=== PATIENT | female | born 1940 | race Caucasian/White ===

== ENCOUNTER 2023-03-10 07:48 | Outpatient (CLI) | payer MEDICARE, BC, SELFPAY | END 2023-03-10 07:49 | disposition home or self-care (01) | LOC: WOUND 07:52 | PROVIDERS: PCP Family Medicine; Visit Provider Nurse Practitioner Family | DX: I87.313 Chronic venous hypertension (idiopathic) with ulcer of bilateral lower extremity (principal); L97.212 Non-pressure chronic ulcer of right calf with fat layer exposed; L97.222 Non-pressure chronic ulcer of left calf with fat layer exposed; L97.828 Non-pressure chronic ulcer of other part of left lower leg with other specified severity; E11.628 Type 2 diabetes mellitus with other skin complications; I89.0 Lymphedema, not elsewhere classified | CPT/HCPCS: 97602; 99203 ==

== ENCOUNTER 2023-03-17 07:54 | Outpatient (CLI) | payer MEDICARE, BC, SELFPAY | END 2023-03-17 07:55 | disposition home or self-care (01) | LOC: WOUND 07:54 | PROVIDERS: PCP Family Medicine; Visit Provider Nurse Practitioner Family | DX: I87.313 Chronic venous hypertension (idiopathic) with ulcer of bilateral lower extremity (principal); L97.222 Non-pressure chronic ulcer of left calf with fat layer exposed; L97.212 Non-pressure chronic ulcer of right calf with fat layer exposed; E11.628 Type 2 diabetes mellitus with other skin complications; I89.0 Lymphedema, not elsewhere classified | CPT/HCPCS: 99213 ==

== ENCOUNTER 2023-03-19 13:36 | Outpatient (CLI) | payer MEDICARE, BC, SELFPAY ==
--- NOTE | 2023-03-19 14:00 | CRLHL7_ITS ---
For Patients: As a result of the Century Cures Act, medical imaging exams and procedure reports are released immediately into your electronic medical record. You may view this report before your referring provider. If you have questions, please contact your health care provider. INDICATION: NON COMPRESSIBLE ABIS TECHNIQUE: Bilateral lower extremity arterial duplex ultrasound with color Doppler and spectral waveform analysis. COMPARISON: None. FINDINGS: Multiple sonographic cuevas-scale images demonstrate atherosclerotic plaque in both lower extremities. Right leg: Systolic velocities are within normal limits. Color Doppler and spectral waveform analysis demonstrates biphasic waveforms are demonstrated throughout with the exception of monophasic flow in the peroneal and anterior tibial arteries. Left leg: Systolic velocities are within normal limits. Color Doppler and spectral waveform analysis demonstrates biphasic waveforms are demonstrated throughout. IMPRESSION: Bilateral atherosclerosis in the lower extremity arteries. No major occlusions or significant stenoses. Dictated by Manan Meza MD @ 03/20/2023 11:05:51 AM (Electronically Signed)
== END 2023-03-19 13:37 | disposition home or self-care (01) ==
LOC: US 13:38
PROVIDERS: PCP Family Medicine; Visit Provider Nurse Practitioner Family
DX: L97.212 Non-pressure chronic ulcer of right calf with fat layer exposed (principal); I70.209 Unspecified atherosclerosis of native arteries of extremities, unspecified extremity; I89.0 Lymphedema, not elsewhere classified; L97.221 Non-pressure chronic ulcer of left calf limited to breakdown of skin
CPT/HCPCS: 93926

== ENCOUNTER 2023-05-05 12:21 | Inpatient (IN) | payer MEDICARE, BC, SELFPAY ==
[2023-05-05] VITALS (15 sets, daily range): BP systolic 119–177; BP diastolic 59–97; PULSE 82–99; RESP 16–18; TEMP 36.6–37.2; O2SAT 91–99; BMI 27.3; BMI 27.8
[2023-05-05 12:58] LABS: Lactate* 1.7 mmol/L (0.5-1.9)
--- NOTE | 2023-05-05 12:58 | CRLHL7_ITS ---
For Patients: As a result of the Century Cures Act, medical imaging exams and procedure reports are released immediately into your electronic medical record. You may view this report before your referring provider. If you have questions, please contact your health care provider. INDICATION: Diffuse abdominal pain. COMPARISON: April 15, 2024 TECHNIQUE: CT examination of the abdomen and pelvis was performed without intravenous contrast. Thin section axial images were obtained from the lung bases through the pubic symphysis. Oral contrast was not administered. Please note that all CT scans at this facility use dose modulation, iterative reconstruction, and/or weight-based dosing when appropriate to reduce radiation dose to as low as reasonably achievable. FINDINGS: LUNG BASES: The lung bases as visualized appear normal.Enlarged heart. Small hiatal hernia. Atherosclerotic vascular calcifications. LIVER/BILIARY SYSTEM:The liver is normal in size and configuration given the lack of intravenous contrast. There is no visible focal mass and there is no intra- or extra hepatic biliary ductal dilatation.Absent gallbladder ADRENALS: Normal non-contrast appearance KIDNEYS, URETERS and BLADDER:The kidneys appear normal given lack of intravenous contrast. No visible mass, calculus or hydronephrosis. The ureters and bladder as visualized appear normal. SPLEEN:Normal non-contrast appearance. PANCREAS: Normal non-contrast appearance. RETROPERITONEUM and MESENTERY: There is no mass, adenopathy or aortic aneurysm. Atherosclerotic vascular calcification GASTROINTESTINAL SYSTEM: Diffusely fluid distended small bowel with air-fluid levels. The distal most small bowel is decompressed. Findings are consistent with a small-bowel obstruction. The point of transition appears to be in the right lower quadrant. Regarding the colon, scattered diverticulosis. PELVIS: Mild free fluid. No free air.. OSSEOUS STRUCTURES and ABDOMINAL WALL: There is an age-appropriate appearance of the osseous structures.No significant abdominal wall defect. OTHER: No free fluid or free air. IMPRESSION: 1. Abnormally dilated small bowel consistent with a distal small-bowel obstruction. The distal most small bowel is decompressed. The point of transition appears to be in the right lower quadrant. No directly visible mass or hernia in this area. 2. Other incidental nonacute appearing findings as above Please note that all CT scans at this facility use dose modulation, iterative reconstruction, and/or weight-based dosing when appropriate to reduce radiation dose to as low as reasonably achievable. Dictated by Ladarius Chan MD @ 05/05/2023 1:31:38 PM (Electronically Signed)
--- OUTSIDE RECORDS SUMMARY | 2023-05-05 12:58 | XMS_ITS | Clinical Summary ---
Author Name Unknown Organization [facility] Address [address] [place] [address] Phone Care Team Providers Care Rn Case Manager Name Role Phone Tim Chanel MD Primary Care Provider [phone] Allergies Active Allergy Reactions Criticality Noted Date Comments Amlodipine Swelling 09/26/2016 Conjugated Estrogens 09/01/2006 intolerance: sore breasts Gabapentin Other (see comments) 08/31/2021 Pt stopped because she did not like the way it made her feal. Medications Medication Sig Dispensed Refills Start Date End Date Status Cyanocobalamin 1000 MCG/ML kit Inject 1,000 mcg into the shoulder, thigh, or buttocks 0 08/07/2022 07/09/2023 Active ofloxacin (OCUFLOX) 0.3 % ophthalmic solution 4 (four) times a day 0 Active levothyroxine (SYNTHROID, LEVOTHROID) 75 MCG tablet Take 75 mcg by mouth 1 (one) time each day 0 08/06/2022 Active metoprolol succinate XL (TOPROL XL) 50 MG 24 hr tablet Take 50 mg by mouth in the morning and 50 mg in the evening. 0 08/06/2022 Active Vyzulta 0.024 % solution Administer 1 drop into affected eye(s) in the morning. 0 04/10/2021 Active warfarin (COUMADIN) 2.5 MG tablet Take 2.5 mg by mouth 0 04/28/2023 Active potassium chloride (K-TAB) 20 MEQ CR tablet Take 20 mEq by mouth 0 08/06/2022 Active prednisoLONE acetate (PRED FORTE) 1 % ophthalmic suspension Administer 1 drop into both eyes in the morning and 1 drop at noon and 1 drop in the evening and 1 drop before bedtime. 0 Active atorvastatin (LIPITOR) 10 MG tablet Take 10 mg by mouth in the morning. 0 08/06/2022 Active allopurinol (ZYLOPRIM) 100 MG tablet Take 100 mg by mouth in the morning. 0 08/06/2022 Active brimonidine (ALPHAGAN) 0.2 % ophthalmic solution Administer 1 drop into affected eye(s) in the morning and 1 drop in the evening. 0 07/20/2019 Active furosemide (LASIX) 20 MG tablet Take 20 mg by mouth 0 08/06/2022 Act georges dorzolamide-timolol (COSOPT) 2-0.5 % ophthalmic solution Administer 1 drop into affected eye(s) in the morning and 1 drop in the evening. 0 04/27/2017 Active VITAMIN D, CHOLECALCIFEROL, PO Take 2,000 Units by mouth 0 Active Active Problems Problem Noted Date Diagnosed Date Essential hypertension 06/11/2018 Stage 3b chronic kidney disease 03/01/2016 Overview: Baseline creatinine as of 12/[address] Rain Vitamin D deficiency 09/11/2010 Overview: She was on Vitamin D3 2000 International Units twice daily when her level came back high. She has been off Vitamin D since 04/2022. Her most recent Vitamin D was 78.4 on 06/2022. Will recheck a level next blood draw. Encounters Date Type Department Care Team Description 05/05/2023 Telephone [facility] [address] [phone] Candice Thompson RN 05/01/2023 Documentation Only [facility] [address] [place] [phone] Max Roach 04/20/2023 Telephone [facility] [address] [phone] Candice Thompson RN 04/20/2023 Office Communication [facility] [address] [place] [phone] Dm Rain MD Acute injury of kidney (HCC) (Primary Dx) from Last 3 Months Family History Medical History Relation Comments Cancer Brother 1 skin Cancer Father prostate at 80 Heart disease Mother of heart di sease at 88 Cancer Mother's Brother some kind of b lood cancer Diabetes Mother's Sister Stroke Sister 2x; of comp lications from stroke at 81 Relation Status Comments Brother 1 Alive Brother 2 Alive Father Mother Mother's Brother Mother's Sister Sister Social History Tobacco Use Types Packs/Day Years Used Date Smoking Tobacco: Never Smokeless Tobacco: Never Tobacco Cessation:Counseling Given: Not Answered Alcohol Use Standard Drinks/Week Comments Not Currently 0 (1 standard drink = 0.6 oz pur e alcohol) none for over 5 months Sex and Gender Information Value Date Recorded Sex Assigned at Not on file Gender Identity Not on file Sexual Orientation Not on file Plan of Treatment Upcoming Encounters Date Type Department Care Team Description 05/14/2023 1:30 PM EST Office Visit [facility] [address] [place] [phone] Dm Rain MD [address] [place] [phone] 05/27/2023 Orders Only [facility] [address] [place] [phone] Dm Rain MD [address] [place] [phone] Acute injury of kidney (HCC) Health Maintenance Due Date Last Done Comments Diabetes: Hemoglobin A1C 04/29/2023 Diabetes: Ophthalmology Exam 04/29/2023 Diabetes: Pedal Pulse Checked 04/29/2023 Diabetes: Sensory Foot Exam 04/29/2023 Diabetes: Visual Foot Exam 04/29/2023 Hepatitis B Vaccine Aged Out 01/30/1993, 08/29/1992, 07/30/1992 No longer eligible based on patient's age to complete this topic Pneumococcal Vaccine: 65+ Years Completed 10/09/2014, 09/11/2010, 01/11/1997 Influenza Vaccine Completed 01/05/2023, , 01/21/2021, Additional history exists Procedures Procedure Name Priority Date/Time Associated Diagnosis Comments BASIC METABOLIC PANEL (BMP) (EXTERNAL LAB ENTRY) Routine 04/27/2023 CBC Routine 04/27/2023 from Last 3 Months Results * (ABNORMAL) Basic Metabolic Panel (BMP) (04/27/2023) Sodium 143 mEq/L [facility] Potassium 3.7 mEq/L [facility] Chloride 105 [facility] Carbon Dioxide 22 mmol/L [facility] Calcium 10.1 mg/dL [facility] BUN 51(H) mg/dL [facility] Creatinine 4.53(H) mg/dL [facility] Glucose 120(H) mg/dL [facility] eGFR 9(L) [facility] Anion Gap 16 [facility] 04/27/2023 Historical Provider MD LAB BLOOD ORDERAB LES [facility] * (ABNORMAL) CBC (04/27/2023) WBC 7.4 K/uL [facility] Red Blood Cell Count 4.79 [facility] Hemoglobin 14.5 g/dL [facility] Hematocrit 42.7 % [facility] MCV 89 [facility] MCH 30.3 [facility] MCHC 34.0 [facility] RDW 15.7(H) [facility] Platelet Count 206 [facility] MPV 11.4(H) [facility] Blood (Blood, Venous) 04/27/2023 Historical Provider MD LAB BLOOD ORDERAB LES [facility] from Last 3 Months Care Teams Rn Case Manager Relationship Specialty Start Date End Date Tim Chanel MD [facility] [place] [address] PCP - General Family Medicine 04/20/23
--- OUTSIDE RECORDS SUMMARY | 2023-05-05 12:58 | XMS_ITS | Clinical Summary ---
Author Name Unknown Organization [email or web address] Address [place], [place] [address] Care Team Providers Care Liquid Floor And Wall Applier Name Role Phone Tay Pearson Heather Unavailable [phone] Tim Chanel MD Primary Care Provider [phone] Veena Mitchell MD Unavailable Allergies Active Allergy Reactions Criticality Noted Date Comments Amlodipine Edema 09/26/2016 Gabapentin Other - Describe In Comment Field 08/31/2021 Pt stopped because she did not like the way it made her feal. Conjugated Estrogens 09/01/2006 intolerance: sore breasts Medications Medication Sig Dispensed Refills Start Date End Date Status dorzolamide-timolol (COSOPT) 2-0.5 % ophthalmic solution Place 1 Drop into right eye 2 times daily. 0 04/27/2017 Active brimonidine (ALPHAGAN) 0.2 % ophthalmic solutionIndications: Eye problem Place 1 Drop into right eye 2 times daily. 5 mL 2 07/20/2019 Active Vyzulta 0.024 % drop Place 1 Drop into right eye at bedtime. 0 04/10/2021 Active allopurinoL (ZYLOPRIM) 100 mg tabletIndications:Id iopathic gout, unspecified chronicity, unspecified site Take 1 Tablet (100 mg) by mouth once daily. 90 Tablet 3 08/06/2022 Active atorvastatin (LIPITOR) 10 mg tabletIndications:Ot her hyperlipidemia Take 1 Tablet (10 mg) by mouth at bedtime. 90 Tablet 3 08/06/2022 Active furosemide (LASIX) 20 mg tabletIndications:Ch ronic heart failure with preserved ejection fraction (HC) Take two tablets per day until wt <175 lbs, then take 1 tablet daily; when you take 2 lasix, take 1 potassium pill 90 Tablet 3 08/06/2022 Active levothyroxine (SYNTHROID) 75 mcg tabletIndications:Ot her specified hypothyroidism Take 1 Tablet (75 mcg) by mouth before breakfast. 90 Tablet 3 08/06/2022 Active metoprolol succinate (TOPROL XL) 50 mg sustained-release tabletIndications:At rial fibrillation with RVR (HC),HTN (hypertension) Take 1 Tablet (50 mg) by mouth two times daily. Wait until they call for this. 180 Tablet 3 08/06/2022 Active potassium chloride (K-TAB) 20 mEq extended-release tabletIndications:Hy pokalemia Take 1 tablet each day that you take two 20mg tablets of lasix 90 Tablet 3 08/06/2022 Active blood sugar diagnostic (Ascensia CONTOUR) stripIndications:Sadia echevarriacolton mellitus with peripheral vascular disease (HC) Dispense test strips covered by the patient insurance. Test 1 times per day. 100 Each 4 08/06/2022 Active cholecalciferol, vitamin D3, (VITAMIN D3 ORAL) Take 2,000 units by mouth. 0 Active ofloxacin 0.3 % ophthalmic (OCUFLOX) 0.3 % ophthalmic solution four times daily. 0 Active prednisoLONE acetate 1% ophthalmic (ECONOPRED PLUS, PRED FORTE, OMNIPRED) suspension Place 1 Drop into both eyes four times daily. 0 Active warfarin (COUMADIN) 2.5 mg tabletIndications:Ne w onset atrial fibrillation (HC),Anticoagulation monitoring, INR range 2-3 Take by mouth 04/28: Hold; 04/29: Hold; 05/06: Hold; 05/07: Hold; 05/08: Hold; 05/09: Hold; 05/10: Hold; Otherwise 7.5 mg every Mon, Wed, Fri; 5 mg all other days in the evening OR as directed 0 04/28/2023 Active triamcinolone (ARISTOCORT; KENALOG) 0.1 % creamIndications:Art h Apply topically to affected area(s) two times daily. Apply topically to affected area twice daily 45 g 2 10/07/2022 4 Discontinue d(*Patient states no longer taking) warfarin (COUMADIN) 2.5 mg tabletIndications:Ne w onset atrial fibrillation (HC),Anticoagulation monitoring, INR range 2-3 Take by mouth 02/17: 7.5 mg; Otherwise 7.5 mg every Mon, Wed, Fri; 5 mg all other days in the evening OR as directed 0 02/17/2023 4 Discontinue d(Reorder (E-cancel not sent)) warfarin (COUMADIN) 2.5 mg tabletIndications:Ne w onset atrial fibrillation (HC),Anticoagulation monitoring, INR range 2-3 Take by mouth 7.5 mg (2.5 mg x 3) every Mon, Wed, Fri; 5 mg (2.5 mg x 2) all other days in the evening OR as directed 0 04/14/2023 4 Discontinue d(Reorder (E-cancel not sent)) Hospital, Clinic, or Other Facility Administered Medication Ordered Dose Route Frequency Start Date End Date Status cyanocobalamin (VITAMIN B12) 1,000 mcg/mL injection 1,000 mcgIndications:Vitam in B12 deficiency 1000 mcg IM Q 4 WEEKS (28 DAYS) 08/07/2022 07/09/2023 Active Active Problems Problem Noted Date Diagnosed Date End stage renal disease 02/06/2023 Recurrent gross hematuria 01/20/2023 Overview: She saw Dr. Richardson of Urology for this in 06/2021 and the work up was negative. He recommended the work up be repeated in 5 years if she is having ongoing gross hematuria. Tim Chanel MD signed electronically .................... 01/20/2023 Diabetes mellitus with peripheral vascular disea se 08/06/2022 Vitamin D deficiency 08/06/2022 Overview: She was on Vitamin D3 2000 International Units twice daily when her level came back high. She has been off Vitamin D since 04/2022. Her most recent Vitamin D was 78.4 on 06/2022. Will recheck a level next blood draw. Secondary renal hyperparathyroidism 04/17/2022 Malignant melanoma of lower extremity, including hip 10/08/2021 Overview: 10/08/21: Left lower leg; Malignant melanoma - needs excision ( scheduled 10/31/21) Vitamin B12 deficiency 09/19/2021 Overview: She was started on B12 shots for this in 09/2021. 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 Adenomatous polyp of colon 09/16/2021 Overview: Last colonoscopy was 09/17/2020 and 3 polyps were removed. She is due for her next Colonoscopy on or after 09/18/2025. Encounter for palliative care 09/02/2021 Acute renal failure superimp osed on stage 4 chronic kidney disease 08/31/2021 Hyperkalemia 08/31/2021 Acute on chronic systolic heart failure 07/31/19 (HFpEF) heart failure with preserved ejection fr action 07/26/2021 Overview: She has combined systolic and diastolic CHF. She was discharged on goal directed therapy for HF on 08/01/21 as follows: lasix 20 mg daily, spironolactone 50 mg daily, lisinopril 10 mg daily, Toprol XL 50 mg BID. 07/28/21 echocardiogram shows ejection fraction 40-45% with concentric left ventricular hypertrophy Prediabetes 04/30/2021 Anticoagulation monitoring, INR range 2-3 2020 New onset atrial fibrillation 08/01/2020 Essential hypertension 06/11/2018 Other specified hypothyroidism 05/28/2018 Other hyperlipidemia 05/28/2018 Bilateral lower extremity edema 12/29/2016 Overview: Baseline weight as of 12/2022 is 173 pounds. Stage 3b chronic kidney disease 03/01/2016 Overview: Baseline creatinine as of 12/[address] Rain Adenomatous colon polyp 09/12/2015 Overview: Colonoscopy 09/2015 polyp repeat in 5 years Colonoscopy 09/2020 three polyps, repeat in 5 years Idiopathic gout 08/15/2015 Hypothyroidism 05/16/2015 Morbid obesity due to excess calories 05/16/2015 Atrial fibrillation with RVR 03/02/2015 Demand ischemia 03/02/2015 Carpal tunnel syndrome of right wrist 10/09/2014 Osteopenia 10/09/2012 Overview: Noted on recent bone mineral density; suggest Calcium+ 2000 mg/day and vitamin D 2000 units/day and regular exercise at least 3 times per week. Needs follow up bone mineral density in 2 years. Ace Tran MD 10/09/2012 2:05 PM Dupuytren's contracture of both hands 10/04/2012 Varicose vein of leg 09/29/2011 CTS (carpal tunnel syndrome) 01/13/2011 Overview: See notes 01/13/2011 Per patient: seen on EMG at [facility] (no records here); improved per patient 05/19/2011 ACP (advance care planning) 11/18/2010 Overview: Discussed 11/18/2010 Again 01/05/2012 Vitamin D deficiency 09/11/2010 Mixed hyperlipidemia 07/23/2010 Numbness of finger 11/27/2008 Overview: left #5 Rosacea 01/05/2007 Restless legs syndrome (RLS) 01/05/2007 Resolved Problems Problem Noted Date Diagnosed Date Resolved Date Anasarca 07/26/2021 11/20/2021 HTN (hypertension) 05/16/2015 9 Encounters Date Type Department Care Team Description 05/04/2023 Telephone [facility] [address] [place] [address] Dm Rain MD 04/30/2023 8:53 AM DIGITAL MEDIA BUYER - 04/30/2023 11:59 PM DIGITAL MEDIA BUYER Hospital Encounter [facility] [address] [place] [address] Dm Rain MD JEFFY (acute kidney injury) (HC); Gross hematuria 04/30/2023 Anticoagulation (warfarin) [facility] [address] [place] [address] 1, [facility] Anticoagulation (Chart update) 04/30/2023 Telephone [facility] [address] [place] [address] Tim Chanel MD Anticoagulation (Questions) 04/30/2023 Travel 04/28/2023 Anticoagulation (warfarin) [facility] [address] [place] [address] 1, [facility] Anticoagulation 04/27/2023 3:30 PM DIGITAL MEDIA BUYER Orders Only [facility] [address] [place] [address] Lab, [facility] 04/27/2023 Travel 04/23/2023 Travel 04/22/2023 2:25 PM DIGITAL MEDIA BUYER Preop Visit [facility] [place] [address] [address] Tim Chanel MD Preoperative Exam (Right eye 05/11/23//Kidney biopsy 04/30/23) 04/22/2023 Travel 04/20/2023 Telephone [facility] [address] [place] [address] Dm Rain MD Abnormal Lab Results 04/19/2023 Travel 04/15/2023 10:30 AM DIGITAL MEDIA BUYER Ancillary Procedure [facility] [place] [address] [address] 04/14/2023 11:50 AM DIGITAL MEDIA BUYER Orders Only [facility] [address] [facility] [place] [address] Lab, [facility] 04/14/2023 Anticoagulation (warfarin) [facility] [address] [place] [address] [address] 1, [facility] Anticoagulation 04/14/2023 Travel 04/12/2023 Travel 04/09/2023 Telephone [facility] [address] [place] [address] Dm Rain MD 03/26/2023 10:00 AM DIGITAL MEDIA BUYER Orders Only [facility] [place] [address] [address] Lab, [facility] 03/26/2023 Telephone [facility] [address] [place] [address] Tim Chanel MD Lab 03/26/2023 Travel 03/24/2023 Nurse Triage [facility] [address] [facility] [address] Tim Chanel MD Blood In Urine 03/22/2023 Travel 03/19/2023 Orders Only [facility] Scanner 1 scan: (1-Ord) [facility], ARTERIAL DUPLEX LE BI, 03/19/2023 03/10/2023 10:30 AM DIGITAL MEDIA BUYER Orders Only [facility] [address] [place] [address] Lab, [place] 03/10/2023 Anticoagulation (warfarin) [facility] [address] [facility] [place] [address] 1, [facility] Anticoagulation 03/10/2023 Travel 03/09/2023 Nurse Triage [facility] [address] [place] [address] Tim Chanel MD Urinary Problem (/) 03/08/2023 Travel 02/17/2023 11:00 AM DIGITAL MEDIA BUYER Orders Only [facility] [address] [place] [address] Lab, [facility] 02/17/2023 10:30 AM DIGITAL MEDIA BUYER Office Visit [facility] [address] [facility] [place] [address] Manan Agarwal MD Follow Up (ECHO done 02/11) 02/17/2023 Anticoagulation (warfarin) [facility] [address] [facility] [place] [address] 1, [facility] Anticoagulation 02/16/2023 Travel 02/11/2023 11:20 AM CDT Orders Only [facility] [address] [facility] [address] Lab, [place] 02/11/2023 10:00 AM CDT Ancillary Procedure [facility] [address] [place] [address] 02/11/2023 Anticoagulation (warfarin) [facility] [address] [place] [address] [address] 1, [facility] Anticoagulation 02/11/2023 Travel 02/09/2023 Travel 02/06/2023 1:00 PM CDT Ancillary Procedure [facility] [address] [place] [address] 02/06/2023 10:25 AM CDT Office Visit [facility] [address] [place] [address] [address] Tim Chanel MD Follow Up (6 month follow up - go over lab results); Immunization/Injectio n; Derm Problem (Check left lower leg for possible infection) 02/06/2023 Telephone [facility] [place] [address] [address] Tim Chanel MD Anticoagulation (BPA Cephalexin and Warfarin) 02/06/2023 Travel 02/04/2023 Travel from Last 3 Months Immunizations Name Administration Dates Next Due AMB INFLUENZA IIV3 (AGE 65+ YRS) PF (Flu Clinic Only) 01/14/2019,01/14/2018,01/14/2017 AMB Influenza, IIV3 (Age >=3 years)(Flu Clinic Only) 02/06/2010,01/17/2009,02/24/2008 Amb Influenza, Inact (High-d ose) (Flu Clinic Only) 01/28/2016 Amb Influenza, Inactivated A IIV4 (Age 65+ Years) Preserv Free 12/29/2019 COVID-19 Vaccine Spikevax (M oderna 50mcg/0.5mL) 12YO+ [id number] Formula PF 02/06/2023 COVID-19 vaccine (Pfizer-Bio NTech 30mcg/0.3mL) 12YO+ BIVALENT PF, MDV 01/15/2022 COVID-19 vaccine (Pfizer-Bio NTech 30mcg/0.3mL) 12YO+ SHANNON-SUCROSE PF, MDV 09/16/2021 COVID-19 vaccine (Pfizer-Bio NTech 30mcg/0.3mL) PF, MDV 02/06/2021,06/16/2020,05/26/2020 Hepatitis A (Adult) 08/05/2006,08/06/2005,2004 Hepatitis B (Adult) 01/30/1993,08/29/1992,1992 Influenza A (H1N1), Inactivated 04/25/2009 Influenza A (H1N1), Inactiva brianna (Age >=3 Years) 04/25/2009 Influenza, High-dose Inactivated 01/28/2016,01/11,01/23/2014 Influenza, IIV3 (Age 6-35 mos) 01/14/2011 Influenza, IIV3 (Age >=3 years) 01/26/20 13,01/05/2012,01/14/2011,2009,01/17/2009,02/24/2008,02/11/2007,04/13/2005,01/30/2005,01/30/2004, 002 Influenza, Inactivated AIIV4 (Age 65+ Years) Preserv Free 01/05/2023,01/15/2022,01/21/2021 Pneumococcal Poly,23-Valent (Pneumovax) 09/11/2010,01/11/1997 Pneumococcal conj 13-Valent (Prevnar 13) 10/09/2014 Td (Age >=7 Years) 09/21/2003 Tdap 12/09/2022,05/19/2011 Typhoid (injectable) 09/25/2005 Yellow Fever 02/25/2008 Zoster (Shingrix-RZV, recombinant) 08/31/2018, Zoster (Zostavax-ZVL, live) 08/05/2006 Family History Medical History Relation Name Comments Cancer Brother 2 Og Skin Ca: Nose not serious Cancer-prostate Father Og of pros waterman cancer at 80 Diabetes Maternal Aunt Heavy Drinker Blood Disease Maternal Uncle Flynn some kind o f Cancer of the blood Heart Disease Mother Rivka of heart disease at 88 Other Other 2 No FHx heart di sease Stroke Sister Estefanía stroke times 2; at complications of stroke at 81. Anesthesia Problem No Family History Cancer-breast No Family History Cancer-ovarian No Family History Relation Name Status Comments Brother 1 Manan Alive Brother 2 Og Alive Father Og (Age 80) Prostate C a Maternal Aunt Maternal Uncle Flynn Mother Rivka (Age 88) Other 1 Parminder (Age 16) Cousin: [place] calderón: of Aplastic Anemia Other 2 Sister Estefanía (Age 81) L[place] Social History Tobacco Use Types Packs/Day Years Used Date Smoking Tobacco: Never Passive Smoke Exposure: Never Smokeless Tobacco: Never Tobacco Cessation:Counseling Given: Yes Alcohol Use Standard Drinks/Week Comments Not Currently 0 (1 standard drink = 0.6 oz pur e alcohol) none for over 5 months PHQ-2 Answer Date Recorded PHQ-2 TOTAL SCORE 0 08/06/2022 Social Connections Answer Date Recorded Frequency of Communication with Friends and Fami ly 0 01/22/2023 Alcohol Use Answer Date Recorded How often do you have a drink containing alcohol ? 4 06/12/2021 How many drinks containing a lcohol do you have on a typical day when you are drinking? 0 06/12/2021 How often do you have five or more drinks on one occasion? 0 06/12/2021 Financial Resource Strain Answer Date R ecorded Difficulty of Paying Living Expenses 3 01/22/2023 Difficulty of Paying Living Expenses Not on file 01/22/2023 Food Insecurity Answer Date Recorded Worried About Running Out of Food in the Last Ye ar 1 01/22/2023 Transportation Needs Answer Date Record ed Lack of Transportation (Medical) 1 01/22/2023 Housing Stability Answer Date Recorded Unable to Pay for Housing in the Last Year 1 01/22/2023 Sex and Gender Information Value Date Recorded Sex Assigned at Not on file Gender Identity Not on file Sexual Orientation Not on file Obstetrics History Para Term AB IAB SAB Ectopic Multiple Livin g Live Births 6 5 5 Date Outcome GA Total Labor Labor/2nd/3rd Weight Sex Delivery Anes PTL Margarita A1 A5 Name Cl in Para Para Para Para Comments:HMD w/i 7 hrs Para Last Filed Vital Signs Vital Sign Reading Time Taken Comments Blood Pressure 135/77 04/30/2023 2:00 PM DIGITAL MEDIA BUYER Pulse 69 04/30/2023 2:00 PM DIGITAL MEDIA BUYER Temperature 36.3 ??C (97.4 ??F) 04/30/2023 9:20 AM CS T Respiratory Rate 14 04/30/2023 2:00 PM DIGITAL MEDIA BUYER Oxygen Saturation 95% 04/30/2023 2:00 PM DIGITAL MEDIA BUYER Inhaled Oxygen Concentration - - Weight 76.7 kg (169 lb) 04/30/2023 9:20 AM DIGITAL MEDIA BUYER Height 165.1 cm (5' 5) 04/30/2023 9:20 AM DIGITAL MEDIA BUYER Body Mass Index 28.12 04/30/2023 9:20 AM DIGITAL MEDIA BUYER Plan of Treatment Upcoming Encounters Date Type Department Care Team (Late st Contact Info) Description 05/12/2023 10:00 AM DIGITAL MEDIA BUYER Office Visit [facility] [address] [place] [address] Veena Mitchell MD [address] [facility] [address] [place] [address] 05/13/2023 10:15 AM DIGITAL MEDIA BUYER Orders Only [facility] [address] [place] [address] [place] 05/18/2023 11:30 AM DIGITAL MEDIA BUYER Orders Only [facility] [address] [place] [address] Lab, [place] 06/26/2023 2:20 PM CDT Office Visit [facility] [address] [place] [address] Tim Chanel MD [address] [place] [address] Health Maintenance Due Date Last Done Comments Medicare Wellness for age 65+ 08/06/2023, 08/07/2021, 08/06/2020, Additional history exists Depression screening for age 12+ 08/07/2023 08/06/2022, 08/06/2022, 08/06/2022, Additional history exists BMI (ht and wt on same day) for age 18+ 01/24/2024 01/23/2023, 12/25/2022, 08/06/2022, Additional history exists Tetanus booster 12/09/2032 12/09/2022, 02/0 09/2011, 09/21/2003 DEXA/DXA scan for age 65+ Completed 2012, 08/31/2007, 08/31/2007 (Completed [facility]) Pneumococcal series for age 65+ Completed 10/09/2014, 09/11/2010, 01/11/1997 Zoster (shingles) series for age 50+ Completed 08/31/2018, 05/29/2018, 08/05/2006 Tdap Completed 12/09/2022, 05/19/2011 Influenza for age 65+ Completed 01/05/2023 , 01/15/2022, 01/21/2021, Additional history exists COVID-19 vaccine series Completed 02/07/20 23, 01/15/2022, 09/16/2021, Additional history exists Procedures Procedure Name Priority Date/Time Associated Diagnosis Comments US BIOPSY RENAL LEFT Routine 04/30/2023 11:15 AM DIGITAL MEDIA BUYER JEFFY (acute kidney injury) (HC) Gross hematuria PATH TISSUE EXAM Today 04/30/2023 11:0 0 AM DIGITAL MEDIA BUYER PROTIME-INR STAT 04/30/2023 9:02 AM DIGITAL MEDIA BUYER CBC W PLT NO DIFF Routine 04/27/2023 3:3 3 PM DIGITAL MEDIA BUYER Stage 3b chronic kidney disease (HC) JEFFY (acute kidney injury) (HC) BASIC METABOLIC PANEL Routine 04/27/2023 3:33 PM DIGITAL MEDIA BUYER Stage 3b chronic kidney disease (HC) JEFFY (acute kidney injury) (HC) PROTIME-INR STAT 04/27/2023 3:33 PM DIGITAL MEDIA BUYER New onset atrial fibrillation (HC) Anticoagulation monitoring, INR range 2-3 CT ABDOMEN PELVIS STONE PROTOCOL WO Routine 04/15/2023 10:45 AM DIGITAL MEDIA BUYER CKD (chronic kidney disease) stage 4, GFR 15-29 ml/min (HC) Gross hematuria CBC WITH AUTO DIFFERENTIAL Routine 04/14/2023 11:51 AM DIGITAL MEDIA BUYER CKD (chronic kidney disease) stage 4, GFR 15-29 ml/min (HC) Gross hematuria [facility] HOLD 64 Routine 04/14/2023 11:51 AM DIGITAL MEDIA BUYER CKD (chronic kidney disease) stage 4, GFR 15-29 ml/min (HC) Gross hematuria ANCA PANEL FOR VASCULITIS Routine 04/14/2023 11:51 AM DIGITAL MEDIA BUYER CKD (chronic kidney disease) stage 4, GFR 15-29 ml/min (HC) Gross hematuria ANTINUCLEAR ANTIBODY BY IFA Routine 04/14/2023 11:51 AM DIGITAL MEDIA BUYER CKD (chronic kidney disease) stage 4, GFR 15-29 ml/min (HC) Gross hematuria C4 COMPLEMENT Routine 04/14/2023 11:51 AM DIGITAL MEDIA BUYER CKD (chronic kidney disease) stage 4, GFR 15-29 ml/min (HC) Gross hematuria C3 COMPLEMENT Routine 04/14/2023 11:51 AM DIGITAL MEDIA BUYER CKD (chronic kidney disease) stage 4, GFR 15-29 ml/min (HC) Gross hematuria HEPATIC FUNCTION PANEL Routine 04/14/2023 11:51 AM DIGITAL MEDIA BUYER CKD (chronic kidney disease) stage 4, GFR 15-29 ml/min (HC) Gross hematuria CBC WITH AUTO DIFFERENTIAL Routine 04/14/2023 11:51 AM DIGITAL MEDIA BUYER CKD (chronic kidney disease) stage 4, GFR 15-29 ml/min (HC) Gross hematuria RENAL FUNCTION PANEL Routine 04/14/2023 11:51 AM DIGITAL MEDIA BUYER CKD (chronic kidney disease) stage 4, GFR 15-29 ml/min (HC) Gross hematuria PROTIME-INR STAT 04/14/2023 11:51 AM DIGITAL MEDIA BUYER New onset atrial fibrillation (HC) Anticoagulation monitoring, INR range 2-3 URINALYSIS MICROSCOPIC Routine 03/26/2023 10:15 AM DIGITAL MEDIA BUYER Recurrent gross hematuria URINE CULTURE Routine 03/26/2023 10:15 AM DIGITAL MEDIA BUYER Recurrent gross hematuria UA W/ SEDIMENT EXAM REFLEXED PER CRITERIA Routine 03/26/2023 10:15 AM DIGITAL MEDIA BUYER Recurrent gross hematuria VITAMIN B12 Add On 03/26/2023 10:12 AM DIGITAL MEDIA BUYER Vitamin B12 deficiency BASIC METABOLIC PANEL Routine 03/26/2023 10:12 AM DIGITAL MEDIA BUYER Stage 3b chronic kidney disease (HC) SCAN-ULTRASOUND REPORT 03/19/2023 12:00 AM DIGITAL MEDIA BUYER URINALYSIS MICROSCOPIC Routine 03/10/2023 11:02 AM DIGITAL MEDIA BUYER Gross hematuria URINE CULTURE Routine 03/10/2023 11:02 AM DIGITAL MEDIA BUYER Gross hematuria UA W/ SEDIMENT EXAM REFLEXED PER CRITERIA Routine 03/10/2023 11:02 AM DIGITAL MEDIA BUYER Gross hematuria INR,POCT Routine 03/10/2023 11:00 AM DIGITAL MEDIA BUYER New onset atrial fibrillation (HC) Anticoagulation monitoring, INR range 2-3 VITAMIN B12 Routine 02/17/2023 11:07 AM DIGITAL MEDIA BUYER Vitamin B12 deficiency BASIC METABOLIC PANEL Routine 02/17/2023 11:07 AM DIGITAL MEDIA BUYER Peripheral edema PROTIME-INR STAT 02/17/2023 11:07 AM DIGITAL MEDIA BUYER New onset atrial fibrillation (HC) Anticoagulation monitoring, INR range 2-3 INR,POCT Routine 02/11/2023 10:39 AM CDT New onset atrial fibrillation (HC) Anticoagulation monitoring, INR range 2-3 ECHO TTE COMPLETE WO CONTRAST Routine 02/11/2023 10:32 AM CDT Persistent atrial fibrillation (HC) US VENOUS LOWER EXTREMITY LEFT Routine 02/06/2023 12:22 PM CDT Tenderness of left calf from Last 3 Months Results * US BIOPSY RENAL LEFT (04/30/2023 11:15 AM DIGITAL MEDIA BUYER) Anatomical Region Laterality Modality KIDNEY L Ultrasound, Othe r, Other, Other 04/30/2023 11:3 1 AM DIGITAL MEDIA BUYER Narrative 04/30/2023 11:31 AM DIGITAL MEDIA BUYER For Patients: ??As a result of the Century Cures Act, medical imaging exams and procedure reports are released immediately into your electronic medical record. ??You may view this report before your referring provider. ??If you have questions, please contact your health care provider. INDICATION: Acute kidney injury. Gross hematuria. Random core biopsy of the left kidney requested. TECHNIQUE : Ultrasound biopsy renal left. COMPARISON: CT of the abdomen and pelvis 04/15/2023. FINDINGS/DESCRIPTION OF PROCEDURE : In my discussion, prior to the signing of the consent, I reviewed the procedure, benefits, risks, long-term effects, treatment options, possible use of pain or sedation medications, and how the procedure will meet the treatment goal with the patient. The patient was given ample time to ask questions. All questions were answered. ??MEDICATION GIVEN: VERSED 0.5 mg IV and FENTANYL 50 mcg IV. Lidocaine for local anesthesia. ?? MODERATE SEDATION: ??Under physician supervision, midazolam and fentanyl were administered intravenously for moderate sedation. Pulse oximetry, heart rate, and blood pressure were continuously monitored by a trained, dedicated nurse. The physician who performed the procedure provided 25 minutes of intra-service time with the patient. With the patient in prone position, ultrasound evaluation was performed. Posterior approach to the left kidney was chosen. The site was marked, and then prepped and draped in sterile fashion. [place] protocol was followed. TIME-OUT conducted just prior to starting procedure confirmed patient identity, site/side, procedure, patient position, and availability of correct equipment. ??Pause for cause was performed. 10 cc 1 percent lidocaine was used for superficial and deeper anesthesia. Under ultrasound guidance, a 17-gauge guide needle was advanced to the kidney. Through this, an 18-gauge core biopsy was advanced and 3 core samples were obtained. Manual compression was maintained on the site for 5 minutes postprocedure. No immediate complications. The patient will recover in the supine position and will be observed for at least 4 hours postprocedure prior to potential discharge. EBL less than 10 cc. IMPRESSION/POSTPROCEDURE DIAGNOSIS : 1. Status post random core biopsy of the left kidney x3 with 17/18 gauge coaxial core biopsy system. 2. No immediate complications. 3. Moderate sedation planned and used. Dictated by Dada Dietrich MD @ 04/30/2023 11:31:08 AM (Electronically Signed) Procedure Note Dada Dietrich MD - 04/30/2023 For Patients: As a result of the 21st Century Cures Act, medical imagingexams and procedure reports are released immediately into your electronicmedical record. You may view this report before your referring provider.If you have questions, please contact your health care provider. INDICATION: Acute kidney injury. Gross hematuria. Random core biopsy of the leftkidney requested. TECHNIQUE : Ultrasound biopsy renal left. COMPARISON: CT of the abdomen and pelvis 04/15/2023. FINDINGS/DESCRIPTION OF PROCEDURE : In my discussion, prior to the signing of the consent, I reviewed theprocedure, benefits, risks, long-term effects, treatment options, possibleuse of pain or sedation medications, and how the procedure will meet thetreatment goal with the patient. The patient was given ample time to askquestions. All questions were answered. MEDICATION GIVEN: VERSED 0.5 mgIV and FENTANYL 50 mcg IV. Lidocaine for local anesthesia. MODERATE SEDATION: Under physician supervision, midazolam and fentanylwere administered intravenously for moderate sedation. Pulse oximetry,heart rate, and blood pressure were continuously monitored by a trained,dedicated nurse. The physician who performed the procedure provided 25minutes of intra-service time with the patient. With the patient in prone position, ultrasound evaluation was performed.Posterior approach to the left kidney was chosen. The site was marked, andthen prepped and draped in sterile fashion. [place] protocol was followed. TIME-OUT conducted just prior to startingprocedure confirmed patient identity, site/side, procedure, patientposition, and availability of correct equipment. Pause for cause wasperformed. 10 cc 1 percent lidocaine was used for superficial and deeper anesthesia.Under ultrasound guidance, a 17-gauge guide needle was advanced to thekidney. Through this, an 18-gauge core biopsy was advanced and 3 coresamples were obtained. Manual compression was maintained on the site for 5minutes postprocedure. No immediate complications. The patient willrecover in the supine position and will be observed for at least 4 hourspostprocedure prior to potential discharge. EBL less than 10 cc. IMPRESSION/POSTPROCEDURE DIAGNOSIS : 1. Status post random core biopsy of the left kidney x3 with 17/18 gaugecoaxial core biopsy system. 2. No immediate complications. 3. Moderate sedation planned and used. Dictated by Dada Dietrich MD @ 04/30/2023 11:31:08 AM (Electronically Signed) Dm Rain MD [place] * Protime-INR (04/30/2023 9:02 AM DIGITAL MEDIA BUYER) Only the most recent of4 resultswithin the time period is included. INR 1.0 <1.3 04/30/2023 9:39 AM [facility] PROTIME 11.7 10.3 - 12.3 sec 04/30/2023 9:39 AM DIGITAL MEDIA BUYER [facility] Blood BLOOD SPECIMEN / Unknown Venipuncture / Unknown 04/30/2023 9:02 AM DIGITAL MEDIA BUYER 04/30/2023 9:27 AM DIGITAL MEDIA BUYER Narrative [facility] - 04/30/2023 9:39 AM DIGITAL MEDIA BUYER ?Therapeutic Range 2.0-3.0 for most anticoagulated patients 2.5-3.5 or 4.0 for high risk patients The INR is only used for patients on stable oral anticoagulant therapy. It makes no significant contribution to the diagnosis or treatment of patients whose Protime is prolonged for other reasons. INR results are increased when heparin levels exceed 1.0 U/mL, which corresponds to an aPTT >125 seconds if the patient is on UFH. Dada Dietrich MD HEMATOLOGY [facility] [address] [address], * (ABNORMAL) CBC (04/27/2023 3:33 PM DIGITAL MEDIA BUYER) WHITE BLOOD COUNT 7.4 4.5 - 11.0 thou/cu mm 04/27/2023 3:42 PM DIGITAL MEDIA BUYER [facility] RED BLOOD COUNT 4.79 4.00 - 5.20 mil/cu mm 04/27/2023 3:42 PM DIGITAL MEDIA BUYER [facility] HEMOGLOBIN 14.5 12.0 - 16.0 g/dL 04/27/2023 3:42 PM DIGITAL MEDIA BUYER [facility] HEMATOCRIT 42.7 33.0 - 51.0 % 04/27/2023 3:42 PM DIGITAL MEDIA BUYER [facility] MCV 89 80 - 100 fL 04/27/2023 3:42 PM DIGITAL MEDIA BUYER [facility] MCH 30.3 26.0 - 34.0 pg 04/27/2023 3:42 PM DIGITAL MEDIA BUYER [facility] MCHC 34.0 32.0 - 36.0 g/dL 04/27/2023 3:42 PM [facility] RDW 15.7(H) 11.5 - 15.5 % 04/27/2023 3:42 PM DIGITAL MEDIA BUYER [facility] PLATELET COUNT 209 140 - 440 thou/cu mm 04/27/2023 3:42 PM [facility] MPV 11.4(H) 6.5 - 11.0 fL 04/27/2023 3:42 PM [facility] Blood BLOOD SPECIMEN / Unknown Venipuncture / Unknown 04/27/2023 3:33 PM DIGITAL MEDIA BUYER 04/27/2023 3:38 PM DIGITAL MEDIA BUYER Narrative [facility] - 04/27/2023 3:42 PM DIGITAL MEDIA BUYER This procedure was originally ordered at [facility]. Dm Rain MD HEMATOLOGY [facility] [address] [place] [address], * (ABNORMAL) BASIC METABOLIC PANEL (04/27/2023 3:33 PM DIGITAL MEDIA BUYER) Only the most recent of3 resultswithin the time period is included. SODIUM 143 136 - 145 mmol/L 04/28/2023 2:17 PM [facility] POTASSIUM 3.7 3.5 - 5.1 mmol/L 04/28/2023 2:17 PM [facility] CHLORIDE 105 98 - 107 mmol/L 04/28/2023 2:17 PM [facility] CO2,TOTAL 22 22 - 29 mmol/L 04/28/2023 2:17 PM [facility] ANION GAP 16 5 - 18 04/28/2023 2:17 PM DIGITAL MEDIA BUYER [facility] GLUCOSE 120(H) 70 - 99 mg/dL 04/28/2023 2:17 PM [facility] CALCIUM 10.1 8.8 - 10.2 mg/dL 04/28/2023 2:17 PM [facility] BUN 51(H) 8 - 23 mg/dL 04/28/2023 2:17 PM [facility] CREATININE 4.53(H) 0.50 - 0.90 mg/dL 04/28/2023 2:17 PM [facility] BUN/CREAT RATIO 11 10 - 20 2:17 PM [facility] eGFR 9(L) >90 mL/min/1.7 3m2 04/28/2023 2:17 PM [facility] Comment:As of 2021, eG FR is calculated by the CKD-EPI creatinine equation without race adjustment. ??eGFR can be influenced by muscle mass, exercise, and diet. ??The reported eGFR is an estimation only and is only applicable if the renal function is stable. Blood BLOOD SPECIMEN / Unknown Venipuncture / Unknown 04/27/2023 3:33 PM DIGITAL MEDIA BUYER 04/27/2023 3:38 PM DIGITAL MEDIA BUYER Dm Rain MD CHEMISTRY [facility] [address] [place] [address], * CT ABDOMEN PELVIS STONE PROTOCOL WO (04/15/2023 10:45 AM DIGITAL MEDIA BUYER) Anatomical Region Laterality Modality Abdomen, Pelvis, AORTA, LIVER, SPLEEN Computed Tomography 04/16/2023 10:2 9 AM DIGITAL MEDIA BUYER Narrative 04/16/2023 10:29 AM DIGITAL MEDIA BUYER For Patients: ??As a result of the Century Cures Act, medical imaging exams and procedure reports are released immediately into your electronic medical record. ??You may view this report before your referring provider. ??If you have questions, please contact your health care provider. Indication: Hematuria Technique: Noncontrast CT abdomen and pelvis Please note that all CT scans at this facility use dose modulation, iterative reconstruction, and/or weight-based dosing when appropriate to reduce radiation dose to as low as reasonably achievable. Comparison: 02/19/2021 Findings: Lung bases are clear. Incidental Bochdalek`s hernia on the left. No free intraperitoneal air. Cardiomegaly. Mild fatty liver. Gallbladder absent. Spleen is normal. Unremarkable pancreas. No adrenal nodule. Punctate calcifications lower pole right kidney. No hydronephrosis. Atherosclerotic changes. No pelvic mass. Diverticulosis. No diverticulitis. No bowel obstruction. No adenopathy. Chronic osteitis pubis. No fracture. Degenerative changes lumbar spine. Diastasis recti measuring 3 cm. Impression: Punctate nonobstructing calculi lower pole right kidney. No ureteral or bladder stone. Bladder incompletely distended with mild prominence of the bladder wall, possibly secondary to the low bladder volume. Please note that all CT scans at this facility use dose modulation, iterative reconstruction, and/or weight-based dosing when appropriate to reduce radiation dose to as low as reasonably achievable. Dictated by Manan Meza MD @ Jose ??4 2023 10:29AM (Electronically Signed) ?? Procedure Note Manan Meza MD - 04/16/2023 For Patients: As a result of the Century Cures Act, medical imagingexams and procedure reports are released immediately into your electronicmedical record. You may view this report before your referring provider.If you have questions, please contact your health care provider. Indication: Hematuria Technique: Noncontrast CT abdomen and pelvis Please note that all CT scans at this facility use dose modulation,iterative reconstruction, and/or weight-based dosing when appropriate toreduce radiation dose to as low as reasonably achievable. Comparison: 02/19/2021 Findings: Lung bases are clear. Incidental Bochdalek`s hernia on the left. No freeintraperitoneal air. Cardiomegaly. Mild fatty liver. Gallbladder absent.Spleen is normal. Unremarkable pancreas. No adrenal nodule. Punctatecalcifications lower pole right kidney. No hydronephrosis. Atheroscleroticchanges. No pelvic mass. Diverticulosis. No diverticulitis. No bowelobstruction. No adenopathy. Chronic osteitis pubis. No fracture.Degenerative changes lumbar spine. Diastasis recti measuring 3 cm. Impression: Punctate nonobstructing calculi lower pole right kidney. No ureteral orbladder stone. Bladder incompletely distended with mild prominence of thebladder wall, possibly secondary to the low bladder volume. Please note that all CT scans at this facility use dose modulation,iterative reconstruction, and/or weight-based dosing when appropriate toreduce radiation dose to as low as reasonably achievable. Dictated by Manan Meza MD @ Apr 16 2023 10:29AM (Electronically Signed) Dm Rain MD CT * (ABNORMAL) ANTINUCLEAR ANTIBODY BY IFA (04/14/2023 11:51 AM DIGITAL MEDIA BUYER) Pathologist [facility] ANTINUCLEAR ANTIBODY (MAYUR) Positive( A) Negative 04/15/2023 1:12 PM DIGITAL MEDIA BUYER [facility] MAYUR PATTERN 1 Homogenou s(A) (none) 04/15/2023 1:12 PM DIGITAL MEDIA BUYER [facility] MAYUR TITER 1 1:320(A) (none) 04/15/2023 1:12 PM DIGITAL MEDIA BUYER [facility] Blood BLOOD SPECIMEN / Unknown Venipuncture / Unknown 04/14/2023 11:51 AM DIGITAL MEDIA BUYER 04/14/2023 11:51 AM DIGITAL MEDIA BUYER Narrative [facility] - 04/15/2023 1:12 PM DIGITAL MEDIA BUYER Method: MAYUR screen performed by (IFA) on HEP-2 substrate, IgG Dm Rain MD [facility] [address] [place] [address], * ANTIGLOMERULAR BASEMENT MEMBRANE ANTIBODIES (04/14/2023 11:51 AM DIGITAL MEDIA BUYER) Pathologist [facility] Glomerular BM Ab <0.2 0.0 - 0.9 units 04/16/2023 7:07 PM DIGITAL MEDIA BUYER [facility]) Blood BLOOD SPECIMEN / Unknown Venipuncture / Unknown 04/14/2023 11:51 AM DIGITAL MEDIA BUYER 04/14/2023 11:51 AM DIGITAL MEDIA BUYER Narrative [facility] ([facility]) - 04/16/2023 7:07 PM DIGITAL MEDIA BUYER Performed at: ??01 - [facility] [address] [place] [address] ??[phone] Bookkeeping Assistant: Nazanin Tucker MD, Phone: ??[phone] Dm Rain MD SEND OUTS [facility] ([facility]) [address] [place] [id number], * (ABNORMAL) CBC WITH AUTO DIFFERENTIAL (04/14/2023 11:51 AM DIGITAL MEDIA BUYER) WHITE BLOOD COUNT 6.0 4.5 - 11.0 thou/cu mm 04/14/2023 12:01 PM [facility] RED BLOOD COUNT 5.36(H) 4.00 - 5.20 mil/cu mm 04/14/2023 12:01 PM [facility] HEMOGLOBIN 15.6 12.0 - 16.0 g/dL 04/14/2023 12:01 PM [facility] HEMATOCRIT 48.0 33.0 - 51.0 % 04/14/2023 12:01 PM [facility] MCV 90 80 - 100 fL 04/14/2023 12:01 PM [facility] MCH 29.1 26.0 - 34.0 pg 04/14/2023 12:01 PM [facility] MCHC 32.5 32.0 - 36.0 g/dL 04/14/2023 12:01 PM [facility] RDW 15.1 11.5 - 15.5 % 04/14/2023 12:01 PM [facility] PLATELET COUNT 200 140 - 440 thou/cu mm 04/14/2023 12:01 PM [facility] MPV 11.0 6.5 - 11.0 fL 04/14/2023 12:01 PM [facility] % NEUT 67.4 % 04/14/2023 12:01 PM [facility] % LYMPH 19.9 % 04/14/2023 12:01 PM [facility] % MONO 7.7 % 04/14/2023 12:01 PM [facility] % EOS 4.2 % 04/14/2023 12:01 PM [facility] % BASO 0.8 % 04/14/2023 12:01 PM [facility] ABSOLUTE NEUTROPHILS 4.0 1.7 - 7.0 thou/cu mm 04/14/2023 12:01 PM [facility] ABSOLUTE LYMPHOCYTES 1.2 0.9 - 2.9 thou/cu mm 04/14/2023 12:01 PM [facility] ABSOLUTE MONOCYTES 0.5 <0.9 thou/cu mm 04/14/2023 12:01 PM [facility] ABSOLUTE EOSINOPHILS 0.3 <0.5 thou/cu mm 04/14/2023 12:01 PM [facility] ABSOLUTE BASOPHILS 0.1 <0.3 thou/cu mm 04/14/2023 12:01 PM [facility] Blood BLOOD SPECIMEN / Unknown Venipuncture / Unknown 04/14/2023 11:51 AM DIGITAL MEDIA BUYER 04/14/2023 11:51 AM [facility] - 04/14/2023 12:01 PM [facility] This procedure was originally ordered at [facility]. Dm Rain MD HEMATOLOGY [facility] [address] [place] [address] * ANCA PANEL FOR VASCULITIS (04/14/2023 11:51 AM [facility]) [facility] ANCA Negative Negative 04/15/2023 1:24 PM [facility] Comment: Atypical ANCA cannot be ruled out due to presence of MAYUR on screening.?? MAYUR screen results are not valid for diagnosis of Autoimmune Disease.?? Order MAYUR testing for further evaluation as clinically indicated. Blood BLOOD SPECIMEN / Unknown Venipuncture / Unknown 04/14/2023 11:51 AM DIGITAL MEDIA BUYER 04/14/2023 11:51 AM DIGITAL MEDIA BUYER Dm Rain MD SEND OUTS Performing Organization Address [facility] Co de Phone Number [facility] [address] [place] [address], [place] * C3 COMPLEMENT (04/14/2023 11:51 AM DIGITAL MEDIA BUYER) C3 COMPLEMENT 121.91 81.10 - 157.00 mg/dL 04/15/2023 12:59 PM DIGITAL MEDIA BUYER [facility] Blood BLOOD SPECIMEN / Unknown Venipuncture / Unknown 04/14/2023 11:51 AM DIGITAL MEDIA BUYER 04/14/2023 11:51 AM DIGITAL MEDIA BUYER Dm Rain MD CHEMISTRY Performing Organization Address [facility] de Phone Number [facility] [address] [place] [address], [place] * C4 COMPLEMENT (04/14/2023 11:51 AM DIGITAL MEDIA BUYER) C4 Complement 31.92 12.90 - 39.20 mg/dL 04/15/2023 1:00 PM DIGITAL MEDIA BUYER [facility] Blood BLOOD SPECIMEN / Unknown Venipuncture / Unknown 04/14/2023 11:51 AM DIGITAL MEDIA BUYER 04/14/2023 11:51 AM DIGITAL MEDIA BUYER Dm Rain MD CHEMISTRY Performing Organization Address [facility] Co de Phone Number [facility] [address] [place] [address], [place] * (ABNORMAL) HEPATIC FUNCTION PANEL (04/14/2023 11:51 AM DIGITAL MEDIA BUYER) ALBUMIN 4.3 4.0 - 4.9 g/dL 04/14/2023 12:19 PM DIGITAL MEDIA BUYER [facility] PROTEIN,TOTAL 7.7 6.0 - 8.0 g/dL 04/14/2023 12:19 PM DIGITAL MEDIA BUYER [facility] BILIRUBIN,TOTAL 0.9 0.0 - 1.2 mg/dL 04/14/2023 12:19 PM [facility] BILIRUBIN,DIRECT 0.3 0.0 - 0.3 mg/dL 04/14/2023 12:19 PM [facility] BILIRUBIN,INDIRE CT 0.6 0.2 - 0.8 mg/dL 04/14/2023 12:19 PM [facility] ALK PHOSPHATASE 154(H) 35 - 104 IU/L 04/14/2023 12:19 PM [facility] ALT (SGPT) 13 10 - 35 IU/L 04/14/2023 12:19 PM [facility] AST (SGOT) 29 10 - 35 IU/L 04/14/2023 12:19 PM [facility] Blood BLOOD SPECIMEN / Unknown Venipuncture / Unknown 04/14/2023 11:51 AM DIGITAL MEDIA BUYER 04/14/2023 11:51 AM [facility] Dm Rain MD CHEMISTRY [facility] [address] [place] [id number] * (ABNORMAL) RENAL FUNCTION PANEL (04/14/2023 11:51 AM [facility]) SODIUM 143 136 - 145 mmol/L 04/14/2023 12:19 PM [facility] POTASSIUM 3.5 3.5 - 5.1 mmol/L 04/14/2023 12:19 PM [facility] CHLORIDE 105 98 - 107 mmol/L 04/14/2023 12:19 PM [facility] CO2,TOTAL 23 22 - 29 mmol/L 04/14/2023 12:19 PM [facility] ANION GAP 15 5 - 18 04/14/2023 12:19 PM [facility] GLUCOSE 116(H) 70 - 99 mg/dL 04/14/2023 12:19 PM [facility] CALCIUM 10.1 8.8 - 10.2 mg/dL 04/14/2023 12:19 PM [facility] BUN 56(H) 8 - 23 mg/dL 04/14/2023 12:19 PM [facility] CREATININE 4.25(H) 0.50 - 0.90 mg/dL 04/14/2023 12:19 PM [facility] BUN/CREAT RATIO 13 10 - 20 4 12:19 PM [facility] eGFR 10(L) >90 mL/min/1.7 3m2 04/14/2023 12:19 PM [facility] Comment:As of 2021, eG FR is calculated by the CKD-EPI creatinine equation without race adjustment. ??eGFR can be influenced by muscle mass, exercise, and diet. ??The reported eGFR is an estimation only and is only applicable if the renal function is stable. PHOSPHORUS 5.0(H) 2.5 - 4.5 mg/dL 04/14/2023 12:19 PM [facility] ALBUMIN 4.3 4.0 - 4.9 g/dL 04/14/2023 12:19 PM [facility] Blood BLOOD SPECIMEN / Unknown Venipuncture / Unknown 04/14/2023 11:51 AM DIGITAL MEDIA BUYER 04/14/2023 11:51 AM [facility] Dm Rain MD CHEMISTRY [facility] [address] [place] [address] * (ABNORMAL) URINALYSIS MICROSCOPIC (03/26/2023 10:15 AM [facility]) Only the most recent of2 resultswithin the time period is included. RBC >100(A) 0-2, None Seen /HPF 03/26/2023 10:25 AM [facility] WBC 0-2 0-2, 3-5, None Seen /HPF 03/26/2023 10:25 AM [facility] BACTERIA Many(A) None Seen, Rare, Few Bacteria/H PF 03/26/2023 10:25 AM [facility] EPITHELIAL CELLS Few None Seen, Few Epi/HPF 03/26/2023 10:25 AM DIGITAL MEDIA BUYER [facility] Urine URINE SPECIMEN / Unknown Non-Blood / Unknown 03/26/2023 10:15 AM DIGITAL MEDIA BUYER 03/26/2023 10:15 AM DIGITAL MEDIA BUYER Tim Chanel MD URINE Performing Organization Address City/[facility]/ZIP Co de Phone Number [facility] [address] [place] [address], * URINE CULTURE (03/26/2023 10:15 AM DIGITAL MEDIA BUYER) Only the most recent of2 resultswithin the time period is included. CULTURE No growth (<1,000 CFU/mL) 03/27/2023 3:10 PM DIGITAL MEDIA BUYER [facility] Urine URINE SPECIMEN / Unknown Non-Blood / Unknown 03/26/2023 10:15 AM DIGITAL MEDIA BUYER 03/26/2023 10:15 AM DIGITAL MEDIA BUYER Tim Chanel MD MICROBIOLOGY Performing Organization Address City/[facility]/ZIP Co de Phone Number [facility] [address] [place] [address], [place] * (ABNORMAL) UA W/ SEDIMENT EXAM REFLEXED PER CRITERIA (03/26/2023 10:15 AM DIGITAL MEDIA BUYER) Only the most recent of2 resultswithin the time period is included. COLOR Mary(A) Yellow Color 03/26/2023 10:24 AM DIGITAL MEDIA BUYER [facility] CLARITY Cloudy(A) Clear Clarity 03/26/2023 10:24 AM DIGITAL MEDIA BUYER [facility] SPECIFIC GRAVITY,URINE 1.025 1.010, 1.015, 1.020, 1.025 03/26/2023 10:24 AM DIGITAL MEDIA BUYER [facility] PH,URINE 5.0(A) 6.0, 7.0, 8.0, 5.5, 6.5, 7.5, 8.5 03/26/2023 10:24 AM DIGITAL MEDIA BUYER [facility] UROBILINOGEN,QU ALITATIVE Normal Normal EU/dl 03/26/2023 10:24 AM DIGITAL MEDIA BUYER [facility] PROTEIN, URINE >=300(A) Negative mg/dL 03/26/2023 10:24 AM DIGITAL MEDIA BUYER [facility] GLUCOSE, URINE Negative Negative mg/dL 03/26/2023 10:24 AM DIGITAL MEDIA BUYER [facility] KETONES,URINE 15(A) Negative mg/dL 03/26/2023 10:24 AM DIGITAL MEDIA BUYER [facility] BILIRUBIN,URINE Abnormal(A) Negative 03/26/20 10:24 AM DIGITAL MEDIA BUYER [facility] Comment:A variety of metabol ites and/or medications may result in a positive bilirubin result. Clinical correlation is recommended. OCCULT BLOOD,URINE Large(A) Negative 03/26/2023 10:24 AM [facility] NITRITE Positive(A) Negative 03/26/2023 10:24 AM DIGITAL MEDIA BUYER [facility] LEUKOCYTE ESTERASE Negative Negative 03/26/2023 10:24 AM [facility] Urine URINE SPECIMEN / Unknown Non-Blood / Unknown 03/26/2023 10:15 AM DIGITAL MEDIA BUYER 03/26/2023 10:15 AM DIGITAL MEDIA BUYER Tim Chanel MD URINE [facility] [address] [place] [address], * VITAMIN B12 (03/26/2023 10:12 AM DIGITAL MEDIA BUYER) Only the most recent of2 resultswithin the time period is included. VITAMIN B12 858 232 - 1,245 pg/mL 03/26/2023 7:15 PM DIGITAL MEDIA BUYER [facility] Blood BLOOD SPECIMEN / Unknown Venipuncture / Unknown 03/26/2023 10:12 AM DIGITAL MEDIA BUYER 03/26/2023 10:12 AM DIGITAL MEDIA BUYER Narrative [facility] - 03/26/2023 7:15 PM DIGITAL MEDIA BUYER Biotin supplements may cause clinically significant interference for this test assay. ??If interference is suspected, it is strongly recommended that biotin is discontinued for at least one week prior to retesting. Tim Chanel MD CHEMISTRY Performing Organization Address City/[facility]/ZIP Co de Phone Number [facility] [address] [place] [address], [place] * SCAN-ULTRASOUND REPORT (03/19/2023 12:00 AM DIGITAL MEDIA BUYER) Anatomical Region Laterality Modality Other Scanner OTHER * (ABNORMAL) INR,POCT (03/10/2023 11:00 AM DIGITAL MEDIA BUYER) Only the most recent of2 resultswithin the time period is included. INR 2.6(H) <1.3 03/10/2023 11:05 AM DIGITAL MEDIA BUYER [facility] Blood BLOOD SPECIMEN / Unknown 03/10/2023 11:00 AM DIGITAL MEDIA BUYER 03/10/2023 11:05 AM DIGITAL MEDIA BUYER Narrative [facility] - 03/10/2023 11:05 AM DIGITAL MEDIA BUYER ?Therapeutic Range 2.0-3.0 for most anticoagulated patients 2.5-3.5 or 4.0 for high risk patients Tim Chanel MD LABORATORY Performing Organization Address [facility] Co de Phone Number [facility] [address] [place] [address], [place] [phone] * ECHO TTE COMPLETE WO CONTRAST (02/11/2023 10:32 AM CDT) AORTIC VALVE MEAN PG 2 mmHg EJECTION FRACTION 49 % PEAK TR VELOCITY 3.4 m/s LVEDD 4.1 cm EJECTION FRACTION 40 - 45% Anatomical Region Laterality Modality Ultrasound 02/11/2023 9:57 AM CDT Narrative 02/11/2023 10:56 AM CDT ECHOCARDIOGRAM TRI VELASQUEZ ? Accession#: ?? [id number] : ?1940 82 years Study Date: ?? 02/11/2023 9:57:04 AM Gender: F ?BP: ? 162/100 mmHg Height: 170.00 cm ?BSA: ?1.96 m? ? ? Weight: 84.00 kg ? Tech: ? MJW ? Referring MD: MICHELLE GARIBAY Site: ? [facility] Reading Location: Mobile-OP Patient Location: Outpatient. Procedure: 2D, Color Doppler and Spectral Doppler. Indication for study: Atrial Fib Cardiac Rhythm: Irregular.Study quality: Excellent. Final Impressions: 1. Normal LV size, moderately increased wall thickness with sparkled myocardial echotexture, mildly reduced global systolic function with an estimated EF of ~45%. 2. Right ventricular cavity size is mildly enlarged with increased wall thickness, global systolic RV function is moderately reduced. 3. Severe biatrial enlargement. 4. The aortic valve is calcified and trileaflet, no stenosis and mild regurgitation. 5. Moderate tricuspid regurgitation. 6. Moderately increased estimated pulmonary pressures by tricuspid regurgitation velocity and right atrial pressure (45 mmHg plus RAP). 7. The inferior vena cava is dilated, respiratory size variation less than 50%. 8. Overall findings suggestive of cardiac amyloid, recommend cardiology consultation to facilitate further workup as clinically indicated. Chamber Sizes and Function Normal left ventricular size, moderately increased wall thickness, mildly reduced global systolic function with an estimated EF of 40 - 45%. Left atrial size is severely enlarged. Right ventricular cavity size is mildly enlarged, global systolic RV function is moderately reduced. RV wall thickness is mildly increased. The right atrium is severely enlarged. Right atrial volume index is 56 ml/m? ? ?. Right atrial area is 31 cm? ? ?. The pulmonary artery is of normal size and origin. The sinus of Valsalva is normal sized. The ascending aorta is normal sized. Valves, RV Pressures and Diastolic Function The aortic valve is calcified and trileaflet, no stenosis and mild regurgitation. The mitral valve is sclerotic, trace mitral regurgitation. Mitral annular calcification is present. Indeterminate pattern of LV diastolic filling. The tricuspid valve is normal in structure. Tricuspid regurgitation is moderate. The tricuspid regurgitant velocity is 3.4 m/s, the estimated right ventricular systolic pressure is 45 mmHg plus right atrial pressure. There is moderately increased estimated pulmonary pressure by tricuspid regurgitation velocity and right atrial pressure. The pulmonic valve is normal. Mild pulmonary regurgitation. Masses, Effusion, Shunts There is no pericardial effusion. The inferior vena cava is dilated, respiratory size variation less than 50%. No left to right shunting was detected by limited color flow Doppler interrogation of the interatrial septum. MEASUREMENTS AND CALCULATIONS 2-D Measurements and LV Function: LVID (d) 4.0 cm LV FS% (2D) ?? 19 % LVID (s) 3.3 cm LVOT diameter 2.1 cm IVS (d) ??1.4 cm HR ?98 bpm LVPW (d) 1.3 cm LA Vol index ??63 ml/m2 Ao Sinus 3.6 cm RA Vol index ??56 ml/m2 Asc Ao ?? 3.3 cm RA area ? 31 cm? ? ? LA ? 4.2 cm RV Max 4C (d) 4.1 cm Diastology: Mitral ?Tissue Doppler E Peak 0.9 m/s ??e', Septum ? 0.05 m/s DT ? 156 msec e', Lateral ?0.06 m/s ?E/e' Average ?? 17.08 Aortic Valve: Vmax ? 0.9 m/s ??SENIA (V) ?? 2.97 cm? AI P 1/2 693 msec VTI ?0.15 m ?? SENIA (I) ?? 2.96 cm? ? ? LVOT V max ? 0.7 m/s ??Max PG ?3 mmHg LVOT VTI ? 0.13 m ?? Mean PG ?? 2 mmHg SV ? 45 ml ?Dim Index 0.84 SV index ? 23 ml/m? ? ? CO ?4.4 l/min AV Ejection Time 0.24 sec CI ?2.2 l/min/m? ? ? AV Flow Rate ? 190 ml/s Mitral Valve: MVA ?4.9 cm? ? ? MV P 1/2 45 msec Tricuspid Valve and estimated PA pressures: TR Vmax 3.4 m/s TAPSE 1.1 cm TR maxG 45 mmHg . This study was interpreted by an [facility] accredited facility. ??Final ?? Procedure Note Taqueria Reilly MD - 02/11/2023 ECHOCARDIOGRAM TRI VELASQUEZ : 1940 82 years Study Date: 02/11/2023 9:57:04 AM Gender: F BP: 162/100 mmHg Height: 170.00 cm BSA: 1.96 m? ? ? Weight: 84.00 kg Tech: AMAURI Referring MD: MICHELLE GARIBAY Site: [facility] Reading Location: Mobile-OP Patient Location: Outpatient. Procedure: 2D, Color Doppler and Spectral Doppler. Indication for study: Atrial Fib Cardiac Rhythm: Irregular.Study quality: Excellent. Final Impressions: 1. Normal LV size, moderately increased wall thickness with sparkledmyocardial echotexture, mildly reduced global systolic function with anestimated EF of ~45%. 2. Right ventricular cavity size is mildly enlarged with increased wallthickness, global systolic RV function is moderately reduced. 3. Severe biatrial enlargement. 4. The aortic valve is calcified and trileaflet, no stenosis and mildregurgitation. 5. Moderate tricuspid regurgitation. 6. Moderately increased estimated pulmonary pressures by tricuspidregurgitation velocity and right atrial pressure (45 mmHg plus RAP). 7. The inferior vena cava is dilated, respiratory size variation lessthan 50%. 8. Overall findings suggestive of cardiac amyloid, recommend cardiologyconsultation to facilitate further workup as clinically indicated. Chamber Sizes and Function Normal left ventricular size, moderately increased wall thickness, mildlyreduced global systolic function with an estimated EF of 40 - 45%. Leftatrial size is severely enlarged. Right ventricular cavity size is mildlyenlarged, global systolic RV function is moderately reduced. RV wallthickness is mildly increased. The right atrium is severely enlarged.Right atrial volume index is 56 ml/m? ? ?. Right atrial area is 31 cm? ? ?. Thepulmonary artery is of normal size and origin. The sinus of Valsalva isnormal sized. The ascending aorta is normal sized. Valves, RV Pressures and Diastolic Function The aortic valve is calcified and trileaflet, no stenosis and mildregurgitation. The mitral valve is sclerotic, trace mitral regurgitation.Mitral annular calcification is present. Indeterminate pattern of LVdiastolic filling. The tricuspid valve is normal in structure. Tricuspidregurgitation is moderate. The tricuspid regurgitant velocity is 3.4 m/s,the estimated right ventricular systolic pressure is 45 mmHg plus rightatrial pressure. There is moderately increased estimated pulmonarypressure by tricuspid regurgitation velocity and right atrial pressure.The pulmonic valve is normal. Mild pulmonary regurgitation. Masses, Effusion, Shunts There is no pericardial effusion. The inferior vena cava is dilated,respiratory size variation less than 50%. No left to right shunting wasdetected by limited color flow Doppler interrogation of the interatrialseptum. MEASUREMENTS AND CALCULATIONS 2-D Measurements and LV Function: LVID (d) 4.0 cm LV FS% (2D) 19 % LVID (s) 3.3 cm LVOT diameter 2.1 cm IVS (d) 1.4 cm HR 98 bpm LVPW (d) 1.3 cm LA Vol index 63 ml/m2 Ao Sinus 3.6 cm RA Vol index 56 ml/m2 Asc Ao 3.3 cm RA area 31 cm? ? ? LA 4.2 cm RV Max 4C (d) 4.1 cm Diastology: Mitral Tissue Doppler E Peak 0.9 m/s e', Septum 0.05 m/s DT 156 msec e', Lateral 0.06 m/s E/e' Average 17.08 Aortic Valve: Vmax 0.9 m/s SENIA (V) 2.97 cm? ? ? AI P 1/2 693 msec VTI 0.15 m SENIA (I) 2.96 cm? ? ? LVOT V max 0.7 m/s Max PG 3 mmHg LVOT VTI 0.13 m Mean PG 2 mmHg SV 45 ml Dim Index 0.84 SV index 23 ml/m? ? ? CO 4.4 l/min AV Ejection Time 0.24 sec CI 2.2 l/min/m? ? ? AV Flow Rate 190 ml/s Mitral Valve: MVA 4.9 cm? ? ? MV P 1/2 45 msec Tricuspid Valve and estimated PA pressures: TR Vmax 3.4 m/s TAPSE 1.1 cm TR maxG 45 mmHg . This study was interpreted by an [facility] accredited facility. Final Michelle Garibay PA ECHO ORD * US VENOUS LOWER EXTREMITY LEFT (02/06/2023 12:22 PM CDT) Anatomical Region Laterality Modality LEGS, LEG L, Abdomen Ultrasound 02/06/2023 1:40 PM CDT Impressions 02/06/2023 1:40 PM CDT Normal venous ultrasound exam. No evidence of deep vein thrombosis within the left lower extremity. Dictated by Manan Meza MD @ Feb 06 2023 ??1:40PM (Electronically Signed) ?? Narrative 02/06/2023 1:40 PM CDT For Patients: ??As a result of the Century Cures Act, medical imaging exams and procedure reports are released immediately into your electronic medical record. ??You may view this report before your referring provider. ??If you have questions, please contact your health care provider. INDICATION: Redness, swelling COMPARISON: None. TECHNIQUE: A compression venous ultrasound exam was performed of the left lower extremity using cuevas-scale imaging, color Doppler and spectral Doppler analysis. FINDINGS: Sonographic imaging of the left lower extremity demonstrates normal compressibility and color Doppler venous blood flow within the common femoral vein, deep femoral vein, and the proximal greater saphenous vein. Within the thigh, the femoral vein is patent and compressible. At a lower level, the popliteal and posterior tibial veins also show normal compressibility and color Doppler venous blood flow. Limited imaging of the contralateral groin demonstrates a normal spectral waveform and color Doppler venous blood flow within the right common femoral vein. ?? Procedure Note Manan Meza MD - 02/06/2023 For Patients: As a result of the Cures Act, medical imagingexams and procedure reports are released immediately into your electronicmedical record. You may view this report before your referring provider.If you have questions, please contact your health care provider. INDICATION: Redness, swelling COMPARISON: None. TECHNIQUE: A compression venous ultrasound exam was performed of the left lowerextremity using cuevas-scale imaging, color Doppler and spectral Doppleranalysis. FINDINGS: Sonographic imaging of the left lower extremity demonstrates normalcompressibility and color Doppler venous blood flow within the commonfemoral vein, deep femoral vein, and the proximal greater saphenous vein.Within the thigh, the femoral vein is patent and compressible. At a lowerlevel, the popliteal and posterior tibial veins also show normalcompressibility and color Doppler venous blood flow. Limited imaging of the contralateral groin demonstrates a normal spectralwaveform and color Doppler venous blood flow within the right commonfemoral vein. IMPRESSION: Normal venous ultrasound exam. No evidence of deep vein thrombosis withinthe left lower extremity. Dictated by Manan Meza MD @ Feb 06 2023 1:40PM (Electronically Signed) Tim Chanel MD US from Last 3 Months Advance Directives Documents on File Type Date Recorded Patient Faith Doctor Expl anation Treatment Guidelines 08/02/2021 Healthcare Directive 04/01/2012 2:32 PM H EALT CARE DIRECTIVE, [facility], 01/08/2000 Latest Code Status on File Code Status Date Activated Date Inactivated Comments DNR 08/31/2021 5:19 PM 09/04/2021 3:21 PM Question Answer Comments Code Status Discussion: Reviewed Preferences Code Status History Code Status Date Activated Date Inactivated Comments DNR 08/30/2021 7:36 PM 08/31/2021 4:39 PM Question Answer Comments Code Status Discussion: Reviewed Preferences DNR 08/08/2021 4:10 PM 08/30/2021 11:09 AM BRIGETTE Scott completed: Yes, Date: 08/02/21 DNR 07/26/2021 2:09 PM 08/01/2021 5:36 PM Question Answer Comments Code Status Discussion: Reviewed Preferences Full Code 07/26/2021 1:11 PM 07/26/2021 2:09 PM Question Answer Comments Code Status Discussion: Unable to Assess Preferences, Provider to review later Care Teams Liquid Floor And Wall Applier Relationship Specialty Start Date End Date Tim Chanel MD [address] [place] [address] PCP - General Family Practice 03/30/13 Tay Pearson [address] [place] [id number] Roving Carrier 09/29/11 Veena Mitchell MD [address] [address] Dermatology Dermatology 07/04/22
--- OUTSIDE RECORDS SUMMARY | 2023-05-05 12:59 | XMS_ITS | Encounter Summary ---
Author Name Unknown Organization [facility] Address [address] [place] [address] Care Team Providers Care Land Acquisition Manager Name Role Phone Tim Chanel MD Primary Care Provider [phone] Encounter Details Date Type Department Care Team Description 05/05/2023 Telephone [facility] [address] [place] [address] Candice Thompson, RN [address] [place] [address] Social History Tobacco Use Types Packs/Day Years Used Date Smoking Tobacco: Never Smokeless Tobacco: Never Alcohol Use Standard Drinks/Week Comments Not Currently 0 (1 standard drink = 0.6 oz pur e alcohol) none for over 5 months Sex and Gender Information Value Date Recorded Sex Assigned at Not on file Gender Identity Not on file Sexual Orientation Not on file documented as of this encounter Miscellaneous Notes * Telephone Encounter - Candice Thompson RN - 05/05/2023 10:39 AM CST Pt states she woke up at 5 AM d/t pain under her rib cage. States she finally vomited and feels that it relieved some of the pressure. States her vomit was a bright yellow. Hasn't eat today and had fruit/pancakes yesterday. Pt states she felt fine yesterday and symptoms didn't start until 5AM today. Pt states she had no issues after the biopsy. She questions if this could be a complication from the biopsy? Advised pt to go to the ER if symptoms worsen. documented in this encounter Plan of Treatment Upcoming Encounters Date Type Department Care Team Description 05/14/2023 1:30 PM EST Office Visit [facility] [address] [place] [address] Dm Rain MD [address] [place] [phone] 05/27/2023 Orders Only [facility] [address] [address] Dm Rain MD [address] [place] [phone] Acute injury of kidney (HCC) documented as of this encounter Visit Diagnoses Not on filedocumented in this encounter Care Teams Land Acquisition Manager Relationship Specialty Start Date End Date Tim Chanel MD [facility] [place] [address] PCP - General Family Medicine 04/20/23 documented as of this encounter
--- OUTSIDE RECORDS SUMMARY | 2023-05-05 12:59 | XMS_ITS | Encounter Summary ---
Author Name Unknown Organization [facility] Address [address] [place] [address] Care Team Providers Care Rivet Hole Machine Operator Name Role Phone Tim Chanel MD Primary Care Provider [phone] Encounter Details Date Type Department Care Team Description 04/20/2023 Office Communication [facility] [address] [place] [address] Dm Rain MD [address] [address] Acute injury of kidney (HCC) (Primary Dx) Social History Tobacco Use Types Packs/Day Years Used Date Smoking Tobacco: Never Assessed Sex and Gender Information Value Date Recorded Sex Assigned at Not on file Gender Identity Not on file Sexual Orientation Not on file documented as of this encounter Miscellaneous Notes * Telephone Encounter - Marilee Lucero - 04/29/2023 1:37 PM CST Patient is being sent a new patient packet. Patient completed pre-visit labs 04/27 at [facility]. Patient will complete their biopsy tomorrow. When calling for co-pays, please talk to PHI approved daughter, Veena. * Telephone Encounter - Marilee Lucero - 04/22/2023 3:19 PM CST Staff to schedule follow up with patient with Dr. Rain with pre-visit labs once [facility] scheduling becomes available. * Addendum Note - Candice Thompson RN - 04/22/2023 1:46 PM CSTAddended by: CANDICE THOMPSON on: 04/22/2023 01:46 PM Modules accepted: Orders * Telephone Encounter - Candice Thompson RN - 04/22/2023 1:46 PM CST Lab ordered. * Telephone Encounter - Dm Rain MD - 04/22/2023 1:35 PM CST Yes, she will need labs. Once she is scheduled, please order renal panel, hgb, urine Pr:Cr for her to do a week or so before follow-up with me. Thanks. -Max * Telephone Encounter - Marilee Lucero - 04/20/2023 4:17 PM CST Staff to schedule follow up with patient with Dr. Rain once [facility] scheduling becomes available. Will the patient need pre-visit labs in addition to Thursday's labs? * Telephone Encounter - Arlyn Quan - 04/20/2023 9:14 AM CST Hi, I need a chart made for this patient who sees me in [place]. Then I need a biopsy early nextweek, preferably [facility] but could do [facility] if needed as well. I was hoping Thursday and she could do labs on Thursday in [place] (I ordered) because she is stopping warfarin today and need to make sure INR ok. She also needs follow up scheduled with me in clinic in May at the [facility]. See picture for her details. documented in this encounter Plan of Treatment Upcoming Encounters Date Type Department Care Team Description 05/14/2023 1:30 PM EST Office Visit [facility] [address] [place] [address] Dm Rain MD [address] [place] [phone] 05/27/2023 Orders Only [facility] [address] [place] [address] Dm Rain MD [address] [place] [phone] Acute injury of kidney (HCC) Scheduled Orders Name Type Priority Associated Diagnoses Orde r Schedule Renal Function Panel Lab Routine Acute injury of kidney (HCC) Expected: 05/27/2023, Expires: 05/23/2024 Hemoglobin Lab Routine Acute injury of kidney (HCC) Expected: 05/27/2023, Expires: 05/23/2024 Protein, Total, Random Urine w/Creatinine (Protein/Creat Ratio) Lab Routine Acute injury of kidney (HCC) Expected: 05/27/2023, Expires: 05/23/2024 documented as of this encounter Visit Diagnoses Diagnosis Acute injury of kidney (HCC)- Primary Acute injury of kidney (HCC) documented in this encounter Care Teams Rivet Hole Machine Operator Relationship Specialty Start Date End Date Tim Chanel [place] [address] PCP - General Family Medicine 04/20/23 documented as of this encounter
--- OUTSIDE RECORDS SUMMARY | 2023-05-05 12:59 | XMS_ITS | Encounter Summary ---
Author Name Unknown Organization [facility] Address [address] [place] [address] Care Team Providers Care Gasket Inspector Name Role Phone Tim Chanel MD Primary Care Provider [phone] Encounter Details Date Type Department Care Team Description 05/01/2023 Documentation Only [facility] [address] [facility] [[email or web address] [address] [place] [address] Max Roach [address] [facility] [[email or web address]] [address] [place] [address] Social History Tobacco Use Types Packs/Day Years [...] on file documented as of this encounter Plan of Treatment Upcoming Encounters Date Type Department Care Team Description 05/14/2023 1:30 PM EST Office Visit [facility] [address] [place] [address] Dm Rain MD [address] [place] [address] 05/27/2023 Orders Only [facility] [address] [place] [phone] Dm Rain MD [address] [place] [address] Acute injury of kidney (HCC) documented as of this encounter Procedures Procedure Name Priority Date/Time Associated Diagnosis Comments BASIC METABOLIC PANEL (BMP) (EXTERNAL LAB ENTRY) Routine 04/27/2023 CBC Routine 04/27/2023 documented in this encounter Results * (ABNORMAL) Basic Metabolic Panel (BMP) (04/27/2023) Sodium 143 mEq/L [facility] Potassium 3.7 mEq/L [facility] Chloride 105 [facility] Carbon Dioxide 22 mmol/L [facility] Calcium 10.1 mg/dL [facility] BUN 51(H) mg/dL [facility] Creatinine 4.53(H) mg/dL [facility] Glucose 120(H) mg/dL [facility] eGFR 9(L) [facility] Anion Gap 16 [facility] 04/27/2023 Historical Provider LAB BLOOD ORDERAB LES [facility] * (ABNORMAL) CBC (04/27/2023) WBC 7.4 K/uL [facility] Red Blood Cell Count 4.79 [facility] Hemoglobin 14.5 g/dL [facility] Hematocrit 42.7 % [facility] MCV 89 [facility] MCH 30.3 [facility] MCHC 34.0 [facility] RDW 15.7(H) [facility] Platelet Count 206 [facility] MPV 11.4(H) [facility] Blood (Blood, Venous) 04/27/2023 Historical Provider LAB BLOOD ORDERAB LES [facility] documented in this encounter Visit Diagnoses Not on filedocumented in this encounter Care Teams Gasket Inspector Relationship Specialty Start Date End Date Tim Chanel MD [address] [place] [address] PCP - General Family Medicine 04/20/23 documented as of this encounter
--- OUTSIDE RECORDS SUMMARY | 2023-05-05 12:59 | XMS_ITS | Encounter Summary ---
Author Name Unknown Organization [facility] Address [address] [place] [address] Care Team Providers Care Brass Burnisher Name Role Phone Tim Chanel MD Primary Care Provider [phone] Reason for Referral * Imaging (Routine) - Closed Specialty Diagnoses / Procedures Referred By Saritha scott Referred To Contact Diagnoses Acute injury of kidney (HCC) Gross hematuria Procedures US Guided Renal Biopsy Dm Rain MD [address] [place] [address] [facility] [address] [place] [address] Referral ID Status Reason Start Date Expiration Date Visits Re quested Visits Authorized [id number] Closed 04/20/2023 04/19/2024 1 1 [employer] Encounter Details Date Type Department Care Team Description 04/20/2023 Telephone [facility] [address] [place] [address] Candice Thompson RN [address] [place] [address] Social History Tobacco Use Types Packs/Day Years Used Date Smoking Tobacco: Never Assessed Sex and Gender Information Value Date Recorded Sex Assigned at Not on file Gender Identity Not on file Sexual Orientation Not on file documented as of this encounter Miscellaneous Notes * Telephone Encounter - Candice Thompson RN - 04/20/2023 10:06 AM CST Images from the original note were not included. Dm Rain I need a biopsy early next week, preferably at [facility] but could do [facility] if needed as well Yes, radiology. Diagnosis acute renal failure and gross hematuria I told her to expect call from you and she is going to schedule labs for Thursday at [facility] and I ordered those in the [facility] system already (BMP, INR, CBC) Son Bertin will take her for biopsy Faxed order to [facility]. [facility] can do the biopsy on 04/30 at 10AM. Check in at 9AM. Needs to see PCP for H&P. NPO 8 hours prior but OK to take AM meds with a sip of water. Pt notified and voiced understanding. She is holding coumadin per Dr. Rain. Pt states she is scheduled to see her PCP on 04/22 for H&P. documented in this encounter Plan of Treatment Upcoming Encounters Date Type Department Care Team Description 05/14/2023 1:30 PM EST Office Visit [facility] [place] [address] Dm Rain MD [address] [place] [phone] 05/27/2023 Orders Only [facility] [address] [address] Dm Rain MD [address] [place] [phone] Acute injury of kidney (HCC) Scheduled Orders Name Type Priority Associated Diagnoses Orde r Schedule US Guided Renal Biopsy Imaging Routine Acute injury of kidney (HCC) Gross hematuria Expected: 04/20/2023, Expires: 04/20/2024 documented as of this encounter Visit Diagnoses Diagnosis Acute injury of kidney (HCC)- Primary Gross hematuria Acute injury of kidney (HCC) documented in this encounter Care Teams Brass Burnisher Relationship Specialty Start Date End Date Tim Chanel MD [address] [place] [address] PCP - General Family Medicine 04/20/23 documented as of this encounter
[2023-05-05 13:00] LABS: Basophils Absolute Auto 0.02 K/uL (0.00-0.30); Basophils Percent Auto 0.3 % (0.0-3.0); Eosinophils Absolute Auto 0.05 K/uL (0.00-0.50); Eosinophils Percent Auto 0.6 % (0.0-7.0); Hematocrit 43.1 % (33.0-51.0); Hemoglobin* 14.1 gm/dL (12.0-16.0); Immature Granulocytes Abs Auto 0.01 K/uL (0.00-0.30); Immature Granulocytes Pct Auto 0.1 %; Lymphocytes Percent Auto 10.6 % (20-44); Mean Corpuscular HGB Conc 33 gm/dL (32-36); Mean Corpuscular Hemoglobin 29 pg (26-34); Mean Corpuscular Volume 90 fL (80-100); Monocytes Percent Auto 3.3 % (0.0-11.0); Neutrophils Percent Auto 85.1 % (42.0-72.0); Platelet Count* 194 K/uL (140-440); RDW Coefficient of Variation % 15.1 % (11.5-15.5); White Blood Count* 7.92 K/uL (4.50-11.00)
[2023-05-05] MEDS: ONDANSETRON 2 MG/ML inj 4 MG IVP ×2 (13:04→16:34)
[2023-05-05 13:05] LABS: Slide Review Reflex No
[2023-05-05] MEDS: MORPHINE 2 MG/ML inj IVP ×2 (13:05→14:05)
--- NOTE | 2023-05-05 13:07 | ED_ITS ---
HPI - General Adult General Chief complaint: Nausea/Vomiting Stated complaint: Vomiting, pain under ribcage Time Seen by Provider: 05/05/23 12:24 Source: patient Limitations: no limitations History of Present Illness HPI narrative: 82-year-old female presenting today with abdominal pain that started approximately 6 hours ago. Pain is diffuse, however the worst pain is underneath her ribcage on the right. She states that she has been vomiting all morning. She tried eat a cracker and had some tea but she vomited that up shortly afterwards. She denies fevers, chills or shivering. She had a kidney biopsy approximately 1 week ago at [facility]. According to the patient, it was uncomplicated. Past surgical history is significant for cholecystectomy, appendectomy and hysterectomy. She denies any history of small bowel obstruction. States that she had a small bowel movement today that she describes as a palpable. Feels like she has been passing less gas than usual since yesterday. Past medical history significant for end-stage renal disease, diabetes, vitamin- D deficiency, of the secondary renal hyperparathyroidism, malignant melanoma of the lower extremity, vitamin B12 deficiency, hyperkalemia, congestive heart failure, osteopenia, hyperlipidemia, restless leg syndrome, hypertension, atrial fibrillation on anticoagulation therapy, hypothyroidism. 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 Last creatinine was on 04/27/2023, it was 4.53. Normal sodium and potassium at 1:43 a.m., 3.7 respectively. Related Data Home Medications Medication Instructions Recorded Confirmed allopurinol 300 mg tablet 150 mg PO DAILY 01/10/22 05/05/23 atorvastatin 20 mg tablet 20 mg PO ONCE 01/10/22 05/05/23 brimonidine 0.15 % eye drops 1 drp ophthalmic (eye) Q8H 01/10/22 05/05/23 cholecalciferol (vitamin D3) 50 100 mcg PO ONCE 01/10/22 05/05/23 mcg (2,000 unit) tablet dorzolamide 22.3 mg-timolol 6.8 ophthalmic (eye) 01/10/22 01/10/22 mg/mL eye drops doxycycline hyclate 50 mg tablet 50 mg PO QDAY 01/10/22 01/10/22 furosemide 20 mg tablet 20 mg PO BID 01/10/22 05/05/23 levothyroxine 75 mcg tablet 75 mcg PO QDAY 01/10/22 05/05/23 metoprolol tartrate 25 mg tablet 25 mg PO BID 01/10/22 05/05/23 warfarin 3 mg tablet 3 mg PO DIRECTED 01/10/22 05/05/23 Allergies Allergy/AdvReac Type Severity Reaction Status Date / Time No Known Drug Allergies Allergy Verified 05/05/23 12:33 Review of Systems Status of ROS: Reports: 10 or more systems reviewed and unremarkable except as noted in History and below PFSH [facility] Social History Smoking Status: Never smoker Do you use any of these nicotine containing products: None Second hand tobacco smoke exposure: No How often do you have a drink containing alcohol: never How often do you have six or more drinks on one occasion: Never AUDIT-C Alcohol total score: 0 Non-prescribed substance use: denies use Exam Narrative: Exam Narrative: Well-nourished well-developed patient, appears very uncomfortable. Alert and oriented x3. Answers questions appropriately. Mood and affect are appropriate. Thoughts are goal oriented and rational. No tangential or magical thinking noted. Patient speaks in full sentences without needing to catch her breath. HEENT: Normocephalic atraumatic. Pupils are equally round reactive to light. Extraocular muscles are intact. Conjunctivae are moist without any icterus noted. Moist mucous membranes. Posterior pharynx is normal. Neck is soft without any lymphadenopathy or thyromegaly. No masses are appreciated. Cardiovascular: Irregularly irregular. Lungs: Clear to auscultation bilaterally no wheezes rhonchi or rales are appreciated. Abdomen: Soft and nondistended. She is acutely tender diffusely. Barely any bowel sounds. Extremities: Bilateral [place] induration and chronic violaceous skin changes secondary to chronic edema. Skin: Well perfused. Const: Vital Signs, click to edit/add: Vital Signs - 24 hr 05/05/23 12:33 05/05/23 12:40 Temperature 98.9 F Pulse Rate [Pulse Oximeter] 95 Respiratory Rate 18 Blood Pressure [Ri ght Upper Arm] 177/78 H Pulse Oximetry 99 97 Oxygen Delivery Me thod Room Air Course Course ED Course: EKG, read by me, shows atrial fibrillation with a pulse of 89. CBCs unremarkable. Carbon dioxide slightly low at 18. BUN and creatinine both elevated at 48 and 4.6 respectively. Glucose 185. Normal lactate. Alk-phos slightly elevated at 185. Normal lipase. Abdominal CT scan consistent with small-bowel obstruction. Patient received 2 doses of IV morphine while she is here which has been controlling her pain. Vital Signs Vital signs: Initial Vital Signs Temperature 98.9 F 05/05/23 12:33 Temperature Source Temporal Artery Scan 05/05/23 12:33 Pulse Rate 95 05/05/23 12:33 Respiratory Rate 18 05/05/23 12:33 Blood Pressure 177/78 H 05/05/23 12:33 Blood Pressure Mean 111 H 05/05/23 12:33 Blood Pressure Position Semi-Fowlers 05/05/23 12:33 Pulse Oximetry 99 05/05/23 12:33 Oxygen Delivery Method Room Air 05/05/23 12:33 Vital Signs Temperature 98.9 F 05/05/23 12:33 Pulse Rate 95 05/05/23 12:33 Respiratory Rate 18 05/05/23 12:33 Blood Pressure 177/78 H 05/05/23 12:33 Pulse Oximetry 99 05/05/23 12:33 Oxygen Delivery Method Room Air 05/05/23 12:33 Temperature 98.9 F 05/05/23 12:33 Pulse Rate 95 05/05/23 12:33 Respiratory Rate 18 05/05/23 12:33 Blood Pressure 177/78 H 05/05/23 12:33 Pulse Oximetry 97 05/05/23 12:40 Oxygen Delivery Method Room Air 05/05/23 12:33 Medications Administered Medications: Discontinued Medications Generic Name Dose Route Start Last Admin Trade Name Freq PRN Reason Stop Dose Admin Sodium Chloride 500 mls @ 500 mls/hr 05/05/23 12:43 05/05/23 13:20 0.9 % Sodium Chloride 500 Ml IV 05/05/23 13:42 500 mls/hr .Q1H ONE Administration Morphine Sulfate 2 mg 05/05/23 12:59 05/05/23 13:05 Morphine 2 Mg/Ml Inj IVP 05/05/23 13:00 2 mg ONCE ONE Administration Ondansetron HCl 4 mg 05/05/23 12:43 05/05/23 13:04 Ondansetron 2 Mg/Ml Inj IVP 05/05/23 12:44 4 mg ONCE ONE Administration Medical Decision Making MDM Narrative Medical decision making narrative: 82-year-old female with a complex medical history presenting with small-bowel obstruction. Patient will be admitted for further management. Medical Records Medical records reviewed: Yes I reviewed the patient's medical records Lab Data Lab results reviewed: Yes I reviewed the patient's lab results Labs: Lab Results 05/05/23 Range/Units 12:50 WBC 7.92 (4.50-11.00) K/uL RBC 4.80 (4.00-5.20) m/uL Hgb 14.1 (12.0-16.0) gm/dL Hct 43.1 (33.0-51.0) % MCV 90 (80-100) fL MCH 29 (26-34) pg MCHC 33 (32-36) gm/dL RDW Coeff of Percy 15.1 (11.5-15.5) % Plt Count 194 (140-440) K/uL Neut % (Auto) 85.1 H (42.0-72.0) % Lymph % (Auto) 10.6 L (20-44) % [place] % (Auto) 3.3 (0.0-11.0) % Eos % (Auto) 0.6 (0.0-7.0) % Baso % (Auto) 0.3 (0.0-3.0) % Neut # (Auto) 6.70 (1.7-7.0) K/uL Lymph # (Auto) 0.80 L (0.90-2.90) K/uL [place] # (Auto) 0.30 (0.00-0.90) K/UL Eos # (Auto) 0.05 (0.00-0.50) K/uL Baso # (Auto) 0.02 (0.00-0.30) K/uL Abs Immat Gran (auto) 0.01 (0.00-0.30) K/uL Imm/Tot Granulo (auto) 0.1 % Sodium 142 (135-149) mmol/L Potassium 3.8 (3.6-5.1) mmol/L Chloride 109 (96-114) mmol/L Carbon Dioxide 18 L (20-32) mmol/L Anion Gap 15 (7-15) mEq/L BUN 48 H (7-30) mg/dL Creatinine 4.6 H (0.5-1.5) mg/dL Estimated Creat Clear 8.52 Estimated GFR 9 ml/min Glucose 185 H (60-115) mg/dL Lactate 1.7 (0.5-1.9) mmol/L Calcium 9.8 (8.4-10.6) mg/dL Total Bilirubin 1.2 (0.1-1.5) mg/dL Direct Bilirubin 0.4 (0.0-0.5) mg/dL AST 27 (12-35) U/L ALT 29 (4-35) U/L Alkaline Phosphatase 185 H (40-150) U/L Total Protein 7.8 (6.0-8.3) g/dL Albumin 4.5 (3.3-5.0) g/dL Lipase 91 (23-300) U/L Imaging Data CT scan - abdomen: Attestation: I have reviewed the pertinent imaging results. Radiologist's impression: CT examination of the abdomen and pelvis was performed without intravenous contrast. Thin section axial images were obtained from the lung bases through the pubic symphysis. Oral contrast was not administered. Please note that all CT scans at this facility use dose modulation, iterative reconstruction, and/or weight-based dosing when appropriate to reduce radiation dose to as low as reasonably achievable. FINDINGS: LUNG BASES: The lung bases as visualized appear normal.Enlarged heart. Small hiatal hernia. Atherosclerotic vascular calcifications. LIVER/BILIARY SYSTEM:The liver is normal in size and configuration given the lack of intravenous contrast. There is no visible focal mass and there is no intra- or extra hepatic biliary ductal dilatation.Absent gallbladder ADRENALS: Normal non-contrast appearance KIDNEYS, URETERS and BLADDER:The kidneys appear normal given lack of intravenous contrast. No visible mass, calculus or hydronephrosis. The ureters and bladder as visualized appear normal. SPLEEN:Normal non-contrast appearance. PANCREAS: Normal non-contrast appearance. RETROPERITONEUM and MESENTERY: There is no mass, adenopathy or aortic aneurysm. Atherosclerotic vascular calcification GASTROINTESTINAL SYSTEM: Diffusely fluid distended small bowel with air-fluid levels. The distal most small bowel is decompressed. Findings are consistent with a small-bowel obstruction. The point of transition appears to be in the right lower quadrant. Regarding the colon, scattered diverticulosis. PELVIS: Mild free fluid. No free air.. OSSEOUS STRUCTURES and ABDOMINAL WALL: There is an age-appropriate appearance of the osseous structures.No significant abdominal wall defect. OTHER: No free fluid or free air. IMPRESSION: 1. Abnormally dilated small bowel consistent with a distal small-bowel obstruction. The distal most small bowel is decompressed. The point of transition appears to be in the right lower quadrant. No directly visible mass or hernia in this area. 2. Other incidental nonacute appearing findings as above ECG Data Attestation: I personally reviewed and interpreted this ECG as follows: Discharge Plan Discharge Clinical Impression: Atrial fibrillation, SBO (small bowel obstruction), End stage kidney disease Patient Disposition: Admitted As Observation Condition: Stable Prescriptions: No Action levothyroxine 75 mcg tablet 75 mcg PO QDAY furosemide 20 mg tablet 20 mg PO BID Hold Instructions: Stopped by PCP cholecalciferol (vitamin D3) 50 mcg (2,000 unit) tablet 100 mcg PO ONCE allopurinol 300 mg tablet 150 mg PO DAILY dorzolamide-timolol 22.3-6.8 mg/mL drops ophthalmic (eye) brimonidine 0.15 % drops 1 drp ophthalmic (eye) Q8H atorvastatin 20 mg tablet 20 mg PO ONCE doxycycline hyclate 50 mg tablet 50 mg PO QDAY warfarin 3 mg tablet 3 mg PO DIRECTED Hold Instructions: On hold r/t recent procedure metoprolol tartrate 25 mg tablet 25 mg PO BID Follow Up/Referrals: Tim Chanel MD [Primary Care Provider] -
[2023-05-05 13:17] LABS: Albumin* 4.5 g/dL (3.3-5.0); Chloride* 109 mmol/L (96-114); Potassium* 3.8 mmol/L (3.6-5.1); Sodium* 142 mmol/L (135-149)
[2023-05-05 13:19] LABS: Anion Gap 15 mEq/L (7-15); Carbon Dioxide* 18 mmol/L (20-32); Creatinine* 4.6 mg/dL (0.5-1.5); Est. Creatinine Clearance* 8.52; Estimated Glomerular Filt Rate 9 ml/min
[2023-05-05 13:20] LABS: Alanine Aminotransferase* 29 U/L (4-35); Alkaline Phosphatase* 185 U/L (40-150); Aspartate Amino Transferase* 27 U/L (12-35); Bilirubin Direct* 0.4 mg/dL (0.0-0.5); Bilirubin Total* 1.2 mg/dL (0.1-1.5); Blood Urea Nitrogen* 48 mg/dL (7-30); Calcium* 9.8 mg/dL (8.4-10.6); Glucose* 185 mg/dL (60-115); Lipase* 91 U/L (23-300); Total Protein* 7.8 g/dL (6.0-8.3)
[2023-05-05] MEDS: 0.9 % SODIUM CHLORIDE 500 ML 500 ML IV (13:20)
--- NOTE | 2023-05-05 14:38 | ED.NURSE ---
Report to ERENDIRA Shah MS. Patient accepted to 276.
--- NOTE | 2023-05-05 14:42 | PM.IMHP1 ---
Hospitalist- H&P: HPI History of Present Illness Date Seen: 05/05/23 Chief complaint: Vomiting, pain under ribcage Narrative: 82-year-old female presenting today with abdominal pain that started approximately 4:00 a.m. on the day of admission. Pain is diffuse, however the worst pain is underneath her ribcage on the right. She states that she has been vomiting all morning. Nonbloody emesis. She tried eat a cracker and had some tea but she vomited that up shortly afterwards. She denies fevers, chills or shivering. She had a left kidney biopsy approximately 1 week ago at [facility]. According to the patient, it was uncomplicated. Past surgical history is significant for cholecystectomy, appendectomy and hysterectomy. She denies any history of small bowel obstruction. States that she had a small bowel movement today that she describes as a palpable. Feels like she has been passing less gas than usual since yesterday. She had colonoscopy about 2.5 years ago which was notable for 3 small polyps with a recommended follow-up in 5 years. She reports her stools have been formed and small recently and because of this she started taking Metamucil. Past medical history significant for end-stage renal disease, diabetes, vitamin-D deficiency, of the secondary renal hyperparathyroidism, malignant melanoma of the lower extremity, vitamin B12 deficiency, hyperkalemia, congestive heart failure, osteopenia, hyperlipidemia, restless leg syndrome, hypertension, atrial fibrillation on anticoagulation therapy, hypothyroidism. She has atrial fibrillation and is on warfarin for this. The warfarin was held for kidney biopsy. She took it for 3 days after the kidney biopsy and stopped it 2 days ago again pending glaucoma surgery in her right eye in 6 days. Review of Systems Narrative: Review of systems unremarkable except as noted above. Specifically denies cold cough dyspnea chest pain. [facility] Medical History (Updated 05/05/23 @ 15:29 by Rolly Valentine MD) Glaucoma ?H40.9 - Unspecified glaucoma (ICD-10) Hyperlipidemia ?E78.5 - Hyperlipidemia, unspecified (ICD-10) Secondary renal hyperparathyroidism ?N25.81 - Secondary hyperparathyroidism of renal origin (ICD-10) Hypertension ?I10 - Essential (primary) hypertension (ICD-10) Osteopenia ?M85.80 - Other specified disorders of bone density and structure, unspecified site (ICD-10) Lower extremity edema ?R60.0 - Localized edema (ICD-10) Heart failure with preserved ejection fraction ?I50.30 - Unspecified diastolic (congestive) heart failure (ICD-10) End stage kidney disease ?N18.6 - End stage renal disease (ICD-10) Atrial fibrillation ?I48.91 - Unspecified atrial fibrillation (ICD-10) Surgical History (Updated 05/05/23 @ 15:22 by Rolly Valentine MD) History of hysterectomy ?Z90.710 - Acquired absence of both cervix and uterus (ICD-10) History of colonoscopy with polypectomy ?Z98.890 - Other specified postprocedural states (ICD-10) ?Z86.010 - Personal history of colonic polyps (ICD-10) History of cholecystectomy ?Z90.49 - Acquired absence of other specified parts of digestive tract (ICD-10) History of appendectomy ?Z90.49 - Acquired absence of other specified parts of digestive tract (ICD-10) Family History (Updated 05/05/23 @ 15:23 by Rolly Valentine MD) Sister Stroke Father Prostate cancer Other Heart disease Social History (Updated 05/05/23 @ 15:24 by Rolly Valentine MD) Narrative: She lives in her own home near [facility]. She has 4 steps to get in the house but otherwise can live on 1 level. She walks with a walker. She reports this is going well for her but her children are encouraging her to move to a more handicapped assessable facility. She occasionally drinks alcohol. She does not smoke. Code status is DNR. Her daughter Veena is healthcare power of deputy attorney general Smoking Status: Never smoker Do you use any of these nicotine containing products: None Second hand tobacco smoke exposure: No How often do you have a drink containing alcohol: never How often do you have six or more drinks on one occasion: Never AUDIT-C Alcohol total score: 0 Non-prescribed substance use: denies use Meds Home Medications and Allergies Home Medications Medication Instructions Recorded Confirmed Type cholecalciferol (vitamin D3) 50 50 mcg PO DAILY 01/10/22 05/05/23 History mcg (2,000 unit) tablet dorzolamide 22.3 mg-timolol 6.8 1 drp ophthalmic (eye) BID 01/10/22 05/05/23 History mg/mL eye drops furosemide 20 mg tablet 20 - 40 mg PO DAILY PRN 01/10/22 05/05/23 History levothyroxine 75 mcg tablet 75 mcg PO DAILY 01/10/22 05/05/23 History allopurinol 100 mg tablet 100 mg PO DAILY 05/05/23 05/05/23 History atorvastatin 10 mg tablet 10 mg PO HS 05/05/23 05/05/23 History brimonidine 0.2 % eye drops 1 drp ophthalmic (eye) BID 05/05/23 05/05/23 History latanoprostene bunod 0.024 % eye 1 drp ophthalmic (eye) HS 05/05/23 05/05/23 History drops (Vyzulta) metoprolol succinate 50 mg 50 mg PO BID 05/05/23 05/05/23 History tablet,extended release 24 hr potassium chloride 20 mEq 20 meq PO DAILY PRN 05/05/23 05/05/23 History tablet,extended release (K-Tab) warfarin 2.5 mg tablet 5 - 7.5 mg PO DAILY 05/05/23 05/05/23 History Home Medication Comments: Normally she takes furosemide 20 mg every day. When she gets increased weight or increased edema in her legs she increases to 40 mg. When she takes 40 mg she also takes 20 mEq of potassium on that day. Allergies Allergy/AdvReac Type Severity Reaction Status Date / Time No Known Drug Allergies Allergy Verified 05/05/23 12:33 Exam Narrative: Exam Narrative: She is alert appears in no distress. She gives her own history with good detail. She has moderate erythema of the right eye/conjunctiva. Left eye is normal. Pupils are equal round reactive to light. Extraocular movements are full. Oropharynx is normal. No facial asymmetry. Neck is supple without mass or adenopathy. No jugular venous distension. Respirations are clear to auscultation. Cardiovascular: S1, S2, regular rate and rhythm. No murmur gallop or rub. Abdomen: Bowel sounds active. Abdomen is soft. She has mild right lower quadrant tenderness otherwise no tenderness. Diminished bowel sounds. External genitalia normal. Extremities with 2+ edema bilaterally. Chronic venous stasis skin changes and brawny induration. Couple small blisters noted on each leg. Const: Vital Signs, click to edit/add: Vital Signs - 24 hr 05/05/23 12:33 05/05/23 12:40 Temperature 98.9 F Pulse Rate [Pulse Oximeter] 95 Respiratory Rate 18 Blood Pressure [Ri t Upper Arm] 177/78 H Pulse Oximetry 99 97 Oxygen Delivery Me thod Room Air Documenting provider has reviewed patient's vital signs: yes Hospitalist - H&P: Result Labs Labs: Short CBC 05/05/23 Range/Units 12:50 WBC 7.92 (4.50-11.00) K/uL Hgb 14.1 (12.0-16.0) gm/dL Hct 43.1 (33.0-51.0) % Plt Count 194 (140-440) K/uL BMP 05/05/23 12:50 Sodium 142 Potassium 3.8 Chloride 109 Carbon Dioxide 18 L BUN 48 H Creatinine 4.6 H Glucose 185 H Calcium 9.8 Liver Function 05/05/23 Range/Units 12:50 Total Bilirubin 1.2 (0.1-1.5) mg/dL Direct Bilirubin 0.4 (0.0-0.5) mg/dL AST 27 (12-35) U/L ALT 29 (4-35) U/L Alkaline Phosphatase 185 H (40-150) U/L Albumin 4.5 (3.3-5.0) g/dL Imaging CT scan - abdomen: Radiologist's impression: NDICATION: Diffuse abdominal pain. COMPARISON: April 15, 2024 TECHNIQUE: CT examination of the abdomen and pelvis was performed without intravenous contrast. Thin section axial images were obtained from the lung bases through the pubic symphysis. Oral contrast was not administered. Please note that all CT scans at this facility use dose modulation, iterative reconstruction, and/or weight-based dosing when appropriate to reduce radiation dose to as low as reasonably achievable. FINDINGS: LUNG BASES: The lung bases as visualized appear normal.Enlarged heart. Small hiatal hernia. Atherosclerotic vascular calcifications. LIVER/BILIARY SYSTEM:The liver is normal in size and configuration given the lack of intravenous contrast. There is no visible focal mass and there is no intra- or extra hepatic biliary ductal dilatation.Absent gallbladder ADRENALS: Normal non-contrast appearance KIDNEYS, URETERS and BLADDER:The kidneys appear normal given lack of intravenous contrast. No visible mass, calculus or hydronephrosis. The ureters and bladder as visualized appear normal. SPLEEN:Normal non-contrast appearance. PANCREAS: Normal non-contrast appearance. RETROPERITONEUM and MESENTERY: There is no mass, adenopathy or aortic aneurysm. Atherosclerotic vascular calcification GASTROINTESTINAL SYSTEM: Diffusely fluid distended small bowel with air-fluid levels. The distal most small bowel is decompressed. Findings are consistent with a small-bowel obstruction. The point of transition appears to be in the right lower quadrant. Regarding the colon, scattered diverticulosis. PELVIS: Mild free fluid. No free air.. OSSEOUS STRUCTURES and ABDOMINAL WALL: There is an age-appropriate appearance of the osseous structures.No significant abdominal wall defect. OTHER: No free fluid or free air. IMPRESSION: 1. Abnormally dilated small bowel consistent with a distal small-bowel obstruction. The distal most small bowel is decompressed. The point of transition appears to be in the right lower quadrant. No directly visible mass or hernia in this area. 2. Other incidental nonacute appearing findings as above Assessment and Plan Assessment and plan (1) SBO (small bowel obstruction): Problem comment: Small-bowel obstruction likely due to adhesions from prior surgeries. Conservative management. Consult surgery. NG tube if recurrent vomiting Status: Acute (2) End stage kidney disease: Problem comment: Baseline creatinine on April 27 4.53 giving an EGFR of 9. Continue to monitor. Renal dosing of medications Status: Acute (3) Glaucoma: Problem comment: Glaucoma in the right eye requiring surgery scheduled for 05/11/2023. Hold warfarin preop. If small-bowel obstruction does not resolve relatively quickly may need to postpone surgery Status: Acute (4) Atrial fibrillation: Problem comment: Continue to monitor, rate control, hold warfarin. Will use Lovenox, low dose, for VTE prophylaxis and stroke prophylaxis. Status: Acute (5) Lower extremity edema: Problem comment: Compression stockings Status: Acute Plan Patient admitted to the hospital for management of small bowel obstruction and chronic medical problems. Plan outlined above. Total time spent is 85 minutes, 60 minutes in coordination of care discussing with patient other providers management of small bowel obstruction and chronic renal disease and planned surgery and anticoagulation
--- OUTSIDE RECORDS SUMMARY | 2023-05-05 14:43 | XMS_ITS | Encounter Summary ---
Author Name Unknown Organization [facility] Address [address] [place] [address] Care Team Providers Care Non Profit Director Name Role Phone Tim Chanel MD Primary Care Provider [phone] Encounter Details Date Type Department Care Team Description 05/01/2023 Documentation Only [facility] [address] [facility] [address] [place] [address] Max Roach [address] [facility] [address] [place] [address] Social History Tobacco Use Types [...] [facility] [address] [place] [address] Dm Rain MD [address] [place] [address] 05/27/2023 Orders Only [facility] [address] [place] [phone] Dm Rain MD [address] [place] [address] Acute injury of kidney (HCC) [...] on filedocumented in this encounter Care Teams Non Profit Director Relationship Specialty Start Date End Date Tim Chanel MD [address] [place] [address] PCP - General Family Medicine 04/20/23 documented as of this encounter
--- OUTSIDE RECORDS SUMMARY | 2023-05-05 14:43 | XMS_ITS | Encounter Summary ---
Author Name Unknown Organization [facility] Address [address] [place] [address] Care Team Providers Care Disease Case Manager Name Role Phone Tim Chanel MD Primary Care Provider [phone] Encounter Details Date Type Department Care Team Description 05/05/2023 Telephone [facility] [place] [address] [place] [address] Candice Thompson, RN [address] [place] [address] Social History Tobacco Use Types [...] [facility] [address] [place] [address] Dm Rain MD [address] [place] [phone] 05/27/2023 Orders Only [facility] [place] [address] [address] Dm Rain MD [address] [place] [phone] Acute injury of kidney (HCC) documented as of this encounter Visit Diagnoses Not on filedocumented in this encounter Care Teams Disease Case Manager Relationship Specialty Start Date End Date Tim Chanel MD [facility] [place] [address] PCP - General Family Medicine 04/20/23 documented as of this encounter
--- OUTSIDE RECORDS SUMMARY | 2023-05-05 14:43 | XMS_ITS | Encounter Summary ---
Author Name Unknown Organization [facility] Address [address] [place] [address] Care Team Providers Care Laborer Vegetable Farm Name Role Phone Tim Chanel MD Primary Care Provider [phone] Encounter Details Date Type Department Care Team Description 04/20/2023 Office Communication [facility] [place] [address] [place] [address] Dm Rain MD [address] [place] [address] Acute injury of kidney (HCC) [...] packet. Patient completed pre-visit labs 04/27 at [facility]. Patient will complete their biopsy tomorrow. When calling for co-pays, please talk to PHI approved daughter, Veena. * Telephone Encounter - Marilee Lucero - 04/22/2023 3:19 PM CST Staff to schedule follow up with patient with Dr. Rain with pre-visit labs once [facility] scheduling becomes available. * Addendum Note - [...] up with patient with Dr. Rain once [facility] scheduling becomes available. Will the patient need pre-visit labs in addition to Thursday's labs? * Telephone Encounter - Arlyn Quan - 04/20/2023 9:14 AM CST Hi, I need a chart made for this patient who sees me in [place]. Then I need a biopsy early nextweek, preferably at [place] but could do [facility] if needed as well. I was hoping Thursday and she could do labs on Thursday in [place] (I ordered) because she is stopping warfarin [...] [facility] [address] [place] [address] Dm Rain MD [address] [place] [phone] 05/27/2023 Orders Only [facility] [place] [address] [place] [address] Dm Rain MD [address] [place] [phone] Acute injury of kidney (HCC) Scheduled Orders [...] (HCC) documented in this encounter Care Teams Laborer Vegetable Farm Relationship Specialty Start Date End Date Tim Chanel MD [place] [address] PCP - General Family Medicine 04/20/23 documented as of this encounter
--- OUTSIDE RECORDS SUMMARY | 2023-05-05 14:43 | XMS_ITS | Clinical Summary ---
Author Name Unknown Organization [facility] Address [address] [facility] [place] [address] Phone Care Team Providers Care Equal Opportunity Officer Name Role Phone Tim Chanel MD Primary Care Provider [phone] Allergies Active Allergy Reactions Criticality Noted Date [...] 05/05/2023 Telephone [facility] [place] [facility] [address] [place] [phone] Candice Thompson RN 05/01/2023 Documentation Only [facility] [address] [facility] [address] [place] [phone] Max Roach 04/20/2023 Telephone [facility] [address] [facility] [address] [place] [phone] Candice Thompson RN 04/20/2023 Office Communication [facility] [place] [address] [place] [address] Dm Rain MD Acute injury of kidney [...] [facility] [address] [place] [phone] Dm Rain MD [address] [place] [phone] 05/27/2023 Orders Only [facility] [place] [address] [place] [address] Dm Rain MD [address] [place] [phone] Acute injury of kidney (HCC) Health Maintenance [...] [facility] from Last 3 Months Care Teams Equal Opportunity Officer Relationship Specialty Start Date End Date Tim Chanel MD [facility] [place] [address] PCP - General Family Medicine 04/20/23
--- OUTSIDE RECORDS SUMMARY | 2023-05-05 14:43 | XMS_ITS | Encounter Summary ---
Author Name Unknown Organization [facility] Address [address] [place] [address] Care Team Providers Care Pediatric Audiologist Name Role Phone Tim Chanel MD Primary Care Provider [phone] Reason for Referral * Imaging (Routine) - Closed Specialty Diagnoses / Procedures Referred By Saritha scott Referred To Contact Diagnoses Acute injury of kidney (HCC) Gross hematuria Procedures US Guided Renal Biopsy Dm Rain MD [address] [place] [address] [facility] [address] [place] [address] Referral ID Status Reason Start Date Expiration Date Visits Re quested Visits Authorized [id number] Closed 04/20/2023 04/19/2024 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 Diagnosis acute renal failure and gross hematuria I told her to expect call from you and she is going to schedule labs for Thursday at [facility] and I ordered those in the [facility] system already (BMP, INR, CBC) Son Bertin [...] EST Office Visit [facility] [place] [place] [address] Dm Rain MD [address] [place] [phone] 05/27/2023 Orders Only [facility] [address] [address] Dm Rain MD [address] [place] [phone] Acute injury of kidney (HCC) Scheduled Orders Name Type Priority Associated Diagnoses Orde r Schedule US Guided Renal Biopsy Imaging Routine Acute injury of kidney (HCC) Gross hematuria Expected: 04/20/2023, Expires: 04/20/2024 documented as of this encounter Visit Diagnoses Diagnosis Acute injury of kidney (HCC)- Primary Gross hematuria Acute injury of kidney (HCC) documented in this encounter Care Teams Pediatric Audiologist Relationship Specialty Start Date End Date Tim Chanel MD [address] [place] [address] PCP - General Family Medicine 04/20/23 documented as of this encounter
--- OUTSIDE RECORDS SUMMARY | 2023-05-05 14:44 | XMS_ITS | Clinical Summary ---
Author Name Unknown Organization [employer] [facility] Address [place], [place] [address] Care Team Providers Care Horticulture Supervisor Name Role Phone Tay Pearson Heather Unavailable [phone] Tim Chanel MD Primary Care Provider [phone] Veena Mitchell MD Unavailable Allergies Active Allergy [...] Type Department Care Team Description 05/04/2023 Telephone [facility] [address] [place] [address] Dm Rain MD 04/30/2023 8:53 AM WINDSHIELD WIPER REPAIRER - 04/30/2023 11:59 PM WINDSHIELD WIPER REPAIRER Hospital Encounter [facility] [address] [place] [address] Dm Rain MD JEFFY (acute kidney injury) (HC); Gross hematuria 04/30/2023 Anticoagulation (warfarin) [facility] [address] [place] [address] 1, [facility] Anticoagulation (Chart update) 04/30/2023 Telephone [facility] [address] [place] [address] Tim Chanel MD Anticoagulation (Questions) 04/30/2023 Travel 04/28/2023 Anticoagulation (warfarin) [facility] [address] [place] [address] 1, [facility] Anticoagulation 04/27/2023 3:30 PM WINDSHIELD WIPER REPAIRER Orders Only [facility] [address] [place] [address] Lab, [place] 04/27/2023 Travel 04/23/2023 Travel 04/22/2023 2:25 PM WINDSHIELD WIPER REPAIRER Preop Visit [facility] [place] [address] [address] Tim Chanel MD Preoperative Exam (Right eye 05/11/23//Kidney biopsy 04/30/23) 04/22/2023 Travel 04/20/2023 Telephone [facility] [address] [place] [address] Dm Rain MD Abnormal Lab Results 04/19/2023 Travel 04/15/2023 10:30 AM WINDSHIELD WIPER REPAIRER Ancillary Procedure [facility] [place] [address] [address] 04/14/2023 11:50 AM WINDSHIELD WIPER REPAIRER Orders Only [facility] [address] [place] [address] Lab, [facility] 04/14/2023 Anticoagulation (warfarin) [facility] [address] [place] [address] 1, [facility] Anticoagulation 04/14/2023 Travel 04/12/2023 Travel 04/09/2023 Telephone [facility] [address] [place] [address] Dm Rain MD 03/26/2023 10:00 AM WINDSHIELD WIPER REPAIRER Orders Only [facility] [place] [address] [address] Lab, [place] [facility] 03/26/2023 Telephone [facility] [address] [place] [address] Tim Chanel MD Lab 03/26/2023 Travel 03/24/2023 Nurse Triage [facility] [address] [facility] [address] Tim Chanel MD Blood In Urine 03/22/2023 Travel 03/19/2023 Orders Only [facility] Scanner 1 scan: (1-Ord) [facility], ARTERIAL DUPLEX LE BI, 03/19/2023 03/10/2023 10:30 AM WINDSHIELD WIPER REPAIRER Orders Only [facility] [address] [place] [address] Lab, [place] [facility] 03/10/2023 Anticoagulation (warfarin) [facility] [address] [place] [address] 1, [facility] Anticoagulation 03/10/2023 Travel 03/09/2023 Nurse Triage [facility] [address] [place] [address] Tim Chanel MD Urinary Problem (/) 03/08/2023 Travel 02/17/2023 11:00 AM WINDSHIELD WIPER REPAIRER Orders Only [facility] [address] [place] [address] Lab, [place] 02/17/2023 10:30 AM WINDSHIELD WIPER REPAIRER Office Visit [facility] [address] [place] [address] Manan Agarwal MD Follow Up (ECHO done 02/11) 02/17/2023 Anticoagulation (warfarin) [facility] [address] [place] [address] 1, [facility] Anticoagulation 02/16/2023 Travel 02/11/2023 11:20 AM CDT Orders Only [facility] [address] [facility] [address] Lab, [place] [facility] 02/11/2023 10:00 AM CDT Ancillary Procedure [facility] [address] [place] [address] 02/11/2023 Anticoagulation (warfarin) [facility] [address] [place] [address] 1, [facility] Anticoagulation 02/11/2023 Travel 02/09/2023 Travel 02/06/2023 1:00 PM CDT Ancillary Procedure [facility] [address] [place] [address] [address] 02/06/2023 10:25 AM CDT Office Visit [facility] [address] [place] [address] Tim Chanel MD Follow Up (6 month follow up - go over lab results); Immunization/Injectio n; Derm Problem (Check left lower leg for possible infection) 02/06/2023 Telephone [facility] [place] [address] [address] Tim Chanel MD Anticoagulation (BPA Cephalexin and [...] COVID-19 Vaccine Spikevax (M oderna 50mcg/0.5mL) 12YO+ 5071-2013 Formula PF 02/06/2023 COVID-19 vaccine (Pfizer-Bio NTech [...] Comments Blood Pressure 135/77 04/30/2023 2:00 PM WINDSHIELD WIPER REPAIRER Pulse 69 04/30/2023 2:00 PM WINDSHIELD WIPER REPAIRER Temperature 36.3 ??C (97.4 ??F) 04/30/2023 9:20 AM CS T Respiratory Rate 14 04/30/2023 2:00 PM WINDSHIELD WIPER REPAIRER Oxygen Saturation 95% 04/30/2023 2:00 PM WINDSHIELD WIPER REPAIRER Inhaled Oxygen Concentration - - Weight 76.7 kg (169 lb) 04/30/2023 9:20 AM WINDSHIELD WIPER REPAIRER Height 165.1 cm (5' 5) 04/30/2023 9:20 AM WINDSHIELD WIPER REPAIRER Body Mass Index 28.12 04/30/2023 9:20 AM WINDSHIELD WIPER REPAIRER Plan of Treatment Upcoming Encounters Date Type Department Care Team (Late st Contact Info) Description 05/12/2023 10:00 AM WINDSHIELD WIPER REPAIRER Office Visit [facility] [place] [address] [place] [address] Veena Mitchell MD [address] [facility] [address] [place] [address] 05/13/2023 10:15 AM WINDSHIELD WIPER REPAIRER Orders Only [facility] [address] [place] [address] Lab, [place] 05/18/2023 11:30 AM WINDSHIELD WIPER REPAIRER Orders Only [facility] [address] [place] [address] Lab, [place] 06/26/2023 2:20 PM CDT Office Visit [facility] [address] [place] [address] Tim Chanel MD [address] [place] [address] Health Maintenance Due Date Last Done Comments [...] Completed 2012, 08/31/2007, 08/31/2007 [facility] Pneumococcal series for age 65+ Completed 10/09/2014, 09/11/2010, 01/11/1997 Zoster (shingles) series for age 50+ Completed 08/31/2018, 05/29/2018, 08/05/2006 Tdap Completed 12/09/2022, 05/19/2011 Influenza for age 65+ Completed 01/05/2023 , 01/15/2022, 01/21/2021, Additional history exists COVID-19 vaccine series Completed 02/07/20 23, 01/15/2022, 09/16/2021, Additional history exists Procedures Procedure Name Priority Date/Time Associated Diagnosis Comments US BIOPSY RENAL LEFT Routine 04/30/2023 11:15 AM WINDSHIELD WIPER REPAIRER JEFFY (acute kidney injury) (HC) Gross hematuria PATH TISSUE EXAM Today 04/30/2023 11:0 0 AM WINDSHIELD WIPER REPAIRER PROTIME-INR STAT 04/30/2023 9:02 AM WINDSHIELD WIPER REPAIRER CBC W PLT NO DIFF Routine 04/27/2023 3:3 3 PM WINDSHIELD WIPER REPAIRER Stage 3b chronic kidney disease (HC) JEFFY (acute kidney injury) (HC) BASIC METABOLIC PANEL Routine 04/27/2023 3:33 PM WINDSHIELD WIPER REPAIRER Stage 3b chronic kidney disease (HC) JEFFY (acute kidney injury) (HC) PROTIME-INR STAT 04/27/2023 3:33 PM WINDSHIELD WIPER REPAIRER New onset atrial fibrillation (HC) Anticoagulation monitoring, INR range 2-3 CT ABDOMEN PELVIS STONE PROTOCOL WO Routine 04/15/2023 10:45 AM WINDSHIELD WIPER REPAIRER CKD (chronic kidney disease) stage 4, GFR 15-29 ml/min (HC) Gross hematuria CBC WITH AUTO DIFFERENTIAL Routine 04/14/2023 11:51 AM WINDSHIELD WIPER REPAIRER CKD (chronic kidney disease) stage 4, GFR 15-29 ml/min (HC) Gross hematuria [facility] Routine 04/14/2023 11:51 AM WINDSHIELD WIPER REPAIRER CKD (chronic kidney disease) stage 4, GFR 15-29 ml/min (HC) Gross hematuria ANCA PANEL FOR VASCULITIS Routine 04/14/2023 11:51 AM WINDSHIELD WIPER REPAIRER CKD (chronic kidney disease) stage 4, GFR 15-29 ml/min (HC) Gross hematuria ANTINUCLEAR ANTIBODY BY IFA Routine 04/14/2023 11:51 AM WINDSHIELD WIPER REPAIRER CKD (chronic kidney disease) stage 4, GFR 15-29 ml/min (HC) Gross hematuria C4 COMPLEMENT Routine 04/14/2023 11:51 AM WINDSHIELD WIPER REPAIRER CKD (chronic kidney disease) stage 4, GFR 15-29 ml/min (HC) Gross hematuria C3 COMPLEMENT Routine 04/14/2023 11:51 AM WINDSHIELD WIPER REPAIRER CKD (chronic kidney disease) stage 4, GFR 15-29 ml/min (HC) Gross hematuria HEPATIC FUNCTION PANEL Routine 04/14/2023 11:51 AM WINDSHIELD WIPER REPAIRER CKD (chronic kidney disease) stage 4, GFR 15-29 ml/min (HC) Gross hematuria CBC WITH AUTO DIFFERENTIAL Routine 04/14/2023 11:51 AM WINDSHIELD WIPER REPAIRER CKD (chronic kidney disease) stage 4, GFR 15-29 ml/min (HC) Gross hematuria RENAL FUNCTION PANEL Routine 04/14/2023 11:51 AM WINDSHIELD WIPER REPAIRER CKD (chronic kidney disease) stage 4, GFR 15-29 ml/min (HC) Gross hematuria PROTIME-INR STAT 04/14/2023 11:51 AM WINDSHIELD WIPER REPAIRER New onset atrial fibrillation (HC) Anticoagulation monitoring, INR range 2-3 URINALYSIS MICROSCOPIC Routine 03/26/2023 10:15 AM WINDSHIELD WIPER REPAIRER Recurrent gross hematuria URINE CULTURE Routine 03/26/2023 10:15 AM WINDSHIELD WIPER REPAIRER Recurrent gross hematuria UA W/ SEDIMENT EXAM REFLEXED PER CRITERIA Routine 03/26/2023 10:15 AM WINDSHIELD WIPER REPAIRER Recurrent gross hematuria VITAMIN B12 Add On 03/26/2023 10:12 AM WINDSHIELD WIPER REPAIRER Vitamin B12 deficiency BASIC METABOLIC PANEL Routine 03/26/2023 10:12 AM WINDSHIELD WIPER REPAIRER Stage 3b chronic kidney disease (HC) SCAN-ULTRASOUND REPORT 03/19/2023 12:00 AM WINDSHIELD WIPER REPAIRER URINALYSIS MICROSCOPIC Routine 03/10/2023 11:02 AM WINDSHIELD WIPER REPAIRER Gross hematuria URINE CULTURE Routine 03/10/2023 11:02 AM WINDSHIELD WIPER REPAIRER Gross hematuria UA W/ SEDIMENT EXAM REFLEXED PER CRITERIA Routine 03/10/2023 11:02 AM WINDSHIELD WIPER REPAIRER Gross hematuria INR,POCT Routine 03/10/2023 11:00 AM WINDSHIELD WIPER REPAIRER New onset atrial fibrillation (HC) Anticoagulation monitoring, INR range 2-3 VITAMIN B12 Routine 02/17/2023 11:07 AM WINDSHIELD WIPER REPAIRER Vitamin B12 deficiency BASIC METABOLIC PANEL Routine 02/17/2023 11:07 AM WINDSHIELD WIPER REPAIRER Peripheral edema PROTIME-INR STAT 02/17/2023 11:07 AM WINDSHIELD WIPER REPAIRER New onset atrial fibrillation (HC) Anticoagulation monitoring, [...] US BIOPSY RENAL LEFT (04/30/2023 11:15 AM WINDSHIELD WIPER REPAIRER) Anatomical Region Laterality Modality KIDNEY L Ultrasound, Othe r, Other, Other 04/30/2023 11:3 1 AM WINDSHIELD WIPER REPAIRER Narrative 04/30/2023 11:31 AM WINDSHIELD WIPER REPAIRER For Patients: ??As a result of the [...] then prepped and draped in sterile fashion. [place] protocol was followed. TIME-OUT conducted just prior [...] andthen prepped and draped in sterile fashion. [place] protocol was followed. TIME-OUT conducted just prior [...] MD US * Protime-INR (04/30/2023 9:02 AM WINDSHIELD WIPER REPAIRER) Only the most recent of4 resultswithin the time period is included. INR 1.0 <1.3 04/30/2023 9:39 AM [facility] PROTIME 11.7 10.3 - 12.3 sec 04/30/2023 9:39 AM WINDSHIELD WIPER REPAIRER [facility] Blood BLOOD SPECIMEN / Unknown Venipuncture / Unknown 04/30/2023 9:02 AM WINDSHIELD WIPER REPAIRER 04/30/2023 9:27 AM WINDSHIELD WIPER REPAIRER Narrative [facility] - 04/30/2023 9:39 AM WINDSHIELD WIPER REPAIRER ?Therapeutic Range 2.0-3.0 for most anticoagulated patients [...] is on UFH. Dada Dietrich MD HEMATOLOGY [facility] [address] [place] [address], * (ABNORMAL) CBC (04/27/2023 3:33 PM WINDSHIELD WIPER REPAIRER) WHITE BLOOD COUNT 7.4 4.5 - 11.0 thou/cu mm 04/27/2023 3:42 PM WINDSHIELD WIPER REPAIRER [facility] RED BLOOD COUNT 4.79 4.00 - 5.20 mil/cu mm 04/27/2023 3:42 PM WINDSHIELD WIPER REPAIRER [facility] HEMOGLOBIN 14.5 12.0 - 16.0 g/dL 04/27/2023 3:42 PM WINDSHIELD WIPER REPAIRER [facility] HEMATOCRIT 42.7 33.0 - 51.0 % 04/27/2023 3:42 PM WINDSHIELD WIPER REPAIRER [facility] MCV 89 80 - 100 fL 04/27/2023 3:42 PM WINDSHIELD WIPER REPAIRER [facility] MCH 30.3 26.0 - 34.0 pg 04/27/2023 3:42 PM WINDSHIELD WIPER REPAIRER [facility] MCHC 34.0 32.0 - 36.0 g/dL 04/27/2023 3:[address] [facility] RDW 15.7(H) 11.5 - 15.5 % 04/27/2023 3:42 PM WINDSHIELD WIPER REPAIRER [facility] PLATELET COUNT 209 140 - 440 thou/cu mm 04/27/2023 3:[address] [facility] MPV 11.4(H) 6.5 - 11.0 fL 04/27/2023 3:[address] [facility] Blood BLOOD SPECIMEN / Unknown Venipuncture / Unknown 04/27/2023 3:33 PM WINDSHIELD WIPER REPAIRER 04/27/2023 3:38 PM WINDSHIELD WIPER REPAIRER Narrative [facility] - 04/27/2023 3:42 PM WINDSHIELD WIPER REPAIRER This procedure was originally ordered at [facility]. Dm Rain MD HEMATOLOGY [facility] [address] [place] [address], * (ABNORMAL) BASIC METABOLIC PANEL (04/27/2023 3:33 PM WINDSHIELD WIPER REPAIRER) Only the most recent of3 resultswithin the time period is included. SODIUM 143 136 - 145 mmol/L 04/28/2023 2:17 PM [facility] LABORATORY POTASSIUM 3.7 3.5 - 5.1 mmol/L 04/28/2023 2:17 PM [facility] CHLORIDE 105 98 - 107 mmol/L 04/28/2023 2:17 PM [facility] CO2,TOTAL 22 22 - 29 mmol/L 04/28/2023 2:17 PM [facility] LAB[facility] ANION GAP 16 5 - 18 04/28/2023 2:17 PM WINDSHIELD WIPER REPAIRER [facility] TR[facility] LAB[facility]ORY GLUCOSE 120(H) 70 - 99 mg/dL 04/28/2023 2:17 PM [facility] CALCIUM 10.1 8.8 - 10.2 mg/dL 04/28/2023 2:17 PM [facility] BUN 51(H) 8 - 23 mg/dL 04/28/2023 2:17 PM [facility] CREATININE 4.53(H) 0.50 - 0.90 mg/dL 04/28/2023 2:17 PM [facility] BUN/CREAT RATIO 11 10 - 20 2:17 PM [facility] eGFR 9(L) >90 mL/min/1.7 3m2 04/28/2023 2:17 PM [facility] Comment:As of 2021, eG FR is calculated by the CKD-EPI creatinine equation without race adjustment. ??eGFR can be influenced by muscle mass, exercise, and diet. ??The reported eGFR is an estimation only and is only applicable if the renal function is stable. Blood BLOOD SPECIMEN / Unknown Venipuncture / Unknown 04/27/2023 3:33 PM WINDSHIELD WIPER REPAIRER 04/27/2023 3:38 PM WINDSHIELD WIPER REPAIRER Dm Rain MD CHEMISTRY [facility] [address] [place] [address], * CT ABDOMEN PELVIS STONE PROTOCOL WO (04/15/2023 10:45 AM WINDSHIELD WIPER REPAIRER) Anatomical Region Laterality Modality Abdomen, Pelvis, AORTA, LIVER, SPLEEN Computed Tomography 04/16/2023 10:2 9 AM WINDSHIELD WIPER REPAIRER Narrative 04/16/2023 10:29 AM WINDSHIELD WIPER REPAIRER For Patients: ??As a result of the [...] ANTINUCLEAR ANTIBODY BY IFA (04/14/2023 11:51 AM WINDSHIELD WIPER REPAIRER) Pathologist [facility] ANTINUCLEAR ANTIBODY (MAYUR) Positive( A) Negative 04/15/2023 1:12 PM WINDSHIELD WIPER REPAIRER [facility] TR[facility] MAYUR PATTERN 1 Homogenou s(A) (none) 04/15/2023 1:12 PM WINDSHIELD WIPER REPAIRER [facility] MAYUR TITER 1 1:320(A) (none) 04/15/2023 1:12 PM WINDSHIELD WIPER REPAIRER [facility] Blood BLOOD SPECIMEN / Unknown Venipuncture / Unknown 04/14/2023 11:51 AM WINDSHIELD WIPER REPAIRER 04/14/2023 11:51 AM WINDSHIELD WIPER REPAIRER Narrative [facility] - 04/15/2023 1:12 PM WINDSHIELD WIPER REPAIRER Method: MAYUR screen performed by (IFA) on HEP-2 substrate, IgG Dm Rain MD CHEMISTRY [facility] [address] [place] [address], * ANTIGLOMERULAR BASEMENT MEMBRANE ANTIBODIES (04/14/2023 11:51 AM WINDSHIELD WIPER REPAIRER) Pathologist [facility] Glomerular BM Ab <0.2 0.0 - 0.9 units 04/16/2023 7:07 PM WINDSHIELD WIPER REPAIRER [facility] Blood BLOOD SPECIMEN / Unknown Venipuncture / Unknown 04/14/2023 11:51 AM WINDSHIELD WIPER REPAIRER 04/14/2023 11:51 AM WINDSHIELD WIPER REPAIRER Narrative [facility] ([facility] - 04/16/2023 7:07 PM WINDSHIELD WIPER REPAIRER Performed at: ??01 - [facility] [address] [place] [address] ??[phone] Pot Tender: Nazanin Tucker MD, Phone: ??[phone] Dm Rain MD SEND OUTS [facility] ([facility]) [address] [place] [address], * (ABNORMAL) CBC WITH AUTO DIFFERENTIAL (04/14/2023 11:51 AM WINDSHIELD WIPER REPAIRER) WHITE BLOOD COUNT 6.0 4.5 - 11.0 thou/cu mm 04/14/2023 12:01 PM [facility] RED BLOOD COUNT 5.36(H) 4.00 - 5.20 mil/cu mm 04/14/2023 12:01 PM [facility] HEMOGLOBIN 15.6 12.0 - 16.0 g/dL 04/14/2023 12:01 PM [facility] HEMATOCRIT 48.0 33.0 - 51.0 % 04/14/2023 12:01 PM [facility] MCV 90 80 - 100 fL 04/14/2023 12:01 PM [facility] MCH 29.1 26.0 - 34.0 pg 04/14/2023 12:01 PM [facility] MCHC 32.5 32.0 - 36.0 g/dL 04/14/2023 12:01 PM [facility] RDW 15.1 11.5 - 15.5 % 04/14/2023 12:01 PM [facility] PLATELET COUNT 200 140 - 440 thou/cu mm 04/14/2023 12:01 PM [facility] MPV 11.0 6.5 - 11.0 fL 04/14/2023 12:01 PM [facility] % NEUT 67.4 % 04/14/2023 12:01 PM [facility] % LYMPH 19.9 % 04/14/2023 12:01 PM [facility] % MONO 7.7 % 04/14/2023 12:01 PM [facility] % EOS 4.2 % 04/14/2023 12:01 PM [facility] % BASO 0.8 % 04/14/2023 12:01 PM [facility] ABSOLUTE NEUTROPHILS 4.0 1.7 - 7.0 thou/cu mm 04/14/2023 12:01 PM [facility] ABSOLUTE LYMPHOCYTES 1.2 0.9 - 2.9 thou/cu mm 04/14/2023 12:01 PM [facility] ABSOLUTE MONOCYTES 0.5 <0.9 thou/cu mm 04/14/2023 12:01 PM [facility] ABSOLUTE EOSINOPHILS 0.3 <0.5 thou/cu mm 04/14/2023 12:01 PM [facility] ABSOLUTE BASOPHILS 0.1 <0.3 thou/cu mm 04/14/2023 12:01 PM [facility] Blood BLOOD SPECIMEN / Unknown Venipuncture / Unknown 04/14/2023 11:51 AM WINDSHIELD WIPER REPAIRER 04/14/2023 11:51 AM [facility] - 04/14/2023 12:01 PM [facility] This procedure was originally ordered at [facility]. Dm Rain MD HEMATOLOGY [facility] [address] [place] [address] * ANCA PANEL FOR VASCULITIS (04/14/2023 11:51 AM [facility]) [facility] ANCA Negative Negative 04/15/2023 1:24 PM [facility] Comment: Atypical ANCA cannot be ruled out due to presence of MAYUR on screening.?? MAYUR screen results are not valid for diagnosis of Autoimmune Disease.?? Order MAYUR testing for further evaluation as clinically indicated. Blood BLOOD SPECIMEN / Unknown Venipuncture / Unknown 04/14/2023 11:51 AM WINDSHIELD WIPER REPAIRER 04/14/2023 11:51 AM WINDSHIELD WIPER REPAIRER Dm Rain MD SEND OUTS Performing Organization Address [facility] Co de Phone Number [facility] [address] [place] [address], [place] * C3 COMPLEMENT (04/14/2023 11:51 AM WINDSHIELD WIPER REPAIRER) C3 COMPLEMENT 121.91 81.10 - 157.00 mg/dL 04/15/2023 12:59 PM WINDSHIELD WIPER REPAIRER [facility] Blood BLOOD SPECIMEN / Unknown Venipuncture / Unknown 04/14/2023 11:51 AM WINDSHIELD WIPER REPAIRER 04/14/2023 11:51 AM WINDSHIELD WIPER REPAIRER Dm Rain MD CHEMISTRY Performing Organization Address [facility] de Phone Number [facility] [address] [place] [address], [place] * C4 COMPLEMENT (04/14/2023 11:51 AM WINDSHIELD WIPER REPAIRER) C4 Complement 31.92 12.90 - 39.20 mg/dL 04/15/2023 1:00 PM WINDSHIELD WIPER REPAIRER [facility] Blood BLOOD SPECIMEN / Unknown Venipuncture / Unknown 04/14/2023 11:51 AM WINDSHIELD WIPER REPAIRER 04/14/2023 11:51 AM WINDSHIELD WIPER REPAIRER Dm Rain MD CHEMISTRY Performing Organization Address [facility] Co de Phone Number [facility] [address] [place] [address], [place] * (ABNORMAL) HEPATIC FUNCTION PANEL (04/14/2023 11:51 AM WINDSHIELD WIPER REPAIRER) ALBUMIN 4.3 4.0 - 4.9 g/dL 04/14/2023 12:19 PM WINDSHIELD WIPER REPAIRER [facility] PROTEIN,TOTAL 7.7 6.0 - 8.0 g/dL 04/14/2023 12:19 PM WINDSHIELD WIPER REPAIRER [facility] BILIRUBIN,TOTAL 0.9 0.0 - 1.2 mg/dL 04/14/2023 12:19 PM [facility] BILIRUBIN,DIRECT 0.3 0.0 - 0.3 mg/dL 04/14/2023 12:19 PM [facility] BILIRUBIN,INDIRE CT 0.6 0.2 - 0.8 mg/dL 04/14/2023 12:19 PM [facility] ALK PHOSPHATASE 154(H) 35 - 104 IU/L 04/14/2023 12:19 PM [facility] ALT (SGPT) 13 10 - 35 IU/L 04/14/2023 12:19 PM [facility] AST (SGOT) 29 10 - 35 IU/L 04/14/2023 12:19 PM [facility] Blood BLOOD SPECIMEN / Unknown Venipuncture / Unknown 04/14/2023 11:51 AM WINDSHIELD WIPER REPAIRER 04/14/2023 11:51 AM [facility] Dm Rain MD CHEMISTRY [facility] [address] [place] [id number] * (ABNORMAL) RENAL FUNCTION PANEL (04/14/2023 11:51 AM [facility]) SODIUM 143 136 - 145 mmol/L 04/14/2023 12:19 PM [facility] POTASSIUM 3.5 3.5 - 5.1 mmol/L 04/14/2023 12:19 PM [facility] CHLORIDE 105 98 - 107 mmol/L 04/14/2023 12:19 PM [facility] CO2,TOTAL 23 22 - 29 mmol/L 04/14/2023 12:19 PM [facility] ANION GAP 15 5 - 18 04/14/2023 12:19 PM [facility] GLUCOSE 116(H) 70 - 99 mg/dL 04/14/2023 12:19 PM [facility] CALCIUM 10.1 8.8 - 10.2 mg/dL 04/14/2023 12:19 PM [facility] BUN 56(H) 8 - 23 mg/dL 04/14/2023 12:19 PM [facility] CREATININE 4.25(H) 0.50 - 0.90 mg/dL 04/14/2023 12:19 PM [facility] BUN/CREAT RATIO 13 10 - 20 4 12:19 PM [facility] eGFR 10(L) >90 mL/min/1.7 3m2 04/14/2023 12:19 PM [facility] Comment:As of 2021, eG FR is calculated by the CKD-EPI creatinine equation without race adjustment. ??eGFR can be influenced by muscle mass, exercise, and diet. ??The reported eGFR is an estimation only and is only applicable if the renal function is stable. PHOSPHORUS 5.0(H) 2.5 - 4.5 mg/dL 04/14/2023 12:19 PM [facility] ALBUMIN 4.3 4.0 - 4.9 g/dL 04/14/2023 12:19 PM [facility] Blood BLOOD SPECIMEN / Unknown Venipuncture / Unknown 04/14/2023 11:51 AM [employer] 04/14/2023 11:51 AM [facility] Dm Rain MD CHEMISTRY [facility] [address] [place] [address] * (ABNORMAL) URINALYSIS MICROSCOPIC (03/26/2023 10:15 AM [facility]) Only the most recent of2 resultswithin the time period is included. RBC >100(A) 0-2, None Seen /HPF 03/26/2023 10:[address] [facility] WBC 0-2 0-2, 3-5, None Seen /HPF 03/26/2023 10:[address] [facility] BACTERIA Many(A) None Seen, Rare, Few Bacteria/H PF 03/26/2023 10:[address] [facility] [facility] EPITHELIAL CELLS Few None Seen, Few Epi/HPF 03/26/2023 10:25 AM WINDSHIELD WIPER REPAIRER [facility] Urine URINE SPECIMEN / Unknown Non-Blood / Unknown 03/26/2023 10:15 AM WINDSHIELD WIPER REPAIRER 03/26/2023 10:15 AM WINDSHIELD WIPER REPAIRER Tim Chanel MD URINE Performing Organization Address City/[facility]/ZIP Co de Phone Number [facility] [address] [place] [address], * URINE CULTURE (03/26/2023 10:15 AM WINDSHIELD WIPER REPAIRER) Only the most recent of2 resultswithin the time period is included. CULTURE No growth (<1,000 CFU/mL) 03/27/2023 3:10 PM WINDSHIELD WIPER REPAIRER [facility] Urine URINE SPECIMEN / Unknown Non-Blood / Unknown 03/26/2023 10:15 AM WINDSHIELD WIPER REPAIRER 03/26/2023 10:15 AM WINDSHIELD WIPER REPAIRER Tim Chanel MD MICROBIOLOGY Performing Organization Address City/[facility]/ZIP Co de Phone Number [facility] [address] [place] [address], [place] * (ABNORMAL) UA W/ SEDIMENT EXAM REFLEXED PER CRITERIA (03/26/2023 10:15 AM WINDSHIELD WIPER REPAIRER) Only the most recent of2 resultswithin the time period is included. COLOR Mary(A) Yellow Color 03/26/2023 10:24 AM WINDSHIELD WIPER REPAIRER [facility] CLARITY Cloudy(A) Clear Clarity 03/26/2023 10:24 AM WINDSHIELD WIPER REPAIRER [facility] SPECIFIC GRAVITY,URINE 1.025 1.010, 1.015, 1.020, 1.025 03/26/2023 10:24 AM WINDSHIELD WIPER REPAIRER [facility] PH,URINE 5.0(A) 6.0, 7.0, 8.0, 5.5, 6.5, 7.5, 8.5 03/26/2023 10:24 AM WINDSHIELD WIPER REPAIRER [facility] UROBILINOGEN,QU ALITATIVE Normal Normal EU/dl 03/26/2023 10:24 AM WINDSHIELD WIPER REPAIRER [facility] PROTEIN, URINE >=300(A) Negative mg/dL 03/26/2023 10:24 AM WINDSHIELD WIPER REPAIRER [facility] GLUCOSE, URINE Negative Negative mg/dL 03/26/2023 10:24 AM WINDSHIELD WIPER REPAIRER [facility] KETONES,URINE 15(A) Negative mg/dL 03/26/2023 10:24 AM WINDSHIELD WIPER REPAIRER [facility] BILIRUBIN,URINE Abnormal(A) Negative 03/26/20 10:24 AM WINDSHIELD WIPER REPAIRER [facility] Comment:A variety of metabol ites and/or medications may result in a positive bilirubin result. Clinical correlation is recommended. OCCULT BLOOD,URINE Large(A) Negative 03/26/2023 10:[address] [facility] NITRITE Positive(A) Negative 03/26/2023 10:24 AM WINDSHIELD WIPER REPAIRER [facility] LEUKOCYTE ESTERASE Negative Negative 03/26/2023 10:[address] [facility] Urine URINE SPECIMEN / Unknown Non-Blood / Unknown 03/26/2023 10:15 AM WINDSHIELD WIPER REPAIRER 03/26/2023 10:15 AM WINDSHIELD WIPER REPAIRER Tim Chanel MD URINE [facility] [address] [place] [address], * VITAMIN B12 (03/26/2023 10:12 AM WINDSHIELD WIPER REPAIRER) Only the most recent of2 resultswithin the time period is included. VITAMIN B12 858 232 - 1,245 pg/mL 03/26/2023 7:15 PM WINDSHIELD WIPER REPAIRER [facility] Blood BLOOD SPECIMEN / Unknown Venipuncture / Unknown 03/26/2023 10:12 AM WINDSHIELD WIPER REPAIRER 03/26/2023 10:12 AM WINDSHIELD WIPER REPAIRER Narrative [facility] - 03/26/2023 7:15 PM WINDSHIELD WIPER REPAIRER Biotin supplements may cause clinically significant interference for this test assay. ??If interference is suspected, it is strongly recommended that biotin is discontinued for at least one week prior to retesting. Tim Chanel MD CHEMISTRY Performing Organization Address City/[facility]/ZIP Co de Phone Number [facility] [address] [place] [address], [place] * SCAN-ULTRASOUND REPORT (03/19/2023 12:00 AM WINDSHIELD WIPER REPAIRER) Anatomical Region Laterality Modality Other Scanner OTHER * (ABNORMAL) INR,POCT (03/10/2023 11:00 AM WINDSHIELD WIPER REPAIRER) Only the most recent of2 resultswithin the time period is included. INR 2.6(H) <1.3 03/10/2023 11:05 AM WINDSHIELD WIPER REPAIRER [facility] Blood BLOOD SPECIMEN / Unknown 03/10/2023 11:00 AM WINDSHIELD WIPER REPAIRER 03/10/2023 11:05 AM WINDSHIELD WIPER REPAIRER Narrative [facility] - 03/10/2023 11:05 AM WINDSHIELD WIPER REPAIRER ?Therapeutic Range 2.0-3.0 for most anticoagulated patients 2.5-3.5 or 4.0 for high risk patients Tim Chanel MD LABORATORY Performing Organization Address [facility] Co de Phone Number [facility] [address] [place] [address], [place] [phone] * ECHO TTE COMPLETE WO CONTRAST (02/11/2023 10:32 AM CDT) AORTIC VALVE MEAN PG 2 mmHg EJECTION FRACTION 49 % PEAK TR VELOCITY 3.4 m/s LVEDD 4.1 cm EJECTION FRACTION 40 - 45% Anatomical Region Laterality Modality Ultrasound 02/11/2023 9:57 AM CDT Narrative 02/11/2023 10:56 AM CDT ECHOCARDIOGRAM TRI VELASQUEZ ? Accession#: ?? [id number] : ?1940 82 years Study Date: ?? 02/11/2023 9:57:04 AM Gender: F ?BP: ? 162/100 mmHg Height: 170.00 cm ?BSA: ?1.96 m? ? ? Weight: 84.00 kg ? Tech: ? MJW ? Referring MD: MICHELLE GARIBAY Site: ? [facility] Reading Location: Mobile-OP Patient Location: Outpatient. [...] . This study was interpreted by an [facility] accredited facility. ??Final ?? Procedure Note Taqueria Reilly MD - 02/11/2023 ECHOCARDIOGRAM TRI VELASQUEZ : 1940 82 years Study Date: 02/11/2023 9:57:04 AM Gender: F BP: 162/100 mmHg Height: 170.00 cm BSA: 1.96 m? ? ? Weight: 84.00 kg Tech: AMAURI Referring MD: MICHELLE GARIBAY Site: [facility] Reading Location: Mobile-OP Patient Location: Outpatient. [...] . This study was interpreted by an [facility] accredited facility. 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
[2023-05-05] MEDS: MORPHINE 4 MG/ML INJ IVP (16:35)
[2023-05-05 16:57] LABS: Appearance Urine Clear (Clear); Bilirubin Urine Negative (Negative); Blood Urine 3+ (Negative); Color Urine Yellow (Yellow); Glucose Urine Negative (Negative); Ketones Urine Negative (Negative); Leukocyte Esterase Urine Negative (Negative); Nitrite Urine Negative (Negative); Protein Urine 2+ (Negative); Specific Gravity Urine 1.025 (1.000-1.030); Urobilinogen Urine 0.2 (0.2-1.0)
[2023-05-05 17:14] LABS: Bacteria Urine Many; Squamous Epithelial Cell Urine Few (None-Few)
[2023-05-05 17:15] LABS: Amorphous Sediment Urine Few
--- NOTE | 2023-05-05 18:17 | PC.NURSE ---
End of shift [id number]: Pt admitted to the med/surg floor at 1500. VSS and afebrile. Ax1 with 2ww ambulating to the BR. No BM since arrival to unit. Pt is NPO d/t N/V and abdominal pain. Rates pain at 8/10 in the mid epigastric to RLQ area. Bowel sounds are active. PRN zofran given x1 dose @1635 for mild nausea. PRN IV morphine given x1 dose @1635 for abd pain. PIV in left AC S/L and C/D/I. Pt is A&O and able to make her needs known. Venous stasis & 2+ edema in BLE, some scattered blisters noted. Pt is continent of B&B but does have some stress incontinence so she wears a feminine pad. Uses a walker at home baseline and a cane when out in the community. Pt has her home supplied eye drops in her med bin prescribed for glaucoma. Right eye is erythematous with clear drainage- pt is scheduled to have an ocular stent placed on Thursday 05/11. Daughter, Veena, has been at bedside and attentive to patient's needs.
[2023-05-05] MEDS: METOPROLOL SUCCINATE (XL) 50 MG TAB PO (20:18)
[2023-05-05] MEDS: SODIUM CHLORIDE 0.9 % (FLUSH) 10 ML SYRINGE 5 ML IVF (20:19)
[2023-05-05] MEDS: LATANOPROSTENE BUNOD 0.024% EYE-BOTH (20:20)
[2023-05-05] MEDS: BRIMONIDINE TARTRATE 0.2% OPHTH 1 DROP EYE-BOTH (20:20)
[2023-05-05] MEDS: DORZOLAMIDE/TIMOLOL 2-0.5% OPHTH 1 DROP EYE-BOTH (20:22)
[2023-05-06] VITALS (7 sets, daily range): BP systolic 109–143; BP diastolic 59–79; PULSE 75–89; RESP 14–20; TEMP 36.5–37; O2SAT 95–97
--- NOTE | 2023-05-06 04:16 | PC.NURSE ---
Pt rested well this night. States that she has not had pain or nausea for the last 12 hours. Pleasant and cooperative.
[2023-05-06 06:50] LABS: Basophils Absolute Auto 0.02 K/uL (0.00-0.30); Basophils Percent Auto 0.3 % (0.0-3.0); Eosinophils Absolute Auto 0.06 K/uL (0.00-0.50); Eosinophils Percent Auto 0.8 % (0.0-7.0); Hematocrit 36.8 % (33.0-51.0); Immature Granulocytes Abs Auto 0.02 K/uL (0.00-0.30); Immature Granulocytes Pct Auto 0.3 %; Lymphocytes Percent Auto 16.2 % (20-44); Mean Corpuscular HGB Conc 33 gm/dL (32-36); Mean Corpuscular Hemoglobin 30 pg (26-34); Mean Corpuscular Volume 91 fL (80-100); Monocytes Percent Auto 8.4 % (0.0-11.0); Platelet Count* 170 K/uL (140-440); RDW Coefficient of Variation % 15.2 % (11.5-15.5); Red Blood Count 4.03 m/uL (4.00-5.20); White Blood Count* 7.58 K/uL (4.50-11.00)
[2023-05-06 06:57] LABS: Slide Review Reflex No
[2023-05-06 07:01] LABS: Chloride* 112 mmol/L (96-114); Potassium* 3.8 mmol/L (3.6-5.1); Sodium* 143 mmol/L (135-149)
[2023-05-06 07:02] LABS: INR 1.08 (0.91-1.10); Prothrombin Time 14.6 Seconds
[2023-05-06 07:04] LABS: Creatinine* 4.5 mg/dL (0.5-1.5); Est. Creatinine Clearance* 8.71; Estimated Glomerular Filt Rate 9 ml/min
[2023-05-06 07:05] LABS: Anion Gap 13 mEq/L (7-15); Blood Urea Nitrogen* 53 mg/dL (7-30); Calcium* 9.2 mg/dL (8.4-10.6); Carbon Dioxide* 18 mmol/L (20-32); Glucose* 104 mg/dL (60-115)
[2023-05-06 07:07] LABS: C Reactive Protein* 0.9 mg/dL (0.5-1.0)
[2023-05-06 07:10] LABS: Phosphorus* 6.5 mg/dL (2.5-4.5)
[2023-05-06] MEDS: LACTATED RINGERS 500 ML 500 ML IV ×2 (07:53→12:48)
[2023-05-06] MEDS: LACTATED RINGERS 1000 ML 1,000 ML 75 ML IV ×2 (08:52→14:34)
[2023-05-06] MEDS: METOPROLOL SUCCINATE (XL) 50 MG TAB PO ×2 (08:59→20:09)
[2023-05-06] MEDS: LEVOTHYROXINE 75 MCG TABLET PO (08:59)
[2023-05-06] MEDS: allopurinoL 100 MG TABLET PO (09:00)
[2023-05-06] MEDS: BRIMONIDINE TARTRATE 0.2% OPHTH 1 DROP EYE-BOTH ×2 (09:00→20:09)
[2023-05-06] MEDS: DORZOLAMIDE/TIMOLOL 2-0.5% OPHTH 1 DROP EYE-BOTH ×2 (09:00→20:08)
[2023-05-06] MEDS: CALCIUM ACETATE 667 MG CAPSULE PO ×3 (09:00→17:54)
[2023-05-06] MEDS: SODIUM CHLORIDE 0.9 % (FLUSH) 10 ML SYRINGE 5 ML IVF ×2 (09:03→19:33)
[2023-05-06] MEDS: MORPHINE 4 MG/ML INJ IVP (10:20)
--- NOTE | 2023-05-06 13:10 | PM.GSCN ---
History of Present Illness Consult details Date Seen: 05/06/23 Consult date: 05/06/23 Narrative: 82-year-old female was admitted to the hospital with small-bowel obstruction and I was asked by Dr. Valentine to see her in consultation. Patient states that yesterday she all of sudden woke up with pain in the right upper quadrant/epigastrium. The pain was sharp and severe. She told her daughter about the pain and her daughter brought her to the emergency room. Patient had multiple episodes of vomiting. She was not passing gas. She did not have anything similar to this in the past. Patient's workup in the emergency room was personally reviewed by me. She was found to have a normal WBC. Her creatinine was elevated at 4.5 and patient does have a known history of chronic kidney disease. An abdominal CT was obtained that showed dilated loops of small intestine proximally with decompressed loops distally with possible transition point in the right lower quadrant. Today patient states that her pain is improved significantly. She is not passing gas. She has not vomited but sometimes feels episodes of nausea. Review of Systems Narrative: General: no fevers HENT: no problems swallowing CV: no shortness of breath Resp: no cough GI: No nausea, vomiting, abdominal pain : no dysuria, no increased urinary frequency, no hematuria Skin: no new rashes Musculoskeletal: no back pain Neuro: no muscle weakness Psyche: no depression, no anxiety PFSH PFSH Medical History Glaucoma ?H40.9 - Unspecified glaucoma (ICD-10) Hyperlipidemia ?E78.5 - Hyperlipidemia, unspecified (ICD-10) Secondary renal hyperparathyroidism ?N25.81 - Secondary hyperparathyroidism of renal origin (ICD-10) Hypertension ?I10 - Essential (primary) hypertension (ICD-10) Osteopenia ?M85.80 - Other specified disorders of bone density and structure, unspecified site (ICD-10) Lower extremity edema ?R60.0 - Localized edema (ICD-10) Heart failure with preserved ejection fraction ?I50.30 - Unspecified diastolic (congestive) heart failure (ICD-10) End stage kidney disease ?N18.6 - End stage renal disease (ICD-10) Atrial fibrillation ?I48.91 - Unspecified atrial fibrillation (ICD-10) Surgical History History of hysterectomy ?Z90.710 - Acquired absence of both cervix and uterus (ICD-10) History of colonoscopy with polypectomy ?Z98.890 - Other specified postprocedural states (ICD-10) ?Z86.010 - Personal history of colonic polyps (ICD-10) History of cholecystectomy ?Z90.49 - Acquired absence of other specified parts of digestive tract (ICD-10) History of appendectomy ?Z90.49 - Acquired absence of other specified parts of digestive tract (ICD-10) Family History Sister Stroke Father Prostate cancer Other Heart disease Social History (Updated 05/05/23 @ 15:24 by Rolly Valentine MD) Narrative: She lives in her own home near [facility]. She has 4 steps to get in the house but otherwise can live on 1 level. She walks with a walker. She reports this is going well for her but her children are encouraging her to move to a more handicapped assessable facility. She occasionally drinks alcohol. She does not smoke. Code status is DNR. Her daughter Veena is healthcare power of mergers and acquisitions attorney What is your current living situation?: I presently have a place to live Problems where you live: no known problems Problems where you live details: [facility] In the past 12 months, utilities in danger of being shut off: no In past 12 months, lack of transportation kept you from medical appts, meetings, work, or getting things needed for daily living: no In the past 12 mos, have been you worried that your food would run out before you had money to buy more?: never true In the past 12 mos, the food you bought just didn't last and you didn't have money to buy more?: never true Highest level of school completed/degree received: high school graduate Smoking Status: Never smoker Do you use any of these nicotine containing products: None Second hand tobacco smoke exposure: No How often do you have a drink containing alcohol: monthly or less Alcohol type: hard liquor Alcohol type details: special occasions How many standard drinks containing alcohol do you have on a typical day: 1 or 2 How often do you have six or more drinks on one occasion: Never AUDIT-C Alcohol total score: 1 Non-prescribed substance use: denies use Caffeine: Yes How often does anyone, including family, friends and others, physically hurt you: never How often does anyone, including family, friends and others, insult or talk down to you: never How often does anyone, including family, friends and others, threaten you with harm: never How often does anyone, including family, friends and others, scream or curse at you: never service: No Meds Home Medications and Allergies Home Medications Medication Instructions Recorded Confirmed Type cholecalciferol (vitamin D3) 50 50 mcg PO DAILY 01/10/22 05/05/23 History mcg (2,000 unit) tablet dorzolamide 22.3 mg-timolol 6.8 1 drp ophthalmic (eye) BID 01/10/22 05/05/23 History mg/mL eye drops furosemide 20 mg tablet 20 - 40 mg PO DAILY PRN 01/10/22 05/05/23 History levothyroxine 75 mcg tablet 75 mcg PO DAILY 01/10/22 05/05/23 History allopurinol 100 mg tablet 100 mg PO DAILY 05/05/23 05/05/23 History atorvastatin 10 mg tablet 10 mg PO HS 05/05/23 05/05/23 History brimonidine 0.2 % eye drops 1 drp ophthalmic (eye) BID 05/05/23 05/05/23 History latanoprostene bunod 0.024 % eye 1 drp ophthalmic (eye) HS 05/05/23 05/05/23 History drops (Vyzulta) metoprolol succinate 50 mg 50 mg PO BID 05/05/23 05/05/23 History tablet,extended release 24 hr potassium chloride 20 mEq 20 meq PO DAILY PRN 05/05/23 05/05/23 History tablet,extended release (K-Tab) warfarin 2.5 mg tablet 5 - 7.5 mg PO DAILY 05/05/23 05/05/23 History Allergies Allergy/AdvReac Type Severity Reaction Status Date / Time No Known Drug Allergies Allergy Verified 05/05/23 12:33 Exam Narrative: Exam Narrative: General appearance: Alert, cooperative, and in no distress Pulmonary: Chest symmetric, lungs clear bilaterally Cardiovascular Heart: Regular rate and rhythm, S1, S2, no murmurs/rubs/gallops Gastrointestinal Abdominal: soft, mildly distended, not tender to percussion in the abdomen, tender to palpation in epigastrium and right upper quadrant. Skin: Normal skin color, texture, and turgor. No rashes or lesions. Psychiatric: Alert, cooperative, normal affect. Const: Vital Signs, click to edit/add: Vital Signs - 24 hr 05/05/23 13:25 05/05/23 13:30 05/05/23 13:32 Temperature Pulse Rate 84 86 91 Pulse Rate [Pulse Oximeter] Respiratory Rate Blood Pressure 150/90 H Blood Pressure [Le ft Arm] Blood Pressure [Ri ght Arm] Pulse Oximetry 91 93 96 Oxygen Delivery Me thod 05/05/23 13:45 05/05/23 14:00 05/05/23 14:01 Temperature Pulse Rate 82 88 82 Pulse Rate [Pulse Oximeter] Respiratory Rate Blood Pressure 152/97 H Blood Pressure [Le ft Arm] Blood Pressure [Ri ght Arm] Pulse Oximetry 98 98 98 Oxygen Delivery Me thod 05/05/23 14:15 05/05/23 14:30 05/05/23 14:32 Temperature Pulse Rate 89 83 99 Pulse Rate [Pulse Oximeter] Respiratory Rate Blood Pressure 132/89 Blood Pressure [Le ft Arm] Blood Pressure [Ri ght Arm] Pulse Oximetry 98 98 96 Oxygen Delivery Me thod 05/05/23 15:31 05/05/23 15:31 05/05/23 19:04 Temperature 98 F 97.8 F Pulse Rate Pulse Rate [Pulse Oximeter] 84 84 Respiratory Rate 18 18 16 Blood Pressure Blood Pressure [Le ft Arm] Blood Pressure [Ri ght Arm] 145/81 H 119/74 Pulse Oximetry 97 97 98 Oxygen Delivery Me thod Room Air Room Air Room Air 05/05/23 22:40 05/05/23 22:42 05/06/23 02:33 Temperature 98.4 F 97.8 F Pulse Rate Pulse Rate [Pulse Oximeter] 85 85 75 Respiratory Rate 16 16 16 Blood Pressure Blood Pressure [Le ft Arm] Blood Pressure [Ri ght Arm] 120/59 L 109/59 L Pulse Oximetry 97 97 Oxygen Delivery Me thod Room Air Room Air 05/06/23 07:29 05/06/23 10:52 Temperature 98.2 F 97.7 F Pulse Rate Pulse Rate [Pulse Oximeter] 80 88 Respiratory Rate 20 14 Blood Pressure Blood Pressure [Le ft Arm] 118/75 Blood Pressure [Ri ght Arm] 123/79 Pulse Oximetry 96 95 Oxygen Delivery Me thod Room Air Room Air Results Labs Labs: Abnormal lab results 05/05/23 05/05/23 05/06/23 Range/Units 12:50 16:45 05:42 Neut % (Auto) 74.0 H (42.0-72.0) % Lymph % (Auto) 16.2 L (20-44) % Carbon Dioxide 18 L 18 L (20-32) mmol/L BUN 48 H 53 H (7-30) mg/dL Creatinine 4.6 H 4.5 H (0.5-1.5) mg/dL Glucose 185 H (60-115) mg/dL Phosphorus 6.5 H* (2.5-4.5) mg/dL Alkaline Phosphatase 185 H (40-150) U/L Urine Protein 2+ A (Negative) Urine Blood 3+ A (Negative) Urine RBC 10-25 A (0-2) Urine WBC 10-25 A (0-5) Amorphous Sediment Few A (None) Urine Bacteria Many A (None) Diabetes panel 05/05/23 05/06/23 Range/Units 12:50 05:42 Sodium 142 143 (135-149) mmol/L Potassium 3.8 3.8 (3.6-5.1) mmol/L Chloride 109 112 (96-114) mmol/L Carbon Dioxide 18 L 18 L (20-32) mmol/L BUN 48 H 53 H (7-30) mg/dL Creatinine 4.6 H 4.5 H (0.5-1.5) mg/dL Glucose 185 H 104 (60-115) mg/dL Calcium 9.8 9.2 (8.4-10.6) mg/dL AST 27 (12-35) U/L ALT 29 (4-35) U/L Alkaline Phosphatase 185 H (40-150) U/L Total Protein 7.8 (6.0-8.3) g/dL Albumin 4.5 (3.3-5.0) g/dL Calcium panel 05/05/23 05/06/23 Range/Units 12:50 05:42 Calcium 9.8 9.2 (8.4-10.6) mg/dL Phosphorus 6.5 H* (2.5-4.5) mg/dL Albumin 4.5 (3.3-5.0) g/dL Pituitary panel 05/05/23 05/06/23 Range/Units 12:50 05:42 Sodium 142 143 (135-149) mmol/L Potassium 3.8 3.8 (3.6-5.1) mmol/L Chloride 109 112 (96-114) mmol/L Carbon Dioxide 18 L 18 L (20-32) mmol/L BUN 48 H 53 H (7-30) mg/dL Creatinine 4.6 H 4.5 H (0.5-1.5) mg/dL Glucose 185 H 104 (60-115) mg/dL Calcium 9.8 9.2 (8.4-10.6) mg/dL Adrenal panel 05/05/23 05/06/23 Range/Units 12:50 05:42 Sodium 142 143 (135-149) mmol/L Potassium 3.8 3.8 (3.6-5.1) mmol/L Chloride 109 112 (96-114) mmol/L Carbon Dioxide 18 L 18 L (20-32) mmol/L BUN 48 H 53 H (7-30) mg/dL Creatinine 4.6 H 4.5 H (0.5-1.5) mg/dL Glucose 185 H 104 (60-115) mg/dL Calcium 9.8 9.2 (8.4-10.6) mg/dL Total Bilirubin 1.2 (0.1-1.5) mg/dL AST 27 (12-35) U/L ALT 29 (4-35) U/L Alkaline Phosphatase 185 H (40-150) U/L Total Protein 7.8 (6.0-8.3) g/dL Albumin 4.5 (3.3-5.0) g/dL All other labs normal. Progress Note:A&P Assessment and plan (1) SBO (small bowel obstruction): Status: Acute Assessment and Plan: 82-year-old female admitted to the hospital with small-bowel obstruction. I discussed with the patient her laboratory and CT findings. Her WBC was normal on admission and normal today. Her CRP is normal today. Her CT findings showed small-bowel obstruction with possible transition point in the right lower quadrant. Patient is s/p appendectomy. I recommended to continue with NPO and IV fluids. If patient is not vomiting and her nausea episodes are rare, we can hold off on placing the NG tube in. Patient is usually on warfarin for atrial fibrillation that has been held for a kidney biopsy that was done a week ago.
--- NOTE | 2023-05-06 14:43 | P.IMPN_ITS ---
Progress Note: A&P Assessment and plan (1) SBO (small bowel obstruction): Problem details: Small-bowel obstruction likely due to adhesions from prior surgeries. Conservative management. Consult surgery. NG tube if recurrent vomiting Status: Acute (2) End stage kidney disease: Problem details: Baseline creatinine on April 27 4.53 giving an EGFR of 9. Continue to monitor. Renal dosing of medications Status: Acute (3) Hyperphosphatemia: Problem details: Due to chronic kidney disease Status: Acute (4) Metabolic acidosis: Problem details: Due to chronic kidney disease Status: Acute (5) Glaucoma: Problem details: Glaucoma in the right eye requiring surgery scheduled for 05/11/2023. Hold warfarin preop. If small-bowel obstruction does not resolve relatively quickly may need to postpone surgery Status: Acute (6) Lower extremity edema: Problem details: Compression stockings Status: Acute (7) Atrial fibrillation: Problem details: Continue to monitor, rate control, hold warfarin. Will use Lovenox, low dose, for VTE prophylaxis and stroke prophylaxis. Status: Acute Plan Continue in hospital for management of ongoing small-bowel obstruction. Conservative management for that as well as end-stage kidney disease. Time Spent With Patient Total time spent: Total time spent today is 50 minutes, 30 minutes in coordination of care discussing with patient other providers ongoing management of small bowel obstruction and chronic kidney disease Subjective Date Seen: 05/06/23 Interval history: 82-year-old female presenting today with abdominal pain that started approximately 4:00 a.m. on the day of admission. Pain is diffuse, however the worst pain is underneath her ribcage on the right. She states that she has been vomiting all morning. Nonbloody emesis. She tried eat a cracker and had some tea but she vomited that up shortly afterwards. She denies fevers, chills or shivering. She had a left kidney biopsy approximately 1 week ago at [place]. According to the patient, it was uncomplicated. Past surgical history is significant for cholecystectomy, appendectomy and hysterectomy. She denies any history of small bowel obstruction. States that she had a small bowel movement today that she describes as a palpable. Feels like she has been passing less gas than usual since yesterday. She had colonoscopy about 2.5 years ago which was notable for 3 small polyps with a recommended follow-up in 5 years. She reports her stools have been formed and small recently and because of this she started taking Metamucil. Past medical history significant for end-stage renal disease, diabetes, vitamin- D deficiency, of the secondary renal hyperparathyroidism, malignant melanoma of the lower extremity, vitamin B12 deficiency, hyperkalemia, congestive heart failure, osteopenia, hyperlipidemia, restless leg syndrome, hypertension, atrial fibrillation on anticoagulation therapy, hypothyroidism. She has atrial fibrillation and is on warfarin for this. The warfarin was held for kidney biopsy. She took it for 3 days after the kidney biopsy and stopped it 2 days ago again pending glaucoma surgery in her right eye in 6 days, Thursday. This morning she reported increasing abdominal pain. She had no nausea vomiting. She has been up ambulating. Exam Narrative: Exam Narrative: She is alert and appears in no distress. Breathing is unlabored. Respirations are clear to auscultation. Cardiovascular: S1, S2, regular rate and rhythm. Abdomen: Bowel sounds are active. Abdomen is soft. She has mild to moderate right lower quadrant and mid abdominal tenderness. It appears mildly distended. The distension and tenderness are a little worse than yesterday. Const: Vital Signs, click to edit/add: Vital Signs - 24 hr 05/05/23 15:31 05/05/23 15:31 05/05/23 19:04 Temperature 98 F 97.8 F Pulse Rate [Pulse Oximeter] 84 84 Respiratory Rate 18 18 16 Blood Pressure [Le ft Arm] Blood Pressure [Ri ght Arm] 145/81 H 119/74 Pulse Oximetry 97 97 98 Oxygen Delivery Me thod Room Air Room Air Room Air 05/05/23 22:40 05/05/23 22:42 05/06/23 02:33 Temperature 98.4 F 97.8 F Pulse Rate [Pulse Oximeter] 85 85 75 Respiratory Rate 16 16 16 Blood Pressure [Le ft Arm] Blood Pressure [Ri ght Arm] 120/59 L 109/59 L Pulse Oximetry 97 97 Oxygen Delivery Wy thod Room Air Room Air 05/06/23 07:29 05/06/23 10:52 Temperature 98.2 F 97.7 F Pulse Rate [Pulse Oximeter] 80 88 Respiratory Rate 20 14 Blood Pressure [Le ft Arm] 118/75 Blood Pressure [Ri ght Arm] 123/79 Pulse Oximetry 96 95 Oxygen Delivery Me thod Room Air Room Air Documenting provider has reviewed patient's vital signs: yes Labs Labs: Laboratory Results - last 24 hr 05/05/23 05/06/23 16:45 05:42 WBC 7.58 RBC 4.03 Hgb 12.0 Hct 36.8 MCV 91 MCH 30 MCHC 33 RDW Coeff of Percy 15.2 Plt Count 170 Neut % (Auto) 74.0 H Lymph % (Auto) 16.2 L [place] % (Auto) 8.4 Eos % (Auto) 0.8 Baso % (Auto) 0.3 Neut # (Auto) 5.60 Lymph # (Auto) 1.20 [place] # (Auto) 0.60 Eos # (Auto) 0.06 Baso # (Auto) 0.02 Abs Immat Gran (auto) 0.02 Imm/Tot Granulo (auto) 0.3 INR 1.08 Sodium 143 Potassium 3.8 Chloride 112 Carbon Dioxide 18 L Anion Gap 13 BUN 53 H Creatinine 4.5 H Estimated Creat Clear 8.71 Estimated GFR 9 Glucose 104 Calcium 9.2 Phosphorus 6.5 H* Magnesium 2.0 C-Reactive Protein 0.9 Urine Color Yellow Urine Appearance Clear Urine pH 5.0 Ur Specific [place] 1.025 Urine Protein 2+ A Urine Glucose (UA) Negative Urine Ketones Negative Urine Blood 3+ A Urine Nitrite Negative Urine Bilirubin Negative Urine Urobilinogen 0.2 Ur Leukocyte Esterase Negative Urine RBC 10-25 A Urine WBC 10-25 A Ur Squamous Epith Cells Few Amorphous Sediment Few A Urine Bacteria Many A
[2023-05-06] MEDS: SODIUM BICARBONATE 650 MG TABLET PO (17:54)
--- NOTE | 2023-05-06 18:26 | PC.NURSE ---
Pt alert and oriented. Pt had complaints of pain ranging from 0-7; see EMAR for intervention. Pt assist of one with walker and gait belt. Pt napped during midafternoon. Pt up to walk x 1 during shift. ?
[2023-05-06] MEDS: ONDANSETRON 2 MG/ML inj 4 MG IVP ×2 (19:33→23:51)
[2023-05-06] MEDS: LATANOPROSTENE BUNOD 0.024% EYE-BOTH (20:08)
[2023-05-06] MEDS: ATORVASTATIN 10 MG TABLET PO (20:09)
[2023-05-06] MEDS: ENOXAPARIN 30 MG/0.3ML INJ SUBCUT (20:09)
[2023-05-07] MEDS: LACTATED RINGERS 1000 ML 1,000 ML 75 ML IV (00:01)
[2023-05-07] MEDS: MORPHINE 4 MG/ML INJ IVP (00:05)
[2023-05-07 02:27] VITALS: BP 114/65; PULSE 87; RESP 16; TEMP 37; O2SAT 97
[2023-05-07] MEDS: LEVOTHYROXINE 75 MCG TABLET PO (06:08)
--- NOTE | 2023-05-07 06:14 | PC.NURSE ---
Pt rested well this night. Pain and nausea controlled with meds. Pt up A1 with walker to BR. Voiding 100-200ml. Pleasant and cooperative.
[2023-05-07 06:15] LABS: Lactate* 0.9 mmol/L (0.5-1.9)
[2023-05-07 06:23] LABS: Basophils Absolute Auto 0.03 K/uL (0.00-0.30); Basophils Percent Auto 0.4 % (0.0-3.0); Eosinophils Absolute Auto 0.15 K/uL (0.00-0.50); Hematocrit 39.1 % (33.0-51.0); Hemoglobin* 12.6 gm/dL (12.0-16.0); Immature Granulocytes Abs Auto 0.01 K/uL (0.00-0.30); Immature Granulocytes Pct Auto 0.1 %; Lymphocytes Percent Auto 17.3 % (20-44); Mean Corpuscular HGB Conc 32 gm/dL (32-36); Mean Corpuscular Hemoglobin 29 pg (26-34); Mean Corpuscular Volume 91 fL (80-100); Monocytes Percent Auto 8.9 % (0.0-11.0); Neutrophils Absolute Auto 5.47 K/uL (1.7-7.0); Neutrophils Percent Auto 71.3 % (42.0-72.0); Platelet Count* 182 K/uL (140-440); RDW Coefficient of Variation % 15.4 % (11.5-15.5); Red Blood Count 4.29 m/uL (4.00-5.20); White Blood Count* 7.67 K/uL (4.50-11.00)
[2023-05-07 06:49] LABS: Slide Review Reflex No
[2023-05-07 06:50] LABS: Chloride* 113 mmol/L (96-114); Sodium* 143 mmol/L (135-149)
[2023-05-07 06:53] LABS: Anion Gap 9 mEq/L (7-15); Carbon Dioxide* 21 mmol/L (20-32); Creatinine* 4.6 mg/dL (0.5-1.5); Est. Creatinine Clearance* 8.52; Estimated Glomerular Filt Rate 9 ml/min
[2023-05-07 06:54] LABS: Blood Urea Nitrogen* 54 mg/dL (7-30); Calcium* 9.2 mg/dL (8.4-10.6); Glucose* 99 mg/dL (60-115); Phosphorus* 5.6 mg/dL (2.5-4.5)
[2023-05-07 07:45] VITALS: BP 112/74; PULSE 101; RESP 18; TEMP 36.6; O2SAT 90
[2023-05-07] MEDS: CALCIUM ACETATE 667 MG CAPSULE PO ×2 (08:00→11:31)
[2023-05-07] MEDS: LACTATED RINGERS 500 ML 500 ML IV (08:00)
[2023-05-07] MEDS: METOPROLOL SUCCINATE (XL) 50 MG TAB PO ×2 (09:16→20:57)
[2023-05-07] MEDS: BRIMONIDINE TARTRATE 0.2% OPHTH 1 DROP EYE-BOTH ×2 (09:17→20:57)
[2023-05-07] MEDS: allopurinoL 100 MG TABLET PO (09:17)
[2023-05-07] MEDS: SODIUM BICARBONATE 650 MG TABLET PO (09:17)
[2023-05-07] MEDS: DORZOLAMIDE/TIMOLOL 2-0.5% OPHTH 1 DROP EYE-BOTH ×2 (09:17→20:57)
[2023-05-07] MEDS: SODIUM CHLORIDE 0.9 % (FLUSH) 10 ML SYRINGE 5 ML IVF ×2 (09:17→19:02)
[2023-05-07 11:05] VITALS: BP 119/59; PULSE 85; RESP 16; TEMP 36.5; O2SAT 94
--- NOTE | 2023-05-07 12:09 | P.IMPN_ITS ---
Progress Note: A&P Assessment and plan (1) SBO (small bowel obstruction): Problem details: Small-bowel obstruction likely due to adhesions from prior surgeries. Conservative management. Consult surgery. NG tube if recurrent vomiting. Exam today is reassuring. Status: Acute (2) End stage kidney disease: Problem details: Baseline creatinine on April 27 4.53 giving an EGFR of 9. Continue to monitor. Renal dosing of medications Status: Acute (3) Hyperphosphatemia: Problem details: Due to chronic kidney disease. Better Status: Acute (4) Metabolic acidosis: Problem details: Due to chronic kidney disease. Better Status: Acute (5) Glaucoma: Problem details: Glaucoma in the right eye requiring surgery scheduled for 05/11/2023. Hold warfarin preop. If small-bowel obstruction does not resolve relatively quickly may need to postpone surgery Status: Acute (6) Lower extremity edema: Problem details: Compression stockings Status: Acute (7) Atrial fibrillation: Problem details: Continue to monitor, rate control, hold warfarin. Will use Lovenox, low dose, for VTE prophylaxis and stroke prophylaxis. Status: Acute (8) Right knee pain: Problem details: Developed right knee pain overnight without trauma. Check for DVT. Question of [place] cyst. Status: Acute Plan Continue in hospital for management of small bowel obstruction with IV fluids, pain medications. Advance diet when antegrade bowel function is apparent. Time Spent With Patient Total time spent: Total time spent today is 45 minutes, 30 minutes in coordination of care discussing with patient other providers ongoing management of small bowel obstruction Subjective Date Seen: 05/07/23 Interval history: 82-year-old female presenting today with abdominal pain that started approximately 4:00 a.m. on the day of admission. Pain is diffuse, however the worst pain is underneath her ribcage on the right. She states that she has been vomiting all morning. Nonbloody emesis. She tried eat a cracker and had some tea but she vomited that up shortly afterwards. She denies fevers, chills or shivering. She had a left kidney biopsy approximately 1 week ago at [place]. According to the patient, it was uncomplicated. Past surgical history is significant for cholecystectomy, appendectomy and hysterectomy. She denies any history of small bowel obstruction. States that she had a small bowel movement today that she describes as a palpable. Feels like she has been passing less gas than usual since yesterday. She had colonoscopy about 2.5 years ago which was notable for 3 small polyps with a recommended follow-up in 5 years. She reports her stools have been formed and small recently and because of this she started taking Metamucil. Past medical history significant for end-stage renal disease, diabetes, vitamin- D deficiency, of the secondary renal hyperparathyroidism, malignant melanoma of the lower extremity, vitamin B12 deficiency, hyperkalemia, congestive heart failure, osteopenia, hyperlipidemia, restless leg syndrome, hypertension, atrial fibrillation on anticoagulation therapy, hypothyroidism. She has atrial fibrillation and is on warfarin for this. The warfarin was held for kidney biopsy. She took it for 3 days after the kidney biopsy and stopped it 2 days ago again pending glaucoma surgery in her right eye in 6 days, Thursday. Today she reports generally doing well. Not having significant pain. She has still not passed gas. No nausea or vomiting. She is having pain behind her right knee. Exam Narrative: Exam Narrative: She is alert no distress. Mood and affect are bright. She is oriented to her circumstances. Respirations are clear to auscultation. Cardiovascular: S1, S2, regular rhythm. Abdomen bowel sounds are quite active. Abdomen is soft with minimal tenderness. No mass no peritonitis. Right lower extremity has chronic venous skin changes. She has slight tenderness and fullness in the popliteal fossa on the right. No marked edema. Const: Vital Signs, click to edit/add: Vital Signs - 24 hr 05/06/23 14:30 05/06/23 19:29 05/06/23 22:13 Temperature 97.8 F 98.3 F 98.6 F Pulse Rate [Pulse Oximeter] 87 84 89 Respiratory Rate 14 16 16 Blood Pressure [Ri t Arm] 138/73 143/77 H 131/65 Pulse Oximetry 96 97 97 Oxygen Delivery Me thod Room Air Room Air 05/06/23 23:24 05/07/23 02:27 05/07/23 07:45 Temperature 98.6 F 97.8 F Pulse Rate [Pulse Oximeter] 89 87 101 H Respiratory Rate 16 16 18 Blood Pressure [Ri t Arm] 114/65 112/74 Pulse Oximetry 97 90 Oxygen Delivery Me thod Room Air Room Air 05/07/23 11:05 Temperature 97.7 F Pulse Rate [Pulse Oximeter] 85 Respiratory Rate 16 Blood Pressure [Ri ght Arm] 119/59 L Pulse Oximetry 94 Oxygen Delivery Me thod Room Air Documenting provider has reviewed patient's vital signs: yes Labs Labs: Laboratory Results - last 24 hr 05/07/23 06:01 WBC 7.67 RBC 4.29 Hgb 12.6 Hct 39.1 MCV 91 MCH 29 MCHC 32 RDW Coeff of Percy 15.4 Plt Count 182 Neut % (Auto) 71.3 Lymph % (Auto) 17.3 L [place] % (Auto) 8.9 Eos % (Auto) 2.0 Baso % (Auto) 0.4 Neut # (Auto) 5.47 Lymph # (Auto) 1.30 [place] # (Auto) 0.70 Eos # (Auto) 0.15 Baso # (Auto) 0.03 Abs Immat Gran (auto) 0.01 Imm/Tot Granulo (auto) 0.1 Sodium 143 Potassium 4.0 Chloride 113 Carbon Dioxide 21 Anion Gap 9 BUN 54 H Creatinine 4.6 H Estimated Creat Clear 8.52 Estimated GFR 9 Glucose 99 Lactate 0.9 Calcium 9.2 Phosphorus 5.6 H
[2023-05-07] MEDS: LACTATED RINGERS 1000 ML 1,000 ML 125 ML IV ×2 (12:54→23:32)
--- NOTE | 2023-05-07 14:00 | CRLHL7_ITS ---
For Patients: As a result of the Century Cures Act, medical imaging exams and procedure reports are released immediately into your electronic medical record. You may view this report before your referring provider. If you have questions, please contact your health care provider. INDICATION: Right lower extremity pain. TECHNIQUE: Ultrasound venous duplex lower right extremity. Compression venous exam was performed using cuevas-scale, color Doppler, and spectral Doppler analysis. COMPARISON: None available. FINDINGS: Please note the patient was unable to tolerate compression at the distal portion of the femoral vein. The remaining portions of the femoral vein were fully compressible. Deep veins: Sonographic imaging demonstrates the right common femoral, deep femoral, superficial femoral, popliteal, posterior tibial, peroneal and the contralateral left common femoral veins to be fully compressible with normal color Doppler blood flow. Superficial veins: Greater saphenous vein is fully compressible. No popliteal cyst. IMPRESSION: No sign of right lower extremity deep venous thrombosis. Dictated by Leighann Mark MD @ 05/07/2023 2:57:38 PM (Electronically Signed)
--- NOTE | 2023-05-07 14:13 | PM.GSPN ---
Subjective Subjective Date Seen: 05/07/23 Interval history: Patient states that her abdominal pain is not too bothersome. She has some nausea but no vomiting. She is not passing gas. She ambulated twice yesterday and 2 times today. Exam Narrative: Exam Narrative: Abdomen is slightly distended, more than yesterday, tender to palpation in the right lower quadrant but not tender anywhere else. No peritoneal signs. Const: Vital Signs, click to edit/add: Vital Signs - 24 hr 05/06/23 14:30 05/06/23 19:29 05/06/23 22:13 Temperature 97.8 F 98.3 F 98.6 F Pulse Rate [Pulse Oximeter] 87 84 89 Respiratory Rate 14 16 16 Blood Pressure [Ri ght Arm] 138/73 143/77 H 131/65 Pulse Oximetry 96 97 97 Oxygen Delivery Me thod Room Air Room Air 05/06/23 23:24 05/07/23 02:27 05/07/23 07:45 Temperature 98.6 F 97.8 F Pulse Rate [Pulse Oximeter] 89 87 101 H Respiratory Rate 16 16 18 Blood Pressure [Ri ght Arm] 114/65 112/74 Pulse Oximetry 97 90 Oxygen Delivery Me thod Room Air Room Air 05/07/23 11:05 Temperature 97.7 F Pulse Rate [Pulse Oximeter] 85 Respiratory Rate 16 Blood Pressure [Ri ght Arm] 119/59 L Pulse Oximetry 94 Oxygen Delivery Me thod Room Air Progress Note:A&P Assessment and plan (1) SBO (small bowel obstruction): Status: Acute Plan 82-year-old female admitted to the hospital with small-bowel obstruction. I discussed with the patient that I would recommend placing an NG tube today. Her abdomen is slightly more distended but her exam is not significantly changed. Her WBC remains normal. Will continue NPO and IV fluids.
[2023-05-07 15:00] VITALS: BP 131/88; PULSE 90; RESP 16; TEMP 36.8; O2SAT 94
--- NOTE | 2023-05-07 15:18 | CRLHL7_ITS ---
For Patients: As a result of the Cures Act, medical imaging exams and procedure reports are released immediately into your electronic medical record. You may view this report before your referring provider. If you have questions, please contact your health care provider. Indication: NG tube placement Technique: Chest one view IMPRESSION: NG tube is present with the tip located within the stomach just distal to the GE junction. Dictated by Manan Meza MD @ 05/07/2023 3:43:27 PM (Electronically Signed)
--- NOTE | 2023-05-07 18:58 | PC.NURSE ---
Pt alert and oriented. Pt pleasant and cooperative. VSS. Pt had no complaints of pain. Pt assist of one with walker and gait belt. Pt up to chair during shift. RN placed NG tube at [address] Garcia (surgeon). Pt tolerated well. Pt up walking in halls three times during shift. Pt NPO. Pt's daughter at bedside most of day.
[2023-05-07] MEDS: MAG HYDROX/ALUMINUM HYD/SIMETH 30 ML ORAL.SUSP 15 ML PO (19:01)
[2023-05-07] MEDS: PANTOPRAZOLE SODIUM 40 MG INJ IVP (19:01)
[2023-05-07 20:30] VITALS: BP 135/89; PULSE 78; RESP 18; TEMP 37.2; O2SAT 96
[2023-05-07] MEDS: ENOXAPARIN 30 MG/0.3ML INJ SUBCUT (20:57)
[2023-05-07] MEDS: LATANOPROSTENE BUNOD 0.024% EYE-BOTH (20:57)
[2023-05-07] MEDS: ONDANSETRON 2 MG/ML inj 4 MG IVP (22:43)
[2023-05-07 23:00] VITALS: BP 128/76; PULSE 85; RESP 18; TEMP 36.5; O2SAT 97
[2023-05-08] VITALS (7 sets, daily range): BP systolic 133–161; BP diastolic 79–97; PULSE 95–110; RESP 18–20; TEMP 36.4–37.2; O2SAT 93–96
[2023-05-08] MEDS: LEVOTHYROXINE 75 MCG TABLET PO (06:43)
[2023-05-08] MEDS: LACTATED RINGERS 1000 ML 1,000 ML 125 ML IV ×3 (06:46→22:36)
[2023-05-08 06:48] LABS: Basophils Absolute Auto 0.03 K/uL (0.00-0.30); Basophils Percent Auto 0.4 % (0.0-3.0); Eosinophils Absolute Auto 0.06 K/uL (0.00-0.50); Eosinophils Percent Auto 0.8 % (0.0-7.0); Hematocrit 39.1 % (33.0-51.0); Hemoglobin* 12.6 gm/dL (12.0-16.0); Immature Granulocytes Abs Auto 0.01 K/uL (0.00-0.30); Immature Granulocytes Pct Auto 0.1 %; Lymphocytes Percent Auto 11.3 % (20-44); Mean Corpuscular HGB Conc 32 gm/dL (32-36); Mean Corpuscular Hemoglobin 29 pg (26-34); Mean Corpuscular Volume 91 fL (80-100); Monocytes Percent Auto 9.4 % (0.0-11.0); Platelet Count* 167 K/uL (140-440); RDW Coefficient of Variation % 15.1 % (11.5-15.5); Red Blood Count 4.29 m/uL (4.00-5.20); White Blood Count* 7.53 K/uL (4.50-11.00)
[2023-05-08 06:52] LABS: Slide Review Reflex No
[2023-05-08 06:55] LABS: Chloride* 112 mmol/L (96-114); Sodium* 143 mmol/L (135-149)
[2023-05-08 06:56] LABS: Potassium* 3.8 mmol/L (3.6-5.1)
[2023-05-08 06:58] LABS: Anion Gap 12 mEq/L (7-15); Blood Urea Nitrogen* 54 mg/dL (7-30); Carbon Dioxide* 19 mmol/L (20-32); Creatinine* 4.7 mg/dL (0.5-1.5); Est. Creatinine Clearance* 8.34; Estimated Glomerular Filt Rate 9 ml/min
[2023-05-08 06:59] LABS: Calcium* 9.2 mg/dL (8.4-10.6); Glucose* 105 mg/dL (60-115)
--- NOTE | 2023-05-08 07:01 | PC.NURSE ---
23-07: pleasant and cooperative. Bowel tones active. Pt stated she hasn't passed flatus. No c/o of pain. Green NG output.
[2023-05-08] MEDS: METOPROLOL SUCCINATE (XL) 50 MG TAB PO (08:48)
[2023-05-08] MEDS: DORZOLAMIDE/TIMOLOL 2-0.5% OPHTH 1 DROP EYE-BOTH ×2 (08:48→21:55)
[2023-05-08] MEDS: SODIUM CHLORIDE 0.9 % (FLUSH) 10 ML SYRINGE 5 ML IVF ×2 (08:49→21:54)
[2023-05-08] MEDS: BRIMONIDINE TARTRATE 0.2% OPHTH 1 DROP EYE-BOTH ×2 (08:49→21:54)
--- NOTE | 2023-05-08 08:49 | PM.GSPN ---
Subjective Subjective Date Seen: 05/08/23 Interval history: Patient denies abdominal pain but also is not passing gas. She ambulated several times. NG tube is given her sore throat. Her NG put out 450 mL yesterday since placement and then >1100 since midnight. Patient occasionally complains of nausea but no vomiting. Exam Narrative: Exam Narrative: Abdomen is soft, not tender to palpation, there are no peritoneal signs. The exam is improved from yesterday. Const: Vital Signs, click to edit/add: Vital Signs - 24 hr 05/07/23 11:05 05/07/23 15:00 05/07/23 20:30 Temperature 97.7 F 98.2 F 98.9 F Pulse Rate [Pulse Oximeter] 85 90 78 Respiratory Rate 16 16 18 Blood Pressure [Le ft Arm] 135/89 Blood Pressure [Ri ght Arm] 119/59 L 131/88 Pulse Oximetry 94 94 96 Oxygen Delivery Me thod Room Air Room Air Room Air 05/07/23 23:00 05/07/23 23:00 05/08/23 03:00 Temperature 97.7 F 98.0 F Pulse Rate [Pulse Oximeter] 85 85 96 Respiratory Rate 18 18 18 Blood Pressure [Le ft Arm] 128/76 145/83 H Blood Pressure [Ri ght Arm] Pulse Oximetry 97 94 Oxygen Delivery Me thod Room Air Room Air Progress Note:A&P Assessment and plan (1) SBO (small bowel obstruction): Status: Acute Plan 82-year-old female admitted to the hospital with small-bowel obstruction currently managed with conservative treatment. Patient had NG tube placed yesterday. She continues not to pass gas although her abdominal exam is improved with no tenderness to palpation. I discussed with the patient that we will continue conservative management for 1-2 days and if she has no return of bowel function, will proceed with exploratory laparotomy.
--- NOTE | 2023-05-08 11:45 | PM.IMPN1 ---
Progress Note: A&P Assessment and plan (1) SBO (small bowel obstruction): Problem details: Small-bowel obstruction likely due to adhesions from prior surgeries. Conservative management. Consult surgery. NG tube if recurrent vomiting. Exam today is reassuring. Status: Acute (2) Right knee pain: Problem details: Developed right knee pain overnight without trauma. Ultrasound shows no DVT Status: Acute (3) Metabolic acidosis: Problem details: Due to chronic kidney disease. Better on sodium bicarb. Resume once a day sodium bicarb and clamp NG afterwards for 1 hour. Follow Status: Acute (4) Hyperphosphatemia: Problem details: Due to chronic kidney disease. Better on calcium acetate. Resume calcium acetate once a day and clamp NG afterwards for 1 hour. Follow Status: Acute (5) Glaucoma: Problem details: Glaucoma in the right eye requiring surgery scheduled for 05/11/2023. Hold warfarin preop. May need to postpone glaucoma surgery due to hospitalization for small-bowel obstruction. Patient will call her eye doctor Status: Acute (6) Lower extremity edema: Problem details: Compression stockings Status: Acute (7) Atrial fibrillation: Problem details: Continue to monitor, rate control, hold warfarin. Will use Lovenox, low dose, for VTE prophylaxis and stroke prophylaxis. Oral metoprolol 100 mg once a day for rate control. Clamp NG tube for 1 hour afterwards. IV metoprolol as needed for rate control Status: Acute (8) End stage kidney disease: Problem details: Baseline creatinine on April 27 4.53 giving an EGFR of 9. Continue to monitor. Renal dosing of medications Status: Acute (9) Hypothyroidism: Problem details: Continue levothyroxine orally with clamping of NG tube for 1 hour afterwards. May need IV levothyroxine if unable to take orally. Status: Acute (10) Disorder of fluid or electrolyte: Problem details: Close monitoring of fluid and electrolyte status due to stage 5 kidney disease. Status: Acute Plan Continue in hospital for management of small bowel obstruction, IV fluids, NG suctioning, medication management. Time Spent With Patient Total time spent: Total time spent today is 45 minutes, 25 minutes in coordination of care discussing with patient, daughter and other providers ongoing management of small bowel obstruction and fluid and electrolytes Subjective Date Seen: 05/08/23 Interval history: 82-year-old female presenting today with abdominal pain that started approximately 4:00 a.m. on the day of admission. Pain is diffuse, however the worst pain is underneath her ribcage on the right. She states that she has been vomiting all morning. Nonbloody emesis. She tried eat a cracker and had some tea but she vomited that up shortly afterwards. She denies fevers, chills or shivering. She had a left kidney biopsy approximately 1 week ago at [place]. According to the patient, it was uncomplicated. Past surgical history is significant for cholecystectomy, appendectomy and hysterectomy. She denies any history of small bowel obstruction. States that she had a small bowel movement today that she describes as a palpable. Feels like she has been passing less gas than usual since yesterday. She had colonoscopy about 2.5 years ago which was notable for 3 small polyps with a recommended follow-up in 5 years. She reports her stools have been formed and small recently and because of this she started taking Metamucil. Past medical history significant for end-stage renal disease, diabetes, vitamin-D deficiency, of the secondary renal hyperparathyroidism, malignant melanoma of the lower extremity, vitamin B12 deficiency, hyperkalemia, congestive heart failure, osteopenia, hyperlipidemia, restless leg syndrome, hypertension, atrial fibrillation on anticoagulation therapy, hypothyroidism. She has atrial fibrillation and is on warfarin for this. The warfarin was held for kidney biopsy. She took it for 3 days after the kidney biopsy and stopped it 2 days ago again pending glaucoma surgery in her right eye in 6 days, Thursday. Today she reports generally doing well. Not having significant pain. She has still not passed gas. No nausea or vomiting. She is having pain behind her right knee. NG tube was placed yesterday afternoon and she has had a moderate amount of NG output as a result. Concerns today primarily around discomfort from the NG tube. No abdominal pain. Exam Narrative: Exam Narrative: She is alert and appears in no distress. Redness around her right eye is improved. NG is suctioning dark greenish gastric fluid. Respirations are clear to auscultation. Cardiovascular: S1, S2, 2/6 systolic murmur. Irregularly irregular. Abdomen is soft without tenderness or mass. Bowel sounds are present but diminished. Extremities without significant edema. Const: Vital Signs, click to edit/add: Vital Signs - 24 hr 05/07/23 15:00 05/07/23 20:30 05/07/23 23:00 Temperature 98.2 F 98.9 F Pulse Rate [Pulse Oximeter] 90 78 85 Respiratory Rate 16 18 18 Blood Pressure [Le ft Arm] 135/89 Blood Pressure [Ri ght Arm] 131/88 Pulse Oximetry 94 96 Oxygen Delivery Me thod Room Air Room Air 05/07/23 23:00 05/08/23 03:00 05/08/23 07:00 Temperature 97.7 F 98.0 F Pulse Rate [Pulse Oximeter] 85 96 107 H Respiratory Rate 18 18 18 Blood Pressure [Le ft Arm] 128/76 145/83 H Blood Pressure [Ri ght Arm] Pulse Oximetry 97 94 Oxygen Delivery Me thod Room Air Room Air 05/08/23 07:00 Temperature 98.8 F Pulse Rate [Pulse Oximeter] 96 Respiratory Rate 18 Blood Pressure [Le ft Arm] Blood Pressure [Ri ght Arm] 135/79 Pulse Oximetry 96 Oxygen Delivery Me thod Room Air Documenting provider has reviewed patient's vital signs: yes Labs Labs: Laboratory Results - last 24 hr 05/08/23 06:31 WBC 7.53 RBC 4.29 Hgb 12.6 Hct 39.1 MCV 91 MCH 29 MCHC 32 RDW Coeff of Percy 15.1 Plt Count 167 Neut % (Auto) 78.0 H Lymph % (Auto) 11.3 L [place] % (Auto) 9.4 Eos % (Auto) 0.8 Baso % (Auto) 0.4 Neut # (Auto) 5.90 Lymph # (Auto) 0.90 [place] # (Auto) 0.70 Eos # (Auto) 0.06 Baso # (Auto) 0.03 Abs Immat Gran (auto) 0.01 Imm/Tot Granulo (auto) 0.1 Sodium 143 Potassium 3.8 Chloride 112 Carbon Dioxide 19 L Anion Gap 12 BUN 54 H Creatinine 4.7 H Estimated Creat Clear 8.34 Estimated GFR 9 Glucose 105 Calcium 9.2
[2023-05-08] MEDS: BENZOCAINE/MENTHOL 1 EACH LOZENGE MUCOUS MEM (12:41)
--- NOTE | 2023-05-08 16:47 | NUTR.NU ---
Pt currently NPO x 1 day. No hx of weight loss. Nutrition visit for education purposes. Brief education for CKD Stage 3-5 provided. Recently pt with Phos of 6.5. Discussed basics of sodium, potassium and phosphorous food sources. Handouts provided to support discussion. Chronic Kidney Disease Stage 3-5 Nutrition Therapy (2020) from the AND manual. Also provided online reference to NIDDK.nih.gov website. Encouraged pt to review with her kidney doctor what guidelines are most important for her to follow. RDN contact information provided and encouraged patient to call with questions. RDN to follow up as needed.
--- NOTE | 2023-05-08 20:09 | PC.NURSE ---
NG patent with small amount of output this shift. HR slightly tachycardic, VS otherwise WNL. Denies pain, moves well with SBA. Continues to be NPO with occasional sips/chips for oral cares. Using lozenges PRN.
[2023-05-08] MEDS: ENOXAPARIN 30 MG/0.3ML INJ SUBCUT (21:54)
[2023-05-08] MEDS: LATANOPROSTENE BUNOD 0.024% EYE-BOTH (21:55)
[2023-05-08] MEDS: MORPHINE 4 MG/ML INJ IVP (22:09)
[2023-05-09] VITALS (7 sets, daily range): BP systolic 120–147; BP diastolic 77–90; PULSE 93–105; RESP 18; TEMP 36.6–37; O2SAT 94–96
[2023-05-09] MEDS: LEVOTHYROXINE 75 MCG TABLET PO (06:34)
[2023-05-09 07:35] LABS: Basophils Absolute Auto 0.01 K/uL (0.00-0.30); Basophils Percent Auto 0.1 % (0.0-3.0); Eosinophils Absolute Auto 0.09 K/uL (0.00-0.50); Eosinophils Percent Auto 1.2 % (0.0-7.0); Hematocrit 38.4 % (33.0-51.0); Hemoglobin* 12.5 gm/dL (12.0-16.0); Lymphocytes Percent Auto 13.4 % (20-44); Mean Corpuscular HGB Conc 33 gm/dL (32-36); Mean Corpuscular Hemoglobin 30 pg (26-34); Mean Corpuscular Volume 91 fL (80-100); Monocytes Percent Auto 10.2 % (0.0-11.0); Neutrophils Percent Auto 75.1 % (42.0-72.0); Platelet Count* 157 K/uL (140-440); RDW Coefficient of Variation % 14.9 % (11.5-15.5); Red Blood Count 4.23 m/uL (4.00-5.20); White Blood Count* 7.26 K/uL (4.50-11.00)
--- NOTE | 2023-05-09 07:41 | PC.NURSE ---
Pt alert and oriented x3. Afebrile. Pt reports 8/10 pain in abdomen and throat, managed with PRN medications. Upon initial assessment pt?s NG tube was at 50 cm, per previous RN NG tube was at 60, MD Garcia updated, ordered to push NG tube back to 60 cm, pt tolerated well, replaced pt?s NG tube securement device. Pt?s NG tube is patent and draining, at 60 cm in left nare, drainage is orange. Pt slept throughout most of night. ?
[2023-05-09 07:45] LABS: Slide Review Reflex No
[2023-05-09 07:47] LABS: Chloride* 109 mmol/L (96-114); Potassium* 3.6 mmol/L (3.6-5.1); Sodium* 143 mmol/L (135-149)
[2023-05-09 07:50] LABS: Anion Gap 13 mEq/L (7-15); Blood Urea Nitrogen* 56 mg/dL (7-30); Carbon Dioxide* 21 mmol/L (20-32); Creatinine* 4.5 mg/dL (0.5-1.5); Est. Creatinine Clearance* 8.71; Estimated Glomerular Filt Rate 9 ml/min; Glucose* 104 mg/dL (60-115)
[2023-05-09] MEDS: LACTATED RINGERS 1000 ML 1,000 ML 125 ML IV (08:55)
[2023-05-09] MEDS: METOPROLOL SUCCINATE (XL) 50 MG TAB 100 MG PO (08:56)
[2023-05-09] MEDS: BENZOCAINE/MENTHOL 1 EACH LOZENGE MUCOUS MEM ×2 (08:56→17:06)
[2023-05-09] MEDS: SODIUM BICARBONATE 650 MG TABLET PO (08:56)
[2023-05-09] MEDS: BRIMONIDINE TARTRATE 0.2% OPHTH 1 DROP EYE-BOTH ×2 (09:02→20:50)
[2023-05-09] MEDS: SODIUM CHLORIDE 0.9 % (FLUSH) 10 ML SYRINGE 5 ML IVF ×2 (09:02→20:50)
[2023-05-09] MEDS: DORZOLAMIDE/TIMOLOL 2-0.5% OPHTH 1 DROP EYE-BOTH ×2 (09:02→20:50)
--- NOTE | 2023-05-09 09:28 | PM.GSPN ---
Subjective Subjective Date Seen: 05/09/23 Interval history: Patient denies abdominal pain. She denies nausea vomiting. She ambulated multiple times. However, she is not passing gas. Exam Narrative: Exam Narrative: Abdomen is soft, not distended, not tender to palpation. Const: Vital Signs, click to edit/add: Vital Signs - 24 hr 05/08/23 11:00 05/08/23 15:00 05/08/23 15:00 Temperature 98.9 F 98.8 F Pulse Rate Pulse Rate [Pulse Oximeter] 95 95 105 H Respiratory Rate 18 18 18 Blood Pressure [Le ft Arm] 148/79 H 148/79 H Pulse Oximetry 95 95 Oxygen Delivery Me thod Room Air Room Air 05/08/23 22:15 05/08/23 23:00 05/08/23 23:00 Temperature 97.6 F Pulse Rate 100 Pulse Rate [Pulse Oximeter] 110 H Respiratory Rate 20 18 Blood Pressure [Le ft Arm] 161/97 H Pulse Oximetry 95 Oxygen Delivery Me thod Room Air 05/08/23 23:38 05/09/23 02:50 Temperature 98.0 F 98.0 F Pulse Rate Pulse Rate [Pulse Oximeter] 101 H 98 Respiratory Rate 18 18 Blood Pressure [Le ft Arm] 133/83 124/85 Pulse Oximetry 93 95 Oxygen Delivery Me thod Room Air Room Air Progress Note:A&P Assessment and plan (1) SBO (small bowel obstruction): Status: Acute Plan 82-year-old female with chronic kidney disease admitted with small-bowel obstruction. I discussed with the patient my clinical findings. Patient's NG tube put out 1300 mL of clear yellow fluid since midnight. Patient's abdominal exam is benign and her WBC continues to be normal. However, she does not have return of bowel function. I discussed with the patient that I will give her 1 more day of conservative management. If today in the morning she is not passing gas, will take her to the operating room for exploratory laparotomy. The procedure was discussed in detail. The risks associated procedure including infection, bleeding, recurrent small-bowel obstructions, and hernia development were all discussed with the patient, and patient agreed to proceed with the plan.
--- NOTE | 2023-05-09 09:53 | PC.NURSE ---
Called PICC stat Veena @ [phone] to let her know the chest x-ray results of placement. Veena said its in the right place and is ok for us to use her PICC line.
--- NOTE | 2023-05-09 11:23 | P.IMPN_ITS ---
Progress Note: A&P Assessment and plan (1) SBO (small bowel obstruction): Problem details: Small-bowel obstruction likely due to adhesions from prior surgeries NGT in place. Had high output yesterday Okay for oral morning meds, followed by 1 hour clamping Continue IVF 75 mL/hr General surgery following. Discussed with Dr. Parham on 05/09, if still not passing gas will plan for OR tomorrow 05/10. Warfarin held on admission. Hold enoxaparin. Currently NPO Status: Acute (2) Metabolic acidosis: Problem details: Due to chronic kidney disease. Better on sodium bicarb. Resume once a day sodi um bicarb and clamp NG afterwards for 1 hour -CO2 trending up 21, BUN 56, creatinine 4.5, phosphorus trending down 5.0 -continue to follow Status: Acute (3) Hyperphosphatemia: Problem details: Due to chronic kidney disease. Better on calcium acetate. Resume calcium acetate once a day and clamp NG afterwards for 1 hour -trending down, 5.0 -continue to follow Status: Acute (4) End stage kidney disease: Problem details: Baseline creatinine on April 27 4.53 giving an EGFR of 9. Continue to monitor. Renal dosing of medications -creatinine 4.5 Status: Acute (5) Disorder of fluid or electrolyte: Problem details: Close monitoring of fluid and electrolyte status due to stage 5 kidney disease. Status: Acute (6) Atrial fibrillation: Problem details: Continue to monitor, rate control, hold warfarin Lovenox, low dose, for VTE prophylaxis and stroke prophylaxis Oral metoprolol 100 mg once a day for rate control. Clamp NG tube for 1 hour afterwards. IV metoprolol as needed for rate control 05/09 - hold Lovenox for possible procedure tomorrow Status: Acute (7) Right knee pain: Problem details: Developed right knee pain without trauma. Ultrasound shows no DVT. Symptomatic cares Status: Acute (8) Glaucoma: Problem details: Glaucoma in the right eye requiring surgery scheduled for 05/11/2023. Hold warfarin preop. May need to postpone glaucoma surgery due to hospitalization for small-bowel obstruction. Patient will call to reschedule Status: Acute (9) Lower extremity edema: Problem details: Compression stockings Status: Acute (10) Hypothyroidism: Problem details: Continue levothyroxine orally with clamping of NG tube for 1 hour afterwards. May need IV levothyroxine if unable to take orally. Status: Acute Plan Continue in hospital for management of small bowel obstruction, IV fluids, NG suctioning, medication management. Possible OR 05/10 if not passing gas Time Spent With Patient Total time spent: Total time spent caring for the patient today was 45 minutes. This includes time spent for the visit reviewing the chart, time spent during the visit, time spent after the visit and documentation and planning in coordination of care. Subjective Date Seen: 05/09/23 Interval history: Patient is feeling okay this morning. Uncomfortable with NGT in place. Abdominal pain improved. No nausea or vomiting. Few belches. Not passing gas. No bowel movements. Denies headache or dizziness. Denies chest pain or shortness of breath. Exam Narrative: Exam Narrative: PHYSICAL EXAM General: Pleasant, conversant, NAD HEENT: Normocephalic, atraumatic, sclera white, EOMI, oral mucosa moist Cardiovascular: IRRR Pulmonary: CTA bilaterally without rhonchi, rales, expiratory wheezes. No dyspnea Abdominal: Somewhat soft, mildly distended, denies tenderness, no guarding. NGT in place currently clamped, yellow orange drainage noted Neurological: Alert, answering questions appropriately, cranial nerves intact, no focal findings Extremities: No gross joint deformity or swelling. AROMI. Neurovascularly intact Skin: Warm, dry. Const: Vital Signs, click to edit/add: Vital Signs - 24 hr 05/07/23 15:00 05/07/23 20:30 05/07/23 23:00 Temperature 98.2 F 98.9 F Pulse Rate [Pulse Oximeter] 90 78 85 Respiratory Rate 16 18 18 Blood Pressure [Le ft Arm] 135/89 Blood Pressure [Ri ght Arm] 131/88 Pulse Oximetry 94 96 Oxygen Delivery Me thod Room Air Room Air 05/07/23 23:00 05/08/23 03:00 05/08/23 07:00 Temperature 97.7 F 98.0 F Pulse Rate [Pulse Oximeter] 85 96 107 H Respiratory Rate 18 18 18 Blood Pressure [Le ft Arm] 128/76 145/83 H Blood Pressure [Ri ght Arm] Pulse Oximetry 97 94 Oxygen Delivery Me thod Room Air Room Air 05/08/23 07:00 Temperature 98.8 F Pulse Rate [Pulse Oximeter] 96 Respiratory Rate 18 Blood Pressure [Le ft Arm] Blood Pressure [Ri ght Arm] 135/79 Pulse Oximetry 96 Oxygen Delivery Me thod Room Air Labs Labs: Laboratory Results - last 24 hr 05/08/23 06:31 WBC 7.53 RBC 4.29 Hgb 12.6 Hct 39.1 MCV 91 MCH 29 MCHC 32 RDW Coeff of Percy 15.1 Plt Count 167 Neut % (Auto) 78.0 H Lymph % (Auto) 11.3 L [place] % (Auto) 9.4 Eos % (Auto) 0.8 Baso % (Auto) 0.4 Neut # (Auto) 5.90 Lymph # (Auto) 0.90 [place] # (Auto) 0.70 Eos # (Auto) 0.06 Baso # (Auto) 0.03 Abs Immat Gran (auto) 0.01 Imm/Tot Granulo (auto) 0.1 Sodium 143 Potassium 3.8 Chloride 112 Carbon Dioxide 19 L Anion Gap 12 BUN 54 H Creatinine 4.7 H Estimated Creat Clear 8.34 Estimated GFR 9 Glucose 105 Calcium 9.2
[2023-05-09] MEDS: LACTATED RINGERS 1000 ML 1,000 ML 75 ML IV (16:41)
[2023-05-09] MEDS: METOPROLOL TARTRATE 1 MG/ML inj 5 MG IVP (17:06)
--- NOTE | 2023-05-09 17:15 | PC.NURSE ---
Tachycardia noted for approx 30 minutes increasing from 105BPM to 142 BPM. increased HR especially with activity. PRN Metoprolol given IVP.
[2023-05-09] MEDS: LATANOPROSTENE BUNOD 0.024% EYE-BOTH (20:50)
[2023-05-10] VITALS (25 sets, daily range): BP systolic 109–144; BP diastolic 78–103; PULSE 96–129; RESP 12–20; TEMP 36.1–37.3; O2SAT 92–99
[2023-05-10] MEDS: METOPROLOL TARTRATE 1 MG/ML inj 5 MG IVP ×2 (02:18→15:29)
[2023-05-10] MEDS: LACTATED RINGERS 1000 ML 1,000 ML 75 ML IV (06:22)
[2023-05-10] MEDS: LEVOTHYROXINE 75 MCG TABLET PO (06:22)
[2023-05-10 06:59] LABS: Basophils Absolute Auto 0.01 K/uL (0.00-0.30); Basophils Percent Auto 0.1 % (0.0-3.0); Eosinophils Absolute Auto 0.13 K/uL (0.00-0.50); Eosinophils Percent Auto 1.7 % (0.0-7.0); Hematocrit 39.2 % (33.0-51.0); Hemoglobin* 12.8 gm/dL (12.0-16.0); Immature Granulocytes Abs Auto 0.01 K/uL (0.00-0.30); Immature Granulocytes Pct Auto 0.1 %; Lymphocytes Percent Auto 9.9 % (20-44); Mean Corpuscular HGB Conc 33 gm/dL (32-36); Mean Corpuscular Hemoglobin 30 pg (26-34); Mean Corpuscular Volume 91 fL (80-100); Monocytes Percent Auto 9.2 % (0.0-11.0); Platelet Count* 167 K/uL (140-440); RDW Coefficient of Variation % 14.8 % (11.5-15.5); Red Blood Count 4.33 m/uL (4.00-5.20)
[2023-05-10 07:05] LABS: Slide Review Reflex No
[2023-05-10 07:20] LABS: Blood Urea Nitrogen* 57 mg/dL (7-30); Carbon Dioxide* 21 mmol/L (20-32); Creatinine* 4.5 mg/dL (0.5-1.5); Est. Creatinine Clearance* 8.71; Estimated Glomerular Filt Rate 9 ml/min
[2023-05-10 07:21] LABS: Calcium* 9.2 mg/dL (8.4-10.6); Glucose* 98 mg/dL (60-115); Phosphorus* 4.2 mg/dL (2.5-4.5)
[2023-05-10 07:32] LABS: Anion Gap 15 mEq/L (7-15); Chloride* 109 mmol/L (96-114); Potassium* 3.3 mmol/L (3.6-5.1); Sodium* 145 mmol/L (135-149)
--- NOTE | 2023-05-10 07:44 | P.IMPN_ITS ---
Progress Note: A&P Assessment and plan (1) SBO (small bowel obstruction): Problem details: Small-bowel obstruction likely due to adhesions from prior surgeries NGT in place. Had high output on admission Okay for oral morning meds, followed by 1 hour clamping Continue IVF 75 mL/hr 05/10: POD#0 s/p Exploratory laparotomy with lysis of adhesions Per General surgery, continue gentle IV hydration, NGT, NPO, pain and nausea management as needed Status: Acute (2) Metabolic acidosis: Problem details: Due to chronic kidney disease. Better on sodium bicarb. Resume once a day sodium bicarb and clamp NG afterwards for 1 hour -CO2 21, BUN 57, creatinine 4.5, phosphorus 4.2 -continue to follow Status: Acute (3) Hyperphosphatemia: Problem details: Resolved Due to chronic kidney disease. Better on calcium acetate. Resume calcium acetate once a day and clamp NG afterwards for 1 hour Status: Acute (4) End stage kidney disease: Problem details: Baseline creatinine on April 27 4.53 giving an EGFR of 9. Continue to monitor. Renal dosing of medications -creatinine 4.5, stable Status: Acute (5) Disorder of fluid or electrolyte: Problem details: Close monitoring of fluid and electrolyte status due to stage 5 kidney disease. 05/10: Mild hypokalemia, potassium 3.3, replace with oral supplement, monitor Status: Acute (6) Atrial fibrillation: Problem details: Continue to monitor, rate control, hold warfarin Lovenox, low dose, for VTE prophylaxis and stroke prophylaxis Oral metoprolol 100 mg once a day for rate control. Clamp NG tube for 1 hour afterwards. IV metoprolol as needed for rate control Status: Acute (7) Right knee pain: Problem details: Developed right knee pain without trauma. Ultrasound shows no DVT. Symptomatic cares Status: Acute (8) Glaucoma: Problem details: Glaucoma in the right eye requiring surgery scheduled for 05/11/2023. Hold warfarin preop. May need to postpone glaucoma surgery due to hospitalization for small-bowel obstruction. Patient will call to reschedule Status: Acute (9) Lower extremity edema: Problem details: Compression stockings Status: Acute (10) Hypothyroidism: Problem details: Continue levothyroxine orally with clamping of NG tube for 1 hour afterwards. May need IV levothyroxine if unable to take orally. Status: Acute Plan Postoperative management Time Spent With Patient Total time spent: Total time spent caring for the patient today was 45 minutes. This includes time spent for the visit reviewing the chart, time spent during the visit, time spent after the visit and documentation and planning in coordination of care. Subjective Date Seen: 05/10/23 Interval history: Patient was taken to or early this morning for ongoing SBO. Dr. Parham, General Surgery, reports a small adhesion was found and clipped, no surgical complications. Postoperatively, patient reports feeling so much better. Is sore postoperatively. Continues to have nasopharyngeal irritation from NGT. Otherwise denies headache or dizziness. Denies chest pain or shortness of breath. No nausea. Exam Narrative: Exam Narrative: PHYSICAL EXAM General: Pleasant, conversant, NAD HEENT: Normocephalic, atraumatic, sclera white, EOMI, oral mucosa moist Cardiovascular: IRRR Pulmonary: CTA bilaterally without rhonchi, rales, expiratory wheezes. No dyspnea Abdominal: Somewhat soft, appropriate postoperative incisional tenderness, no guarding. NGT in place currently clamped, minimal yellow orange drainage noted Neurological: Alert, answering questions appropriately, cranial nerves intact, no focal findings Extremities: No gross joint deformity or swelling. AROMI. Neurovascularly intact Skin: Warm, dry. Const: Vital Signs, click to edit/add: Vital Signs - 24 hr 05/08/23 22:15 05/08/23 23:00 05/08/23 23:00 Temperature 97.6 F Pulse Rate 100 Pulse Rate [Pulse Oximeter] 110 H Respiratory Rate 20 18 Blood Pressure [Le ft Arm] 161/97 H Pulse Oximetry 95 Oxygen Delivery Me thod Room Air 05/08/23 23:38 05/09/23 02:50 05/09/23 07:00 Temperature 98.0 F 98.0 F Pulse Rate Pulse Rate [Pulse Oximeter] 101 H 98 105 H Respiratory Rate 18 18 18 Blood Pressure [Le ft Arm] 133/83 124/85 Pulse Oximetry 93 95 Oxygen Delivery Me thod Room Air Room Air 05/09/23 07:00 05/09/23 07:00 05/09/23 11:00 Temperature 98.1 F 98.1 F Pulse Rate 96 Pulse Rate [Pulse Oximeter] 105 H 93 Respiratory Rate 18 18 Blood Pressure [Le ft Arm] 120/86 Pulse Oximetry 94 96 Oxygen Delivery Wy thod Room Air Room Air Labs Labs: Laboratory Results - last 24 hr 05/09/23 07:04 WBC 7.26 RBC 4.23 Hgb 12.5 Hct 38.4 MCV 91 MCH 30 MCHC 33 RDW Coeff of Percy 14.9 Plt Count 157 Neut % (Auto) 75.1 H Lymph % (Auto) 13.4 L [place] % (Auto) 10.2 Eos % (Auto) 1.2 Baso % (Auto) 0.1 Neut # (Auto) 5.50 Lymph # (Auto) 1.00 [place] # (Auto) 0.70 Eos # (Auto) 0.09 Baso # (Auto) 0.01 Abs Immat Gran (auto) 0.00 Imm/Tot Granulo (auto) 0.0 Sodium 143 Potassium 3.6 Chloride 109 Carbon Dioxide 21 Anion Gap 13 BUN 56 H Creatinine 4.5 H Estimated Creat Clear 8.71 Estimated GFR 9 Glucose 104 Calcium 9.0 Phosphorus 5.0 H
[2023-05-10] MEDS: DORZOLAMIDE/TIMOLOL 2-0.5% OPHTH 1 DROP EYE-BOTH ×2 (08:21→20:42)
[2023-05-10] MEDS: BRIMONIDINE TARTRATE 0.2% OPHTH 1 DROP EYE-BOTH ×2 (08:21→20:42)
--- NOTE | 2023-05-10 08:26 | PC.NURSE ---
Pt to OR at 0820. Family at bedside
[2023-05-10] MEDS: CEFAZOLIN 2 GM INJ IVP (08:30)
[2023-05-10] MEDS: BUPIVACAINE 0.25 %/EPI 1:200K 30 ml 20 ML INJECTION (08:50)
--- NOTE | 2023-05-10 08:59 | P.ANES_ITS ---
Anesthesia Charges Start Date/Time Anesthesia Start Date: 05/10/23 Anesthesia Start Time: 08:22 Stop Date/Time Anesthesia Stop Date: 05/10/23 Anesthesia Stop Time: 09:37 Summary Emergency: TECHNICAL AIDE Extremes of Age - Over 70 or under 1: TECHNICAL AIDE
--- NOTE | 2023-05-10 08:59 | W.ANESCHARGE ---
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
--- NOTE | 2023-05-10 09:16 | SUR.OPER ---
PATIENT QUESTIONS ANSWERED SATISFACTORILY PREOPERATIVELY. PATIENT BROUGHT TO OR #4 PER MED/SURG BED. Patient positioned supine on OR #4 bed. The perioperative team supported arms bilaterally on arm boards. Final approval of positioning by surgeon.
--- NOTE | 2023-05-10 09:22 | P.GSOP_ITS ---
Operative Note Date of procedure: 05/10/23 Pre-op diagnosis: 1. Small-bowel obstruction failed medical management. Post-op diagnosis: 1. Single short adhesion causing small-bowel obstruction. Type of Procedure: 1. Exploratory laparotomy with lysis of adhesions. Indications: 82-year-old female was admitted the hospital several days ago small-bowel obstruction. Patient was managed conservatively with NG tube and NPO. She did not pass gas for over 3 days although she had no nausea vomiting. Her vital signs were stable and her WBC was normal. Her clinical exam had benign abdomen. Given her clinical history and her failure of medical management, exploratory laparotomy with lysis of adhesions was recommended. The procedure was discussed in detail. The risks associated procedure including infection, bleeding, injury to intra-abdominal organs, and the need for small-bowel resection or other procedures were all discussed with the patient, and she agreed to proceed. Procedure Description: After discussing the risks and benefits of the procedure, the patient signed informed consent.? The operative site was marked and the patient was brought to the operating room and placed on the operating table in supine position.? Care was taken to pad the patient's pressure points.?? The patient was then intubated by anesthesia.?? The operative site was then prepped and draped in the usual sterile fashion.? A time-out was then performed. A candi umbilical surgical incision was made with a scalpel. Thin layer of subcutaneous fat was divided with cautery. Anterior fascia was grasped with Marianne clamps and incised with Metzenbaum scissors. Posterior fascia and peritoneum were also grasped and incised with Metzenbaum scissors. Abdomen was entered and the fascial incision was extended superiorly and inferiorly. Moderate amount of ascites was noted. Dilated loops of small bowel were seen but the bowel was viable. A medium-sized Jordan retractor was placed into the incision. The small bowel was then eviscerated and a single short adhesion was constricting a segment of small bowel creating the small bowel obstruction. This was lysed with Metzenbaum scissors. The small bowel that was constricted was examined and the serosal tear was noted where the adhesion was applying pressure. This was oversewn with interrupted 3-0 silk sutures. The small bowel in the segment was widely patent. I then ran the entire small bowel from the ligament of Treitz to the cecum. I found an additional second adhesion that was longer and was not obstructing. This was lysed with cautery. The entire small bowel was examined, and was viable. There were some areas of congestion adj acent to the obstructed area but no bowel compromise or necrosis was seen. At this time the small bowel was placed back into the abdomen. The abdomen was irrigated with normal saline. Local anesthetic was injected into the anterior fascia. The anterior fascia was then closed with 2 running 0-0 looped Maxon. The dermis was reapproximated with interrupted 3-0 Vicryl sutures. The skin was closed with a running 4-0 Monocryl stitch. Steri strips and sterile gauze was placed over the incision, and it was covered with tape. All counts were correct at the end of the case. ? The patient was then woken and transported to the recovery area in stable condition. ? The patient tolerated the procedure well. Findings: A single short adhesion was causing the small-bowel obstruction. This was lysed. Anesthesia: GETA Surgeon: Kelsy Parham MD Estimated blood loss (mL): 5 Condition: stable Disposition: PACU
--- NOTE | 2023-05-10 09:40 | W.PM.NB ---
Nerve Block Nerve Block Time Seen by Provider: 09:30 Date Seen: 05/10/23 Type of block requested by surgeon for post-operative analgesia: TAP Side: bilateral Time out performed: Yes Verification of patient name: Yes Verification of date of : Yes Name of person performing procedure: Luis Angeluc Continuous monitoring Was continuous monitoring of O2 sat, B/P, aircraft maintenance technician, recorded every 15 minutes?: Yes Procedure Checklist: sterile prep, needles and gloves Ultrasound guided. Images saved: Yes Medications given in 5ml increments after negative aspiration: Marcaine %: 0.25 mL: 30 Needle gauge: 21 and Exparel mL: 10 Needle gauge: 21 Patient tolerated procedure well: Yes Block Charges Block Charge (with Pro Fee): TAP Bilateral Use of Ultrasound Machine for Block: Yes- US Guidance/pain block
--- NOTE | 2023-05-10 09:42 | W.PM.NB ---
Nerve Block Nerve Block Time Seen by Provider: 09:30 Date Seen: 05/10/23 Type of block requested by surgeon for post-operative analgesia: TAP Side: bilateral Time out performed: Yes Verification of patient name: Yes Verification of date of : Yes Name of person performing procedure: Luis Angeluc Continuous monitoring Was continuous monitoring of O2 sat, B/P, cardiac cath lab radiology technologist, recorded every 15 minutes?: Yes Procedure Checklist: sterile prep, needles and gloves Ultrasound guided. Images saved: Yes Medications given in 5ml increments after negative aspiration: Marcaine %: 0.25 mL: 30 Needle gauge: 21 and Exparel mL: 10 Needle gauge: 21 Patient tolerated procedure well: Yes Block Charges Block Charge (with Pro Fee): TAP Bilateral Use of Ultrasound Machine for Block: Yes- US Guidance/pain block
[2023-05-10] MEDS: fentaNYL 100 MCG/2 ML inj 50 MCG IVP ×2 (09:50→09:59)
[2023-05-10] MEDS: METOPROLOL SUCCINATE (XL) 50 MG TAB 100 MG PO (11:08)
[2023-05-10] MEDS: MORPHINE 4 MG/ML INJ IVP ×3 (11:25→22:55)
[2023-05-10] MEDS: POTASSIUM CHLORIDE 10 MEQ CAPSULE ER 20 MEQ PO (17:24)
[2023-05-10] MEDS: LACTATED RINGERS 1000 ML 1,000 ML 50 ML IV (18:02)
--- NOTE | 2023-05-10 19:44 | PC.NURSE ---
Shift Note: Pt recovering well post-op, denies nausea and pain well controlled with PRN Morphine. NG to LIS patent with small amount brown discharge. Up to chair this afternoon with assist x1, tolerated well. Mittal patent and draining. Surgical dressing C,D,&I. Tele noted to be a-flutter this afternoon with rates reaching 120 BPM. PRN Metoprolol IVP given. Tachycardia persisted and Dr. Garcia updated. Order for Diltiazem pending.
[2023-05-10] MEDS: dilTIAZem 5 MG/ML inj 10 MG IVP (20:00)
[2023-05-10] MEDS: LATANOPROSTENE BUNOD 0.024% EYE-BOTH (20:41)
[2023-05-10] MEDS: ATORVASTATIN 10 MG TABLET PO (20:41)
[2023-05-10] MEDS: ENOXAPARIN 30 MG/0.3ML INJ SUBCUT (20:41)
[2023-05-11] VITALS (9 sets, daily range): BP systolic 120–130; BP diastolic 79–101; PULSE 104–120; RESP 16–18; TEMP 36.1–36.6; O2SAT 91–97
[2023-05-11] MEDS: METOPROLOL TARTRATE 1 MG/ML inj 5 MG IVP ×2 (03:08→23:48)
[2023-05-11] MEDS: LEVOTHYROXINE 75 MCG TABLET PO (06:07)
[2023-05-11 06:38] LABS: Hematocrit 39.3 % (33.0-51.0); Hemoglobin* 12.8 gm/dL (12.0-16.0); Mean Corpuscular HGB Conc 33 gm/dL (32-36); Mean Corpuscular Hemoglobin 30 pg (26-34); Mean Corpuscular Volume 91 fL (80-100); Platelet Count* 185 K/uL (140-440); Red Blood Count 4.33 m/uL (4.00-5.20); White Blood Count* 8.66 K/uL (4.50-11.00)
[2023-05-11 06:49] LABS: Chloride* 109 mmol/L (96-114); Potassium* 3.9 mmol/L (3.6-5.1); Slide Review Reflex No; Sodium* 146 mmol/L (135-149)
[2023-05-11 06:52] LABS: Anion Gap 14 mEq/L (7-15); Blood Urea Nitrogen* 63 mg/dL (7-30); Calcium* 8.8 mg/dL (8.4-10.6); Carbon Dioxide* 23 mmol/L (20-32); Creatinine* 4.5 mg/dL (0.5-1.5); Est. Creatinine Clearance* 8.71; Estimated Glomerular Filt Rate 9 ml/min; Glucose* 132 mg/dL (60-115); Phosphorus* 5.9 mg/dL (2.5-4.5)
[2023-05-11] MEDS: LACTATED RINGERS 1000 ML 1,000 ML 50 ML IV (06:55)
--- NOTE | 2023-05-11 07:49 | PM.IMPN1 ---
Progress Note: A&P Assessment and plan (1) SBO (small bowel obstruction): Problem details: Small-bowel obstruction likely due to adhesions from prior surgeries NGT in place. Had high output on admission Okay for oral morning meds, followed by 1 hour clamping Continue IVF 75 mL/hr 05/10: POD#0 s/p Exploratory laparotomy with lysis of adhesions Per General surgery, continue gentle IV hydration, NGT, NPO, pain and nausea management as needed 05/11: Still not passing gas. Seen by Dr. Parham, General surgery, this morning. Waiting for patient to pass gas, continue NGT, encourage ambulation. Patient has been NPO for 6 days. Nutrition services aware, will need to consider TPN if unable to advance diet in next coming days. Status: Acute (2) Metabolic acidosis: Problem details: Due to chronic kidney disease. Resume once a day sodium bicarb and clamp NG afterwards for 1 hour -no significant changes, continuing to monitor, has outpatient nephrology appointment this week if discharged from hospital -continue to follow Status: Acute (3) Hyperphosphatemia: Problem details: Due to chronic kidney disease. Better on calcium acetate. Resume calcium acetate once a day and clamp NG afterwards for 1 hour 05/11: Phosphorus 5.9, up again today. Continue to monitor daily Status: Acute (4) End stage kidney disease: Problem details: S/p renal biopsy on 04/30/23, [facility] [place]. Per Dr. Rain, Preliminary result show no evidence for GN, AIN, vasculitis, or other primary renal disease. 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 He also notes I plan to keep her off Warfarin (which she takes for A-fib) at least until after she sees me in clinic. She has had recurrent gross hematuria Baseline creatinine on April 27 4.53 giving an EGFR of 9. Renal dosing of medications. I have stopped allopurinol for now. 05/11: Creatinine essentially unchanged, 4.5, GFR 9, creatinine clearance 8.71, BUN 63 Patient was to have follow-up appointment with Nephrology on 05/14/2023 with repeat labs. She will reschedule if remains hospitalized Status: Acute (5) Disorder of fluid or electrolyte: Problem details: Close monitoring of fluid and electrolyte status due to stage 5 kidney disease. Status: Acute (6) Atrial fibrillation: Problem details: Continue to monitor, rate control, holding warfarin per Nephrology Lovenox, low dose, for VTE prophylaxis and stroke prophylaxis 05/11: Resume home dose metoprolol XL 50 bid for better rate control - Clamp NG tube for 1 hour afterwards. Additional IV metoprolol as needed Status: Acute (7) Right knee pain: Problem details: Developed right knee pain without trauma. Ultrasound shows no DVT. Symptomatic cares Status: Acute (8) Glaucoma: Problem details: Glaucoma in the right eye requiring surgery scheduled for 05/11/2023. Hold warfarin preop. May need to postpone glaucoma surgery due to hospitalization for small-bowel obstruction. Patient will call to reschedule Status: Acute (9) Lower extremity edema: Problem details: Compression stockings Status: Acute (10) Hypothyroidism: Problem details: Continue levothyroxine orally with clamping of NG tube for 1 hour afterwards. May need IV levothyroxine if unable to take orally. Status: Acute Plan Postoperative management. Appreciate guidance by General surgery 05/11: DISCHARGE PLANNING: INSOLE AND OUTSOLE SPLITTER ASSISTING IN DISCHARGE PLANNING/PLACEMENT NEEDS. MAY NEED TO CONSIDER SNF - PATIENT AND FAMILY AWARE AND ON BOARD. Time Spent With Patient Total time spent: Total time spent caring for the patient today was 45 minutes. This includes time spent for the visit reviewing the chart, time spent during the visit, time spent after the visit and documentation and planning in coordination of care. Subjective Date Seen: 05/11/23 Exam Const: Vital Signs, click to edit/add: Vital Signs - 24 hr 05/10/23 09:32 05/10/23 09:37 05/10/23 09:42 Temperature 99.0 F Pulse Rate 106 H 113 H 116 H Pulse Rate [Pulse Oximeter] Respiratory Rate 16 14 16 Blood Pressure 124/90 H 127/92 H 132/78 Blood Pressure [Le ft Arm] Pulse Oximetry 92 99 98 Oxygen Delivery Me thod Room Air Nasal Cannula Nasal Cannula Oxygen Flow Rate 3 3 05/10/23 09:47 05/10/23 09:52 05/10/23 09:57 Temperature 99.1 F Pulse Rate 103 H 105 H 101 H Pulse Rate [Pulse Oximeter] Respiratory Rate 16 14 12 Blood Pressure 130/88 127/82 129/88 Blood Pressure [Le ft Arm] Pulse Oximetry 98 97 97 Oxygen Delivery Me thod Nasal Cannula Nasal Cannula Nasal Cannula Oxygen Flow Rate 3 2 2 05/10/23 10:07 05/10/23 10:12 05/10/23 10:17 Temperature 98.9 F 98.9 F Pulse Rate 106 H 113 H 107 H Pulse Rate [Pulse Oximeter] Respiratory Rate 14 12 14 Blood Pressure 124/82 109/83 122/89 Blood Pressure [Le ft Arm] Pulse Oximetry 97 97 98 Oxygen Delivery Me thod Nasal Cannula Nasal Cannula Nasal Cannula Oxygen Flow Rate 2 2 2 05/10/23 10:26 05/10/23 10:30 05/10/23 10:45 Temperature 96.9 F L 97.8 F Pulse Rate 120 H Pulse Rate [Pulse Oximeter] 96 124 H Respiratory Rate 16 16 16 Blood Pressure Blood Pressure [Le ft Arm] 124/92 H 122/96 H 115/86 Pulse Oximetry 96 96 Oxygen Delivery Me thod Nasal Cannula Nasal Cannula Nasal Cannula Oxygen Flow Rate 2 2 2 05/10/23 11:00 05/10/23 11:15 05/10/23 11:45 Temperature 97.9 F Pulse Rate Pulse Rate [Pulse Oximeter] 108 H 105 H 110 H Respiratory Rate 16 16 16 Blood Pressure Blood Pressure [Le ft Arm] 122/103 H 122/94 H 123/87 Pulse Oximetry 99 98 96 Oxygen Delivery Me thod Nasal Cannula Nasal Cannula Nasal Cannula Oxygen Flow Rate 1 1 1 05/10/23 12:00 05/10/23 12:15 05/10/23 13:15 Temperature 98 F 98.3 F Pulse Rate 129 H Pulse Rate [Pulse Oximeter] 118 H 109 H Respiratory Rate 16 16 Blood Pressure Blood Pressure [Le ft Arm] 129/78 125/85 Pulse Oximetry 98 98 Oxygen Delivery Me thod Nasal Cannula Room Air Oxygen Flow Rate 1 05/10/23 14:15 05/10/23 15:00 05/10/23 15:00 Temperature Pulse Rate 109 H Pulse Rate [Pulse Oximeter] 117 H 109 H Respiratory Rate 16 16 Blood Pressure Blood Pressure [Le ft Arm] 126/83 Pulse Oximetry 94 Oxygen Delivery Me thod Room Air Oxygen Flow Rate 05/10/23 15:00 05/10/23 15:15 05/10/23 16:15 Temperature Pulse Rate Pulse Rate [Pulse Oximeter] 102 H 102 H 114 H Respiratory Rate 16 16 16 Blood Pressure Blood Pressure [Le ft Arm] 114/86 114/86 124/90 H Pulse Oximetry 96 96 94 Oxygen Delivery Me thod Room Air Room Air Room Air Oxygen Flow Rate 05/10/23 19:45 05/11/23 01:40 05/11/23 03:10 Temperature 97.7 F 97.7 F 97.8 F Pulse Rate Pulse Rate [Pulse Oximeter] 115 H 105 H 113 H Respiratory Rate 16 16 16 Blood Pressure Blood Pressure [Le ft Arm] 132/94 H 125/79 130/88 Pulse Oximetry 94 91 93 Oxygen Delivery Me thod Room Air Room Air Room Air Oxygen Flow Rate Labs Labs: Laboratory Results - last 24 hr 05/11/23 06:03 WBC 8.66 RBC 4.33 Hgb 12.8 Hct 39.3 MCV 91 MCH 30 MCHC 33 Plt Count 185 Sodium 146 Potassium 3.9 Chloride 109 Carbon Dioxide 23 Anion Gap 14 BUN 63 H Creatinine 4.5 H Estimated Creat Clear 8.71 Estimated GFR 9 Glucose 132 H Calcium 8.8 Phosphorus 5.9 H
--- NOTE | 2023-05-11 07:54 | PC.NURSE ---
Pt alert and oriented x3. Afebrile. Pt denies chest pain, pain, SOB, and N/V. Pt?s NG tube is patent and draining, at 70?cm in left nare, drainage is brown and thick. No gas passed overnight. Pt?s champagne is patent and draining. Pt's tele showed atrial flutter gave metoprolol PRN. Pt is up SBA with walker and gait belt to chair. Pt slept throughout most of night. ?
[2023-05-11] MEDS: POTASSIUM CHLORIDE 10 MEQ CAPSULE ER 20 MEQ PO ×2 (08:01→18:08)
--- NOTE | 2023-05-11 09:11 | P.GSPN_ITS ---
Subjective Subjective Date Seen: 05/11/23 Interval history: Patient is doing well. She has minimal abdominal pain. She has been using ice for pain control. Her NG is putting out green liquid. She is not passing gas. Exam Narrative: Exam Narrative: Abdomen is soft, not distended, midline laparotomy incision is covered with clean dressing. There is some tenderness to palpation on the right side of the abdomen. Const: Vital Signs, click to edit/add: Vital Signs - 24 hr 05/10/23 09:32 05/10/23 09:37 05/10/23 09:42 Temperature 99.0 F Pulse Rate 106 H 113 H 116 H Pulse Rate [Pulse Oximeter] Respiratory Rate 16 14 16 Blood Pressure 124/90 H 127/92 H 132/78 Blood Pressure [Le ft Arm] Pulse Oximetry 92 99 98 Oxygen Delivery Me thod Room Air Nasal Cannula Nasal Cannula Oxygen Flow Rate 3 3 05/10/23 09:47 05/10/23 09:52 05/10/23 09:57 Temperature 99.1 F Pulse Rate 103 H 105 H 101 H Pulse Rate [Pulse Oximeter] Respiratory Rate 16 14 12 Blood Pressure 130/88 127/82 129/88 Blood Pressure [Le ft Arm] Pulse Oximetry 98 97 97 Oxygen Delivery Me thod Nasal Cannula Nasal Cannula Nasal Cannula Oxygen Flow Rate 3 2 2 05/10/23 10:07 05/10/23 10:12 05/10/23 10:17 Temperature 98.9 F 98.9 F Pulse Rate 106 H 113 H 107 H Pulse Rate [Pulse Oximeter] Respiratory Rate 14 12 14 Blood Pressure 124/82 109/83 122/89 Blood Pressure [Le ft Arm] Pulse Oximetry 97 97 98 Oxygen Delivery Me thod Nasal Cannula Nasal Cannula Nasal Cannula Oxygen Flow Rate 2 2 2 05/10/23 10:26 05/10/23 10:30 05/10/23 10:45 Temperature 96.9 F L 97.8 F Pulse Rate 120 H Pulse Rate [Pulse Oximeter] 96 124 H Respiratory Rate 16 16 16 Blood Pressure Blood Pressure [Le ft Arm] 124/92 H 122/96 H 115/86 Pulse Oximetry 96 96 Oxygen Delivery Me thod Nasal Cannula Nasal Cannula Nasal Cannula Oxygen Flow Rate 2 2 2 05/10/23 11:00 05/10/23 11:15 05/10/23 11:45 Temperature 97.9 F Pulse Rate Pulse Rate [Pulse Oximeter] 108 H 105 H 110 H Respiratory Rate 16 16 16 Blood Pressure Blood Pressure [Le ft Arm] 122/103 H 122/94 H 123/87 Pulse Oximetry 99 98 96 Oxygen Delivery Me thod Nasal Cannula Nasal Cannula Nasal Cannula Oxygen Flow Rate 1 1 1 05/10/23 12:00 05/10/23 12:15 05/10/23 13:15 Temperature 98 F 98.3 F Pulse Rate 129 H Pulse Rate [Pulse Oximeter] 118 H 109 H Respiratory Rate 16 16 Blood Pressure Blood Pressure [Le ft Arm] 129/78 125/85 Pulse Oximetry 98 98 Oxygen Delivery Me thod Nasal Cannula Room Air Oxygen Flow Rate 1 05/10/23 14:15 05/10/23 15:00 05/10/23 15:00 Temperature Pulse Rate 109 H Pulse Rate [Pulse Oximeter] 117 H 109 H Respiratory Rate 16 16 Blood Pressure Blood Pressure [Le ft Arm] 126/83 Pulse Oximetry 94 Oxygen Delivery Me thod Room Air Oxygen Flow Rate 05/10/23 15:00 05/10/23 15:15 05/10/23 16:15 Temperature Pulse Rate Pulse Rate [Pulse Oximeter] 102 H 102 H 114 H Respiratory Rate 16 16 16 Blood Pressure Blood Pressure [Le ft Arm] 114/86 114/86 124/90 H Pulse Oximetry 96 96 94 Oxygen Delivery Me thod Room Air Room Air Room Air Oxygen Flow Rate 05/10/23 19:45 05/11/23 01:40 05/11/23 01:40 Temperature 97.7 F 97.7 F Pulse Rate 109 H Pulse Rate [Pulse Oximeter] 115 H 105 H Respiratory Rate 16 16 Blood Pressure Blood Pressure [Le ft Arm] 132/94 H 125/79 Pulse Oximetry 94 91 Oxygen Delivery Me thod Room Air Room Air Oxygen Flow Rate 05/11/23 03:10 05/11/23 07:00 05/11/23 07:00 Temperature 97.8 F 97.0 F L Pulse Rate Pulse Rate [Pulse Oximeter] 113 H 111 H 111 H Respiratory Rate 16 16 16 Blood Pressure Blood Pressure [Le ft Arm] 130/88 127/88 Pulse Oximetry 93 96 Oxygen Delivery Me thod Room Air Room Air Oxygen Flow Rate 05/11/23 07:00 Temperature Pulse Rate 111 H Pulse Rate [Pulse Oximeter] Respiratory Rate Blood Pressure Blood Pressure [Le ft Arm] Pulse Oximetry Oxygen Delivery Me thod Oxygen Flow Rate Progress Note:A&P Assessment and plan (1) S/P exploratory laparotomy: Status: Acute Plan 82-year-old female s/p exploratory laparotomy with lysis of adhesions for small- bowel obstruction POD 1. We can remove Mittal catheter. We will continue with NG tube and NPO. Waiting for return of bowel function. Patient is now hospital daily 6. I will discuss with the hospitalist to consider PPN.
[2023-05-11] MEDS: SODIUM BICARBONATE 650 MG TABLET PO (09:28)
[2023-05-11] MEDS: CALCIUM ACETATE 667 MG CAPSULE PO (09:28)
[2023-05-11] MEDS: METOPROLOL SUCCINATE (XL) 50 MG TAB PO ×2 (09:28→20:34)
[2023-05-11] MEDS: DORZOLAMIDE/TIMOLOL 2-0.5% OPHTH 1 DROP EYE-BOTH ×2 (09:34→20:35)
[2023-05-11] MEDS: BRIMONIDINE TARTRATE 0.2% OPHTH 1 DROP EYE-BOTH ×2 (09:34→20:39)
[2023-05-11] MEDS: allopurinoL 100 MG TABLET PO (09:36)
--- NOTE | 2023-05-11 12:22 | NUTR.NU ---
RDN with nutrition screen related to about day 6 of NPO/Clear liquid diet. Patient admitted for SBO, status post day 1 of exploratory lap with lysis of adhesions. RDN recommends considering initiating PPN within the next 2-3 days if bowel function does not return and diet advances to at least full liquids. RDN informed IDT of recommendations. RDN will continue to monitor.
--- NOTE | 2023-05-11 14:44 | PC.SOCIAL ---
Discharge planning- Per MD, pt is not medically cleared to discharge. Per therapy, pt is standby assist. Phone call to pt's daughter and Veena NAIR, to discuss discharge plans. Veena informs that pt's family is working on paperwork to move pt to [facility] in [place]. The timeline for moving is unknown at this time. Provided pt's daughter with social work contact information and informed daughter that social work can send any information that may be needed to [facility] if it is needed. This worker will continue to work on discharge plans with pt and pt's family when a disposition is known. Social work will follow up as needed.
[2023-05-11] MEDS: LACTATED RINGERS 1000 ML 1,000 ML 75 ML IV (18:09)
[2023-05-11] MEDS: ENOXAPARIN 30 MG/0.3ML INJ SUBCUT (20:34)
[2023-05-11] MEDS: ATORVASTATIN 10 MG TABLET PO (20:34)
[2023-05-11] MEDS: LATANOPROSTENE BUNOD 0.024% EYE-BOTH ×2 (20:35→20:43)
[2023-05-11] MEDS: MORPHINE 4 MG/ML INJ IVP (22:13)
--- NOTE | 2023-05-11 22:28 | PC.NURSE ---
Patient was A&O x 3 all day. Ambulating in halls and room well with Ax1, GB and walker. Patient still NPO and has NG tube in place on intermittent, low suction. Fluid from NG was green/brown earlier in the shift, and by end of shift was green. Patient finally passing gas by end of shift. Surgical dressing CDI. IV fluids continuing at 75mL/hr. Patient reported pain at end of shift- relieved with PRN pain medication. Nursing to continue to monitor and assess. ?
[2023-05-12 03:00] VITALS: BP 107/87; PULSE 119; RESP 18; TEMP 36.6; O2SAT 95
[2023-05-12 06:40] LABS: Hematocrit 44.3 % (33.0-51.0); Hemoglobin* 14.3 gm/dL (12.0-16.0); Mean Corpuscular HGB Conc 32 gm/dL (32-36); Mean Corpuscular Hemoglobin 30 pg (26-34); Mean Corpuscular Volume 91 fL (80-100); Platelet Count* 226 K/uL (140-440); Red Blood Count 4.85 m/uL (4.00-5.20); White Blood Count* 9.61 K/uL (4.50-11.00)
[2023-05-12 06:43] LABS: Slide Review Reflex No
[2023-05-12] MEDS: LEVOTHYROXINE 75 MCG TABLET PO (06:58)
[2023-05-12] MEDS: LACTATED RINGERS 1000 ML 1,000 ML 75 ML IV ×2 (06:58→19:28)
[2023-05-12 07:00] VITALS: BP 114/93; PULSE 122; PULSE 92; RESP 18; TEMP 36.4; O2SAT 98
[2023-05-12 07:23] LABS: Chloride* 111 mmol/L (96-114); Potassium* 4.2 mmol/L (3.6-5.1); Sodium* 147 mmol/L (135-149)
--- NOTE | 2023-05-12 07:24 | PC.NURSE ---
Shift note: NG intact, bowel sounds hypoactive, almost absent. No c/o pain, no nausea.
[2023-05-12 07:26] LABS: Anion Gap 14 mEq/L (7-15); Blood Urea Nitrogen* 69 mg/dL (7-30); Carbon Dioxide* 22 mmol/L (20-32); Creatinine* 4.6 mg/dL (0.5-1.5); Est. Creatinine Clearance* 8.52; Estimated Glomerular Filt Rate 9 ml/min; Phosphorus* 4.8 mg/dL (2.5-4.5)
[2023-05-12 07:27] LABS: Calcium* 9.2 mg/dL (8.4-10.6); Magnesium* 1.9 mg/dL (1.5-2.6)
[2023-05-12 07:44] LABS: Glucose* 138 mg/dL (60-115)
[2023-05-12] MEDS: POTASSIUM CHLORIDE 10 MEQ CAPSULE ER 20 MEQ PO ×2 (08:35→17:17)
[2023-05-12] MEDS: METOPROLOL SUCCINATE (XL) 50 MG TAB PO ×2 (08:35→20:31)
[2023-05-12] MEDS: SODIUM BICARBONATE 650 MG TABLET PO (08:35)
[2023-05-12] MEDS: BRIMONIDINE TARTRATE 0.2% OPHTH 1 DROP EYE-BOTH ×2 (08:36→20:31)
[2023-05-12] MEDS: DORZOLAMIDE/TIMOLOL 2-0.5% OPHTH 1 DROP EYE-BOTH ×2 (08:36→20:32)
[2023-05-12] MEDS: CALCIUM ACETATE 667 MG CAPSULE PO (08:36)
[2023-05-12 09:43] VITALS: BMI 28.1
[2023-05-12 11:00] VITALS: BP 101/44; PULSE 114; RESP 16; TEMP 35.9; O2SAT 95
--- NOTE | 2023-05-12 11:55 | P.IMPN_ITS ---
Progress Note: A&P Assessment and plan (1) SBO (small bowel obstruction): Problem details: Small-bowel obstruction likely due to adhesions from prior surgeries NGT in place. Had high output on admission Okay for oral morning meds, followed by 1 hour clamping Continue IVF 75 mL/hr 05/10: POD#0 s/p Exploratory laparotomy with lysis of adhesions Per General surgery, continue gentle IV hydration, NGT, NPO, pain and nausea management as needed 05/11: Still not passing gas. Seen by Dr. Parham, General surgery, this morning. Waiting for patient to pass gas, continue NGT, encourage ambulation. Patient has been NPO for 6 days. Nutrition services aware, will need to consider TPN if unable to advance diet in next coming days. 05/12: Initial plan to start PPN. Patient has since passed gas. Discussed with General surgery, Dr. Parham, recommending continue NG tube, start clears, small sips. Will encourage Ensure Clear or other clears with nutritional value Status: Acute (2) Metabolic acidosis: Problem details: Due to chronic kidney disease. Resume once a day sodium bicarb and clamp NG afterwards for 1 hour -no significant changes, continuing to monitor, has outpatient nephrology appo intment this week if discharged from hospital -continue to follow 05/12: No significant changes to chronic renal disease. NG tube will be removed today. Continue oral medications Status: Acute (3) Hyperphosphatemia: Problem details: Due to chronic kidney disease. Better on calcium acetate. Resume calcium acetate once a day and clamp NG afterwards for 1 hour 05/11: Phosphorus 5.9, up again today. Continue to monitor daily 05/12: Trending down, no significant changes in setting of chronic disease. NGT will be removed today. Continue oral medications Status: Acute (4) End stage kidney disease: Problem details: S/p renal biopsy on 04/30/23, [facility] [place]. Per Dr. Rain, Preliminary result show no evidence for GN, AIN, vasculitis, or other primary renal disease. 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 He also notes I plan to keep her off Warfarin (which she takes for A-fib) at least until after she sees me in clinic. She has had recurrent gross hematuria Baseline creatinine on April 27 4.53 giving an EGFR of 9. Renal dosing of medications. I have stopped allopurinol for now. 05/11: Creatinine essentially unchanged, 4.5, GFR 9, creatinine clearance 8.71, BUN 63 Patient was to have follow-up appointment with Nephrology on 05/14/2023 with repeat labs. This has been rescheduled. 05/12: Consideration for albumin and IVF to be given, however, in state of chronic, end stage renal disease, currently being followed by Nephrology, labs have remained stable without significant worsening - administering these meds/fluids would likely not make marked changes. Will continue to monitor. Status: Acute (5) Disorder of fluid or electrolyte: Problem details: Close monitoring of fluid and electrolyte status due to stage 5 kidney disease. Status: Acute (6) Atrial fibrillation: Problem details: Continue to monitor, rate control, holding warfarin per Nephrology - restart on 05/12 Lovenox, low dose, for VTE prophylaxis and stroke prophylaxis 05/11: Resume home dose metoprolol XL 50 bid for better rate control - Clamp NG tube for 1 hour afterwards. Additional IV metoprolol as needed 05/12: NGT will be removed today. Continue home dosing metoprolol. Will discontinue cafeteria monitor as rates stable without sustained RVR. Restart warfarin, bridging with lovenox. Will ask pharmacy to manage. Status: Acute (7) Right knee pain: Problem details: Developed right knee pain without trauma. Ultrasound shows no DVT. Symptomatic cares Status: Acute (8) Glaucoma: Problem details: Glaucoma in the right eye requiring surgery scheduled for 05/11/2023. Hold warfarin preop. May need to postpone glaucoma surgery due to hospitalization for small-bowel obstruction. Patient will call to reschedule Status: Acute (9) Lower extremity edema: Problem details: Compression stockings Status: Acute (10) Hypothyroidism: Problem details: Continue levothyroxine Status: Acute Plan Postoperative management. Appreciate guidance by General surgery 05/11: DISCHARGE PLANNING: ENVIRONMENTAL EDUCATION SPECIALIST ASSISTING IN DISCHARGE PLANNING/PLACEMENT NEEDS. MAY NEED TO CONSIDER SNF - PATIENT AND FAMILY AWARE AND ON BOARD. Time Spent With Patient Total time spent: Total time spent caring for the patient today was 45 minutes. This includes time spent for the visit reviewing the chart, time spent during the visit, time spent after the visit and documentation and planning in coordination of care. Subjective Date Seen: 05/12/23 Interval history: Patient is seen this morning with daughter at bedside and is without complaints or concerns. She has remained comfortable since surgery and has felt relief. Her energy continues to dwindle as she is now day 7 NPO. No nausea. Has not yet passed gas. Discussed with nutrition, recommending PPN. Later in the morning, patient's nurse reports she did pass gas while working with occupational therapy. This information was passed along to General surgery, Dr. Parham. Recommends removing NG tube and advancing diet to clears, small sips. Exam Narrative: Exam Narrative: PHYSICAL EXAM General: Pleasant, conversant, NAD Cardiovascular: IRRR Pulmonary: CTA bilaterally without rhonchi, rales, expiratory wheezes. No dyspnea Abdominal: Soft, nontender, no guarding. NGT in place, dark output Neurological: Alert, answering questions appropriately, cranial nerves intact, no focal findings Extremities: Neurovascularly intact Skin: Warm, dry. Const: Vital Signs, click to edit/add: Vital Signs - 24 hr 05/11/23 15:00 05/11/23 15:00 05/11/23 15:00 Temperature 96.9 F L Pulse Rate 120 H Pulse Rate [Pulse Oximeter] 109 H 109 H Respiratory Rate 16 16 Blood Pressure [Le ft Arm] 127/101 H Pulse Oximetry 95 Oxygen Delivery Me thod Room Air 05/11/23 19:00 05/11/23 22:17 05/11/23 22:47 Temperature 97.9 F Pulse Rate 111 H Pulse Rate [Pulse Oximeter] 104 H Respiratory Rate 18 18 Blood Pressure [Le ft Arm] 122/84 Pulse Oximetry 96 Oxygen Delivery Me thod Room Air 05/11/23 23:00 05/12/23 03:00 05/12/23 07:00 Temperature 97.4 F L 97.8 F Pulse Rate 122 H Pulse Rate [Pulse Oximeter] 111 H 119 H Respiratory Rate 18 18 Blood Pressure [Le ft Arm] 120/94 H 107/87 Pulse Oximetry 97 95 Oxygen Delivery Me thod Room Air Room Air 05/12/23 07:00 05/12/23 07:00 05/12/23 11:00 Temperature 97.6 F 96.6 F L Pulse Rate Pulse Rate [Pulse Oximeter] 92 92 114 H Respiratory Rate 18 18 16 Blood Pressure [Le ft Arm] 114/93 H 101/44 L Pulse Oximetry 98 95 Oxygen Delivery Me thod Room Air Room Air Labs Labs: Laboratory Results - last 24 hr 05/12/23 06:18 WBC 9.61 RBC 4.85 Hgb 14.3 Hct 44.3 MCV 91 MCH 30 MCHC 32 Plt Count 226 Sodium 147 Potassium 4.2 Chloride 111 Carbon Dioxide 22 Anion Gap 14 BUN 69 H Creatinine 4.6 H Estimated Creat Clear 8.52 Estimated GFR 9 Glucose 138 H Calcium 9.2 Phosphorus 4.8 H Magnesium 1.9
--- NOTE | 2023-05-12 12:24 | P.GSPN_ITS ---
Subjective Subjective Date Seen: 05/12/23 Interval history: Patient denies abdominal pain. She is passing gas. She has been ambulating. Denies nausea or vomiting. Exam Narrative: Exam Narrative: Abdomen is soft, not distended, not tender to palpation. Surgical dressing was removed and Steri-Strips are in place. There is some dried blood on periumbilical Steri-Strips. Const: Vital Signs, click to edit/add: Vital Signs - 24 hr 05/11/23 15:00 05/11/23 15:00 05/11/23 15:00 Temperature 96.9 F L Pulse Rate 120 H Pulse Rate [Pulse Oximeter] 109 H 109 H Respiratory Rate 16 16 Blood Pressure [Le ft Arm] 127/101 H Pulse Oximetry 95 Oxygen Delivery Me thod Room Air 05/11/23 19:00 05/11/23 22:17 05/11/23 22:47 Temperature 97.9 F Pulse Rate 111 H Pulse Rate [Pulse Oximeter] 104 H Respiratory Rate 18 18 Blood Pressure [Le ft Arm] 122/84 Pulse Oximetry 96 Oxygen Delivery Me thod Room Air 05/11/23 23:00 05/12/23 03:00 05/12/23 07:00 Temperature 97.4 F L 97.8 F Pulse Rate 122 H Pulse Rate [Pulse Oximeter] 111 H 119 H Respiratory Rate 18 18 Blood Pressure [Le ft Arm] 120/94 H 107/87 Pulse Oximetry 97 95 Oxygen Delivery Me thod Room Air Room Air 05/12/23 07:00 05/12/23 07:00 05/12/23 11:00 Temperature 97.6 F 96.6 F L Pulse Rate Pulse Rate [Pulse Oximeter] 92 92 114 H Respiratory Rate 18 18 16 Blood Pressure [Le ft Arm] 114/93 H 101/44 L Pulse Oximetry 98 95 Oxygen Delivery Me thod Room Air Room Air Progress Note:A&P Assessment and plan (1) S/P exploratory laparotomy: Status: Acute Plan 82-year-old female s/p exploratory laparotomy with lysis of adhesions for small- bowel obstruction POD 2. Her NG tube has been removed. We can slowly advance her clear liquid diet. If patient is doing well tomorrow, she can advance to full liquid in the morning. Okay to restart her Coumadin.
[2023-05-12 13:58] LABS: INR 1.21 (0.91-1.10); Prothrombin Time 16.1 Seconds
--- NOTE | 2023-05-12 14:36 | PC.NURSE ---
End of shift note [id number]: Pt A&O x3, VSS and afebrile. SBA with 4ww for transfers and ambulation. Midline abdominal dressing C/D/I. TELE reads A. Fib/A. Flutter rate low 100s-130s; order for TELE to be discontinued at 1100. NGT discontinued at 1200 and pt advanced to sips of clear liquid diet. Total output from NG today: 200 mL cloudy green gastric output. Pt denies any nausea after NGT removal. She is tolerating clear liquids (x2 ensure clear & jello) with no nausea or abd pain- hopeful to advance to full liquid for dinner. Denies having any pain at rest but admits to intermittent ?twinges? in her abdomen when sitting up or changing position. PIV in right FA infusing LR at 75 mL/hr and C/D/I. Family has been visiting at bedside throughout the day. Resuming warfarin this evening, INR drawn at 1300: 1.21. ?
[2023-05-12 15:00] VITALS: BP 106/59; PULSE 105; PULSE 114; RESP 16; TEMP 36.6; O2SAT 95
[2023-05-12] MEDS: WARFARIN 2.5 MG TABLET 7.5 MG PO (17:16)
[2023-05-12 19:35] VITALS: BP 115/86; PULSE 96; RESP 16; TEMP 36.4; O2SAT 94
[2023-05-12] MEDS: LATANOPROSTENE BUNOD 0.024% EYE-BOTH (20:31)
[2023-05-12] MEDS: ATORVASTATIN 10 MG TABLET PO (20:31)
[2023-05-12] MEDS: ENOXAPARIN 30 MG/0.3ML INJ SUBCUT (20:32)
[2023-05-13] VITALS (7 sets, daily range): BP systolic 95–141; BP diastolic 65–92; PULSE 82–124; RESP 16–20; TEMP 36.4–36.6; O2SAT 93–99
[2023-05-13] MEDS: LEVOTHYROXINE 75 MCG TABLET PO (06:03)
--- NOTE | 2023-05-13 06:43 | PC.NURSE ---
End of shift [id number]: A&O pleasant and cooperative. Pt quite sleepy upon assessment. VSS w/ sats >90% on RA. Pt denies pain. Midline incision dry and intact. BS hypoactive in right quadrants and active in left quadrants. Pt passing gas all throughout shift. Tolerating clear liquids. Ambulated in vides w/ SBA walker and gait belt.
[2023-05-13 07:15] LABS: Hematocrit 36.7 % (33.0-51.0); Hemoglobin* 11.7 gm/dL (12.0-16.0); Mean Corpuscular HGB Conc 32 gm/dL (32-36); Mean Corpuscular Hemoglobin 30 pg (26-34); Mean Corpuscular Volume 93 fL (80-100); Platelet Count* 176 K/uL (140-440); Red Blood Count 3.96 m/uL (4.00-5.20); White Blood Count* 7.19 K/uL (4.50-11.00)
[2023-05-13 07:18] LABS: Chloride* 107 mmol/L (96-114); Potassium* 3.7 mmol/L (3.6-5.1); Sodium* 139 mmol/L (135-149)
[2023-05-13 07:20] LABS: Creatinine* 3.8 mg/dL (0.5-1.5); Est. Creatinine Clearance* 10.32; Estimated Glomerular Filt Rate 11 ml/min
[2023-05-13 07:21] LABS: Anion Gap 14 mEq/L (7-15); Blood Urea Nitrogen* 66 mg/dL (7-30); Carbon Dioxide* 18 mmol/L (20-32); Glucose* 150 mg/dL (60-115); Phosphorus* 3.1 mg/dL (2.5-4.5)
[2023-05-13 07:22] LABS: Slide Review Reflex No
[2023-05-13] MEDS: DORZOLAMIDE/TIMOLOL 2-0.5% OPHTH 1 DROP EYE-BOTH ×2 (08:17→20:43)
[2023-05-13] MEDS: CALCIUM ACETATE 667 MG CAPSULE PO (08:17)
[2023-05-13] MEDS: POTASSIUM CHLORIDE 10 MEQ CAPSULE ER 20 MEQ PO ×2 (08:17→17:14)
[2023-05-13] MEDS: SODIUM BICARBONATE 650 MG TABLET PO (08:17)
[2023-05-13] MEDS: LACTATED RINGERS 1000 ML 1,000 ML 75 ML IV (08:24)
[2023-05-13] MEDS: BRIMONIDINE TARTRATE 0.2% OPHTH 1 DROP EYE-BOTH ×2 (08:25→20:43)
--- NOTE | 2023-05-13 09:24 | P.IMPN_ITS ---
Progress Note: A&P Assessment and plan (1) SBO (small bowel obstruction): Problem details: Small-bowel obstruction likely due to adhesions from prior surgeries NGT in place. Had high output on admission Okay for oral morning meds, followed by 1 hour clamping Continue IVF 75 mL/hr 05/10: POD#0 s/p Exploratory laparotomy with lysis of adhesions Per General surgery, continue gentle IV hydration, NGT, NPO, pain and nausea management as needed 05/11: Still not passing gas. Seen by Dr. Parham, General surgery, this morning. Waiting for patient to pass gas, continue NGT, encourage ambulation. Patient has been NPO for 6 days. Nutrition services aware, will need to consider TPN if unable to advance diet in next coming days. 05/12: Initial plan to start PPN. Patient has since passed gas. Discussed with General surgery, Dr. Parham, recommending continue NG tube, start clears, small sips. Will encourage Ensure Clear or other clears with nutritional value 05/13: Resolved. NG tube was removed yesterday after passing gas. Tolerating clears without nausea, vomiting, abdominal pain. Per General surgery, will advance to full liquid diet today. Status: Acute (2) Metabolic acidosis: Problem details: Due to chronic kidney disease. Resume once a day sodium bicarb and clamp NG afterwards for 1 hour -no significant changes, continuing to monitor, has outpatient nephrology appointment this week if discharged from hospital -continue to follow 05/12: No significant changes to chronic renal disease. NG tube will be removed today. Continue oral medications Status: Acute (3) Hyperphosphatemia: Problem details: Due to chronic kidney disease. Better on calcium acetate. Resume calcium yoni waterman once a day and clamp NG afterwards for 1 hour 05/11: Phosphorus 5.9, up again today. Continue to monitor daily 05/12: Trending down, no significant changes in setting of chronic disease. NGT will be removed today. Continue oral medications 05/13: Resolved, 3.1 Status: Acute (4) End stage kidney disease: Problem details: S/p renal biopsy on 04/30/23, [facility] [place]. Per Dr. Rain, Preliminary result show no evidence for GN, AIN, vasculitis, or other primary renal disease. 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 He also notes I plan to keep her off Warfarin (which she takes for A-fib) at least until after she sees me in clinic. She has had recurrent gross hematuria Baseline creatinine on April 27 4.53 giving an EGFR of 9. Renal dosing of medications. I have stopped allopurinol for now. 05/11: Creatinine essentially unchanged, 4.5, GFR 9, creatinine clearance 8.71, BUN 63 Patient was to have follow-up appointment with Nephrology on 05/14/2023 with repeat labs. This has been rescheduled. 05/12: Consideration for albumin and IVF to be given, however, in state of chronic, end stage renal disease, currently being followed by Nephrology, labs have remained stable without significant worsening - administering these meds/fluids would likely not make marked changes. Will continue to monitor. 05/13: Creatinine improved to 3.8 today, phosphorus 3.1, GFR 11, CO2 18 Status: Acute (5) Disorder of fluid or electrolyte: Problem details: Close monitoring of fluid and electrolyte status due to stage 5 kidney disease. Status: Acute (6) Atrial fibrillation: Problem details: Continue to monitor, rate control, holding warfarin per Nephrology - restart on 05/12 Lovenox, low dose, for VTE prophylaxis and stroke prophylaxis 05/11: Resume home dose metoprolol XL 50 bid for better rate control - Clamp NG tube for 1 hour afterwards. Additional IV metoprolol as needed 05/12: NGT will be removed today. Continue home dosing metoprolol. Will discontinue panel monitor as rates stable without sustained RVR. Restart warfarin, bridging with lovenox. Will ask pharmacy to manage. Status: Acute (7) Right knee pain: Problem details: Developed right knee pain without trauma. Ultrasound shows no DVT. Symptomatic cares Status: Acute (8) Glaucoma: Problem details: Glaucoma in the right eye requiring surgery scheduled for 05/11/2023. Hold warfarin preop. May need to postpone glaucoma surgery due to hospitalization for small-bowel obstruction. Patient will call to reschedule Status: Acute (9) Lower extremity edema: Problem details: Compression stockings Status: Acute (10) Hypothyroidism: Problem details: Continue levothyroxine Status: Acute Plan Postoperative management. Appreciate guidance by General surgery 05/13: Family working on paperwork for [facility]. Possible discharge 1-2 days, may need to return home with family if space at [facility] not yet available. Bridging Coumadin with Lovenox Time Spent With Patient Total time spent: Total time spent caring for the patient today was 45 minutes. This includes time spent for the visit reviewing the chart, time spent during the visit, time spent after the visit and documentation and planning in coordination of care. Subjective Date Seen: 05/13/23 Interval history: Patient is seen with daughter at bedside and is up out of bed this morning and reports feeling so much better. NGT was removed yesterday. She has tolerated clears well without nausea, vomiting, pain. She continues to pass quite a bit of gas. Urinating without difficulty. Family is working on paperwork for [facility]. Exam Narrative: Exam Narrative: PHYSICAL EXAM General: Pleasant, conversant, NAD Cardiovascular: IRRR Pulmonary: CTA bilaterally without rhonchi, rales, expiratory wheezes. No dyspnea Abdominal: Soft, nontender, no guarding. Neurological: Alert, answering questions appropriately, cranial nerves intact, no focal findings Extremities: Neurovascularly intact Skin: Warm, dry. Const: Vital Signs, click to edit/add: Vital Signs - 24 hr 05/12/23 11:00 05/12/23 15:00 05/12/23 15:00 Temperature 96.6 F L 97.8 F Pulse Rate [Pulse Oximeter] 114 H 114 H 105 H Pulse Rate [Right Radial] Respiratory Rate 16 16 16 Blood Pressure [Le ft Arm] 101/44 L 106/59 L Blood Pressure [Ri ght Arm] Pulse Oximetry 95 95 Oxygen Delivery Me thod Room Air Room Air 05/12/23 19:35 05/13/23 00:07 05/13/23 02:54 Temperature 97.5 F L 97.9 F 97.7 F Pulse Rate [Pulse Oximeter] 94 98 Pulse Rate [Right Radial] 96 Respiratory Rate 16 16 20 Blood Pressure [Le ft Arm] 115/86 104/77 101/85 Blood Pressure [Ri ght Arm] Pulse Oximetry 94 93 99 Oxygen Delivery Me thod Room Air Room Air Room Air 05/13/23 07:00 05/13/23 07:00 Temperature 97.5 F L Pulse Rate [Pulse Oximeter] 124 H 124 H Pulse Rate [Right Radial] 119 H 119 H Respiratory Rate 18 18 Blood Pressure [Le ft Arm] 95/67 Blood Pressure [Ri ght Arm] 109/78 Pulse Oximetry 96 Oxygen Delivery Me thod Room Air Labs Labs: Laboratory Results - last 24 hr 05/12/23 05/13/23 13:14 06:33 WBC 7.19 RBC 3.96 L Hgb 11.7 L Hct 36.7 MCV 93 MCH 30 MCHC 32 Plt Count 176 INR 1.21 H Sodium 139 Potassium 3.7 Chloride 107 Carbon Dioxide 18 L Anion Gap 14 BUN 66 H Creatinine 3.8 H Estimated Creat Clear 10.32 Estimated GFR 11 Glucose 150 H Calcium 8.0 L Phosphorus 3.1
--- NOTE | 2023-05-13 09:34 | PM.GSPN ---
Subjective Subjective Date Seen: 05/13/23 Interval history: Patient is doing well. She denies abdominal pain. She is passing gas. She is ambulating. She tolerated clears yesterday. Exam Narrative: Exam Narrative: Abdomen is soft, slightly more distended today, not tender to palpation, midline laparotomy incision is healing well with no surrounding erythema. Const: Vital Signs, click to edit/add: Vital Signs - 24 hr 05/12/23 11:00 05/12/23 15:00 05/12/23 15:00 Temperature 96.6 F L 97.8 F Pulse Rate [Pulse Oximeter] 114 H 114 H 105 H Pulse Rate [Right Radial] Respiratory Rate 16 16 16 Blood Pressure [Le ft Arm] 101/44 L 106/59 L Blood Pressure [Ri ght Arm] Pulse Oximetry 95 95 Oxygen Delivery Me thod Room Air Room Air 05/12/23 19:35 05/13/23 00:07 05/13/23 02:54 Temperature 97.5 F L 97.9 F 97.7 F Pulse Rate [Pulse Oximeter] 94 98 Pulse Rate [Right Radial] 96 Respiratory Rate 16 16 20 Blood Pressure [Le ft Arm] 115/86 104/77 101/85 Blood Pressure [Ri ght Arm] Pulse Oximetry 94 93 99 Oxygen Delivery Me thod Room Air Room Air Room Air 05/13/23 07:00 05/13/23 07:00 Temperature 97.5 F L Pulse Rate [Pulse Oximeter] 124 H 124 H Pulse Rate [Right Radial] 119 H 119 H Respiratory Rate 18 18 Blood Pressure [Le ft Arm] 95/67 Blood Pressure [Ri ght Arm] 109/78 Pulse Oximetry 96 Oxygen Delivery Me thod Room Air Progress Note:A&P Assessment and plan (1) S/P exploratory laparotomy: Status: Acute Plan 82-year-old female s/p exploratory laparotomy with lysis of adhesions POD 3. Patient is doing well. We will advance her to full liquid diet slowly. Patient will continue to ambulate. If she is tolerating regular diet tomorrow, most likely discharge home tomorrow.
[2023-05-13] MEDS: METOPROLOL SUCCINATE (XL) 50 MG TAB PO ×2 (10:19→20:44)
[2023-05-13 13:12] LABS: INR 1.38 (0.91-1.10); Prothrombin Time 17.9 Seconds
--- NOTE | 2023-05-13 14:59 | PC.NURSE ---
End of shift [id number]: Pt A&O and afebrile this shift. VSS with exception to low BP this morning 95/67. AM metoprolol admin delayed until BP came up, still maintained in low 100s/80s. Pt tolerating clear and full liquids with no nausea or abd pain; advanced diet this morning. Midline incision line approximated with steri strips intact, minimal bruising around incision site. Pt is SBA with gait belt & 4ww. She ambulated the halls with PT with minimal lightheadedness. Bowel sounds active x4 quads, pt passing lots of gas. Pt had her first BM today. Denies having any pain or nausea. PIV in right FA infusing LR at 75 mL/hr. Family is in the process of filling out paperwork for transitioning pt to [facility]. Potential D/C tomorrow, 05/14, if she tolerates advancing to a regular diet. ?
--- NOTE | 2023-05-13 15:17 | PC.SOCIAL ---
Addendum entered by GUDELIA Parham 05/13/23 15:29: Phone call to pt's daughter, Veena, to provide update on conversations with [facility]. Veena informs that they continue to work with [facility] and are waiting to hear if pt can move in this week. This worker will follow up with Veena tomorrow morning to get updated information. Veena informs that Maurice from [facility] mentioned if they don't have nursing services available right away, pt's family can stay with pt to assist pt with needs. Pt's family is able to accommodate and assist pt until services can be put into place. Original Note: Met with pt's daughter to discuss discharge plans. Pt's daughter is unsure of when pt will move to [facility]. Pt's daughter is taking paperwork to Maurice at [facility] today and will discuss with him. Pt's daughter gives this worker permission to reach out to Maurice and provide information as needed. Phone call to Maurice at [facility]. Maurice informs that he is working with Stephanie to determine what level of care pt will require. Maurice requests that this worker send referral packet to Stephanie to review. Maurice is working actively with family to move pt into [facility]. Informed Maurice that pt may be medically cleared for discharge as early as tomorrow or Thursday. Secure e-mailed referral packet to Stephanie at [facility], Stephanie responded and informed that she will review information and discuss with Maurice. Social work will follow up as needed.
[2023-05-13] MEDS: WARFARIN 5 MG TABLET PO (17:14)
--- NOTE | 2023-05-13 17:56 | PC.NURSE ---
End of Shift Note: Took over care of patient at 1500. She has been saline locked. Is tolerating her diet. Did remove her TEDS as she was complaining they were too tight. Explained to her we can try a different size but at this time she is wanting to wait. I did place her SCD's on her and will attempt again in a little while. Will continue to monitor.
[2023-05-13] MEDS: LATANOPROSTENE BUNOD 0.024% EYE-BOTH (20:43)
[2023-05-13] MEDS: ATORVASTATIN 10 MG TABLET PO (20:44)
[2023-05-13] MEDS: ENOXAPARIN 30 MG/0.3ML INJ SUBCUT (20:44)
[2023-05-13] MEDS: SODIUM CHLORIDE 0.9 % (FLUSH) 10 ML SYRINGE 5 ML IVF (20:44)
[2023-05-14 03:00] VITALS: RESP 16
[2023-05-14] MEDS: LEVOTHYROXINE 75 MCG TABLET PO (06:04)
[2023-05-14 06:13] LABS: Hematocrit 37.8 % (33.0-51.0); Hemoglobin* 12.4 gm/dL (12.0-16.0); Mean Corpuscular HGB Conc 33 gm/dL (32-36); Mean Corpuscular Hemoglobin 30 pg (26-34); Mean Corpuscular Volume 91 fL (80-100); Platelet Count* 180 K/uL (140-440); Red Blood Count 4.17 m/uL (4.00-5.20)
[2023-05-14 06:19] LABS: Slide Review Reflex No
[2023-05-14 06:26] LABS: Chloride* 109 mmol/L (96-114); Potassium* 3.7 mmol/L (3.6-5.1); Sodium* 138 mmol/L (135-149)
[2023-05-14 06:29] LABS: Anion Gap 9 mEq/L (7-15); Blood Urea Nitrogen* 71 mg/dL (7-30); Carbon Dioxide* 20 mmol/L (20-32); Creatinine* 4.2 mg/dL (0.5-1.5); Est. Creatinine Clearance* 9.33; Estimated Glomerular Filt Rate 10 ml/min; Glucose* 132 mg/dL (60-115); Phosphorus* 3.5 mg/dL (2.5-4.5)
[2023-05-14 07:00] VITALS: BP 107/84; PULSE 103; RESP 16; TEMP 36.5; O2SAT 97
--- NOTE | 2023-05-14 07:01 | PC.NURSE ---
End of shift [id number]: A&O pleasant and cooperative. VSS w/ sats >90% on RA. Pt denies pain. Midline incision dry and intact. BS active and pt is passing flatus. Tolerating full liquids. Denies n/v. Ambulating with SBA walker and gait belt. ?
[2023-05-14] MEDS: POTASSIUM CHLORIDE 10 MEQ CAPSULE ER 20 MEQ PO (08:11)
[2023-05-14] MEDS: SODIUM BICARBONATE 650 MG TABLET PO (09:03)
[2023-05-14] MEDS: BRIMONIDINE TARTRATE 0.2% OPHTH 1 DROP EYE-BOTH (09:04)
[2023-05-14] MEDS: METOPROLOL SUCCINATE (XL) 50 MG TAB PO (09:04)
[2023-05-14] MEDS: DORZOLAMIDE/TIMOLOL 2-0.5% OPHTH 1 DROP EYE-BOTH (09:04)
[2023-05-14] MEDS: CALCIUM ACETATE 667 MG CAPSULE PO (09:04)
[2023-05-14] MEDS: SODIUM CHLORIDE 0.9 % (FLUSH) 10 ML SYRINGE 5 ML IVF (09:07)
[2023-05-14 10:15] LABS: INR 1.43 (0.91-1.10); Prothrombin Time 18.4 Seconds
--- NOTE | 2023-05-14 10:31 | P.DS_ITS ---
DS: Providers Provider Date Seen: 05/14/23 Date of admission: 05/05/23 16:47 Primary care physician: Tim Chanel MD Admitting Clinician: Rolly Valentine MD Consults: 05/05/23 15:32 Consult to Physician [CONS] Routine Comment: Consulting Provider: Kelsy Parham Has provider been notified: Yes 05/05/23 15:33 Consult to Occupational Therapy [CONS] Routine Comment: Reason(s) for OT Consult:: Evaluate and Treat Any Restrictions?:: No Restrictions Consult to Physical Therapy [CONS] Routine Comment: Reason(s) for PT Consult:: Evaluate and Treat Any Restrictions?:: No Restrictions Attending Physician on discharge: TRISTEN Jimenes, JARED-C [facility] Date of Discharge: 05/14/23 DS: Diagnosis Discharge Diagnosis (1) SBO (small bowel obstruction): Status: Acute Problem details: Small-bowel obstruction likely due to adhesions from prior surgeries 05/10: POD#0 s/p Exploratory laparotomy with lysis of adhesions 05/11: POD#1. Seen by Dr. Parham, General surgery, this morning. Waiting for patient to pass gas, continue NGT, encourage ambulation. Patient has been NPO for 6 days. Nutrition services aware, will need to consider PPN if unable to advance diet in next coming days. By POD#2, patient passing gas, NGT removed. Slowly advanced diet. Tolerated without increasing abdominal pain, nausea, vomiting. Documented bowel movement. Patient will follow-up with General surgery, outpatient clinic, postoperatively. (2) Metabolic acidosis: Status: Acute Problem details: Due to chronic kidney disease. Monitored and managed. Followed by Nephrology, Dr. Rain. (3) Hyperphosphatemia: Status: Acute Problem details: Due to chronic kidney disease. Resolved on calcium acetate. Followed by Nephrology, Dr. Rain (4) End stage kidney disease: Status: Acute Problem details: S/p renal biopsy on 04/30/23, [facility] [place]. Per Dr. Rain, Preliminary result show no evidence for GN, AIN, vasculitis, or other primary renal disease. 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 He also notes I plan to keep her off Warfarin (which she takes for A-fib) at least until after she sees me in clinic. She has had recurrent gross hematuria Baseline creatinine on April 27 4.53 giving an EGFR of 9. Furosemide held. Allopurinol stopped. Will need to reschedule follow-up with Dr. Rain following discharge. (5) Atrial fibrillation: Status: Acute Problem details: Patient's home dose of metoprolol 50 mg b.i.d. was changed to 100 mg daily. Due to breakthrough tachycardia, home dosing was resumed twice daily with improvement in prolonged rate management. On admission, patient had been off of warfarin (no anticoagulation) following renal biopsy and anticipating glaucoma surgery. Received lovenox during hospital stay. Post operatively, ex lap, warfarin restarted. INR 1.43 on d/c. Recheck 1-3 days. Given she had not been on any anticoagulation prior to admission will not continue with bridging. (6) Right knee pain: Status: Acute Problem details: Developed right knee pain without trauma. Ultrasound shows no DVT. Symptomatic cares. Improved, no interference with PT/OT. (7) Glaucoma: Status: Acute Problem details: Glaucoma in the right eye requiring surgery scheduled for 05/11/2023.. Patient will need to reschedule (8) Lower extremity edema: Status: Acute Problem details: Compression stockings. P.r.n. furosemide discontinued in setting of ESRD. (9) Hypothyroidism: Status: Acute Problem details: Continue levothyroxine DS: Summary Hospital Course Hospital Course: 82 year old female past medical history significant for end-stage renal disease, atrial fibrillation on chronic anticoagulation, lower extremity edema, hypothyroidism was admitted to the medical floor for further management small bowel obstruction. Course of care and details as noted above. Obstruction did not resolve with conservative management. Patient was taken to the OR for exploratory laparotomy. Postop day 2, patient was passing gas an NG tube was removed. Following slow deliberate advancement of diet, patient was able to be discharged to assisted living. She will need outpatient follow-up for chronic existing comorbidities as above. Remainder of chronic medical comorbidities were monitored and managed with home medications. Status at Discharge Functional status at discharge: uses cane/walker Overall status at discharge: patient is not back to baseline Time Spent with Patient Time attestation: Total time spent providing and/or coordinating discharge services: Time spent: Greater than 30 minutes Exam Narrative: Exam Narrative: PHYSICAL EXAM General: Pleasant, conversant, NAD Cardiovascular: RRR Pulmonary: No dyspnea Neurological: Alert, answering questions appropriately Skin: Warm, dry. Const: Vital Signs, click to edit/add: Vital Signs - 24 hr 05/13/23 11:00 05/13/23 15:00 05/13/23 15:00 Temperature 97.9 F 97.7 F Pulse Rate [Pulse Oximeter] 96 Pulse Rate [Right Radial] 82 82 Respiratory Rate 18 20 20 Blood Pressure [Le ft Arm] 106/87 141/92 H Pulse Oximetry 93 96 Oxygen Delivery Me thod Room Air Room Air 05/13/23 19:18 05/13/23 23:14 05/14/23 03:00 Temperature 97.6 F 97.7 F Pulse Rate [Pulse Oximeter] 97 94 Pulse Rate [Right Radial] Respiratory Rate 16 18 16 Blood Pressure [Le ft Arm] 133/73 107/65 Pulse Oximetry 95 95 Oxygen Delivery Me thod Room Air Room Air 05/14/23 07:00 05/14/23 07:00 Temperature 97.7 F Pulse Rate [Pulse Oximeter] 103 H 103 H Pulse Rate [Right Radial] Respiratory Rate 16 16 Blood Pressure [Le ft Arm] 107/84 Pulse Oximetry 97 Oxygen Delivery Me thod Room Air DS: Data Data Completed and Pending Labs on day of discharge: Labs from last 24 hours 05/14/23 05/13/23 05:52 06:33 WBC 7.60 RBC 4.17 Hgb 12.4 Hct 37.8 MCV 91 MCH 30 MCHC 33 Plt Count 180 INR 1.43 H 1.38 H Sodium 138 Potassium 3.7 Chloride 109 Carbon Dioxide 20 Anion Gap 9 BUN 71 H Creatinine 4.2 H Estimated Creat Clear 9.33 Estimated GFR 10 Glucose 132 H Calcium 8.0 L Phosphorus 3.5 Discharge Plan Discharge Disposition: er [facility] Discharge Location: [facility] Date of Admission: 05/05/23 16:47 Attending Provider on Discharge: Deja Nascimento Consulting Providers: Kelsy Parham Primary Care Provider: Tim Chanel Condition: Improved Anticipated Discharge Date/Time: 05/14/23 15:00 Discharge Medications: Continued levothyroxine 75 mcg tablet 75 mcg PO DAILY cholecalciferol (vitamin D3) 50 mcg (2,000 unit) tablet 50 mcg PO DAILY dorzolamide-timolol 22.3-6.8 mg/mL drops 1 drp ophthalmic (eye) BID Rx Instructions: right eye metoprolol succinate 50 mg tablet extended release 24 hr 50 mg PO BID Vyzulta 0.024 % drops 1 drp ophthalmic (eye) HS Rx Instructions: right eye brimonidine 0.2 % drops 1 drp ophthalmic (eye) BID Rx Instructions: right eye atorvastatin 10 mg tablet 10 mg PO HS warfarin 2.5 mg tablet 5 - 7.5 mg PO DAILY Qty: 30 0RF Rx Instructions: resume 7.5mg M, W, F. 5mg all other days Changed potassium chloride [K-Tab] 20 mEq tablet extended release 20 meq PO BID Qty: 60 0RF Held furosemide 20 mg tablet 20 - 40 mg PO DAILY PRN Hold Instructions: Resume on 06/11/23. HOLD until reevaluated by Nephrology, PCP Rx Instructions: PRN WT GAIN allopurinol 100 mg tablet 100 mg PO DAILY Hold Instructions: Resume on 06/11/23. HOLD until reevaluated by Nephrology, PCP. Renal dosing would be 50mg twice weekly given eGFR 10 Discharge Orders: Discharge Order (Routine); Ordered 05/14/23 Ordered By: Deja Nascimento Additional Instructions: Continue home medications. Patient has been restarted on warfarin. Will need outpatient follow-up - Nephrology, Dr. Rain, for ongoing workup and management of end-stage renal disease, to be rescheduled by patient/family. - General surgery, Dr. Parham, post op exploratory laparotomy Will also need to reschedule glaucoma surgery, previously scheduled for 05/11/2023. Activity Level: No strenuous activity Discharge Diet: Regular Follow Up Appointments: Kelsy Parham MD [Staff Physician] - (2 weeks Brian) Tim Chanel MD [Primary Care Provider] - 05/22/23 (Post hospital follow-up, SBO s/p surgery, hypokalemia, end-stage renal disease) Forms: [facility] Info Instructions Admit to: Assisted Living Discharge Potential: Fair Length of Stay: <30 days Can use facility standing orders?: Yes Code Status: DNR/DNI TEDs: Bilateral Knee Rehab Potential: Fair Therapy: Physical Therapy and Occupational Therapy Therapy Orders: Evaluate and Treat Oxygen: No Urinary Catheter: No Next INR: 2/3/24 INR Goal: 2-3 Orders are good >30 days: No Signature: TRISTEN Jimenes, PASanamC [facility]
--- NOTE | 2023-05-14 11:32 | PM.GSPN ---
Subjective Subjective Date Seen: 05/14/23 Interval history: Patient is doing well. She tolerated regular diet. She denies abdominal pain. She took a shower in the morning. Exam Narrative: Exam Narrative: Abdomen is soft, not distended, not tender to palpation. Midline laparotomy incision with Steri is that are trying to peel off. Const: Vital Signs, click to edit/add: Vital Signs - 24 hr 05/13/23 15:00 05/13/23 15:00 05/13/23 19:18 Temperature 97.7 F 97.6 F Pulse Rate [Pulse Oximeter] 97 Pulse Rate [Right Radial] 82 82 Respiratory Rate 20 20 16 Blood Pressure [Le ft Arm] 141/92 H 133/73 Pulse Oximetry 96 95 Oxygen Delivery Me thod Room Air Room Air 05/13/23 23:14 05/14/23 03:00 05/14/23 07:00 Temperature 97.7 F Pulse Rate [Pulse Oximeter] 94 103 H Pulse Rate [Right Radial] Respiratory Rate 18 16 16 Blood Pressure [Le ft Arm] 107/65 Pulse Oximetry 95 Oxygen Delivery Me thod Room Air 05/14/23 07:00 Temperature 97.7 F Pulse Rate [Pulse Oximeter] 103 H Pulse Rate [Right Radial] Respiratory Rate 16 Blood Pressure [Le ft Arm] 107/84 Pulse Oximetry 97 Oxygen Delivery Me thod Room Air Progress Note:A&P Assessment and plan (1) S/P exploratory laparotomy: Status: Acute Assessment and Plan: 82-year-old female s/p exploratory laparotomy lysis of adhesions POD 4. Patient is doing well. She is able to discharge today.
--- NOTE | 2023-05-14 11:40 | PC.SOCIAL ---
Addendum entered by GUDELIA Parham 05/14/23 13:22: Provided update on pt's needs to Stephanie Landis at [facility] as she requested. Per therapy, pt needs assistance with bathing and compression socks. Therapy recommendation to continue PT/OT in facility to increase endurance. Original Note: Discharge planning- Per MD, pt may discharge this afternoon. Met with pt and pt's two daughters to discuss discharge plans. Pt's daughters informed that pt will move into [facility] today with family assistance until services are put into place. Family is moving furniture this morning. Family is aware pt may discharge later today. Informed daughters if they have any further questions for social work they can reach out to social work department. Will follow up as needed.
--- NOTE | 2023-05-14 14:03 | PC.NURSE ---
Discharge: Patient discharged today to home accompanied by daughter at 1355. Patient's IV removed intact. VSS. Patient tolerating a reg. diet. Denies Pain, N/V/SOB. Patient is alert and oriented x4. Belongings sheet and discharge sheet signed by patient. Discharge instructions given to patient and daughter, patient verbalized understanding of instructions.
== END 2023-05-14 13:55 | DRG 335 ==
LOC: ED 14:18 → MEDSURG 14:41
PROVIDERS: Physician Assistant; Surgery; Admitting Provider Family Medicine; Emergency Provider Family Medicine; PCP Family Medicine; Visit Provider Family Medicine
PROC: 0DN80ZZ Release Small Intestine, Open Approach (ICD-10-PCS; CPT 49000; 2023-05-10 08:45)
DX: K56.50 Intestinal adhesions [bands], unspecified as to partial versus complete obstruction (principal); N18.6 End stage renal disease; E87.20 Acidosis, unspecified; I13.2 Hypertensive heart and chronic kidney disease with heart failure and with stage 5 chronic kidney disease, or end stage renal disease; I50.814 Right heart failure due to left heart failure; G89.18 Other acute postprocedural pain; I48.91 Unspecified atrial fibrillation; Z79.01 Long term (current) use of anticoagulants; R60.0 Localized edema; E83.39 Other disorders of phosphorus metabolism; E11.22 Type 2 diabetes mellitus with diabetic chronic kidney disease; M25.561 Pain in right knee; H40.9 Unspecified glaucoma; E03.9 Hypothyroidism, unspecified
CPT/HCPCS: 00840; 36415; 64488; 71045; 74176; 76942; 80048; 80076; 81001; 83605; 83690; 83735; 84100; 85025; 85027; 85610; 86140; 87086; 87493; 93005; 93971; 94761; 97110; 97116; 97162; 97165; 97168; 97530; 97535; 99100; 99140; 99284; 99285; A9270; C9113; J0330; J0690; J1100; J1650; J2270; J2405; J2704; J3010; J7030; J7120

== ENCOUNTER 2023-12-17 08:00 | Outpatient (CLI) | payer MEDICARE, BC, SELFPAY ==
--- OUTSIDE RECORDS SUMMARY | 2023-12-17 08:02 | XMS_ITS | Encounter Summary ---
Author Organization [facility] Address [address] [facility] [address] [place] [address] Care Team Providers Care Staff Attorney Name Role Phone Tim Chanel MD Primary Care Provider [phone] Encounter Details Date Type Department Care Team (Late st Contact Info) Description 11/03/2023 Orders Only [facility] [address] [place], [place] [address] [address] Dm Rain MD [address] [place] [address] Stage 5 chronic kidney disease (HCC) Social History Tobacco Use Types Packs/Day Years [...] on file documented as of this encounter Progress Notes * Dm Rain MD - 11/03/2023 11:59 PM CDT Please notify patient that her kidney labs are stable to slightly improved. Please check in and seeif edema is stable, if any new symptoms or concerns, and if not then f/u in December as scheduled with labs again prior to that appointment. Thank you. -Dez Rain MD documented in this encounter Plan of Treatment Upcoming Encounters Date Type Department Care Team (Late st Contact Info) Description 12/28/2023 Orders Only [facility] [address] [place] [address] Dm Rain MD [address] [place] [address] Stage 5 chronic kidney disease (HCC) 01/01/2024 3:00 PM EDT Office Visit [facility] [address] [place] [address] [address] Dm Rain MD [address] [place] [address] documented as of this encounter Procedures Procedure Name Priority Date/Time Associated Diagnosis Comments BASIC METABOLIC PANEL Routine 10/27/2023 11:06 AM CDT Stage 5 chronic kidney disease (HCC) documented in this encounter Results * (ABNORMAL) Basic metabolic panel (10/27/2023 11:06 AM CDT) Sodium 142 mEq/L [facility] Potassium 4.6 mEq/L [facility] Chloride 109(H) [facility] Carbon Dioxide 20(L) mmol/L [facility] Calcium 9.2 mg/dL [facility] BUN 57(H) mg/dL [facility] Creatinine 3.46(H) mg/dL [facility] Glucose 77 mg/dL [facility] eGFR 12(L) [facility] Anion Gap 13 [facility] Blood (Blood, Venous) 10/27/2023 11:06 AM CDT Dm Rain MD LAB BLOOD ORDERABLES [facility] documented in this encounter Visit Diagnoses Diagnosis Stage 5 chronic kidney disease (HCC) Stage 5 chronic kidney disease (HCC) documented in this encounter Care Teams Staff Attorney Relationship Specialty Start Date End Date Tim Chanel MD [address] [place] [address] [place] [place] [address] PCP - General Family Medicine 04/20/23 documented as of this encounter
--- OUTSIDE RECORDS SUMMARY | 2023-12-17 08:02 | XMS_ITS | Encounter Summary ---
Author Organization [facility] Address [address] [place] [address] Care Team Providers Care Pipeline Systems Operator Name Role Phone Tim Chanel MD Primary Care Provider [phone] Encounter Details Date Type Department Care Team (Late st Contact Info) Description 09/16/2023 Office Communication [facility] [address] [place] [address] Birdie Kimbrough [address] [place] [address] Social History Tobacco Use Types Packs/Day Years [...] encounter Miscellaneous Notes * Telephone Encounter - Birdie Kimbrough - 09/16/2023 11:54 AM CDT LVM for patient to reschedule 12/27 appt due to a change in provider schedule. Also sent a reschedule letter. documented in this encounter Plan of Treatment Upcoming Encounters Date Type Department Care Team (Late st Contact Info) Description 12/28/2023 Orders Only [facility] [address] [place] [address] Dm Rain MD [address] [address] Stage 5 chronic kidney disease (HCC) 01/01/2024 3:00 PM EDT [facility] [address] [place] [address] Dm Rain MD [address] [place] [address] documented as of this encounter Visit Diagnoses Not on filedocumented in this encounter Care Teams Pipeline Systems Operator Relationship Specialty Start Date End Date Tim Chanel MD [place] [address] PCP - General Family Medicine 04/20/23 documented as of this encounter
--- OUTSIDE RECORDS SUMMARY | 2023-12-17 08:02 | XMS_ITS | Clinical Summary ---
Author Organization [facility] Address [address] [facility] [address] [address] Phone Care Team Providers Care Air Conditioning Unit Assembler Name Role Phone Tim Chanel MD Primary Care Provider [phone] Allergies Active Allergy Reactions Criticality Noted Date Comments Amlodipine Swelling 09/26/2016 Conjugated Estrogens 09/01/2006 intolerance: sore breasts Gabapentin Other (see comments) 08/31/2021 Pt stopped because she did not like the way it made her feal. Medications Medication Sig Dispensed Refills Start Date End Date Status levothyroxine (SYNTHROID, LEVOTHROID) 75 MCG tablet Take 75 mcg by mouth 1 (one) time each day 08/06/2022 Active metoprolol succinate XL (TOPROL XL) 50 MG 24 hr tablet Take 50 mg by mouth in the morning and 50 mg in the evening. 08/06/2022 Active warfarin (COUMADIN) 2.5 MG tablet Take 7.5 mg by mouth 2 tab on Thursday, 7.5 all other days 04/28/2023 Active atorvastatin (LIPITOR) 10 MG tablet Take 10 mg by mouth in the morning. 08/06/2022 Active brimonidine (ALPHAGAN) 0.2 % ophthalmic solution Administer 1 drop into affected eye(s) in the morning and 1 drop in the evening. 07/20/2019 Active allopurinol (ZYLOPRIM) 100 MG tablet Take 100 mg by mouth if needed (gout) Active Active Problems Problem Noted Date Diagnosed Date Stage 5 chronic kidney disease 09/03/2023 Hypertensive chronic kidney disease with stage 1 through stage 4 chronic kidney disease, or unspecified chronic kidney disease 09/03/2023 Secondary hyperparathyroidism of renal origin Hypercoagulable state due to atrial fibrillation 09/03/2023 Chronic systolic heart failure 09/03/2023 Resolved Problems Problem Noted Date Diagnosed Date Resolved Date Essential hypertension 06/11/201809/02 Stage 3b chronic kidney disease 03/01/2016 09/03/2023 Overview: Baseline creatinine as of 12/[address] Rain Vitamin D deficiency 09/11/2010 024 Overview: She was on Vitamin D3 2000 International Units twice daily when her level came back high. She has been off Vitamin D since 04/2022. Her most recent Vitamin D was 78.4 on 06/2022. Will recheck a level next blood draw. Encounters Date Type Department Care Team Description 11/03/2023 Orders Only [facility] [address] [place] [address] Dm Rain MD Stage 5 chronic kidney disease (HCC) 10/29/2023 Telephone [facility] [address] [place] [address] Candice Thompson RN 10/27/2023 Telephone [facility] [address] [place] [phone] Leonila Minor CUTTING MACHINE FIXER 09/16/2023 Office Communication [facility] [address] [place] [phone] Birdie Kimbrough from Last 3 Months Immunizations Name Administration Dates Next Due Influenza Vaccine, Quadrivalent, Adjuvanted 12/13,01/15/2022,01/21/2021 Moderna Sars-cov-2 (Covid-19 ) Vaccine, Mrna, Tan Protein 02/06/2023 Tdap 12/09/2022,05/19/2011 Family History Medical History Relation Comments Cancer [...] on file Sexual Orientation Not on file Last Filed Vital Signs Vital Sign Reading Time Taken Comments Blood Pressure 128/64 09/03/2023 11:00 AM CDT Pulse 64 09/03/2023 11:00 AM CDT Temperature - - Respiratory Rate - - Oxygen Saturation 99% 06/04/2023 10:35 AM NETWORK SYSTEMS ENGINEER Inhaled Oxygen Concentration - - Weight 74.8 kg (165 lb) 09/03/2023 11:00 AM CDT Height 170.2 cm (5' 7) 09/03/2023 11:00 AM CDT Body Mass Index 25.84 09/03/2023 11:00 AM CDT Plan of Treatment Upcoming Encounters Date Type Department Care Team (Late st Contact Info) Description 12/28/2023 Orders Only [facility] [place] [phone] Dm Rain MD [address] [place] [address] Stage 5 chronic kidney disease (HCC) 01/01/2024 3:00 PM EDT Office [facility] [place] [address] Dm Rain MD [address] [place] [address] Health Maintenance Due Date Last Done Comments Diabetes: Ophthalmology Exam 04/29/2023 Diabetes: Pedal Pulse Checked 04/29/2023 Diabetes: Sensory Foot Exam 04/29/2023 Diabetes: Visual Foot Exam 04/29/2023 Diabetes: Hemoglobin A1C 11/12/2023 08/12/2023 Influenza Vaccine (#1) 2023 3, 01/15/2022, 01/21/2021, Additional history exists Hepatitis B Vaccine Aged Out 01/30/1993, 08/29/1992, 07/30/1992 No longer eligible based on patient's age to complete this topic Pneumococcal Vaccine: 65+ Years Completed 10/09/2014, 09/11/2010, 01/11/1997 Procedures Procedure Name Priority Date/Time Associated Diagnosis Comments BASIC METABOLIC PANEL Routine 10/27/2023 11:06 AM CDT Stage 5 chronic kidney disease (HCC) from Last 3 Months Results * (ABNORMAL) Basic metabolic panel (10/27/2023 11:06 AM CDT) Sodium 142 mEq/L [facility] Potassium 4.6 mEq/L [facility] Chloride 109(H) [facility] Carbon Dioxide 20(L) mmol/L [facility] Calcium 9.2 mg/dL [facility] BUN 57(H) mg/dL [facility] Creatinine 3.46(H) mg/dL [facility] Glucose 77 mg/dL [facility] eGFR 12(L) [facility] Anion Gap 13 [facility] Blood (Blood, Venous) 10/27/2023 11:06 AM CDT Dm Rain MD LAB BLOOD ORDERABLES [facility] from Last 3 Months Care Teams Air Conditioning Unit Assembler Relationship Specialty Start Date End Date Tim Chanel MD [address] [place] [address] PCP - General Family Medicine 04/20/23
--- OUTSIDE RECORDS SUMMARY | 2023-12-17 08:02 | XMS_ITS | Encounter Summary ---
Author Organization [facility] [place] Address [address] [place] [address] Care Team Providers Care Director Of Healthcare Systems Name Role Phone Tim Chanel MD Primary Care Provider [phone] Encounter Details Date Type Department Care Team (Late st Contact Info) Description 10/27/2023 Telephone [facility] [address] [place] [address] Leonila Minor RN BSN [address] [place] [address] Social History Tobacco Use Types [...] encounter Miscellaneous Notes * Telephone Encounter - Leonila Minor RN BSN - 10/27/2023 11:02 AM CDT Pt's Brian peña phoned in to request we fax her BMP orders to them at [phone]. Faxed as requested. documented in this encounter Plan of Treatment Upcoming Encounters Date Type Department Care Team (Late st Contact Info) Description 12/28/2023 Orders Only [facility] [place] [address] Dm Rain MD [address] [place] [address] Stage 5 chronic kidney disease (HCC) 01/01/2024 3:00 PM EDT Office [facility] [place] [address] mD Rain MD [address] [place] [address] documented as of this encounter Visit Diagnoses Not on filedocumented in this encounter Care Teams Director Of Healthcare Systems Relationship Specialty Start Date End Date [place] [address] PCP - General Family Medicine 04/20/23 documented as of this encounter
--- OUTSIDE RECORDS SUMMARY | 2023-12-17 08:02 | XMS_ITS | Encounter Summary ---
Author Organization [facility] Address [address] [place] [address] Care Team Providers Care Tester Semiconductor Packages Name Role Phone Tim Chanel MD Primary Care Provider [phone] Encounter Details Date Type Department Care Team (Late st Contact Info) Description 08/27/2023 Orders Only [facility] [address] [place] [address] Dm Rain MD [address] [place] [address] Stage 5 chronic kidney disease [...] of [facility] [address] [place] [phone] Dm Rain MD [address] [place] [address] Stage 5 chronic kidney disease (HCC) 01/01/2024 3:00 PM EDT Office Visit [facility] [address] [place] [address] Dm Rain MD [address] [address] documented as of this encounter Procedures Procedure Name Priority Date/Time Associated Diagnosis Comments HEMOGLOBIN Routine 08/26/2023 Stage 5 chronic kidney disease (HCC) PTH, INTACT Routine 08/26/2023 Stage 5 chronic kidney disease (HCC) RENAL FUNCTION PANEL Routine 08/26/2023 Stage 5 chronic kidney disease (HCC) documented in this encounter Results * (ABNORMAL) PTH, intact (08/26/2023) Parathyroid Hormone, Intact 127.0(H) pg/mL [facility] CALCIUM FOR PTH 10.0 [facility] Blood (Blood, Venous) 08/26/2023 Dm Rain MD LAB BLOOD ORDERABLES Performing Organization Address City/[facility]/ZIP Co de Phone Number [facility] * Hemoglobin (08/26/2023) Hemoglobin 13.7 g/dL [facility] Blood (Blood, Venous) 08/26/2023 Dm Rain MD LAB BLOOD ORDERABLES [facility] * (ABNORMAL) Renal function panel (08/26/2023) Glucose 102(H) mg/dL [facility] BUN 60(H) mg/dL [facility] Creatinine 3.99(H) mg/dL [facility] BUN/Creatinine Ratio 15 [facility] Sodium 146(H) mEq/L [facility] Potassium 4.2 mEq/L [facility] Chloride 109(H) [facility] Carbon Dioxide 21(L) mmol/L [facility] Calcium 10.0 mg/dL [facility] Phosphorus, Serum 4.6(H) mg/dL [facility] Albumin (Blood) 4.5 g/dL [facility] eGFR 11(L) [facility] Blood (Blood, Venous) 08/26/2023 Dm Rain MD LAB BLOOD ORDERABLES [facility] documented in this encounter Visit Diagnoses Diagnosis Stage 5 chronic kidney disease (HCC) Stage 5 chronic kidney disease (HCC) documented in this encounter Care Teams Tester Semiconductor Packages Relationship Specialty Start Date End Date Tim Chanel MD [address] [place] [address] PCP - General Family Medicine 04/20/23 documented as of this encounter
--- OUTSIDE RECORDS SUMMARY | 2023-12-17 08:02 | XMS_ITS | Encounter Summary ---
Author Organization [facility] Address [address] [place] [address] Care Team Providers Care Aquatics Group Fitness Instructor Name Role Phone Tim Chanel MD Primary Care Provider [phone] Encounter Details Date Type Department Care Team (Late st Contact Info) Description 07/13/2023 Orders Only [facility] [address] [place], [place] [address] [address] Dm Rain MD [address] [place] [address] Stage 5 chronic kidney disease [...] as of this encounter Progress Notes * Leonila Minor RN BSN - 07/13/2023 11:59 PM CDT Repeat labs * Dm Rain MD - 07/13/2023 11:59 PM CDT Please notify patient that her labs are stable from last month. She should repeat labs prior to follow-up with me next month. Thank you. -Dez Rain MD documented in this encounter Plan of Treatment Upcoming Encounters Date Type Department Care Team (Late st Contact Info) Description 12/28/2023 Orders Only [facility] [address] [place] [address] Dm Rain MD [address] [place] [address] Stage 5 chronic kidney disease (HCC) 01/01/2024 3:00 PM EDT Office [facility] [place] [address] Dm Rain MD [address] [place] [address] documented as of this encounter Procedures Procedure Name Priority Date/Time Associated Diagnosis Comments BASIC METABOLIC PANEL Routine 07/16/2023 Stage 5 chronic kidney disease (HCC) documented in this encounter Results * (ABNORMAL) Basic metabolic panel (07/16/2023) Sodium 146(H) mEq/L [facility] Potassium 4.5 mEq/L [facility] Chloride 106 [facility] Carbon Dioxide 25 mmol/L [facility] Calcium 9.6 mg/dL [facility] BUN 49(H) mg/dL [facility] Creatinine 4.01(H) mg/dL [facility] Glucose 146(H) mg/dL [facility] eGFR 11(L) [facility] Anion Gap 15 [facility] Blood (Blood, Venous) 07/16/2023 Dm Rain MD LAB BLOOD ORDERABLES [facility] documented in this encounter Visit Diagnoses Diagnosis Stage 5 chronic kidney disease (HCC) Stage 5 chronic kidney disease (HCC) documented in this encounter Care Teams Aquatics Group Fitness Instructor Relationship Specialty Start Date End Date Labenski, Tim, MD [address] [place] [address] PCP - General Family Medicine 04/20/23 documented as of this encounter
--- OUTSIDE RECORDS SUMMARY | 2023-12-17 08:02 | XMS_ITS | Encounter Summary ---
Author Organization [facility] Address [address] [place] [address] Care Team Providers Care Agronomy Research Manager Name Role Phone Tim Chanel MD Primary Care Provider [phone] Encounter Details Date Type Department Care Team (Late st Contact Info) Description 10/29/2023 Telephone [facility] [place] [address] [place] [address] Candice Thompson, RN [address] [place] [address] Social History Tobacco Use Types [...] Telephone Encounter - Candice Thompson RN - 10/30/2023 10:52 AM CDT Pt notified and voiced understanding. Pt states edema is stable and she does not have any symptoms/concerns. * Telephone Encounter - Candice Thompson RN - 10/29/2023 12:57 PM CDT Left a voicemail for patient to call the office back. * Telephone Encounter - Candice Thompson RN - 10/29/2023 9:07 AM CDT ----- Message from Dm Rain sent at 10/29/2023 8:30 AM CDT ----- Please notify patient that her kidney labs [...] [facility] [place] [address] Dm Rain MD [address] [place] [address] Stage 5 chronic kidney disease (HCC) 01/01/2024 3:00 PM EDT Office [facility] [place] [address] Dm Rain MD [address] [place] [phone] documented as of this encounter Visit Diagnoses Not on filedocumented in this encounter Care Teams Agronomy Research Manager Relationship Specialty Start Date End Date Tim Chanel MD [facility] [place] [address] PCP - General Family Medicine 04/20/23 documented as of this encounter
--- OUTSIDE RECORDS SUMMARY | 2023-12-17 08:03 | XMS_ITS | Clinical Summary ---
Author Organization [facility] Address [place], [place] [address] Care Team Providers Care Log Handling Equipment Operator Name Role Phone Tay Pearson Heather Unavailable [phone] Tim Chanel MD Primary Care Provider [phone] Veena Mitchell MD Unavailable [phone] Allergies Active Allergy Reactions Criticality Noted Date [...] eye 2 times daily. 0 04/27/2017 Active prednisoLONE acetate 1% ophthalmic (ECONOPRED PLUS, PRED FORTE, OMNIPRED) suspension Place 1 Drop into both eyes four times daily. Active blood sugar diagnostic (Ascensia CONTOUR) stripIndications:Sadia betes mellitus with peripheral vascular disease (HC) Dispense test strips covered by the patient insurance. Test 1 times per day. 100 Each 4 08/12/2023 Active atorvastatin (LIPITOR) 10 mg tabletIndications:Ot her hyperlipidemia Take 1 Tablet (10 mg) by mouth at bedtime. 90 Tablet 3 08/12/2023 Active metoprolol succinate (TOPROL XL) 50 mg sustained-release tabletIndications:At rial fibrillation with RVR (HC),Essential hypertension Take 1 Tablet (50 mg) by mouth two times daily. Wait until they call for this. 180 Tablet 3 08/12/2023 Active levothyroxine (SYNTHROID) 75 mcg tabletIndications:Ot her specified hypothyroidism Take 1 Tablet (75 mcg) by mouth before breakfast. 90 Tablet 3 08/12/2023 Active furosemide (LASIX) 20 mg tabletIndications:Ac michael on chronic systolic heart failure (HC) Take 1 Tablet (20 mg) by mouth once daily if needed (if weight gain of 2 lbs in a day or 3 lbs in a week). 30 Tablet 4 08/12/2023 Active warfarin (COUMADIN) 2.5 mg tabletIndications:Ne w onset atrial fibrillation (HC),Anticoagulation monitoring, INR range 2-3 Take by mouth 5 mg (2.5 mg x 2) every Mon, Wed, Fri; 7.5 mg (2.5 mg x 3) all other days in the evening OR as directed 12/03/2023 Active warfarin (COUMADIN) 2.5 mg tabletIndications:Ne w onset atrial fibrillation (HC),Anticoagulation monitoring, INR range 2-3 Take by mouth 5 mg (2.5 mg x 2) every e; 7.5 mg (2.5 mg x 3) all other days in the evening OR as directed 260 Tablet 10/28/2023 4 Discontinued (Reorder (E-cancel not sent)) warfarin (COUMADIN) 2.5 mg tabletIndications:Ne w onset atrial fibrillation (HC),Anticoagulation monitoring, INR range 2-3 Take by mouth 5 mg (2.5 mg x 2) every Mon, Wed, Fri; 7.5 mg (2.5 mg x 3) all other days in the evening OR as directed 240 Tablet 11/19/2023 4 Discontinued (Other - add note to specify (E-cancel not sent)) cephalexin (KEFLEX) 500 mg capsuleIndications:C ellulitis of skin Take 1 Capsule (500 mg) by mouth three times daily for 7 days. 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 Tim Chanel MD signed electronically .................... 08/12/2023 Recurrent gross hematuria 01/20/2023 Overview: She saw [...] next blood draw. Secondary renal hyperparathyroidism 04/17/2022 Vitamin B12 deficiency 09/19/2021 Overview: She was [...] Acute on chronic systolic heart failure 07/31/19 22 (HFpEF) heart failure with preserved ejection fr [...] weight as of 12/2022 is 173 pounds. Adenomatous colon polyp 09/12/2015 Overview: Colonoscopy 09/2015 polyp repeat in 5 years Colonoscopy 09/2020 three polyps, repeat in 5 years Hypothyroidism 05/16/2015 Atrial fibrillation with RVR 03/02/2015 Demand [...] hands 10/04/2012 Varicose vein of leg 09/29/2011 ACP (advance care planning) 11/18/2010 Overview: Discussed 11/18/2010 Again 01/05/2012 Vitamin D deficiency 09/11/2010 Mixed hyperlipidemia 07/23/2010 Rosacea 01/05/2007 Restless legs syndrome (RLS) 01/05/2007 Resolved Problems Problem Noted Date Diagnosed Date Resolved Date HTN (hypertension) 05/16/2015 9 Morbid obesity due to excess calories 05/16/2015 08/12/2023 Encounters Date Type Department Care Team Description 12/15/2023 11:25 AM CDT Office Visit [facility] [address] [place] [address] Shaqra, Humaira Margarita, DO Edema (Bilateral LLE, blisters present) 12/15/2023 Travel 12/10/2023 11:15 AM CDT Orders Only [facility] [address] [place] [address] Lab, [place] Lab 12/10/2023 Travel 12/10/2023 Anticoagulation (warfarin) [facility] [address] [place] [address] 1[facility] Antico[facility] 12/09/2023 Travel 12/07/2023 11:25 AM CDT Office Visit [facility] [address] [place] [address] Humaira Olivera, DO Edema (Bilateral LLE - worse on L side, blisters forming) 12/07/2023 Anticoagulation (warfarin) [facility] [address] [place] [address] 1[facility] Anticoagulation (Chart update) 12/07/2023 Telephone [facility] [address] [place] [address] Tim Chanel MD Anticoagulation (BPA keflex/warfarin) 12/07/2023 Travel 12/07/2023 Nurse Triage [facility] [address] [place] [address] Tim Chanel MD Skin Problem 12/04/2023 Telephone [facility] [address] [place] [address] Tim Chanel MD Skin Problem 12/03/2023 2:15 PM CDT Orders Only [facility] [address] [place] [address] Lab, [facility] 12/03/2023 Anticoagulation (warfarin) [facility] [address] [place] [address] 1[facility] Anticoagulation 12/03/2023 Travel 11/26/2023 Orders Only [facility] [address] [place] [address] Tim Chanel MD Outside Order (Ordered by Dm Rain) 11/18/2023 2:15 PM CDT Orders Only [facility] [address] [place] [address] Lab[facility] [place] [facility] 11/18/2023 Anticoagulation (warfarin) [facility] [address] [facility] [place] [address] 1[facility] Anticoagulation 11/18/2023 Telephone [facility] [address] [place] [address] Tim Chanel MD Anticoagulation (Orders) 11/18/2023 Travel 11/14/2023 Travel 10/27/2023 10:45 AM CDT Orders Only [facility] [address] [place] [address] Lab, [place] Outside Order (Ordered by Dr. Dm Hillman... 10/27/2023 Anticoagulation (warfarin) [facility] [address] [place] [address] 1, [facility] Anticoagulation 10/26/2023 Telephone [facility] [address] [place] [address] Tim Chanel MD Medication Management (warfarin) 10/26/[address] [place] [address] Tim Chanel MD Refill Request (Warfarin) 10/26/2023 Travel 10/02/2023 3:10 PM CDT Office Visit [address] [place] [address] Tim Chanel MD Concerns (Would like to discuss leg wraps and different options) 10/01/2023 Travel 09/29/2023 Telephone [facility] [place] [facility] [place] [address] Tim hCanel MD FYI (Asking for call back) 09/28/[address] [address] Tim Chanel MD Follow Up (Leg wraps ) 09/24/2023 10:15 AM CDT Orders Only [facility] [address] [place] [address] Lab[facility] [place] [facility] 09/24/2023 Anticoagulation (warfarin) [facility] [address] [place] [address] [address] 1, [facility] Anticoagulation 09/23/2023 Travel 09/18/2023 Telephone [facility] [address] [place] [address] [address] MillieenskiTim MD Medication Problem (Leg wraps ) from Last 3 Months Immunizations Name Administration Dates Next Due AMB INFLUENZA IIV3 (AGE 65+ YRS) PF (Flu Clinic Only) 01/14/2019,01/14/2018,01/14/2017 AMB Influenza, IIV3 (Age >=3 years)(Flu Clinic Only) 02/06/2010,01/17/2009,02/24/2008 Amb Influenza, Inact (High-d ose) (Flu Clinic Only) 01/28/2016 Amb Influenza, Inactivated A IIV4 (Age 65+ Years) Preserv Free 12/29/2019 COVID-19 Vaccine Spikevax (M oderna 50mcg/0.5mL) 12YO+ [id number] Formula PF 02/06/2023 COVID-19 vaccine (Pfizer-Bio NTech [...] 01/14/2011 Influenza, IIV3 (Age >=3 years) 01/26/20 13,01/05/2012,01/14/2011,2009,01/17/2009,02/24/2008,02/11/2007,1 04/13/2005,01/30/2005,01/30/2004, 002 Influenza, Inactivated AIIV4 (Age 65+ Years) [...] drink = 0.6 oz pur e alcohol) 2 oz Wine on occassion PHQ-2 Answer Date Recorded PHQ-2 TOTAL SCORE 0 08/12/2023 Social Connections Answer Date Recorded Frequency of Communication with Friends and Fami ly 0 01/22/2023 Alcohol Use Answer Date Recorded How often do you have a drink containing alcohol ? 1 08/12/2023 How many drinks containing a lcohol do you have on a typical day when you are drinking? 0 08/12/2023 How often do you have five or more drinks on one occasion? 0 08/12/2023 Financial Resource Strain Answer Date R ecorded [...] Outcome GA Total Labor Labor/2nd/3rd Weight Sex Type Anes PTL Margarita A1 A5 Name Clin Para Para Para Para Comments:HMD w/i 7 hrs Para Last Filed Vital Signs Vital Sign Reading Time Taken Comments Blood Pressure 134/81 12/15/2023 11:37 AM CDT Pulse 73 12/15/2023 11:37 AM CDT Temperature 37.1 ??C (98.7 ??F) 08/12/2023 10:46 AM C DT Respiratory Rate 14 04/30/2023 2:00 PM FURNACE LOADER Oxygen Saturation 100% 12/15/2023 11:37 AM CDT Inhaled Oxygen Concentration - - Weight 78.7 kg (173 lb 9.6 oz) 12/15/2023 11:37 AM CDT Height 165 cm (5' 4.96) 08/12/2023 10:46 AM CDT Body Mass Index 28.92 08/12/2023 10:46 AM CDT Plan of Treatment Upcoming Encounters Date Type Department Care Team (Late st Contact Info) Description 12/17/2023 3:15 PM CDT Orders Only [facility] [address] [place] [address] Lab[place] 12/24/2023 3:00 PM CDT Orders Only [facility] [address] [place] [address] Lab, Farm 01/01/2024 1:45 PM CDT Orders Only [facility] [address] [place] [address] Lab[place] 02/03/2024 3:00 PM CDT Office Visit [facility] [address] [place] [address] Manan Agarwal MD [address] [facility] [address] [place] [address] 02/24/2024 1:10 PM FURNACE LOADER Office Visit [facility] [address] [place] [address] Tim Chanel MD [address] [place] [address] Health Maintenance Due Date Last Done Comments RSV vaccine for adults or (1 - 1-dose 60+ series) 1998 COVID-19 vaccine series ( season) 2023 02/06/2023, 01/15/2022, 09/16/2021, Additional history exists Influenza for age 65+ 12/13/2023 01/05/2023 , 01/15/2022, 01/21/2021, Additional history exists BMI (ht and wt on same day) for age 18+ 08/11/2024 08/12/2023, 06/30/2023, 01/23/2023, Additional history exists Depression screening for age 12+ 08/12/2024 08/13/2023, 08/13/2023, 08/12/2023, Additional history exists Medicare Wellness for age 65+ 08/12/2024, 08/06/2022, 08/07/2021, Additional history exists Tetanus booster 12/09/2032 12/09/2022, 02/09/2011, 09/21/2003 DEXA/DXA scan for age 65+ Completed 2012, 08/31/2007, 08/31/2007 (Completed outside of [facility]) Pneumococcal series for age 65+ Completed 10/09/2014, 09/11/2010, 01/11/1997 Zoster (shingles) series for age 50+ Completed 08/31/2018, 05/29/2018, 08/05/2006 Tdap Completed 12/09/2022, 05/19/2011 Procedures Procedure Name Priority Date/Time Associated Diagnosis Comments INR,POCT Routine 12/10/2023 11:11 AM CDT New onset atrial fibrillation (HC) Anticoagulation monitoring, INR range 2-3 INR,POCT Routine 12/03/2023 1:45 PM CDT New onset atrial fibrillation (HC) Anticoagulation monitoring, INR range 2-3 INR,POCT Routine 11/18/2023 2:35 PM CDT New onset atrial fibrillation (HC) Anticoagulation monitoring, INR range 2-3 BASIC METABOLIC PANEL Add On 10/27/2023 11:06 AM CDT Chronic kidney disease, stage V (HC) VITAMIN D 25 (DEFICIENCY) Routine 10/27/2023 11:06 AM CDT Vitamin D deficiency PROTIME-INR STAT 10/27/2023 11:06 AM CDT New onset atrial fibrillation (HC) Anticoagulation monitoring, INR range 2-3 INR,POCT Routine 09/24/2023 10:32 AM CDT New onset atrial fibrillation (HC) Anticoagulation monitoring, INR range 2-3 XR DXA BONE DENSITY 2 SITES AXIAL Routine 10/07/2012 1:58 PM CDT Vitamin D deficiency Osteoporosis from Last 3 Months or Most Recently Relevant to Health Maintenance Results * (ABNORMAL) INR,POCT (12/10/2023 11:11 AM CDT) Only the most recent of4 resultswithin the time period is included. INR 1.8(H) <1.3 12/10/2023 2:19 PM CDT [facility] Blood BLOOD SPECIMEN / Unknown Capillary / Unknown 12/10/2023 11:11 AM CDT 12/10/2023 11:11 AM CDT Narrative [facility] - 12/10/2023 2:19 PM CDT ?Therapeutic Range 2.0-3.0 for most anticoagulated patients 2.5-3.5 or 4.0 for high risk patients Tim Chanel MD LABORATORY Performing Organization Address [facility] de Phone Number [facility] [address] [place] [address], * VITAMIN D 25 (DEFICIENCY) (10/27/2023 11:06 AM CDT) Pathologist [facility] VITAMIN D TOTAL 69.9 20.0 - 80.0 ng/mL 10/27/2023 7:33 PM CDT [facility] Blood BLOOD SPECIMEN / Unknown Venipuncture / Unknown 10/27/2023 11:06 AM CDT 10/27/2023 11:06 AM CDT [facility] LABORATORY - 10/27/2023 7:33 PM CDT ? Vitamin D Status Deficiency: ? <20 ng/mL Insufficiency: ?20-29 ng/mL Sufficiency: ?30-80 ng/mL Possible Toxicity: ??>80 ng/mL Based on [place] of Medicine recommendations Biotin supplements may cause clinically significant interference for this test assay. ??If interference is suspected, it is strongly recommended that biotin is discontinued for at least one week prior to retesting. Tim Chanel MD SEND OUTS Performing Organization Address City/[facility] Co de Phone Number [facility] [address] [address], * (ABNORMAL) PROTIME-INR (10/27/2023 11:06 AM CDT) INR 1.8(H) <1.3 10/27/2023 3:40 PM CDT [facility] PROTIME 20.3(H) 10.3 - 12.3 sec 10/27/2023 3:40 PM CDT [facility] Blood BLOOD SPECIMEN / Unknown Venipuncture / Unknown 10/27/2023 11:06 AM CDT 10/27/2023 11:06 AM CDT Narrative [facility] - 10/27/2023 3:40 PM CDT ?Therapeutic Range 2.0-3.0 for most anticoagulated patients [...] seconds if the patient is on UFH. Tim Chanel MD HEMATOLOGY [facility] [address] [address], * (ABNORMAL) BASIC METABOLIC PANEL (10/27/2023 11:06 AM CDT) SODIUM 142 136 - 145 mmol/L 10/27/2023 7:33 PM CDT [facility] POTASSIUM 4.6 3.5 - 5.1 mmol/L 10/27/2023 7:33 PM CDT [facility] CHLORIDE 109(H) 98 - 107 mmol/L 10/27/2023 7:33 PM CDT [facility] CO2,TOTAL 20(L) 22 - 29 mmol/L 10/27/2023 7:33 PM CDT [facility] ANION GAP 13 5 - 18 10/27/2023 7:33 PM CDT [facility] GLUCOSE 77 70 - 99 mg/dL 10/27/2023 7:33 PM CDT [facility] CALCIUM 9.2 8.8 - 10.2 mg/dL 10/27/2023 7:33 PM CDT [facility] BUN 57(H) 8 - 23 mg/dL 10/27/2023 7:33 PM CDT [facility] CREATININE 3.46(H) 0.50 - 0.90 mg/dL 10/27/2023 7:33 PM CDT [facility] BUN/CREAT RATIO 16 10 - 20 7:33 PM CDT [facility] eGFR 12(L) >90 mL/min/1.7 3m2 10/27/2023 7:33 PM CDT [facility] Comment:As of 2021, eG FR is calculated by the CKD-EPI creatinine equation without race adjustment. ??eGFR can be influenced by muscle mass, exercise, and diet. ??The reported eGFR is an estimation only and is only applicable if the renal function is stable. Blood BLOOD SPECIMEN / Unknown Venipuncture / Unknown 10/27/2023 11:06 AM CDT 10/27/2023 11:06 AM CDT Tim Chanel MD CHEMISTRY [facility] [address] [place] [address], * (ABNORMAL) XR DXA BONE DENSITY 2 SITES (10/07/2012 1:58 PM CDT) Anatomical Region Laterality Modality Spine, HIPS, HIPL, HIPR Other Narrative 10/08/2012 6:53 PM CDT Please see scanned document for results of this study. Procedure Note Binta [place] E - 10/08/2012 Please see scanned document for results of this study. Ace WHALEN from Last 3 Months or Most Recently Relevant to Health Maintenance Advance Directives Documents on File Type Date Recorded Patient Billiard Table Assembler Expl anation POLST 08/11/2023 Treatment Guidelines 08/02/2021 Healthcare Directive 04/01/2012 2:32 PM [facility], [facility], 01/08/2000 * DNR (Latest Code Status on File) Date Activated Date Inactivated Comments 08/31/2021 5:19 PM 09/04/2021 3:21 PM Question Answer Comments Code Status Discussion: Reviewed Preferences * DNR Date Activated Date Inactivated Comments 08/30/2021 7:36 PM 08/31/2021 4:39 PM Question Answer Comments Code Status Discussion: Reviewed Preferences * DNR Date Activated Date Inactivated Comments 08/08/2021 4:10 PM 08/30/2021 11:09 AM POLST compl eted: Yes, Date: 08/02/21 * DNR Date Activated Date Inactivated Comments 07/26/2021 2:09 PM 08/01/2021 5:36 PM Question Answer Comments Code Status Discussion: Reviewed Preferences * Full Code Date Activated Date Inactivated Comments 07/26/2021 1:11 PM 07/26/2021 2:09 PM Question Answer Comments Code Status Discussion: Unable to Assess Preferences, Provider to review later Care Teams Log Handling Equipment Operator Relationship Specialty Start Date End Date Tim Chanel MD [address] [place] [address] PCP - General Family Practice 03/30/13 Tay Pearson [address] [place] [address] D[employer] G[employer]er 09/29/11 Veena Mitchell MD [address] [address] Dermatology Dermatology 07/04/22
== END 2023-12-17 08:01 | disposition home or self-care (01) ==
PROVIDERS: PCP Family Medicine; Visit Provider Nurse Practitioner Family
DX: I87.313 Chronic venous hypertension (idiopathic) with ulcer of bilateral lower extremity (principal); E11.622 Type 2 diabetes mellitus with other skin ulcer; L97.821 Non-pressure chronic ulcer of other part of left lower leg limited to breakdown of skin; L97.211 Non-pressure chronic ulcer of right calf limited to breakdown of skin; I89.0 Lymphedema, not elsewhere classified
CPT/HCPCS: 97597; G0463

== ENCOUNTER 2023-12-24 13:15 | Outpatient (CLI) | payer MEDICARE, BC, SELFPAY ==
--- OUTSIDE RECORDS SUMMARY | 2023-12-24 13:16 | XMS_ITS | Encounter Summary ---
Author Organization [facility] Address [address] [facility] [address] [place] [address] Care Team Providers Care Paper Colorer Name Role Phone Tim Chanel MD Primary Care Provider [phone] Encounter Details Date Type Department Care Team (Late st Contact Info) Description 11/03/2023 Orders Only [facility] [address] [place], [place] [address] [address] Dm Rain MD [address] [place] [address] Stage 5 chronic kidney disease [...] of [facility] [address] [place] [address] Dm Rain MD [address] [place] [address] Stage 5 chronic kidney disease (HCC) 01/01/2024 3:00 PM EDT Office Visit [facility] [address] [place] [address] Dm Rain MD [address] [place] [address] documented as of this encounter Procedures Procedure [...] (HCC) documented in this encounter Care Teams Paper Colorer Relationship Specialty Start Date End Date Tim Chanel MD [address] [place] [address] SAMANTHA GALEANABISHNU ESCOBAR [address] PCP - General Family Medicine 04/20/23 documented as of this encounter
--- OUTSIDE RECORDS SUMMARY | 2023-12-24 13:16 | XMS_ITS | Encounter Summary ---
Author Organization [facility] Address [address] [place] [address] Care Team Providers Care Longwall Machine Operator Helper Name Role Phone Tim Chanel MD Primary Care Provider [phone] Encounter Details Date Type Department Care Team (Late st Contact Info) Description 10/29/2023 Telephone [facility] [place] [address] [place] [address] Candice Thompson, RN [address] [place] [address] Social History Tobacco Use Types [...] [facility] [place] [address] [address] Dm Rain MD [address] [place] [address] Stage 5 chronic kidney disease (HCC) 01/01/2024 3:00 PM EDT Office Visit [facility] [place] [address] Dm Rain MD [address] [place] [address] documented as of this encounter Visit Diagnoses Not on filedocumented in this encounter Care Teams Longwall Machine Operator Helper Relationship Specialty Start Date End Date Tim Chanel MD [facility] [place] [address] PCP - General Family Medicine 04/20/23 documented as of this encounter
--- OUTSIDE RECORDS SUMMARY | 2023-12-24 13:16 | XMS_ITS | Encounter Summary ---
Author Organization [facility] Address [address] [place] [address] Care Team Providers Care Irrigation Worker Name Role Phone Tim Chanel MD Primary Care Provider [phone] Encounter Details Date Type Department Care Team (Late st Contact Info) Description 09/16/2023 Office Communication [facility] [address] [place] [address] Birdie Kimbrough [address] [place] [address] Social History Tobacco Use Types [...] [facility] [address] [place] [address] Dm Rain MD [address] [address] Stage 5 chronic kidney disease (HCC) 01/01/2024 3:00 PM EDT Office Visit [facility] [address] [place] [address] Dm Rain MD [address] [place] [address] documented as of this encounter Visit Diagnoses Not on filedocumented in this encounter Care Teams Irrigation Worker Relationship Specialty Start Date End Date Tim Chanel [place] [address] PCP - General Family Medicine 04/20/23 documented as of this encounter
--- OUTSIDE RECORDS SUMMARY | 2023-12-24 13:16 | XMS_ITS | Encounter Summary ---
Author Organization [facility] [place] Address [address] [place] [address] Care Team Providers Care Auto Mechanics Instructor Name Role Phone Tim Chanel MD Primary Care Provider [phone] Encounter Details Date Type Department Care Team (Late st Contact Info) Description 10/27/2023 Telephone [facility] [place] [address] [place] [address] Leonila Minor RN BSN [address] [place] [address] Social History Tobacco Use Types [...] fax her BMP orders to them at [phone]. Faxed as requested. documented in this encounter Plan of Treatment Upcoming Encounters Date Type Department Care Team (Late st Contact Info) Description 12/28/2023 Orders Only [facility] [place] [address] Dm aRin MD [address] [place] [address] Stage 5 chronic kidney disease (HCC) 01/01/2024 3:00 PM EDT Office Visit [facility] [place] [address] Dm Rain MD [address] [place] [address] documented as of this encounter Visit Diagnoses Not on filedocumented in this encounter Care Teams Auto Mechanics Instructor Relationship Specialty Start Date End Date Tim [place] [address] PCP - General Family Medicine 04/20/23 documented as of this encounter
--- OUTSIDE RECORDS SUMMARY | 2023-12-24 13:16 | XMS_ITS | Encounter Summary ---
Author Organization [facility] Address [address] [place] [address] Care Team Providers Care Mold Shop Supervisor Name Role Phone Tim Chanel MD Primary Care Provider [phone] Encounter Details Date Type Department Care Team (Late st Contact Info) Description 08/27/2023 Orders Only [facility] [address] [place] [address] [address] Dm Rain MD [address] [place] [address] Stage 5 chronic kidney disease [...] of [facility] [address] [place] [address] [phone] Dm Rain MD [address] [place] [address] Stage 5 chronic kidney disease (HCC) 01/01/2024 3:00 PM EDT Office [facility] [address] [place] [address] Dm Rain MD [address] [place] [address] documented as of this encounter [...] MD LAB BLOOD ORDERABLES Performing Organization Address City/[facility]/ZIP Co de Phone Number ALLINA * Hemoglobin [...] (HCC) documented in this encounter Care Teams Mold Shop Supervisor Relationship Specialty Start Date End Date Tim Chanel MD [address] [place] [address] PCP - General Family Medicine 04/20/23 documented as of this encounter
--- OUTSIDE RECORDS SUMMARY | 2023-12-24 13:16 | XMS_ITS | Clinical Summary ---
Author Organization [facility] Address [address] [facility] [address] [address] Phone Care Team Providers Care Bed Setter Name Role Phone Tim Chanel MD Primary Care Provider [phone] Allergies Active Allergy Reactions Criticality Noted Date [...] [facility] [address] [place] [id number] Dm Rain MD Stage 5 chronic kidney disease (HCC) 10/29/2023 Telephone [facility] [place] [address] [place] [phone] Candice Thompson RN 10/27/2023 Telephone [facility] [address] [place] [phone] Leonila Minor TOP DISTRIBUTION EXECUTIVE from Last 3 Months Immunizations Name Administration [...] - Oxygen Saturation 99% 06/04/2023 10:35 AM DIRECTOR OF INSTRUCTIONAL TECHNOLOGY Inhaled Oxygen Concentration - - Weight 74.8 kg (165 lb) 09/03/2023 11:00 AM CDT Height 170.2 cm (5' 7) 09/03/2023 11:00 AM CDT Body Mass Index 25.84 09/03/2023 11:00 AM CDT Plan of Treatment Upcoming Encounters Date Type Department Care Team (Late st Contact Info) Description 12/28/2023 Orders Only [facility] [address] [place] [address] Dm Rain MD [address] [place] [address] Stage 5 chronic kidney disease (HCC) 01/01/2024 3:00 PM EDT Office Visit [facility] [address] [place] [address] [address] Dm Rain MD [address] [place] [address] Health Maintenance Due Date Last Done Comments [...] [facility] from Last 3 Months Care Teams Bed Setter Relationship Specialty Start Date End Date Tim Chanel MD [address] [place] [address] PCP - General Family Medicine 04/20/23
--- OUTSIDE RECORDS SUMMARY | 2023-12-24 13:17 | XMS_ITS | Clinical Summary ---
Author Organization [email or web address] [facility] Address [place], [place] [address] Care Team Providers Care Evaporative Cooler Installer Name Role Phone Tay Pearson Heather Unavailable [phone] Tim Chanel MD Primary Care Provider [phone] Veena Mitchell MD Unavailable Allergies Active Allergy [...] 5 mg (2.5 mg x 2) every Wed, Sat; 7.5 mg (2.5 mg x 3) all other days in the evening OR as directed. 12/18/2023 Active warfarin (COUMADIN) 2.5 mg tabletIndications:Ne w onset atrial fibrillation (HC),Anticoagulation monitoring, INR range 2-3 Take by mouth 5 mg (2.5 mg x 2) every Mon, Wed, Fri; 7.5 mg (2.5 mg x 3) all other days in the evening OR as directed 240 Tablet 11/19/2023 4 Discontinued (Other - add note to specify (E-cancel not sent)) warfarin (COUMADIN) 2.5 mg tabletIndications:Ne w onset atrial fibrillation (HC),Anticoagulation monitoring, INR range 2-3 Take by mouth 5 mg (2.5 mg x 2) every Mon, Wed, Fri; 7.5 mg (2.5 mg x 3) all other days in the evening OR as directed 12/03/2023 4 Discontinued (Reorder (E-cancel not sent)) cephalexin (KEFLEX) 500 mg [...] f 08/12/2023 End stage renal disease 02/06/2023 Overview (08/12/2023): Tri has decided not to do dialysis. Tim Chanel MD signed electronically .................... 08/12/2023 Recurrent gross hematuria 01/20/2023 Overview (01/20/2023): She saw Dr. Richardson of Urology for this in 06/2021 and the work up was negative. He recommended the work up be repeated in 5 years if she is having ongoing gross hematuria. Tim Chanel MD signed electronically .................... 01/20/2023 Diabetes mellitus with peripheral vascular disea se 08/06/2022 Vitamin D deficiency 08/06/2022 Overview (08/06/2022): She was on Vitamin D3 2000 International Units twice daily when her level came back high. She has been off Vitamin D since 04/2022. Her most recent Vitamin D was 78.4 on 06/2022. Will recheck a level next blood draw. Secondary renal hyperparathyroidism 04/17/2022 Vitamin B12 deficiency 09/19/2021 Overview (08/06/2022): She was started on B12 shots for this in 09/2021. 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 Adenomatous polyp of colon 09/16/2021 Overview (09/16/2021): Last colonoscopy was 09/17/2020 and 3 polyps were removed. She is due for her next Colonoscopy on or after 09/18/2025. Encounter for palliative care 09/02/2021 Acute renal failure superimp osed on stage 4 chronic kidney disease 08/31/2021 Hyperkalemia 08/31/2021 Acute on chronic systolic heart failure 07/31/19 22 (HFpEF) heart failure with preserved ejection fr action 07/26/2021 Overview (08/07/2021): She has combined systolic and diastolic CHF. [...] hyperlipidemia 05/28/2018 Bilateral lower extremity edema 12/29/2016 Overview (01/20/2023): Baseline weight as of 12/2022 is 173 pounds. Adenomatous colon polyp 09/12/2015 Overview (09/19/2020): Colonoscopy 09/2015 polyp repeat in 5 years Colonoscopy 09/2020 three polyps, repeat in 5 years Hypothyroidism 05/16/2015 Atrial fibrillation with RVR 03/02/2015 Demand ischemia 03/02/2015 Carpal tunnel syndrome of right wrist 10/09/2014 Osteopenia 10/09/2012 Overview (10/09/2012): Noted on recent bone mineral density; suggest Calcium+ 2000 mg/day and vitamin D 2000 units/day and regular exercise at least 3 times per week. Needs follow up bone mineral density in 2 years. Ace Tran MD 10/09/2012 2:05 PM Dupuytren's contracture of both hands 10/04/2012 Varicose vein of leg 09/29/2011 ACP (advance care planning) 11/18/2010 Overview (01/05/2012): Discussed 11/18/2010 Again 01/05/2012 Vitamin D deficiency 09/11/2010 Mixed hyperlipidemia 07/23/2010 Rosacea 01/05/2007 Restless legs syndrome (RLS) 01/05/2007 Resolved Problems Problem Noted Date Diagnosed Date Resolved Date HTN (hypertension) 05/16/2015 9 Morbid obesity due to excess calories 05/16/2015 08/12/2023 Encounters Date Type Department Care Team Description 12/18/2023 Telephone [facility] [address] [facility] [address] Tim Chanel MD Anticoagulation 12/18/2023 Anticoagulation (warfarin) [facility] [address] [facility] [address] 1[facility] Anticoagulation 12/17/2023 3:15 PM CDT Orders Only [facility] [address] [place] [address] Lab, [place] [facility] 12/17/2023 Travel 12/15/2023 11:25 AM CDT Office Visit [facility] [address] [facility] [address] Humaira Olivera Margarita, DO Edema (Bilateral LLE, blisters present) 12/15/2023 Travel 12/10/2023 11:15 AM CDT Orders Only [facility] [address] [place] [address] Lab, [facility] 12/10/2023 Travel 12/10/2023 Anticoagulation (warfarin) [facility] [address] [facility] [address] 1[facility] Anticoagulation 12/09/2023 Travel 12/07/2023 11:25 AM CDT Office Visit [facility] [address] [place] [address] Humaira Olivera Margarita, DO Edema (Bilateral LLE - worse on L side, blisters forming) 12/07/2023 Anticoagulation (warfarin) [facility] [address] [place] [address] 1[facility] Anticoagulation (Chart update) 12/07/2023 Telephone [facility] [address] [place] [address] Tim Chanel MD Anticoagulation (BPA keflex/warfarin) 12/07/2023 Travel 12/07/2023 Nurse Triage [facility] [address] [facility] [address] Tim Chanel MD Skin Problem 12/04/2023 Telephone [facility] [address] [facility] [address] Tim Chanel MD Skin Problem 12/03/2023 2:15 PM CDT Orders Only [facility] [address] [place] [address] Lab, [facility] 12/03/2023 Anticoagulation (warfarin) [facility] [address] [place] [place] [address] 1[facility] Anticoagulation 12/03/2023 Travel 11/26/2023 Orders Only [facility] [address] [place] [address] Tim Chanel MD Outside Order (Ordered by Dm Rain) 11/18/2023 2:15 PM CDT Orders Only [facility] [address] [facility] [place] [address] Lab, [place] [facility] 11/18/2023 Anticoagulation (warfarin) [facility] [address] [place] [place] [address] 1[facility] Anticoagulation 11/18/2023 Telephone [facility] [address] [place] [address] Tim Chanel MD Anticoagulation (Orders) 11/18/2023 Travel 11/14/2023 Travel 10/27/2023 10:45 AM CDT Orders Only [facility] [address] [facility] [place] [address] Lab, [place] Outside Order (Ordered by Dr. Dm Hillman... 10/27/2023 Anticoagulation (warfarin) [facility] [address] [facility] [place] [address] 1[facility] Anticoagulation 10/26/2023 Telephone [facility] [address] [facility] [place] [address] Tim Chanel MD Medication Management (warfarin) 10/26/2023 Refill [facility] [address] [facility] [place] [address] Tim Chanel MD Refill Request (Warfarin) 10/26/2023 Travel 10/02/2023 3:10 PM CDT Office Visit [facility] [address] [place] [address] Tim Chanel MD Concerns (Would like to discuss leg wraps and different options) 10/01/2023 Travel 09/29/2023 Telephone [facility] [address] [facility] [place] [address] Tim Chanel MD FYI (Asking for call back) 09/28/2023 Telephone [facility] [address] [place] [address] Tim Chanel MD Follow Up (Leg wraps ) 09/24/2023 10:15 AM CDT Orders Only [facility] [address] [facility] [place] [address] Lab, [place] [facility] 09/24/2023 Anticoagulation (warfarin) [facility] [address] [facility] [place] [address] 1[facility] Anticoagulation 09/23/2023 Travel from Last 3 Months Immunizations Name Administration Dates Next Due AMB INFLUENZA IIV3 (AGE 65+ YRS) PF (Flu Clinic Only) 01/14/2019,01/14/2018,01/14/2017 AMB Influenza, IIV3 (Age >=3 years)(Flu Clinic Only) 02/06/2010,01/17/2009,02/24/2008 Amb Influenza, Inact (High-d ose) (Flu Clinic Only) 01/28/2016 Amb Influenza, Inactivated A IIV4 (Age 65+ Years) Preserv Free 12/29/2019 COVID-19 VACCINE SPIKEVAX (M ODERNA 50MCG/0.5ML) 12YO+ PFS 02/06/2023 COVID-19 vaccine (QvanteqBio NTech 30mcg/0.3mL) 12YO+ BIVALENT PF, MDV 01/15/2022 COVID-19 vaccine (Pfizer-Bio NTech 30mcg/0.3mL) 12YO+ SHANNON-SUCROSE PF, MDV 09/16/2021 COVID-19 vaccine (ALTO CINCO-Bio NTech 30mcg/0.3mL) PF, MDV 02/06/2021,06/16/2020,05/26/2020 Hepatitis A [...] Skin Ca: Nose not serious Cancer-prostate Father gO of pros waterman cancer at 80 Diabetes [...] Comments Brother 1 Manan Alive Brother 2 Edmorena Alive Father Og (Age 80) Prostate C [...] DT Respiratory Rate 14 04/30/2023 2:00 PM AMPOULE EXAMINER Oxygen Saturation 100% 12/15/2023 11:37 AM CDT Inhaled Oxygen Concentration - - Weight 78.7 kg (173 lb 9.6 oz) 12/15/2023 11:37 AM CDT Height 165 cm (5' 4.96) 08/12/2023 10:46 AM CDT Body Mass Index 28.92 08/12/2023 10:46 AM CDT Plan of Treatment Upcoming Encounters Date Type Department Care Team (Late st Contact Info) Description 12/25/2023 3:30 PM CDT Orders Only [facility] [address] [place] [address] [place] 01/01/2024 1:45 PM CDT Orders Only [facility] [address] [place] [address] Lab[place] 02/03/2024 3:00 PM CDT Office Visit [facility] [address] [place] [address] Manan Agarwal MD [id number] [place] [address] 02/24/2024 1:10 PM AMPOULE EXAMINER Office Visit [facility] [address] [place] [address] Tim Chanel MD [address] [place] [address] Health Maintenance Due Date Last Done Comments RSV vaccine for adults or (1 - 1-dose 60+ series) 1998 COVID-19 vaccine series (2022- season) 2023 02/06/2023, 01/15/2022, 09/16/2021, Additional history [...] Completed 2012, 08/31/2007, 08/31/2007 ([facility] outside [facility]) Pneumococcal series for age 65+ Completed 10/09/2014, 09/11/2010, 01/11/1997 Zoster (shingles) series for age 50+ Completed 08/31/2018, 05/29/2018, 08/05/2006 Tdap Completed 12/09/2022, 05/19/2011 Procedures Procedure Name Priority Date/Time Associated Diagnosis Comments PROTIME-INR STAT 12/17/2023 3:14 PM CDT New onset atrial fibrillation (HC) Anticoagulation monitoring, INR range 2-3 HEMOGLOBIN A1C Routine 12/17/2023 3:14 PM CDT Diabetes mellitus with peripheral vascular disease (HC) INR,POCT Routine 12/10/2023 11:11 AM CDT New [...] Relevant to Health Maintenance Results * (ABNORMAL) PROTIME-INR (12/17/2023 3:14 PM CDT) Only the most recent of2 resultswithin the time period is included. INR 1.7(H) <1.3 12/17/2023 10:32 PM CDT [facility] PROTIME 18.4(H) 10.3 - 12.3 sec 12/17/2023 10:32 PM CDT [facility] Blood BLOOD SPECIMEN / Unknown Venipuncture / Unknown 12/17/2023 3:14 PM CDT 12/17/2023 3:17 PM CDT Narrative [facility] - 12/17/2023 10:32 PM CDT ?Therapeutic Range 2.0-3.0 for most [...] is on UFH. Tim Chanel MD HEMATOLOGY [facility] [address] [place] [address], [place] * HEMOGLOBIN A1C MONITORING (POCT) (12/17/2023 3:14 PM CDT) [facility] HEMOGLOBIN A1C MONITORING (POCT) 6.2 <=6.4 % 12/17/2023 3:25 PM CDT [facility] Blood BLOOD SPECIMEN / Unknown Venipuncture / Unknown 12/17/2023 3:14 PM CDT 12/17/2023 3:17 PM CDT Narrative [facility] - 12/17/2023 3:25 PM CDT ? (<=6.9%) ? Indicates good control ? (7.0% to 7.9%) ? Indicates fair control ? (>=8.0%) ? Indicates poor control ?? NOTE: ??These thresholds are guidelines and ?individual targets may vary. Falsely low levels may be seen with: Recent Transfusion, Recent Significant Blood Loss, Hemolytic Diseases, or Falsely elevated levels may be seen with: Untreated Anemias, Splenectomy ? Tim Chanel MD CHEMISTRY [facility] [address] [place] [address], [place] [phone] * (ABNORMAL) INR,POCT (12/10/2023 11:11 AM CDT) Only the most recent of4 resultswithin the time period is included. [facility] INR 1.8(H) <1.3 12/10/2023 2:19 PM CDT [facility] Blood BLOOD SPECIMEN / Unknown Capillary / Unknown 12/10/2023 11:11 AM CDT 12/10/2023 11:11 AM CDT Narrative [facility] - 12/10/2023 2:19 PM CDT ?Therapeutic Range 2.0-3.0 for most anticoagulated patients 2.5-3.5 or 4.0 for high risk patients Tim Chanel MD LABORATORY [facility] [address] [place] [address], * VITAMIN D 25 (DEFICIENCY) (10/27/2023 11:06 AM CDT) Pathologist [facility] VITAMIN D TOTAL 69.9 20.0 - 80.0 ng/mL 10/27/2023 7:33 PM CDT [facility] Blood BLOOD SPECIMEN / Unknown Venipuncture / Unknown 10/27/2023 11:06 AM CDT 10/27/2023 11:06 AM CDT Narrative [facility] - 10/27/2023 7:33 PM CDT ? Vitamin D Status Deficiency: ? <20 ng/mL Insufficiency: ?20-29 ng/mL Sufficiency: ?30-80 ng/mL Possible Toxicity: ??>80 ng/mL Based on [place] of Medicine recommendations Biotin supplements may cause clinically significant interference for this test assay. ??If interference is suspected, it is strongly recommended that biotin is discontinued for at least one week prior to retesting. Tim Chanel MD SEND OUTS Performing Organization Address City/[facility]/ZIP Co de Phone Number [facility] [address] [place] [phone], * (ABNORMAL) BASIC METABOLIC PANEL (10/27/2023 11:06 AM CDT) SODIUM 142 136 - 145 mmol/L 10/27/2023 7:33 PM CDT [facility] POTASSIUM 4.6 3.5 - 5.1 mmol/L 10/27/2023 7:33 PM CDT [facility] CHLORIDE 109(H) 98 - 107 mmol/L 10/27/2023 7:33 PM CDT [facility] CO2,TOTAL 20(L) 22 - 29 mmol/L 10/27/2023 7:33 PM CDT [facility] ANION GAP 13 5 - 18 10/27/2023 7:33 PM CDT [facility] GLUCOSE 77 70 - 99 mg/dL 10/27/2023 7:33 PM CDT [facility] CALCIUM 9.2 8.8 - 10.2 mg/dL 10/27/2023 7:33 PM CDT [facility] BUN 57(H) 8 - 23 mg/dL 10/27/2023 7:33 PM CDT [facility] CREATININE 3.46(H) 0.50 - 0.90 mg/dL 10/27/2023 7:33 PM CDT [facility] BUN/CREAT RATIO 16 10 - 20 7:33 PM CDT [facility] eGFR 12(L) >90 mL/min/1.7 3m2 10/27/2023 7:33 PM CDT [facility] Comment:As of 2021, eG FR [...] 11:06 AM CDT Tim Chanel MD CHEMISTRY [facility] [address] [place] [address], * (ABNORMAL) XR DXA BONE DENSITY 2 SITES (10/07/2012 1:58 PM CDT) Anatomical Region Laterality Modality Spine, HIPS, HIPL, HIPR Other Narrative 10/08/2012 6:53 PM CDT Please see scanned document for results of this study. Procedure Note Binta Dewey E - 10/08/2012 Please see scanned document for results of this study. Ace Tran MD DEXA from Last 3 Months or Most Recently Relevant to Health Maintenance Advance Directives Documents on File Type Date Recorded Patient Wine Pasteurizer Expl anation POLST 08/11/2023 Treatment Guidelines 08/02/2021 Healthcare Directive 04/01/2012 2:32 PM H EALT CARE DIRECTIVE, [facility], 01/08/2000 * DNR (Latest Code Status [...] Preferences, Provider to review later Care Teams Evaporative Cooler Installer Relationship Specialty Start Date End Date Tim Chanel MD [address] [place] [address] PCP - General Family Practice 03/30/13 Tay Pearson [address] [place] [id number] Director Sales Training 09/29/11 Veena Mitchell MD [address] [address] Dermatology Dermatology 07/04/22
--- OUTSIDE RECORDS SUMMARY | 2023-12-24 13:17 | XMS_ITS | Encounter Summary ---
Author Organization [facility] Address [address] [place] [address] Care Team Providers Care Spooling Supervisor Name Role Phone Tim Chanel MD Primary Care Provider [phone] Encounter Details Date Type Department Care Team (Late st Contact Info) Description 07/13/2023 Orders Only [facility] [address] [place], [place] [address] [address] Dm Rain MD [address] [address] Stage 5 chronic kidney disease [...] of [facility] [address] [place] [address] [address] Dm Rain MD [address] [place] [address] Stage 5 chronic kidney disease (HCC) 01/01/2024 3:00 PM EDT Office Visit [facility] [place] [address] [address] Dm Rain MD [address] [place] [address] documented as of this encounter Procedures Procedure [...] (HCC) documented in this encounter Care Teams Spooling Supervisor Relationship Specialty Start Date End Date Labenski, Tim, MD [address] [place] [address] PCP - General Family Medicine 04/20/23 documented as of this encounter
== END 2023-12-24 13:16 | disposition home or self-care (01) ==
LOC: WOUND 13:15
PROVIDERS: PCP Family Medicine; Visit Provider Nurse Practitioner Family
DX: E11.622 Type 2 diabetes mellitus with other skin ulcer (principal); I89.0 Lymphedema, not elsewhere classified; L97.818 Non-pressure chronic ulcer of other part of right lower leg with other specified severity; L97.828 Non-pressure chronic ulcer of other part of left lower leg with other specified severity
CPT/HCPCS: G0463

== ENCOUNTER 2024-01-29 08:25 | Outpatient (CLI) | payer MEDICARE, BC, SELFPAY ==
--- OUTSIDE RECORDS SUMMARY | 2024-01-29 08:27 | XMS_ITS | Encounter Summary ---
Author Organization [facility] Address [address] [place] [address] Care Team Providers Care Civil Engineering Drafter Name Role Phone Tim Chanel MD Primary Care Provider [phone] Reason for Visit * Reason Comments Follow-up Encounter Details Date Type Department Care Team (Latest Contact Info) Description 01/01/2024 3:00 PM CDT [facility] [address] [place] [address] Dm Rain MD [address] [place] [address] Stage 5 chronic kidney disease (HCC) (Primary Dx); Secondary hyperparathyroidism of renal origin (HCC); Hypertensive chronic kidney disease with stage 1 through stage 4 chronic kidney disease, or unspecified chronic kidney disease; Chronic systolic heart failure (HCC); Hypercoagulable state due to atrial fibrillation (HCC) Social History Tobacco Use Types Packs/Day Years Used Date Smoking Tobacco: Never Smokeless Tobacco: Never Alcohol Use Standard Drinks/Week Comments Not Currently 0 (1 standard drink = 0.6 oz pur e alcohol) none for over 5 months Comments Unknown Sex and Gender Information Value Date Recorded Sex Assigned at Not on file Legal Sex Female 9:57 AM EST Gender Identity Not on file Sexual Orientation Not on file documented as of this encounter Last Filed Vital Signs Vital Sign Reading Time Taken Comments Blood Pressure 122/64 01/01/2024 2:48 PM CDT Pulse 79 01/01/2024 2:48 PM CDT Temperature - - Respiratory Rate - - Oxygen Saturation 98% 01/01/2024 2:48 PM CDT Inhaled Oxygen Concentration - - Weight 78.9 kg (174 lb) 01/01/2024 2:48 PM CDT Height 170.2 cm (5' 7) 01/01/2024 2:48 PM CDT Body Mass Index 27.25 01/01/2024 2:48 PM CDT documented in this encounter Patient Instructions * Patient Instructions* Max Roach - 01/01/2024 3:00 PM CDT Tri, Your kidney function is stable. Please take the lasix every day. Take 1 tablet in the morning. You can hold it if you have no edemaand your weight is 165 lbs or less. You can take 2 tablets as needed if your swelling is worse and your weight is over 170 lbs. Please get labs to monitor kidney function in 3 months. Dez Rain MD We will contact you to schedule your 6 months follow up when the schedule becomes available. Labs should be completed 1-2 weeks prior. They will be faxed to [facility] Fox documented in this encounter Progress Notes * Dm Rain MD - 01/01/2024 3:00 PM CDT Images from the original note were not included. Patient: Tri Mckeon Date of : 1940 Chart: [id number] PCP: Tim Chanel MD Date of Service: 01/01/2024 Chief Complaint: CKD Stage 5 follow-up Subjective: Tri is seen today for follow-up. Her daughters are with her today, who contributes to the history. She has been taking the lasix as needed. She was off it completely for months, but swelling was a little worse and she got a couple of wounds that required abx and short time going to the wound clinic. The edema remains worse and she is inconsistent with how she is taking lasix. Her renal function is stable. BP is controlled. She is doing PT (just started). SH: Now lives in assisted living facility The following portions of the patient's chart were reviewed in this encounter and updated as appropriate: Tobacco Allergies Meds Problems Med Hx Surg Hx Fam Hx Active Problems Patient Active Problem List Diagnosis ??? Stage 5 chronic kidney disease (HCC) ??? Hypertensive chronic kidney disease with stage 1 through stage 4 chronic kidney disease, or unspecified chronic kidney disease ??? Secondary hyperparathyroidism of renal origin (HCC) ??? Hypercoagulable state due to atrial fibrillation (HCC) ??? Chronic systolic heart failure (HCC) Review of Systems Patient denies chest pain, SOB at rest, nausea/vomiting, and fever/chills. Taking? Provider atorvastatin (LIPITOR) 10 MG tablet Aileen Moura MD Take 10 mg by mouth in the morning. brimonidine (ALPHAGAN) 0.2 % ophthalmic solution Aileen Moura MD Administer 1 drop into affected eye(s) in the morning and 1 drop in the evening. furosemide (LASIX) 20 MG tablet Aileen Moura MD Take 20 mg by mouth if needed Latanoprostene Bunod (Vyzulta) 0.024 % solution Aileen Moura MD levothyroxine (SYNTHROID, LEVOTHROID) 75 MCG tablet Aileen Moura MD Take 75 mcg by mouth 1 (one) time each day metoprolol succinate XL (TOPROL XL) 50 MG 24 hr tablet Aileen Moura MD Take 50 mg by mouth in the morning and 50 mg in the evening. warfarin (COUMADIN) 2.5 MG tablet Aileen Moura MD Take 7.5 mg by mouth 2 tab on Thursday, 7.5 all other days Allergies Allergen Reactions ??? Amlodipine Swelling ??? Conjugated Estrogens intolerance: sore breasts ??? Gabapentin Other (see comments) Pt stopped because she did not like the way it made her feal. Physical Exam BP 122/64 (BP Location: Right upper arm, Patient Position: Sitting, BP Cuff Size: Adult) Pulse 79 Ht 5' 7 (1.702 m) Wt 174 lb (78.9 kg) SpO2 98% BMI 27.25 kg/m?? CONSTITUTIONAL: appears better overall EYES: pupils equal, sclerae not icteric. RESPIRATORY: Clear to auscultation bilaterally, nl effort CARDIOVASCULAR: Regular rate and rhythm, soft murmur, 1+ edema in legs up to thighs with compression wraps on GASTROINTESTINAL: bowel sounds active, not distended PSYCHIATRIC: Alert and pleasant INTEGUMENT: No visible rash on exposed skin MUSCULOSKELETAL: four limbs, no contractures Chemistry and Bone Mineral Lab Units 10/27/23 1106 08/26/23 0000 07/16/23 0000 05/28/23 0000 04/27/23 0000 SODIUM mEq/L 142 146* 146* 145 143 POTASSIUM mEq/L 4.6 4.2 4.5 3.7 3.7 CHLORIDE 109* 109* 106 108* 105 CO2 mmol/L 20* 21* 25 25 22 CALCIUM mg/dL 9.2 10.0 10.0 9.6 9.1 10.1 PHOSPHORUS mg/dL -- 4.6* -- 4.2 -- PTH pg/mL -- 127.0* -- -- -- GLUCOSE mg/dL 77 102* 146* 82 120* ALBUMIN g/dL -- 4.5 -- 3.8* -- BUN mg/dL 57* 60* 49* 44* 51* CREATININE mg/dL 3.46* 3.99* 4.01* 4.06* 4.53* EGFR 12* 11* 11* 10* 9* CBC and Iron Studies Lab Units 08/26/23 0000 05/28/23 0000 04/27/23 0000 WBC AUTO K/uL -- -- 7.4 HEMATOCRIT % -- -- 42.7 HEMOGLOBIN g/dL 13.7 12.7 14.5 MCV -- 91 89 PLATELETS AUTO -- -- 206 No lab exists for component: GLUCOSEUR, BILIRUBINUR, SPECGRAV, RBCUR, LEUKOCYTESUR, NITRITE Imaging: CT Abd/Pelvis 04/15/2023: Impression: Punctate nonobstructing calculi lower pole right kidney. No ureteral or bladder stone. Bladder incompletely distended with mild prominence of the bladder wall, possibly secondary to the low bladder volume. TTE 02/12/2023: Final Impressions: 1. Normal LV size, moderately increased wall thickness with sparkled myocardial echotexture, mildlyreduced global systolic function with an estimated EF of ~45%. 2. Right ventricular cavity size is mildly enlarged with increased wall thickness, global systolic RV function is moderately reduced. 3. Severe biatrial enlargement. 4. The aortic valve is calcified and trileaflet, no stenosis and mild regurgitation. 5. Moderate tricuspid regurgitation. 6. Moderately increased estimated pulmonary pressures by tricuspid regurgitation velocity and rightatrial pressure (45 mmHg plus RAP). 7. The inferior vena cava is dilated, respiratory size variation less than 50%. 8. Overall findings suggestive of cardiac amyloid, recommend cardiology consultation to facilitate further workup as clinically indicated. Assessment and Plan: CKD Stage 5 - stable but mild uremia symptoms Hypertensive chronic kidney disease - stable, BP controlled, continue current medications Baseline Cr was 1.5 from 2614-7364 with bland urinalysis, had JEFFY with gallbladder surgery and thenrequired IV diuresis after this in Feb 2015 at [facility], Cr higher at 1.5 after that but stable [id number] when Cr to 1.85 and 2.1 in Apr 2021. She was massively fluid overloaded. Serologic work-up negative. Repeat UA bland, no proteinuria. Diuresed and volume status dramatically improved and Cr was then 1.8-2.0 range. Cr montserrat in late 2022 up to 3's and then 4.25 in Apr 2023, which occurred in setting of worsening CHF with LV and RV dysfunction. She also had gross hematuria. CT showed only punctate stones. -Renal biopsy completed Apr 2023. 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 -We discussed renal replacement therapy previously in detail. She has chosen, I think wisely, not to pursue dialysis. We will follow conservative course without dialysis, but with maximal therapy to focus on quality of life and we will follow labs, titrate medications, and use diet to the degree possible to stabilize renal function and control metabolic complications of CKD -She will take lasix once daily again, 2 tablets if worsening edema or rising weight. Instructions written for her and goal wt is 165-170 lbs -She will monitor uremia symptoms -We will do labs every 3 months -She and her daughters are aware that she may need more support from assisted living or even long-term and at some point likely hospice and they are very involved HFrEF, RV dysfunction - stable. Continue low salt diet Valvular heart disease - stable Atrial fibrillation with hx of RVR - stable, continue metoprolol and warfarin Edema, previous anasarca - stable -Lasix as above -Follow strict low Na diet <2,000 mg/day -Fluid restriction to 40-60 ounces max per day -Keep feet elevated whenever sitting/resting, continue to use compression wraps -Monitor wt daily at home Secondary renal hyperparathyroidism PTH mildly elevated, phos a little elevated and she will stop drinking milk with dinner. Low phos diet recommended. Phos improved. Monitor every 6 months. Return in about 6 months (around 06/30/2024) for follow-up with . Dm Rain MD [facility] documented in this encounter Plan of Treatment Not on file documented as of this encounter Visit Diagnoses Diagnosis Stage 5 chronic kidney disease (HCC)- Primary Secondary hyperparathyroidism of renal origin (HCC) Secondary hyperparathyroidism of renal origin Hypertensive chronic kidney disease with stage 1 through stage 4 chronic kidney disease, or unspecified chronic kidney disease Chronic systolic heart failure (HCC) Chronic systolic heart failure Hypercoagulable state due to atrial fibrillation (HCC) documented in this encounter Care Teams Civil Engineering Drafter Relationship Specialty Start Date End Date Tim Chanel [place] [address] PCP - General Family Medicine 04/20/23 documented as of this encounter
--- OUTSIDE RECORDS SUMMARY | 2024-01-29 08:27 | XMS_ITS | Clinical Summary ---
Author Organization [facility] [place] Address [address] [facility] [facility] [place] [address] Phone Care Team Providers Care Clinic Assistant Name Role Phone Tim Chanel MD Primary Care Provider [phone] Allergies Active Allergy Reactions Criticality Noted Date Comments Amlodipine Swelling 09/26/2016 Conjugated Estrogens 09/01/2006 intolerance: sore breasts Gabapentin Other (see comments) 08/31/2021 Pt stopped because she did not like the way it made her feal. Medications levothyroxine (SYNTHROID, LEVOTHROID) 75 MCG tablet Take 75 mcg by mouth 1 (one) time each day 08/07/19 23 Active metoprolol succinate XL (TOPROL XL) 50 MG 24 hr tablet Take 50 mg by mouth in the morning and 50 mg in the evening. 08/07/19 23 Active warfarin (COUMADIN) 2.5 MG tablet Take 7.5 mg by mouth 2 tab on Thursday, 7.5 all other days 04/28/19 24 Active atorvastatin (LIPITOR) 10 MG tablet Take 10 mg by mouth in the morning. 08/07/19 23 Active brimonidine (ALPHAGAN) 0.2 % ophthalmic solution Administer 1 drop into affected eye(s) in the morning and 1 drop in the evening. 07/20/19 20 Active Latanoprostene Bunod (Vyzulta) 0.024 % solution 05/14/19 24 Active furosemide (LASIX) 20 MG tablet Take 20 mg by mouth if needed Active allopurinol (ZYLOPRIM) 100 MG tablet Take 100 mg by mouth if needed (gout) 024 Discontinued dorzolamide-ti molol (COSOPT) 2-0.5 % ophthalmic solution Administer 1 drop into both eyes 10/29/19 024 Discontinued Active Problems Problem Noted Date Diagnosed Date [...] Stage 3b chronic kidney disease 03/01/2016 09/03/2023 Overview (05/01/2023): Baseline creatinine as of 12/[address] Rain Vitamin D deficiency 09/11/2010 024 Overview (05/01/2023): She was on Vitamin D3 2000 International Units twice daily when her level came back high. She has been off Vitamin D since 04/2022. Her most recent Vitamin D was 78.4 on 06/2022. Will recheck a level next blood draw. Encounters Date Type Department Care Team Description 01/01/2024 3:00 PM CDT Office Visit [facility] [place] [address] [address] Dm Rain MD Stage 5 chronic kidney disease (HCC) (Primary Dx); Secondary hyperparathyroidism of renal origin (HCC); Hypertensive chronic kidney disease with stage 1 through stage 4 chronic kidney disease, or unspecified chronic kidney disease; Chronic systolic heart failure (HCC); Hypercoagulable state due to atrial fibrillation (HCC) 12/28/2023 Orders Only [facility] [place] [address] Dm Rain MD Stage 5 chronic kidney disease (HCC) 11/03/2023 Orders Only [facility] [address] [place] [address] Dm Rain MD Stage 5 chronic kidney disease (HCC) 10/29/2023 Telephone [facility] [place] [address] [place] [address] Candice Thompson RN from Last 3 Months Immunizations Name Administration [...] Mass Index 27.25 01/01/2024 2:48 PM CDT Plan of Treatment Health Maintenance Due Date Last Done Comments Diabetes: Ophthalmology Exam 04/29/2023 Diabetes: Pedal Pulse Checked 04/29/2023 Diabetes: Sensory Foot Exam 04/29/2023 Diabetes: Visual Foot Exam 04/29/2023 Influenza Vaccine (#1) 2023 , 01/15/2022, 01/21/2021, Additional history exists Diabetes: Hemoglobin A1C 03/17/2024 12/17/2023, 05/0 04/2023 Hepatitis B Vaccine Aged Out 01/30/1993, 08/29/1992, 07/30/1992 No longer eligible based on patient's age to complete this topic Pneumococcal Vaccine: 65+ Years Completed 10/09/2014, 09/11/2010, 01/11/1997 Procedures Procedure Name Priority Date/Time Associated Diagnosis Comments RENAL FUNCTION PANEL Routine 12/25/2023 Stage 5 chronic kidney disease (HCC) from Last 3 Months Results * (ABNORMAL) Renal function panel (12/25/2023) Glucose 110(H) mg/dL [facility] BUN 59(H) mg/dL [facility] Creatinine 3.27(H) mg/dL [facility] BUN/Creatinine Ratio 18 [facility] Sodium 144 mEq/L [facility] Potassium 3.8 mEq/L [facility] Chloride 111(H) [facility] Carbon Dioxide 18(L) mmol/L [facility] Calcium 9.0 mg/dL [facility] Phosphorus, Serum 4.1 mg/dL [facility] Albumin (Blood) 4.2 g/dL [facility] eGFR 13(L) [facility] Comment:As of 2021, eG FR is calculated by the CKD-EPI creatinine equation without race adjustment. eGFR can be influenced by muscle mass, exercise, and diet. The reported eGFR is an estimation only and is only applicable if the renal function is stable. Blood (Blood, Venous) 12/25/2023 us Dm Rain MD LAB BLOOD ORDERABLES Final Re sult [facility] from Last 3 Months Insurance [facility] MEDICARE Care Teams Clinic Assistant Relationship Specialty Start Date End Date Tim Chanel MD [address] [place] [address] PCP - General Family Medicine 04/20/23
--- OUTSIDE RECORDS SUMMARY | 2024-01-29 08:27 | XMS_ITS | Encounter Summary ---
Author Organization [facility] Address [address] [place] [address] Care Team Providers Care Rehabilitation Medicine Physician Name Role Phone Tim Chanel MD Primary Care Provider [phone] Encounter Details Date Type Department Care Team (Late st Contact Info) Description 10/29/2023 Telephone [facility] [place] [address] [place] [address] Candice Thompson, RN [address] [place] [address] Social History Tobacco Use Types [...] encounter Miscellaneous Notes * Telephone Encounter - Cadnice Thompson RN - 10/30/2023 10:52 AM CDT [...] on filedocumented in this encounter Care Teams Rehabilitation Medicine Physician Relationship Specialty Start Date End Date Tim Chanel MD [address] [place] [address] PCP - General Family Medicine 04/20/23 documented as of this encounter
--- OUTSIDE RECORDS SUMMARY | 2024-01-29 08:27 | XMS_ITS | Encounter Summary ---
Author Organization [facility] Address [address] [place] [address] Care Team Providers Care Labeler Name Role Phone Tim Chanel MD Primary Care Provider [phone] Encounter Details Date Type Department Care Team (Late st Contact Info) Description 08/27/2023 Orders Only [facility] [address] [place] [address] Dm Rain MD [address] [place] [address] Stage 5 chronic kidney disease [...] as of this encounter Plan of Treatment Not on file documented as of this encounter Procedures Procedure [...] 08/26/2023 Dm Rain MD LAB BLOOD ORDERABLES Final Re sult Performing Organization Address [facility] Co de Phone Number [facility] * Hemoglobin (08/26/2023) Hemoglobin 13.7 g/dL [facility] Blood (Blood, Venous) 08/26/2023 Dm Rain MD LAB BLOOD ORDERABLES Final Re sult Performing Organization Address [facility] de Phone Number [facility] * (ABNORMAL) Renal function panel (08/26/2023) [...] 08/26/2023 Dm Rain MD LAB BLOOD ORDERABLES Final Re sult Performing Organization Address [facility] Co de Phone Number [facility] documented in this encounter Visit Diagnoses Diagnosis Stage 5 chronic kidney disease (HCC) documented in this encounter Care Teams Labeler Relationship Specialty Start Date End Date [place] [address] PCP - General Family Medicine 04/20/23 documented as of this encounter
--- OUTSIDE RECORDS SUMMARY | 2024-01-29 08:27 | XMS_ITS | Encounter Summary ---
Author Organization [facility] [place] [place] Address [address] [place] [address] Care Team Providers Care Program Counselor Name Role Phone Tim Chanel MD Primary Care Provider [phone] Encounter Details Date Type Department Care Team (Late st Contact Info) Description 10/27/2023 Telephone [facility] [place] [address] [place] [address] Leonila Minor RN BSN [address] [place] [address] Social History Tobacco Use Types [...] - 10/27/2023 11:02 AM CDT Pt's [facility] phoned in to request we fax her BMP orders to them at [phone]. Faxed as requested. documented in this encounter Plan of Treatment Not on file documented as of this encounter Visit Diagnoses Not on filedocumented in this encounter Care Teams Program Counselor Relationship Specialty Start Date End Date Tim Chanel MD [address] [place] [address] PCP - General Family Medicine 04/20/23 documented as of this encounter
--- OUTSIDE RECORDS SUMMARY | 2024-01-29 08:27 | XMS_ITS | Encounter Summary ---
Author Organization [facility] Address [address] [place] [address] Care Team Providers Care Flag Signaler Name Role Phone Tim Chanel MD Primary Care Provider [phone] Encounter Details Date Type Department Care Team (Late st Contact Info) Description 11/03/2023 Orders Only [facility] [address] [place], [place] [address] [address] Dm Rain MD [address] [address] Stage 5 chronic kidney disease [...] Blood (Blood, Venous) 10/27/2023 11:06 AM CDT us Dm Rain MD LAB BLOOD ORDERABLES Final Re sult [facility] documented in this encounter Visit Diagnoses Diagnosis Stage 5 chronic kidney disease (HCC) documented in this encounter Care Teams Flag Signaler Relationship Specialty Start Date End Date Tim Chanel MD [address] [place] [address] PCP - General Family Medicine 04/20/23 documented as of this encounter
--- OUTSIDE RECORDS SUMMARY | 2024-01-29 08:27 | XMS_ITS | Encounter Summary ---
Author Organization [facility] Address [address] [place] [address] Care Team Providers Care Construction Producer Name Role Phone Tim Chanel MD Primary Care Provider [phone] Encounter Details Date Type Department Care Team (Late st Contact Info) Description 07/13/2023 Orders Only [facility] [address] [place], [place] [address] [address] Dm Rain MD [address] [place] [address] Stage 5 chronic kidney disease [...] Gap 15 [facility] Blood (Blood, Venous) 07/16/2023 us Dm Rain MD LAB BLOOD ORDERABLES Final Re sult [facility] documented in this encounter Visit Diagnoses Diagnosis Stage 5 chronic kidney disease (HCC) documented in this encounter Care Teams Construction Producer Relationship Specialty Start Date End Date Tim Chanel MD [address] [place] [address] PCP - General Family Medicine 04/20/23 documented as of this encounter
--- OUTSIDE RECORDS SUMMARY | 2024-01-29 08:27 | XMS_ITS | Encounter Summary ---
Author Organization [facility] Address [address] [place] [address] Care Team Providers Care Casting Supervisor Name Role Phone Tim Chanel MD Primary Care Provider Encounter Details Date Type Department Care Team (Late st Contact Info) Description 12/28/2023 Orders Only [facility] [address] [place] [address] Dm Rain MD [address] [place] [address] Stage 5 chronic kidney disease [...] 12/25/2023 Stage 5 chronic kidney disease (HCC) documented in this encounter Results * (ABNORMAL) Renal function panel (12/25/2023) [...] (HCC) documented in this encounter Care Teams Casting Supervisor Relationship Specialty Start Date End Date Tim Chanel MD [address] [place] [address] PCP - General Family Medicine 04/20/23 documented as of this encounter
== END 2024-01-29 08:26 | disposition home or self-care (01) ==
LOC: WOUND 08:26
PROVIDERS: PCP Family Medicine; Visit Provider Family Medicine
DX: I87.313 Chronic venous hypertension (idiopathic) with ulcer of bilateral lower extremity (principal); L97.821 Non-pressure chronic ulcer of other part of left lower leg limited to breakdown of skin; L97.811 Non-pressure chronic ulcer of other part of right lower leg limited to breakdown of skin
CPT/HCPCS: G0463

== ENCOUNTER 2024-02-12 13:26 | Outpatient (CLI) | payer MEDICARE, BC, SELFPAY ==
--- OUTSIDE RECORDS SUMMARY | 2024-02-12 13:29 | XMS_ITS | Encounter Summary ---
Author Organization [facility] Address [address] [place] [address] Care Team Providers Care Gas Well Pumper Name Role Phone Tim Chanel MD Primary Care Provider [phone] Reason for Visit * Reason Comments Follow-up Encounter Details Date Type Department Care Team (Latest Contact Info) Description 01/01/2024 3:00 PM CDT [facility] Visit [facility] [address] [place] [address] Dm Rain MD [address] [place] [address] Stage 5 chronic kidney disease [...] in this encounter Progress Notes * Dm Rani MD - 01/01/2024 3:00 PM CDT Images from the original note were not included. Patient: Tri Mckeon Date of : 1940 Chart: [id number] PCP: Tim Chanel MD Date of Service: [...] current medications Baseline Cr was 1.5 from 0100-2713 with bland urinalysis, had EJFFY with gallbladder surgery and thenrequired IV diuresis after this in Feb 2015 at [facility], Cr higher at 1.5 after that but stable [id number] when Cr to 1.85 and 2.1 in [...] more support from assisted living or even alf and at some point likely hospice and [...] . Dm Rain MD [facility] [place] documented in this encounter Plan of Treatment [...] (HCC) documented in this encounter Care Teams Gas Well Pumper Relationship Specialty Start Date End Date Tim [place]el [place] [address] PCP - General Family Medicine 04/20/23 documented as of this encounter
--- OUTSIDE RECORDS SUMMARY | 2024-02-12 13:29 | XMS_ITS | Encounter Summary ---
Author Organization [facility] Address [address] [place] [address] Care Team Providers Care Lung Gun Operator Name Role Phone Tim Chanel MD Primary Care Provider [phone] Encounter Details Date Type Department Care Team (Late st Contact Info) Description 08/27/2023 Orders Only [facility] [address] [place] [address] Dm Rain MD [address] [place] [address] Stage 5 chronic kidney disease [...] ORDERABLES Final Re sult Performing Organization Address [facility] Co de Phone Number [facility] * Hemoglobin (08/26/2023) Hemoglobin 13.7 g/dL [facility] Blood (Blood, Venous) 08/26/2023 Dm Rain MD LAB BLOOD ORDERABLES Final Re sult Performing Organization Address [facility] de Phone Number [facility] * (ABNORMAL) Renal [...] ORDERABLES Final Re sult Performing Organization Address [facility] Co de Phone Number [facility] documented in this encounter Visit Diagnoses Diagnosis Stage 5 chronic kidney disease (HCC) documented in this encounter Care Teams Lung Gun Operator Relationship Specialty Start Date End Date Tim Chanel [place] [address] PCP - General Family Medicine 04/20/23 documented as of this encounter
--- OUTSIDE RECORDS SUMMARY | 2024-02-12 13:29 | XMS_ITS | Encounter Summary ---
Author Organization [facility] Address [address] [facility] [address] [place] [address] Care Team Providers Care Rn New Grad Name Role Phone Tim Chanel MD Primary Care Provider [phone] Encounter Details Date Type Department Care Team (Late st Contact Info) Description 11/03/2023 Orders Only [facility] [address] [place], [place] [address] [address] Dm Rain MD [address] [place] [address] Stage 5 chronic kidney disease [...] (HCC) documented in this encounter Care Teams Rn New Grad Relationship Specialty Start Date End Date Tim Chanel MD [address] [place] [address] PCP - General Family Medicine 04/20/23 documented as of this encounter
--- OUTSIDE RECORDS SUMMARY | 2024-02-12 13:29 | XMS_ITS | Encounter Summary ---
Author Organization [facility] Address [address] [place] [address] Care Team Providers Care Oracle Engineer Name Role Phone Tim Chanel MD Primary Care Provider [phone] Encounter Details Date Type Department Care Team (Late st Contact Info) Description 12/28/2023 Orders Only [facility] [address] [place] [address] Dm Rain MD [address] [place] [address] Stage 5 chronic kidney disease [...] (HCC) documented in this encounter Care Teams Oracle Engineer Relationship Specialty Start Date End Date Tim Chanel MD [address] [place] [address] PCP - General Family Medicine 04/20/23 documented as of this encounter
--- OUTSIDE RECORDS SUMMARY | 2024-02-12 13:29 | XMS_ITS | Clinical Summary ---
Author Organization [employer] [facility] Address [place], [place] [address] Care Team Providers Care Recycling Program Manager Name Role Phone Tay Pearson Heather Unavailable [phone] Tim Chanel MD Primary Care Provider [phone] Veena Mitchell MD Unavailable Allergies Active Allergy [...] eye 2 times daily. 0 04/27/2017 Active blood sugar diagnostic (Ascensia CONTOUR) stripIndications:Sadia [...] 7.5 mg (2.5 mg x 3) every Thu, Thu, Margarette; 5 mg (2.5 mg x 2) all other days in the evening OR as directed 01/20/2024 Active brimonidine 0.2 % ophthalmic solution 01/08/2024 Activ e Vyzulta 0.024 % drop 04/15/2023 Acti ve potassium chloride (K-TAB) 20 mEq extended-release tablet Take by mouth. 05/14/2023 Active prednisoLONE acetate 1% ophthalmic (ECONOPRED PLUS, PRED FORTE, OMNIPRED) suspension Place 1 Drop into both eyes four times daily. 4 Discontinued (*Med complete/Reg imen complete/Lev el of care change) warfarin (COUMADIN) 2.5 mg tabletIndications:Ne w onset atrial fibrillation (HC),Anticoagulation monitoring, INR range 2-3 Take by mouth 5 mg (2.5 mg x 2) every Thu, Sat; 7.5 mg (2.5 mg x 3) all other days in the evening OR as directed. 12/18/2023 4 Discontinued (Other - add note to specify (E-cancel not sent)) Active Problems Problem Noted Date Diagnosed Date [...] on goal directed therapy for HF on 4/21/22 as follows: lasix 20 mg daily, spironolactone [...] Encounters Date Type Department Care Team Description 02/04/2024 Anticoagulation (warfarin) [facility] [address] [place] [address] 1, [facility] Anticoagulation 02/03/2024 3:00 PM CDT Office Visit [facility] [address] [facility] [place] [address] Manan Agarwal MD Follow Up (6 month; Chronic afib) 02/03/2024 Travel 01/29/2024 Travel 01/20/2024 10:45 AM CDT Orders Only [facility] [address] [place] [address] Lab, [place] [facility] 01/20/2024 Anticoagulation (warfarin) [facility] [address] [place] [address] 1, [facility] Anticoagulation 01/20/2024 Travel 01/17/2024 Telephone [facility] [address] [place] [address] Tim Chanel MD Anticoagulation (Chart Update lab orders/[facility] ) 01/04/2024 1:50 PM CDT Orders Only [facility] [address] [facility] [place] [address] Lab, [facility] 01/04/2024 Anticoagulation (warfarin) [facility] [address] [place] [address] 1, [facility] Anticoagulation 01/04/2024 Travel 01/01/2024 Orders Only [facility] [address] [place] [address] Dm Rain MD <No scans attached> 01/01/2024 Telephone [facility] [address] [place] [address] Tim Chanel MD Anticoagulation (Lab Order Update/) 12/29/2023 Telephone [facility] [address] [place] [address] Tim Chanel MD Anticoagulation (Unable to Contact) 12/26/2023 Anticoagulation (warfarin) [facility] [address] [place] [address] 1, [facility] Anticoagulation 12/25/2023 3:30 PM CDT Orders Only [facility] [address] [facility] [address] Lab, [place] Outside Order ([place]); Lab 12/24/2023 Travel 12/18/2023 Telephone [facility] [address] [facility] [address] Tim Chanel MD Anticoagulation 12/18/2023 Anticoagulation (warfarin) [facility] [address] [place] [address] 1, [facility] Anticoagulation 12/17/2023 3:15 PM CDT Orders Only [facility] [address] [facility] [address] Lab, [place] [facility] 12/17/2023 Travel 12/15/2023 11:25 AM CDT Office Visit [facility] [address] [facility] [address] Humaira Olivera Margarita, DO Edema (Bilateral LLE, blisters present) 12/15/2023 Travel 12/10/2023 11:15 AM CDT Orders Only [facility] [address] [place] [address] Lab, [place] [facility] 12/10/2023 Travel 12/10/2023 Anticoagulation (warfarin) [facility] [address] [place] [address] 1, [facility] Anticoagulation 12/09/2023 Travel 12/07/2023 11:25 AM CDT Office Visit [facility] [address] [facility] [address] Humaira Olivera Margarita, DO Edema (Bilateral LLE - worse on L side, blisters forming) 12/07/2023 Anticoagulation (warfarin) [facility] [address] [place] [address] 1, [facility] Anticoagulation (Chart update) 12/07/2023 Telephone [facility] [address] [place] [address] Tim Chanel MD Anticoagulation (BPA keflex/warfarin) 12/07/2023 Travel 12/07/2023 Nurse Triage [facility] [address] [place] [address] Tim Chanel MD Skin Problem 12/04/2023 Telephone [facility] [address] [place] [address] Tim Chanel MD Skin Problem 12/03/2023 2:15 PM CDT Orders Only [facility] [address] [place] [address] Lab, [facility] 12/03/2023 Anticoagulation (warfarin) [facility] [address] [place] [address] 1, [facility] Anticoagulation 12/03/2023 Travel 11/26/2023 Orders Only [facility] [address] [place] [address] Tim Chanel MD Outside Order (Ordered by Dm Rain) 11/18/2023 2:15 PM CDT Orders Only [facility] [address] [place] [address] Lab, [place] [facility] 11/18/2023 Anticoagulation (warfarin) [facility] [address] [place] [address] 1, [facility] Anticoagulation 11/18/2023 Telephone [facility] [address] [place] [address] Tim Chanel MD Anticoagulation (Orders) 11/18/2023 Travel 11/14/2023 Travel from Last 3 Months Immunizations Name Administration Dates Next Due AMB INFLUENZA IIV3 (AGE 65+ YRS) PF (Flu Clinic Only) 01/14/2019,01/14/2018,01/14/2017 AMB Influenza, IIV3 (Age >=3 years)(Flu Clinic Only) 02/06/2010,01/17/2009,02/24/2008 Amb Influenza, Inact (High-d ose) (Flu Clinic Only) 01/28/2016 Amb Influenza, Inactivated A IIV4 (Age 65+ Years) Preserv Free 12/29/2019 COVID-19 VACCINE SPIKEVAX (M ODERNA 50MCG/0.5ML) 12YO+ PFS 02/06/2023 COVID-19 vaccine ([employer] 30mcg/0.3mL) 12YO+ BIVALENT PF, MDV 01/15/2022 [...] Given: Yes Alcohol Use Standard Drinks/Week Comments Yes 0 (1 standard drink = 0.6 oz [...] 5 5 Date Outcome GA Total Labor Labor//3rd Weight Sex Type Anes PTL Margarita A1 A5 Name Clin Para Para Para Para Comments:HMD w/i 7 hrs Para Last Filed Vital Signs Vital Sign Reading Time Taken Comments Blood Pressure 136/76 02/03/2024 3:11 PM CDT Pulse 72 02/03/2024 3:11 PM CDT Temperature 37.1 ??C (98.7 ??F) 08/12/2023 10:46 AM C DT Respiratory Rate 14 02/03/2024 3:11 PM CDT Oxygen Saturation 99% 02/03/2024 3:11 PM CDT Inhaled Oxygen Concentration - - Weight 77.3 kg (170 lb 6.4 oz) 02/03/2024 3:11 P M CDT Height 165 cm (5' 4.96) 08/12/2023 10:46 AM CDT Body Mass Index 28.39 08/12/2023 10:46 AM CDT Plan of Treatment Upcoming Encounters Date Type Department Care Team (Late st Contact Info) Description 02/18/2024 3:15 PM CODE ENFORCEMENT INSPECTOR Orders Only [facility] [address] [place] [address] Lab, [place] 02/24/2024 1:10 PM CODE ENFORCEMENT INSPECTOR Office Visit [facility] [address] [place] [address] Tim Chanel MD [address] [place] [address] 03/23/2024 9:30 AM CODE ENFORCEMENT INSPECTOR Orders Only [facility] [address] [place] [address] Lab, Nf 06/22/2024 10:15 AM CDT Orders Only [facility] [address] [place] [address] Lab, Nf Health Maintenance Due Date Last Done Comments RSV vaccine for adults or (1 - 1-dose 75+ series) 2013 Influenza for age 65+ 12/13/2023 01/05/2023 , [...] Completed 2012, 08/31/2007, 08/31/2007 (Completed outside of [facility]) Pneumococcal series for age 65+ Completed 10/09/2014, 09/11/2010, 01/11/1997 Zoster (shingles) series for age 50+ Completed 08/31/2018, 05/29/2018, 08/05/2006 Tdap Completed 12/09/2022, 05/19/2011 COVID-19 vaccine series Completed 01/06/20 24, 02/06/2023, 01/15/2022, Additional history exists Procedures Procedure Name Priority Date/Time Associated Diagnosis Comments PROTIME-INR Routine 02/03/2024 4:16 PM CDT New onset atrial fibrillation (HC) Anticoagulation monitoring, INR range 2-3 INR,POCT Routine 01/20/2024 10:49 AM CDT New onset atrial fibrillation (HC) Anticoagulation monitoring, INR range 2-3 PROTIME-INR STAT 01/04/2024 4:46 PM CDT New onset atrial fibrillation (HC) Anticoagulation monitoring, INR range 2-3 PROTIME-INR STAT 12/25/2023 3:44 PM CDT New onset atrial fibrillation (HC) Anticoagulation monitoring, INR range 2-3 RENAL FUNCTION PANEL Routine 12/25/2023 3:44 PM CDT Chronic kidney disease, stage V (HC) PROTIME-INR STAT 12/17/2023 3:14 PM CDT New onset atrial fibrillation (HC) Anticoagulation monitoring, INR range 2-3 HEMOGLOBIN A1C MONITORING (POCT) Routine 12/17/2023 3:14 PM CDT Diabetes mellitus [...] to Health Maintenance Results * (ABNORMAL) PROTIME-INR (02/03/2024 4:16 PM CDT) Only the most recent of4 resultswithin the time period is included. INR 3.2(H) [facility] Comment: Reference Range ? 0.9-1.1 Moderate-intensity Warfarin Therapy 2.0-3.0 Higher-intensity Warfarin Therapy ?? 3.0-4.0 PT 31.7(H) 9.0 - 11.5 sec [facility] Comment: For additional information, please refer to http://education.SeoPult.[employer] [place]/faq/QCM633 (This link is being provided for informational/ educational purposes only.) Blood BLOOD SPECIMEN / Unknown 02/03/2024 4:16 PM CDT 02/03/2024 4:16 PM CDT Tim Chanel MD HEMATOLOGY [facility] [address] [place] [address], [facility] [address] [place] [address] * (ABNORMAL) INR,POCT (01/20/2024 10:49 AM CDT) Only the most recent of4 resultswithin the time period is included. INR 3.9(H) ratio [facility] Comment: INRs >2.9 may be falsely elevated in patients receiving either unfractionated Heparin or Low Molecular Weight Heparin. Follow up testing in a hospital laboratory may be helpful if clinically indicated. INR results of > or = 5.0 should be verified using the standard venipuncture procedure. Reference Range ? 0.9-1.1 Moderate-intensity Warfarin Therapy 2.0-3.0 Higher-intensity Warfarin Therapy ?? 3.0-4.0 PROTHROMBIN TIMEP 47.3(H) 10.5 - 13.1 sec [facility] Comment: Point of care fingerstick Prothrombin Time/INR results may vary from venous Prothrombin Time/INR methodologies. Any results exhibiting inconsistency with the patient's clinical status should be repeated using a venous Prothrombin Time/INR method. Blood BLOOD SPECIMEN / Unknown 01/20/2024 10:49 AM CDT 01/20/2024 10:49 AM CDT Tim Chanel MD LABORATORY Performing Organization Address City/[facility]/ZIP Co de Phone Number [facility] [address] [place] [address], [place] [phone] [facility] [address] [place] [address] * (ABNORMAL) RENAL FUNCTION PANEL (12/25/2023 3:44 PM CDT) SODIUM 144 136 - 145 mmol/L 12/26/2023 12:04 AM CDT [facility] POTASSIUM 3.8 3.5 - 5.1 mmol/L 12/26/2023 12:04 AM [facility] TRAL LAB[facility]ATORY CHLORIDE 111(H) 98 - 107 mmol/L 12/26/2023 12:04 AM [facility] CO2,TOTAL 18(L) 22 - 29 mmol/L 12/26/2023 12:04 AM [facility] ANION GAP 15 5 - 18 12/26/2023 12:04 AM [facility] GLUCOSE 110(H) 70 - 99 mg/dL 12/26/2023 12:04 AM [facility] CALCIUM 9.0 8.8 - 10.2 mg/dL 12/26/2023 12:04 AM [facility] BUN 59(H) 8 - 23 mg/dL 12/26/2023 12:04 AM [facility] CREATININE 3.27(H) 0.50 - 0.90 mg/dL 12/26/2023 12:04 AM [facility] TR[facility] BUN/CREAT RATIO 18 10 - 20 12:04 AM [facility] eGFR 13(L) >90 mL/min/1.7 3m2 12/26/2023 12:04 AM [facility] Comment:As of 2021, eG FR is calculated by the CKD-EPI creatinine equation without race adjustment. ??eGFR can be influenced by muscle mass, exercise, and diet. ??The reported eGFR is an estimation only and is only applicable if the renal function is stable. PHOSPHORUS 4.1 2.5 - 4.5 mg/dL 12/26/2023 12:04 AM [facility] TR[facility] ALBUMIN 4.2 4.0 - 4.9 g/dL 12/26/2023 12:04 AM [facility] TRA LABORATORY Blood BLOOD SPECIMEN / Unknown Venipuncture / Unknown 12/25/2023 3:44 PM CDT 12/25/2023 3:47 PM CDT Tim Chanel MD CHEMISTRY Performing Organization Address [facility] Co de Phone Number [facility] [address] [place] [id number], * HEMOGLOBIN A1C MONITORING (POCT) (12/17/2023 3:14 PM CDT) HEMOGLOBIN A1C MONITORING (POCT) 6.2 <=6.4 % 12/17/2023 3:25 PM CDT [facility] Blood BLOOD SPECIMEN / Unknown Venipuncture / Unknown 12/17/2023 3:14 PM CDT 12/17/2023 3:17 PM CDT Narrative [facility] - 12/17/2023 3:25 PM CDT ? (<=6.9%) [...] Anemias, Splenectomy ? Tim Chanel MD CHEMISTRY Performing Organization Address [facility] Co de Phone Number [facility] [address] [place] [address], * (ABNORMAL) XR DXA BONE DENSITY 2 SITES (10/07/2012 1:58 PM CDT) Anatomical Region Laterality Modality Spine, HIPS, HIPL, HIPR Other Narrative 10/08/2012 6:53 PM CDT Please see scanned document for results of this study. Procedure Note Binta Dewey - 10/08/2012 Please see scanned document for results of this study. Ace WHALEN from Last 3 Months or Most Recently Relevant to Health Maintenance Advance Directives Documents on File Type Date Recorded Patient Cab Supervisor Expl anation POLST 08/11/2023 Treatment Guidelines 08/02/2021 Healthcare Directive 04/01/2012 2:32 PM H EALT CARE DIRECTIVE, [facility], 01/08/2000 * DNR (Latest [...] Preferences, Provider to review later Care Teams Recycling Program Manager Relationship Specialty Start Date End Date Tim Chanel MD [address] [place] [address] PCP - General Family Practice 03/30/13 Tay Pearson [address] [place] [address] Cylinder Sander Operator 09/29/11 Veena Mitchell MD [address] [address] Dermatology Dermatology 07/04/22
--- OUTSIDE RECORDS SUMMARY | 2024-02-12 13:29 | XMS_ITS | Encounter Summary ---
Author Organization [facility] Address [address] [place] [address] Care Team Providers Care Labor Relations Teacher Name Role Phone Tim Chanel MD Primary Care Provider [phone] Encounter Details Date Type Department Care Team (Late st Contact Info) Description 07/13/2023 Orders Only [facility] [address] [place], [place] [address] [address] Dm Rain MD [address] [place] [address] Stage 5 chronic kidney disease [...] (HCC) documented in this encounter Care Teams Labor Relations Teacher Relationship Specialty Start Date End Date Tim Chanel MD [address] [place] [address] PCP - General Family Medicine 04/20/23 documented as of this encounter
--- OUTSIDE RECORDS SUMMARY | 2024-02-12 13:29 | XMS_ITS | Clinical Summary ---
Author Organization [facility] Address [address] [facility] [place] [address] Phone Care Team Providers Care Machine Wedger Name Role Phone Tim Chanel MD Primary Care Provider [phone] Allergies Active Allergy Reactions Criticality Noted Date Comments Amlodipine Swelling 09/26/2016 Conjugated Estrogens 09/01/2006 intolerance: sore breasts Gabapentin Other (see comments) 08/31/2021 Pt stopped because she did not like the way it made her feal. Medications levothyroxine (SYNTHROID, LEVOTHROID) 75 MCG tablet Take 75 mcg by mouth 1 (one) time each day 3 Active metoprolol succinate XL (TOPROL XL) 50 MG 24 hr tablet Take 50 mg by mouth in the morning and 50 mg in the evening. 3 Active warfarin (COUMADIN) 2.5 MG tablet Take 7.5 mg by mouth 2 tab on Thursday, 7.5 all other days 4 Active atorvastatin (LIPITOR) 10 MG tablet Take 10 mg by mouth in the morning. 3 Active brimonidine (ALPHAGAN) 0.2 % ophthalmic solution Administer 1 drop into affected eye(s) in the morning and 1 drop in the evening. 0 Active Latanoprostene Bunod (Vyzulta) 0.024 % solution 4 Active furosemide (LASIX) 20 MG tablet Take 20 mg by mouth if needed Active Active Problems Problem Noted Date Diagnosed [...] [facility] [place] [address] [address] Dm Rain MD Stage 5 chronic kidney disease (HCC) (Primary Dx); Secondary hyperparathyroidism of renal origin (HCC); Hypertensive chronic kidney disease with stage 1 through stage 4 chronic kidney disease, or unspecified chronic kidney disease; Chronic systolic heart failure (HCC); Hypercoagulable state due to atrial fibrillation (HCC) 12/28/2023 Orders Only [facility] [place] [address] Dm Rain MD Stage 5 chronic kidney disease (HCC) from Last 3 Months Immunizations Name Administration [...] Foot Exam 04/29/2023 Influenza Vaccine (#1) 2023 3, 01/15/2022, 01/21/2021, Additional history exists Diabetes: Hemoglobin [...] MD LAB BLOOD ORDERABLES Final Re sult COLTEN from Last 3 Months Insurance [facility] [employer] Care Teams Machine Wedger Relationship Specialty Start Date End Date Tim Chanel MD [address] [place] [address] PCP - General Family Medicine 04/20/23
== END 2024-02-12 13:27 | disposition home or self-care (01) ==
LOC: WOUND 13:26
PROVIDERS: PCP Family Medicine; Visit Provider Nurse Practitioner Family
DX: I87.303 Chronic venous hypertension (idiopathic) without complications of bilateral lower extremity (principal)
CPT/HCPCS: G0463

== ENCOUNTER 2024-10-03 13:27 | Inpatient (IN) | payer MEDICARE, SELFPAY ==
[2024-10-03] VITALS (21 sets, daily range): BP systolic 131–167; BP diastolic 66–113; PULSE 63–111; RESP 10–24; TEMP 36.1–36.7; O2SAT 93–99; BMI 32.1
--- OUTSIDE RECORDS SUMMARY | 2024-10-03 13:31 | XMS_ITS | Clinical Summary ---
Author Organization [facility] Address Formerly [facility] [place] [address] Care Team Providers Care Graphics Intern Name Role Phone PearsonPatriciaTay W Unavailable [phone] Tim Chanel MD Primary Care Provider [phone] Veena Mitchell MD Unavailable [phone] Allergies Active Allergy Reactions Criticality Noted Date Comments Amlodipine Edema 09/26/2016 Gabapentin Other - Describe In Comment Field 08/31/2021 Pt stopped because she did not like the way it made her feal. Conjugated Estrogens 09/01/2006 intolerance: sore breasts Medications blood sugar diagnostic (Ascensia CONTOUR) stripIndications: Diabetes mellitus with peripheral vascular disease (HC) Dispense test strips covered by the patient insurance. Test 1 times per day. 100 Each 4 08/12/19 24 Active Vyzulta 0.024 % drop Place 1 Drop into right eye at bedtime. 04/15/19 24 Active potassium chloride (K-TAB) 20 mEq extended-release tablet Take by mouth. Take one dose as needed if taking 2 lasix. 05/14/19 24 Active metoprolol succinate 50 mg sustained-release tabletIndications :Atrial fibrillation with RVR (HC),Essential hypertension Take 1 Tablet (50 mg) by mouth two times daily. 180 Tablet 3 08/25/19 25 Active levothyroxine 75 mcg tabletIndications :Other specified hypothyroidism Take 1 Tablet (75 mcg) by mouth before breakfast. 90 Tablet 3 08/25/19 Active furosemide 20 mg tabletIndications :Lymphedema,Acute on chronic systolic heart failure (HC) Take 1 Tablet (20 mg) by mouth two times daily. 180 Tablet 3 08/25/19 25 Active atorvastatin 10 mg tabletIndications :Other hyperlipidemia Take 1 Tablet (10 mg) by mouth at bedtime. 90 Tablet 3 08/25/19 25 Active timoloL maleate 0.5 % ophthalmic solution Place 1 Drop into right eye two times daily. Active warfarin 2.5 mg tabletIndications :Anticoagulation monitoring, INR range 2-3,Chronic atrial fibrillation (HC),New onset atrial fibrillation (HC) Take by mouth 7.5 mg (2.5 mg x 3) every Sun; 5 mg (2.5 mg x 2) all other days in the evening OR as directed 10/01/19 Active warfarin 2.5 mg tabletIndications :Anticoagulation monitoring, INR range 2-3,Chronic atrial fibrillation (HC),New onset atrial fibrillation (HC) Take by mouth 5 mg (2.5 mg x 2) every Thu, Thu; 7.5 mg (2.5 mg x 3) all other days in the evening OR as directed 09/01/19 25 025 Discontinued(R eorder (E-cancel not sent)) warfarin 2.5 mg tabletIndications :Anticoagulation monitoring, INR range 2-3,Chronic atrial fibrillation (HC),New onset atrial fibrillation (HC) Take by mouth 7.5 mg every Thu, Thu, Thu; 5 mg all other days in the evening OR as directed 09/15/19 25 025 Discontinued warfarin 2.5 mg tabletIndications :Anticoagulation monitoring, INR range 2-3,Chronic atrial fibrillation (HC),New onset atrial fibrillation (HC) Take by mouth 7.5mg (3 tablets) every Thursday/Thu/ y and 5mg (2 tablets) rest of days in the evening or as directed per INR results 220 Tablet 09/20/19 25 025 Discontinued(R eorder (E-cancel not sent)) Active Problems Problem Noted Date Diagnosed Date Allergic arthritis of right hip 09/16/2024 Chronic atrial fibrillation 06/21/2024 Lymphedema 09/18/2023 Malignant melanoma of left posterior [...] mellitus with peripheral vascular disea se 08/06/2022 Overview (07/13/2024): Diet controlled as of 07/13/2024 Tim Chanel MD signed electronically .................... 07/13/2024 Vitamin D deficiency 08/06/2022 Overview (08/06/2022): She [...] on stage 4 chronic kidney disease 08/31/2021 (HFpEF) heart failure with preserved ejection fr action 07/26/2021 Overview (08/07/2021): She has combined systolic and diastolic CHF. She was discharged on goal directed therapy for HF on 08/01/21 as follows: lasix 20 mg daily, spironolactone 50 mg daily, lisinopril 10 mg daily, Toprol XL 50 mg BID. 07/28/21 echocardiogram shows ejection fraction 40-45% with concentric left ventricular hypertrophy Anticoagulation monitoring, INR range 2-3 2020 Essential hypertension 06/11/2018 Other specified hypothyroidism 05/28/2018 Other hyperlipidemia 05/28/2018 Bilateral lower extremity edema 12/29/2016 Overview (01/20/2023): Baseline weight as of 12/2022 is 173 pounds. Osteopenia 10/09/2012 Overview (10/09/2012): Noted on recent bone mineral density; suggest Calcium+ 2000 mg/day and vitamin D 2000 units/day and regular exercise at least 3 times per week. Needs follow up bone mineral density in 2 years. Ace Tran MD 10/09/2012 2:05 PM Varicose vein of leg 09/29/2011 ACP (advance care planning) 11/18/2010 Overview (01/05/2012): Discussed 11/18/2010 Again 01/05/2012 Rosacea 01/05/2007 Restless legs syndrome (RLS) 01/05/2007 Encounters Date Type Department Care Team Description 10/03/2024 Nurse Triage [facility] [address] [facility] [place] [address] Tim Chanel MD Shortness Of Breath 09/28/2024 1:30 PM CDT Orders Only [facility] [address] [facility] [address] [facility] [place] [facility] 09/28/2024 Anticoagulation (warfarin) [facility] [address] [place] [address] 1, [place] [facility] Anticoagulation 09/27/2024 Travel 09/17/2024 Refill [facility] [place] [facility] [address] Tim Chanel MD Refill Request (Warfarin) 09/16/2024 10:55 AM CDT Phone Office Visit [facility] [place] [facility] [address] Tim Chanel MD Follow Up (Follow Up MRI) 09/14/2024 8:15 AM CDT Orders Only [facility] [place] [facility] [address] [facility] [place] [facility] 09/14/2024 Anticoagulation (warfarin) [facility] [place] [facility] [address] 1, [facility] Anticoagulation 09/13/2024 Travel 09/09/2024 8:45 AM CDT Ancillary Procedure [facility] [place] [facility] [address] 09/08/2024 Travel 08/31/2024 Anticoagulation (warfarin) [facility] [place] [facility] [address] 1, [facility] Anticoagulation 08/30/2024 12:15 PM CDT Ancillary Procedure [facility] [place] [facility] [address] 08/30/2024 11:15 AM CDT Ancillary Procedure [facility] [place] [facility] [place] [address] 08/30/2024 10:50 AM CDT Office Visit [facility] [place] [facility] [address] Tim Chanel MD Leg Swelling (Bilateral lower leg swelling); Derm Problem (Check sores on both lower legs); Musculoskeletal Problem (Right hip pain - having difficulties lifting that leg due to pain) 08/30/2024 Travel 08/24/2024 1:10 PM CDT Office Visit [facility] [place] [facility] [place] [address] Tim Chanel MD Medicare ANNUAL (subsequent) Visit 08/24/2024 Travel 08/22/2024 Travel 08/17/2024 1:15 PM CDT Orders Only [facility] [place] [address] [facility] [place] [address] Lab, [place] [facility] 08/17/2024 Refill [facility] [address] [facility] [place] [address] Tim Chanel MD Refill Request (Metoprolol Succinate) 08/17/2024 Anticoagulation (warfarin) [address] [place] [address] 1, [place] Anticoagulation 08/17/2024 Travel 08/17/2024 Telephone [facility] [address] [place] [address] Tim Chanel MD Anticoagulation (Annual re-enrollment /) 08/03/2024 Anticoagulation (warfarin) [address] [place] [address] 1, [facility] Anticoagulation (With OV) 08/02/2024 1:30 PM CDT Office Visit [facility] [place] [facility] [place] [address] Tim Chanel MD Follow Up (Follow up per Dr. Rain due to edema of legs, and decreased kidney function) 08/02/2024 Travel 07/27/2024 2:45 PM CDT Orders [place] [address] [place] [address] Lab[facility] [place] [facility] 07/27/2024 Anticoagulation (warfarin) [address] [place] [address] 1, [facility] Anticoagulation 07/27/2024 Travel 07/13/2024 10:05 AM CDT Office Visit [facility] [place] [facility] [place] [address] Tim Chanel MD Derm Problem (Blisters on legs bilateraly) 07/13/2024 Travel 07/13/2024 Anticoagulation (warfarin) [address] [place] [address] 1[facility] [place] Antico[facility] 07/12/2024 2:45 PM CDT Orders Only [facility] [place] [address] [place] <No scans attached> 07/11/2024 Travel 07/07/2024 Anticoagulation (warfarin) [facility] [place] [address] 1, [place] [facility] Anticoagulation (Provider Visit) 07/06/2024 10:05 AM CDT Office Visit [facility] [place] [address] [address] Tim Chanel MD Derm Problem (Blisters on right leg); Weight (Weight fluctuations) 07/06/2024 Travel 07/05/2024 Telephone [facility] [place] [address] Tim Chanel MD Questions (BLISTER ) from Last 3 Months Immunizations Immunization Administration Dates Next Due AMB INFLUENZA IIV3 (AGE 65+ YRS) PF (Flu Clinic Only) 01/14/2019,01/14/2018,01/14/2017 AMB Influenza, IIV3 (Age >=3 years)(Flu Clinic Only) 02/06/2010,01/17/2009,02/24/2008 Amb Influenza, Inact (High-d ose) (Flu Clinic Only) 01/28/2016 Amb Influenza, Inactivated A IIV4 (Age 65+ Years) Preserv Free 12/29/2019 COVID-19 VACCINE SPIKEVAX (M ODERNA 50MCG/0.5ML) 12YO+ PFS 02/06/2023 COVID-19 vaccine (Pfizer-Bio NTech 30mcg/0.3mL) 12YO+ [...] 01/14/2011 Influenza, IIV3 (Age >=3 years) 01/26/20 13,01/05/2012,01/14/2011,02/06,01/17/2009,02/24/2008,02/11/2007 ,02/11/2006,01/30/2005,01/30/2004,02/11 Influenza, Inactivated AIIV4 (Age 65+ Years) Preserv Free 01/05/2023,01/15/2022,01/21/2021 Influenza, Inactivated IIV3 (Age 65+ Years) Preserv Free 01/06/2024 Pneumococcal Poly,23-Valent (Pneumovax) 09/11/2010,01/11/1997 Pneumococcal conj 13-Valent (Prevnar 13) 10/09/2014 RSV, Recombinant ADJ Reconst ituted (Arexvy 120MCG/0.5mL) 01/06/2024 Td (Age >=7 Years) 09/21/2003 Tdap 12/09/2022,05/19/2011 [...] Comments Brother 1 Manan Alive Brother 2 Edward Alive Father Og (Age 80) Prostate C a Maternal Aunt Maternal Uncle Flynn Mother Rivka (Age 88) Other 1 Parminder (Age 16) Cousin: [place] calderón: of Aplastic Anemia Other 2 Sister Estefanía (Age 81) [place] Social History Tobacco Use Types Packs/Day Years Used Date Smoking Tobacco: Never Passive Smoke Exposure: Never Smokeless Tobacco: Never Tobacco Cessation:Counseling Given: No Alcohol Use Standard Drinks/Week Comments Yes 0 (1 standard drink = 0.6 oz pur e alcohol) 2 oz Wine on occassion PHQ-2 Answer Date Recorded PHQ-2 TOTAL SCORE 0 08/24/2024 Social Connections Answer Date Recorded Do you often feel lonely or isolated from those around you? 0 02/24/2024 Alcohol Use Answer Date Recorded How often do you have a drink containing alcohol ? 1 02/24/2024 How many drinks containing a lcohol do you have on a typical day when you are drinking? 0 02/24/2024 How often do you have five or more drinks on one occasion? 0 02/24/2024 Financial Resource Strain Answer Date R ecorded Difficulty of Paying Living Expenses 3 02/24/2024 Difficulty of Paying Living Expenses Not on file 02/24/2024 Food Insecurity Answer Date Recorded Do you worry your food will run out before you are able to buy more? 1 02/24/2024 Transportation Needs Answer Date Record ed Does lack of transportation keep you from medica l appointments? 1 02/24/2024 Does lack of transportation keep you from work, meetings or getting things that you need? 1 02/24/2024 Housing Stability Answer Date Recorded What is your housing situation today? 1 02/24/2024 Utilities Answer Date Recorded Do you have trouble paying f or utilities (for example, heat, electricity, water, phone)? 1 02/24/2024 Comments No Sex and Gender Information Value Date Recorded Sex Assigned at Not on file Legal Sex Female 5:24 AM [employer] Gender Identity Not on file Sexual Orientation Not on file Occupation Industry Job Start Date Job End Date Retired Not on file Not on file Not on file Obstetrics History Para Term AB IAB SAB Ectopic Multiple Livin g Live Births 6 5 5 Date Outcome GA Total Labor Labor/2nd/3rd Weight Sex Type Anes PTL Margarita A1 A5 Name Clin Para Para Para Para Comments:HMD w/i 7 hrs Para Last Filed Vital Signs Vital Sign Reading Time Taken Comments Blood Pressure 132/78 08/30/2024 11:29 AM CDT Pulse 85 08/30/2024 11:00 AM CDT Temperature 36.3 C (97.4 F) 08/30/2024 11:00 AM CDT Respiratory Rate 14 02/03/2024 3:11 PM CDT Oxygen Saturation 99% 08/30/2024 11:00 AM CDT Inhaled Oxygen Concentration - - Weight 85 kg (187 lb 6.4 oz) 08/30/2024 11:00 AM CDT Height 162.6 cm (5' 4) 08/24/2024 1:10 PM CDT Body Mass Index 32.17 08/24/2024 1:10 PM CDT Plan of Treatment Upcoming Encounters Date Type Department Care Team (Late st Contact Info) Description 10/17/2024 11:45 AM CDT Orders Only [facility] [address] [place] [address] Lab, [place] 10/31/2024 4:00 PM CDT Orders Only [facility] [address] [place] [address] Lab, [place] 02/21/2025 2:15 PM [employer] Orders Only [facility] [address] [place] [address] Lab, [place] 02/28/2025 2:20 PM [employer] Office Visit [facility] [address] [facility] [address] Tim Chanel MD [address] [facility] [place] [address] Health Maintenance Due Date Last Done Comments COVID-19 vaccine series ( season) 2024 01/06/2024, 02/06/2023, 01/15/2022, Additional history exists BMI (ht and wt on same day) for age 18+ 08/24/2025 08/24/2024, 08/12/2023, 06/30/2023, Additional history exists Depression screening for age 12+ 08/24/2025 08/24/2024, 06/24/2024, 06/22/2024, Additional history exists Medicare Wellness for age 65+ 08/25/2025, 08/12/2023, 08/06/2022, Additional history exists Tetanus booster 12/09/2032 12/09/2022, 09/2011, 09/21/2003 Hepatitis B series for 19+ Completed 01/30, 08/29/1992, 07/30/1992 DEXA/DXA scan for age 65+ Completed 2012, 08/31/2007, 08/31/2007 (Completed outside of [facility]) Pneumococcal series for age 50+ Completed 10/09/2014, 09/11/2010, 01/11/1997 Zoster (shingles) series for age 50+ Completed 08/31/2018, 05/29/2018, 08/05/2006 Tdap Completed 12/09/2022, 05/19/2011 Influenza Vaccine Completed 01/06/2024, , 01/15/2022, Additional history exists RSV vaccine for adults or Completed 01/06/2024 Procedures Procedure Name Priority Date/Time Associated Diagnosis Comments INR,POCT Routine 09/28/2024 1:34 PM CDT Anticoagulation monitoring, INR range 2-3 Chronic atrial fibrillation (HC) PROTIME-INR Routine 09/14/2024 7:38 AM CDT Anticoagulation monitoring, INR range 2-3 Chronic atrial fibrillation (HC) INR,POCT Routine 09/14/2024 7:16 AM CDT Anticoagulation monitoring, INR range 2-3 Chronic atrial fibrillation (HC) MR SPINE LUMBAR WO MARYCARMEN 09/09/2024 9: 38 AM CDT Lumbar radiculopathy Lumbar myelopathy (HC) PROTIME-INR Routine 08/30/2024 12:30 PM CDT Anticoagulation monitoring, INR range 2-3 Chronic atrial fibrillation (HC) XR HIP 1 VIEW W PELVIS RIGHT Routine 08/30/2024 12:28 PM CDT Hip pain, right HEMOGLOBIN A1C Routine 08/30/2024 12:28 PM CDT Diabetes mellitus with peripheral vascular disease (HC) LIPID PANEL W REFLEX MEASURED LDL Routine 08/30/2024 12:28 PM CDT Diabetes mellitus with peripheral vascular disease (HC) TSH WITH REFLEX Routine 08/30/2024 12:28 PM CDT Other specified hypothyroidism BASIC METABOLIC PANEL Routine 08/30/2024 12:28 PM CDT End stage renal disease (HC) Bilateral lower extremity edema US VENOUS LOWER EXTREMITY RIGHT MARYCARMEN 08/30/2024 12:15 PM CDT Right leg pain INR,POCT Routine 08/17/2024 1:09 PM CDT New onset atrial fibrillation (HC) Anticoagulation monitoring, INR range 2-3 BASIC METABOLIC PANEL Routine 08/02/2024 2:17 PM CDT End stage renal disease (HC) TSH WITH REFLEX Routine 08/02/2024 2:17 PM CDT Other specified hypothyroidism LIPID PANEL W REFLEX MEASURED LDL Routine 08/02/2024 2:17 PM CDT Other hyperlipidemia PROTIME-INR Routine 08/02/2024 2:17 PM CDT New onset atrial fibrillation (HC) Anticoagulation monitoring, INR range 2-3 INR,POCT Routine 07/27/2024 2:47 PM CDT New onset atrial fibrillation (HC) Anticoagulation monitoring, INR range 2-3 PROTIME-INR Routine 07/12/2024 2:59 PM CDT New onset atrial fibrillation (HC) Anticoagulation monitoring, INR range 2-3 RENAL FUNCTION PANEL Routine 07/12/2024 2:52 PM CDT CKD (chronic kidney disease) stage 5, GFR less than 15 ml/min (HC) HEMOGLOBIN Routine 07/12/2024 2:52 PM CDT CKD (chronic kidney disease) stage 5, GFR less than 15 ml/min (HC) PTH,INTACT Routine 07/12/2024 2:52 PM CDT CKD (chronic kidney disease) stage 5, GFR less than 15 ml/min (HC) BASIC METABOLIC PANEL Routine 07/06/2024 11:29 AM CDT Lymphedema Acute on chronic systolic heart failure (HC) PROTIME-INR Routine 07/06/2024 11:24 AM CDT New onset atrial fibrillation (HC) Anticoagulation monitoring, INR range 2-3 XR DXA BONE DENSITY 2 SITES AXIAL Routine 10/07/2012 1:58 PM CDT Vitamin D deficiency Osteoporosis from Last 3 Months or Most Recently Relevant to Health Maintenance Results * (ABNORMAL) INR - POCT [31423.2] - Standing Order (09/28/2024 1:34 PM CDT) Only the most recent of4 resultswithin the time period is included. INR 4.0(H) ratio [facility] Comment: INRs >2.9 may be falsely elevated in patients receiving either unfractionated Heparin or Low Molecular Weight Heparin. Follow up testing in a hospital laboratory may be helpful if clinically indicated. INR results of > or = 5.0 should be verified using the standard venipuncture procedure. Reference Range 0.9-1.1 Moderate-intensity Warfarin Therapy 2.0-3.0 Higher-intensity Warfarin Therapy 3.0-4.0 PROTHROMBIN TIMEP 48.6(H) 10.5 - 13.1 sec [facility] Comment: Point of care fingerstick Prothrombin Time/INR results may vary from venous Prothrombin Time/INR methodologies. Any results exhibiting inconsistency with the patient's clinical status should be repeated using a venous Prothrombin Time/INR method. Blood BLOOD SPECIMEN / Unknown 09/28/2024 1:34 PM CDT 09/28/2024 1:35 PM CDT Tim Chanel MD LABORATORY Final Resu lt Performing Organization Address [facility]/ZIP Co de Phone Number [facility] [address] [place] [address], [place] [phone] [facility] [address] [place] [address] * (ABNORMAL) PROTIME-INR [[id number]] - Standing Order (09/14/2024 7:38 AM CDT) Only the most recent of5 resultswithin the time period is included. INR 3.7(H) <1.3 09/14/2024 2:05 PM CDT [facility] PROTIME 42.7(H) 10.6 - 12.4 sec 09/14/2024 2:05 PM CDT [facility] Blood BLOOD SPECIMEN / Unknown [facility] / Unknown 09/14/2024 7:38 AM CDT 09/14/2024 7:38 AM CDT Narrative [facility] - 09/14/2024 2:05 PM CDT Therapeutic Range 2.0-3.0 for most anticoagulated patients 2.5-3.5 [...] is on UFH. Tim Chanel MD HEMATOLOGY Final Resu lt Performing Organization Address City/[facility]/ZIP Co de Phone Number [facility] [address] [place] [address], [place] * MR SPINE LUMBAR WO (09/09/2024 9:38 AM CDT) Anatomical Region Laterality Modality Spine, LUMBAR SPINE Magnetic Res onance 09/09/2024 10:2 3 AM CDT Narrative 09/09/2024 10:23 AM CDT For Patients: As a result of the Cures Act, medical imaging exams and procedure reports are released immediately into your electronic medical record. You may view this report before your referring provider. If you have questions, please contact your health care provider. Indication: Lumbar radiculopathy. Technique: Multiplanar, multisequence MRI of the lumbar spine was performed without intravenous contrast. Comparison: None relevant available. Findings: There are 5 lumbar type vertebral segments identified. The vertebral body heights are maintained without evidence of fracture. There is no discrete T1 hypointense marrow infiltrating process. The conus medullaris terminates at L1, normal. Cauda equina appears unremarkable. T12-L1: No spinal canal or neural foraminal stenosis. L1-2: Disc degeneration. No spinal canal or neural foraminal narrowing. Mild facet arthropathy. L2-3: Moderate disc degeneration. Disc bulge combined with ligamentum flavum thickening and facet arthropathy results in mild spinal canal narrowing. Moderate left and [id number]-zhlkngcz right neural foraminal narrowing. Moderate facet arthropathy. L3-4: Trace anterolisthesis. Uncovering of the disc combined with ligamentum flavum thickening and facet arthropathy resulting in mild spinal canal narrowing. Mild neural foraminal narrowing. Severe facet arthropathy. L4-5: Disc degeneration. Minimal spinal canal narrowing. Mild neural foraminal narrowing. Severe facet arthropathy. L5-S1: Trace anterolisthesis. Mild spinal canal narrowing. Mild neural foraminal narrowing. Moderate facet arthropathy. Mild sacroiliac joint osteoarthritis. Impression: 1. At L2-3, moderate left and zosr-po-dgrozanz right neural foraminal narrowing. 2. At L3-4, mild spinal canal and neural foraminal narrowing. 3. Mild spondylosis at the remaining lumbar levels. Dictated by Keith Harmon MD @ 09/09/2024 10:23:44 AM (Electronically Signed) Procedure Note Keith Harmno DO - 09/09/2024 For Patients: As a result of the Century Cures Act, medical imagingexams and procedure reports are released immediately into your electronicmedical record. You may view this report before your referring provider.If you have questions, please contact your health care provider. Indication: Lumbar radiculopathy. Technique: Multiplanar, multisequence MRI of the lumbar spine was performed withoutintravenous contrast. Comparison: None relevant available. Findings: There are 5 lumbar type vertebral segments identified. The vertebral bodyheights are maintained without evidence of fracture. There is no discreteT1 hypointense marrow infiltrating process. The conus medullaris terminates at L1, normal. Cauda equina appearsunremarkable. T12-L1: No spinal canal or neural foraminal stenosis. L1-2: Disc degeneration. No spinal canal or neural foraminal narrowing.Mild facet arthropathy. L2-3: Moderate disc degeneration. Disc bulge combined with ligamentumflavum thickening and facet arthropathy results in mild spinal canalnarrowing. Moderate left and ksry-yf-wwqfxwak right neural foraminalnarrowing. Moderate facet arthropathy. L3-4: Trace anterolisthesis. Uncovering of the disc combined withligamentum flavum thickening and facet arthropathy resulting in mildspinal canal narrowing. Mild neural foraminal narrowing. Severe facetarthropathy. L4-5: Disc degeneration. Minimal spinal canal narrowing. Mild neuralforaminal narrowing. Severe facet arthropathy. L5-S1: Trace anterolisthesis. Mild spinal canal narrowing. Mild neuralforaminal narrowing. Moderate facet arthropathy. Mild sacroiliac joint osteoarthritis. Impression: 1. At L2-3, moderate left and ozxw-iy-wtqsuuhx right neural foraminalnarrowing. 2. At L3-4, mild spinal canal and neural foraminal narrowing. 3. Mild spondylosis at the remaining lumbar levels. Dictated by Keith Harmon MD @ 09/09/2024 10:23:44 AM (Electronically Signed) us Tim Chanel MD MR Final Resu lt * XR HIP 1 VIEW W PELVIS RIGHT (08/30/2024 12:28 PM CDT) Anatomical Region Laterality Modality HIPS, HIPR, Pelvis Computed Radi ography 08/30/2024 12:3 2 PM CDT Narrative 08/30/2024 12:32 PM CDT For Patients: As a result of the Cures Act, medical imaging exams and procedure reports are released immediately into your electronic medical record. You may view this report before your referring provider. If you have questions, please contact your health care provider. Indication: Hip pain Technique: Pelvis and right hip 2 views Comparison: 04/15/2023 CT abdomen and pelvis Findings: Vascular calcifications. Chronic hypertrophic changes at the symphysis pubis. Mild spurring at the right hip joint. Chronic density adjacent to the greater trochanter. Impression: Mild degenerative joint disease right hip. Constipation suspected. Dictated by Manan Meza MD @ 08/30/2024 12:32:39 PM (Electronically Signed) Procedure Note Manan Meza MD - 08/30/2024 For Patients: As a result of the s Act, medical imagingexams and procedure reports are released immediately into your electronicmedical record. You may view this report before your referring provider.If you have questions, please contact your health care provider. Indication: Hip pain Technique: Pelvis and right hip 2 views Comparison: 04/15/2023 CT abdomen and pelvis Findings: Vascular calcifications. Chronic hypertrophic changes at the symphysispubis. Mild spurring at the right hip joint. Chronic density adjacent tothe greater trochanter. Impression: Mild degenerative joint disease right hip. Constipation suspected. Dictated by Manan Meza MD @ 08/30/2024 12:32:39 PM (Electronically Signed) us Tim Chanel MD GENERAL IMAGING Final Resu lt * (ABNORMAL) HEMOGLOBIN A1C (08/30/2024 12:28 PM CDT) HEMOGLOBIN A1C 6.9(H) <5.7 % [facility] Comment: For someone without known diabetes, a hemoglobin A1c value of 6.5% or greater indicates that they may have diabetes and this should be confirmed with a follow-up test. For someone with known diabetes, a value <7% indicates that their diabetes is well controlled and a value greater than or equal to 7% indicates suboptimal control. A1c targets should be individualized based on duration of diabetes, age, comorbid conditions, and other considerations. Currently, no consensus exists regarding use of hemoglobin A1c for diagnosis of diabetes for children. Blood BLOOD SPECIMEN / Unknown 08/30/2024 12:28 PM CDT 08/30/2024 12:28 PM CDT Tim Chanel MD CHEMISTRY Final Resu lt Performing Organization Address [facility]/ZIP Co de Phone Number [facility] [address] [place] [address], [facility] [address] [place] [address] * TSH WITH REFLEX (08/30/2024 12:28 PM CDT) Only the most recent of2 resultswithin the time period is included. TSH W/REFLEX TO FT4 3.80 0.40 - 4.50 mIU/L [facility] Blood BLOOD SPECIMEN / Unknown 08/30/2024 12:28 PM CDT 08/30/2024 12:28 PM CDT Tim Chanel MD CHEMISTRY Final Resu lt Performing Organization Address [facility] de Phone Number [facility] [address] [place] [phone], [facility] [address] [place] [address] * (ABNORMAL) LIPID PANEL W REFLEX MEASURED LDL (08/30/2024 12:28 PM CDT) Only the most recent of2 resultswithin the time period is included. CHOLESTEROL, TOTAL 112 <200 mg/dL [facility] HDL CHOLESTEROL 48(L) > OR = 50 mg/dL [facility] TRIGLYCERIDES 77 <150 mg/dL [facility] LDL-CHOLESTEROL 48 mg/dL (calc) [facility] Comment: Reference range: <100 Desirable range <100 mg/dL for primary prevention; <70 mg/dL for patients with CHD or diabetic patients with > or = 2 CHD risk factors. LDL-C is now calculated using the Verona calculation, which is a validated novel method providing better accuracy than the Friedewald equation in the estimation of LDL-C. Elmer SS et al. ALEX. 2013;310(19): 0834-3304 (http://education.[employer]/faq/IDD349) CHOL/HDLC RATIO 2.3 <5.0 (calc) [facility] NON HDL CHOLESTEROL 64 <130 mg/dL (calc) [facility] Comment: For patients with diabetes plus 1 major ASCVD risk factor, treating to a non-HDL-C goal of <100 mg/dL (LDL-C of <70 mg/dL) is considered a therapeutic option. Blood BLOOD SPECIMEN / Unknown 08/30/2024 12:28 PM CDT 08/30/2024 12:28 PM CDT us Tim Chanel MD CHEMISTRY Final Resu lt [facility] [address] [place] [address], [facility] [address] [place] [address] * (ABNORMAL) BASIC METABOLIC PANEL (08/30/2024 12:28 PM CDT) Only the most recent of3 resultswithin the time period is included. Pathologist [facility] GLUCOSE 107(H) 65 - 99 mg/dL [facility] Comment: Fasting reference interval For someone without known diabetes, a glucose value between 100 and 125 mg/dL is consistent with prediabetes and should be confirmed with a follow-up test. UREA NITROGEN (BUN) 50(H) 7 - 25 mg/dL [facility] CREATININE 3.30(H) 0.60 - 0.95 mg/dL [facility] EGFR 13(L) > OR = 60 mL/min/1.7 3m2 [facility] BUN/CREATININE RATIO 15 6 - 22 (calc) [facility] SODIUM 144 135 - 146 mmol/L [facility] POTASSIUM 3.7 3.5 - 5.3 mmol/L [facility] CHLORIDE 110 98 - 110 mmol/L [facility] CARBON DIOXIDE 21 20 - 32 mmol/L [facility] ELECTROLYTE BALANCE 13 7 - 17 mmol/L (calc) [facility] CALCIUM 9.4 8.6 - 10.4 mg/dL [facility] Blood BLOOD SPECIMEN / Unknown 08/30/2024 12:28 PM CDT 08/30/2024 12:28 PM CDT us Tim Chanel MD CHEMISTRY Final Resu lt [facility] [address] [place] [address], [place] [phone] [facility] [address] [place] [address] * US VENOUS LOWER EXTREMITY RIGHT (08/30/2024 12:15 PM CDT) Anatomical Region Laterality Modality LEGS, LEG R, Abdomen Ultrasound 08/30/2024 12:2 5 PM CDT Impressions 08/30/2024 12:25 PM CDT Normal venous ultrasound exam. No evidence of deep vein thrombosis within the right lower extremity. Dictated by Manan Meza MD @ 08/30/2024 12:25:53 PM (Electronically Signed) Narrative 08/30/2024 12:25 PM CDT For Patients: As a result of the Cures Act, medical imaging exams and procedure reports are released immediately into your electronic medical record. You may view this report before your referring provider. If you have questions, please contact your health care provider. INDICATION: Right leg pain COMPARISON: None TECHNIQUE: A compression venous ultrasound exam was performed of the right lower extremity using cuevas-scale imaging, color Doppler and spectral Doppler analysis. FINDINGS: Sonographic imaging of the right lower extremity demonstrates normal compressibility and color [...] color Doppler venous blood flow within the left common femoral vein. Procedure Note Manan Meza MD - 08/30/2024 For Patients: As a result of the Cures Act, medical imagingexams and procedure reports are released immediately into your electronicmedical record. You may view this report before your referring provider.If you have questions, please contact your health care provider. INDICATION: Right leg pain COMPARISON: None TECHNIQUE: A compression venous ultrasound exam was performed of the right lowerextremity using cuevas-scale imaging, color Doppler and spectral Doppleranalysis. FINDINGS: Sonographic imaging of the right lower extremity demonstrates normalcompressibility and color Doppler [...] color Doppler venous blood flow within the left commonfemoral vein. IMPRESSION: Normal venous ultrasound exam. No evidence of deep vein thrombosis withinthe right lower extremity. Dictated by Manan Meza MD @ 08/30/2024 12:25:53 PM (Electronically Signed) us Tim Chanel MD US Final Resu lt * HEMOGLOBIN (07/12/2024 2:52 PM CDT) HEMOGLOBIN 13.7 11.7 - 15.5 g/dL [facility] Blood BLOOD SPECIMEN / Unknown 07/12/2024 2:52 PM CDT 07/12/2024 2:53 PM CDT Dm Rain MD HEMATOLOGY Final R esult Performing Organization Address City/[facility]/ZIP Co de Phone Number [facility] [address] [place] [address], [place] [phone] [facility] [address] [place] [address] * (ABNORMAL) PTH,INTACT (07/12/2024 2:52 PM CDT) PARATHYROID HORMONE, INTACT 312(H) 16 - 77 pg/mL [facility] Comment: Interpretive Guide Intact PTH Calcium ------- Normal Parathyroid Normal Normal Hypoparathyroidism Low or Low Normal Low Hyperparathyroidism Primary Normal or High High Secondary High Normal or Low Tertiary High High Non-Parathyroid Hypercalcemia Low or Low Normal High CALCIUM 9.0 8.6 - 10.4 mg/dL [facility] Blood BLOOD SPECIMEN / Unknown 07/12/2024 2:52 PM CDT 07/12/2024 2:53 PM CDT Dm Rain MD SEND OUTS Final R esult Performing Organization Address City/[facility]/ZIP Co de Phone Number [facility] [address] [address], [place] [phone] [facility] [address] [place] [address] * (ABNORMAL) RENAL FUNCTION PANEL (07/12/2024 2:52 PM CDT) GLUCOSE 172(H) 65 - 99 mg/dL [facility] Comment: Fasting reference interval For someone without known diabetes, a glucose value >125 mg/dL indicates that they may have diabetes and this should be confirmed with a follow-up test. UREA NITROGEN (BUN) 43(H) 7 - 25 mg/dL [facility] CREATININE 3.19(H) 0.60 - 0.95 mg/dL [facility] EGFR 14(L) > OR = 60 mL/min/1.7 3m2 [facility] BUN/CREATININE RATIO 13 6 - 22 (calc) [facility] SODIUM 144 135 - 146 mmol/L [facility] POTASSIUM 3.9 3.5 - 5.3 mmol/L [facility] CHLORIDE 106 98 - 110 mmol/L [facility] CARBON DIOXIDE 24 20 - 32 mmol/L [facility] CALCIUM 9.0 8.6 - 10.4 mg/dL [facility] PHOSPHATE ( PHOSPHORUS) 4.6(H) 2.1 - 4.3 mg/dL [facility] ALBUMIN 3.9 3.6 - 5.1 g/dL [facility] Blood BLOOD SPECIMEN / Unknown 07/12/2024 2:52 PM CDT 07/12/2024 2:53 PM CDT Dm Rain MD CHEMISTRY Final R esult [facility] [address] [place] [address], [email or web address] [address] [place] [address] * (ABNORMAL) XR DXA BONE DENSITY 2 SITES (10/07/2012 1:58 PM CDT) Anatomical Region Laterality Modality Spine, HIPS, HIPL, HIPR Other Narrative 10/08/2012 6:53 PM CDT Please see scanned document for results of this study. Procedure Note Binta Dewey - 10/08/2012 Please see scanned document for results of this study. 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, 01/08/2000 * DNR (Latest Code Status on [...] Preferences, Provider to review later Care Teams Graphics Intern Relationship Specialty Start Date End Date Tim Chanel MD [address] [place] [address] PCP - General Family Practice 03/30/13 Tay Pearson [address] [place] [phone] Director Statistical Programming 09/29/11 Veena Mitchell MD [address] [address] Dermatology Dermatology 07/04/22
--- NOTE | 2024-10-03 14:27 | XR_ITS ---
Patient: SUZAN VELASQUEZ Facility:?[facility] Patient ID:?[id number] Site Patient ID:?[id number]. Site :?[id number] Study:?XRay-Chest 2v-10/03/2024 2:51:48 PM Ordering Physician:Singh Rodriguez Final Report: INDICATION: Shortness of breath. TECHNIQUE: Chest 2 views. COMPARISON: None. FINDINGS: Indeterminate left basilar consolidation. There may be minimal right infrahilar airspace opacities. Small left effusion. No definite pneumothorax. Mild cardiomegaly. Mediastinal contours are normal. IMPRESSION: 1. Mild indeterminate basilar consolidation. This may represent atelectasis or pneumonia with associated small effusion. Recommend follow-up radiographs in 6-8 weeks. Dictated by Mahamed Napoles MD @ 10/03/2024 2:54:24 PM (Electronic Signature)
--- NOTE | 2024-10-03 14:33 | ED.GENADULT ---
HPI - General Adult General Chief complaint: Shortness of Breath/Dyspnea <Jennifer Aguirre MD - Last Filed: 10/03/24 14:36> Stated complaint: shortness of breath <Jennifer Aguirre MD - Last Filed: 10/03/24 14:36> Time Seen by Provider: 10/03/24 13:31 <Jennifer Aguirre MD - Last Filed: 10/03/24 14:36> Source: patient <Jennifer Aguirre MD - Last Filed: 10/03/24 14:36> Mode of arrival: ambulatory <Jennifer Aguirre MD - Last Filed: 10/03/24 14:36> Limitations: no limitations <Jennifer Aguirre MD - Last Filed: 10/03/24 14:36> History of Present Illness HPI narrative: Patient is an 84-year-old female coming in today complaining of shortness of breath for over a week. She denies chest pain. Appetite has been normal. She denies cough, fevers or chills. No recent illness. Patient states that she has been gaining weight, unclear how much weight she has gained and what period of time. She states that she has chronically swollen lower extremities, notices increased swelling around her knees. Shortness of breath at rest at with activity. No diarrhea, no urinary symptoms. Patient takes Lasix 40 mg daily. All her Coumadin was recently decreased in dose. No other changes. <Jennifer Aguirre MD - Last Filed: 10/03/24 14:36> Related Data Home medications: Home Medications ?Medication ?Instructions ?Recorded ?Confirmed cholecalciferol (vitamin D3) 50 50 mcg PO DAILY 01/10/22 05/05/23 mcg (2,000 unit) tablet dorzolamide 22.3 mg-timolol 6.8 1 drp ophthalmic (eye) BID 01/10/22 05/05/23 mg/mL eye drops furosemide 20 mg tablet 20 - 40 mg PO DAILY PRN 01/10/22 05/05/23 Held on 05/14/23. Instructions: Resume on 06/11/23. HOLD until reevaluated by Nephrology, PCP levothyroxine 75 mcg tablet 75 mcg PO DAILY 01/10/22 05/05/23 allopurinol 100 mg tablet 100 mg PO DAILY 05/05/23 05/05/23 Held on 05/14/23. Instructions: Resume on 06/11/23. HOLD until reevaluated by Nephrology, PCP. Renal dosing would be 50mg twice weekly given eGFR 10 atorvastatin 10 mg tablet 10 mg PO HS 05/05/23 05/05/23 brimonidine 0.2 % eye drops 1 drp ophthalmic (eye) BID 05/05/23 05/05/23 latanoprostene bunod 0.024 % eye 1 drp ophthalmic (eye) HS 05/05/23 05/05/23 drops (Vyzulta) metoprolol succinate 50 mg 50 mg PO BID 05/05/23 05/05/23 tablet,extended release 24 hr Previous Rx's ?Medication ?Instructions ?Recorded potassium chloride 20 mEq 20 meq PO BID #60 tabs 05/14/23 tablet,extended release (K-Tab) warfarin 2.5 mg tablet 5 - 7.5 mg (2 - 3 x 2.5 mg) PO 05/14/23 DAILY #30 tabs <Jennifer Aguirre MD - Last Filed: 10/03/24 14:36> Allergies/adverse reactions: Allergies Allergy/AdvReac Type Severity Reaction Status Date / Time No Known Drug Allergies Allergy Verified 05/05/23 12:33 <Jennifer Aguirre MD - Last Filed: 10/03/24 14:36> Review of Systems Status of ROS: Reports: 10 or more systems reviewed and unremarkable except as noted in History and below <Jennifer Aguirre MD - Last Filed: 10/03/24 14:36> [facility] Medical History: Medical History Right knee pain ?M25.561 - Pain in right knee (ICD-10) Metabolic acidosis ?E87.20 - Acidosis, unspecified (ICD-10) Disorder of fluid or electrolyte ?E87.8 - Other disorders of electrolyte and fluid balance, not elsewhere classified (ICD-10) Hypothyroidism ?E03.9 - Hypothyroidism, unspecified (ICD-10) Glaucoma ?H40.9 - Unspecified glaucoma (ICD-10) Hyperlipidemia ?E78.5 - Hyperlipidemia, unspecified (ICD-10) Secondary renal hyperparathyroidism ?N25.81 - Secondary hyperparathyroidism of renal origin (ICD-10) Hypertension ?I10 - Essential (primary) hypertension (ICD-10) Osteopenia ?M85.80 - Other specified disorders of bone density and structure, unspecified site (ICD-10) Lower extremity edema ?R60.0 - Localized edema (ICD-10) Heart failure with preserved ejection fraction ?I50.30 - Unspecified diastolic (congestive) heart failure (ICD-10) End stage kidney disease ?N18.6 - End stage renal disease (ICD-10) Atrial fibrillation ?I48.91 - Unspecified atrial fibrillation (ICD-10) <Jennifer Aguirre MD - Last Filed: 10/03/24 14:36> Surgical History: Surgical History S/P exploratory laparotomy ?Z98.890 - Other specified postprocedural states (ICD-10) History of hysterectomy ?Z90.710 - Acquired absence of both cervix and uterus (ICD-10) History of colonoscopy with polypectomy ?Z98.890 - Other specified postprocedural states (ICD-10) ?Z86.010 - Personal history of colonic polyps (ICD-10) History of cholecystectomy ?Z90.49 - Acquired absence of other specified parts of digestive tract (ICD-10) History of appendectomy ?Z90.49 - Acquired absence of other specified parts of digestive tract (ICD-10) <Jennifer Aguirre MD - Last Filed: 10/03/24 14:36> Family History: Family History Sister Stroke Father Prostate cancer Other Heart disease <Jennifer Aguirre MD - Last Filed: 10/03/24 14:36> Social History: Social History Narrative: She lives in her own home near [facility]. She has 4 steps to get in the house but otherwise can live on 1 level. She walks with a walker. She reports this is going well for her but her children are encouraging her to move to a more handicapped assessable facility. She occasionally drinks alcohol. She does not smoke. Code status is DNR. Her daughter Veena is healthcare power of district attorney What is your current living situation?: I presently have a place to live Problems where you live: no known problems Problems where you live details: [facility] In the past 12 months, utilities in danger of being shut off: no In past 12 months, lack of transportation kept you from medical appts, meetings, work, or getting things needed for daily living: no In the past 12 mos, have been you worried that your food would run out before you had money to buy more?: never true In the past 12 mos, the food you bought just didn't last and you didn't have money to buy more?: never true Highest level of school completed/degree received: high school graduate Smoking Status: Never smoker Do you use any of these nicotine containing products: None Second hand tobacco smoke exposure: No How often do you have a drink containing alcohol: monthly or less Alcohol type: hard liquor Alcohol type details: special occasions How many standard drinks containing alcohol do you have on a typical day: 1 or 2 How often do you have six or more drinks on one occasion: Never AUDIT-C Alcohol total score: 1 Non-prescribed substance use: denies use Caffeine: Yes How often does anyone, including family, friends and others, physically hurt you: never How often does anyone, including family, friends and others, insult or talk down to you: never How often does anyone, including family, friends and others, threaten you with harm: never How often does anyone, including family, friends and others, scream or curse at you: never service: No <Jennifer Aguirre MD - Last Filed: 10/03/24 14:36> Exam Narrative: Exam Narrative: Well-nourished well-developed elderly patient in no acute distress. Alert and oriented. Answers questions appropriately. Mood and affect are appropriate. Thoughts are goal oriented and rational. No tangential or magical thinking noted. Patient speaks in full sentences without needing to catch her breath. HEENT: Normocephalic atraumatic. Pupils are equally round reactive to light. Extraocular muscles are intact. Conjunctivae are moist without any icterus noted. Moist mucous membranes. Cardiovascular: Heart is regular rate and rhythm S1 and S2 are present without any murmurs. Lungs: Clear to auscultation bilaterally. No pain with deep inspiration. Abdomen: Soft and nontender nondistended with normal bowel sounds. Extremities: Bilateral lower extremities show [place] induration with chronic venous stasis. Patient has pitting edema all the way up to her distal thighs. Skin: Well perfused. <Jennifer Aguirre MD - Last Filed: 10/03/24 14:36> Const: Vital Signs, click to edit/add: Vital Signs - 24 hr 10/03/24 13:32 10/03/24 14:27 10/03/24 14:30 Temperature 98.0 F Pulse Rate 104 H Pulse Rate [Pulse Oximeter] 111 H Respiratory Rate 22 Blood Pressure Blood Pressure [Ri ght Upper Arm] 167/83 H Pulse Oximetry 99 97 97 Oxygen Delivery Me thod Room Air 10/03/24 14:45 10/03/24 15:00 10/03/24 15:30 Temperature Pulse Rate 108 H 110 H Pulse Rate [Pulse Oximeter] Respiratory Rate 20 Blood Pressure Blood Pressure [Ri ght Upper Arm] 131/94 H Pulse Oximetry 97 97 Oxygen Delivery Me thod 10/03/24 16:00 10/03/24 16:42 10/03/24 16:45 Temperature Pulse Rate 63 69 Pulse Rate [Pulse Oximeter] Respiratory Rate 20 10 L 15 Blood Pressure Blood Pressure [Ri ght Upper Arm] 160/93 H Pulse Oximetry 98 98 Oxygen Delivery Me thod 10/03/24 17:00 10/03/24 17:03 10/03/24 17:15 Temperature Pulse Rate 71 68 74 Pulse Rate [Pulse Oximeter] Respiratory Rate 16 11 L 14 Blood Pressure 145/82 H Blood Pressure [Ri ght Upper Arm] Pulse Oximetry 96 93 95 Oxygen Delivery Me thod Room Air <Jennifer Aguirre MD - Last Filed: 10/03/24 14:36> Vital Signs, click to edit/add: Vital Signs - 24 hr 10/03/24 13:32 10/03/24 14:27 10/03/24 14:30 Temperature 98.0 F Pulse Rate 104 H Pulse Rate [Pulse Oximeter] 111 H Respiratory Rate 22 Blood Pressure Blood Pressure [Ri ght Upper Arm] 167/83 H Pulse Oximetry 99 97 97 Oxygen Delivery Me thod Room Air 10/03/24 14:45 10/03/24 15:00 10/03/24 15:30 Temperature Pulse Rate 108 H 110 H Pulse Rate [Pulse Oximeter] Respiratory Rate 20 Blood Pressure Blood Pressure [Ri ght Upper Arm] 131/94 H Pulse Oximetry 97 97 Oxygen Delivery Me thod 10/03/24 16:00 10/03/24 16:42 10/03/24 16:45 Temperature Pulse Rate 63 69 Pulse Rate [Pulse Oximeter] Respiratory Rate 20 10 L 15 Blood Pressure Blood Pressure [Ri ght Upper Arm] 160/93 H Pulse Oximetry 98 98 Oxygen Delivery Me thod 10/03/24 17:00 10/03/24 17:03 10/03/24 17:15 Temperature Pulse Rate 71 68 74 Pulse Rate [Pulse Oximeter] Respiratory Rate 16 11 L 14 Blood Pressure 145/82 H Blood Pressure [Ri ght Upper Arm] Pulse Oximetry 96 93 95 Oxygen Delivery Me thod Room Air <Josue Sanchez MD - Last Filed: 10/03/24 17:51> Course Reevaluation(s) Time of Reevaluation #1: 16:32 <Josue Sanchez MD - Last Filed: 10/03/24 17:51> Reevaluation #1: Patient accepted in sign-out from Dr. Aguirre. Briefly this is need 4-year-old female who comes in with increasing shortness of breath, reported weight gain, and lower extremity swelling in the setting of atrial fibrillation and known heart failure with preserved ejection fraction as well as end-stage renal disease. Initial troponin 0.20, Lasix given in the emergency department for likely fluid overload. Review of chart shows that patient takes Lasix 20 mg twice a day. Labs independently interpreted by me with BNP [id number], creatinine is 2.8, prior in May 2023 was 4.2, most recent from [facility] on August 30 was 3.3. CBCs reassuring, potassium 3.7, urinalysis blood and protein but no evidence for infection, negative COVID test. Patient is anticoagulated on Coumadin, most recent INR on September 28 was 4. <Josue Sanchez MD - Last Filed: 10/03/24 17:51> Time of Reevaluation #2: 16:58 <Josue Sanchez MD - Last Filed: 10/03/24 17:51> Reevaluation #2: Repeat troponin is 0.22, this is essentially unchanged from prior but will discuss with Cardiology. I did review patient's prior echocardiogram from February 2023 which showed ejection fraction 45% and moderate right ventricular dysfunction. Chest x-ray and panel interpreted by me with indeterminate bibasilar consolidation, mild cardiomegaly. <Josue Sanchez MD - Last Filed: 10/03/24 17:51> Time of Reevaluation #3: 17:48 <Josue Sanchez MD - Last Filed: 10/03/24 17:51> Reevaluation #3: Care discussed with Dr. Agarwal, cardiology at [facility] who is familiar with the patient. We discussed elevated creatinine, elevated troponin, elevated BNP. Feels that patient can be diuresed and observed. Care discussed with Dr. Valentine for admission. I updated patient and family regarding findings and plan. <Josue Sanchez MD - Last Filed: 10/03/24 17:51> Vital Signs Vital signs: Initial Vital Signs Temperature 98.0 F 10/03/24 13:32 Temperature Source Temporal Artery Scan 10/03/24 13:32 Pulse Rate 111 H 10/03/24 13:32 Respiratory Rate 22 10/03/24 13:32 Respiratory Effort SOB at Exertion 10/03/24 13:32 Respiratory Depth Normal 10/03/24 13:32 Respiratory Pattern Normal 10/03/24 13:32 Blood Pressure 167/83 H 10/03/24 13:32 Blood Pressure Mean 111 H 10/03/24 13:32 Blood Pressure Position Sitting 10/03/24 13:32 Pulse Oximetry 99 10/03/24 13:32 Oxygen Delivery Method Room Air 10/03/24 13:32 Vital Signs Temperature 98.0 F 10/03/24 13:32 Pulse Rate 111 H 10/03/24 13:32 Respiratory Rate 22 10/03/24 13:32 Blood Pressure 167/83 H 10/03/24 13:32 Pulse Oximetry 99 10/03/24 13:32 Oxygen Delivery Method Room Air 10/03/24 13:32 Temperature 98.0 F 10/03/24 13:32 Pulse Rate 74 10/03/24 17:15 Respiratory Rate 14 10/03/24 17:15 Blood Pressure 145/82 H 10/03/24 17:03 Pulse Oximetry 95 10/03/24 17:15 Oxygen Delivery Method Room Air 10/03/24 17:03 <Jennifer Aguirre MD - Last Filed: 10/03/24 14:36> Initial Vital Signs Temperature 98.0 F 10/03/24 13:32 Temperature Source Temporal Artery Scan 10/03/24 13:32 Pulse Rate 111 H 10/03/24 13:32 Respiratory Rate 22 10/03/24 13:32 Respiratory Effort SOB at Exertion 10/03/24 13:32 Respiratory Depth Normal 10/03/24 13:32 Respiratory Pattern Normal 10/03/24 13:32 Blood Pressure 167/83 H 10/03/24 13:32 Blood Pressure Mean 111 H 10/03/24 13:32 Blood Pressure Position Sitting 10/03/24 13:32 Pulse Oximetry 99 10/03/24 13:32 Oxygen Delivery Method Room Air 10/03/24 13:32 Vital Signs Temperature 98.0 F 10/03/24 13:32 Pulse Rate 111 H 10/03/24 13:32 Respiratory Rate 22 10/03/24 13:32 Blood Pressure 167/83 H 10/03/24 13:32 Pulse Oximetry 99 10/03/24 13:32 Oxygen Delivery Method Room Air 10/03/24 13:32 Temperature 98.0 F 10/03/24 13:32 Pulse Rate 74 10/03/24 17:15 Respiratory Rate 14 10/03/24 17:15 Blood Pressure 145/82 H 10/03/24 17:03 Pulse Oximetry 95 10/03/24 17:15 Oxygen Delivery Method Room Air 10/03/24 17:03 <Josue Sanchez MD - Last Filed: 10/03/24 17:51> Medications Administered Medications: Discontinued Medications Generic Name Dose Route Start Last Admin Trade Name Freq PRN Reason Stop Dose Admin Aspirin 324 mg 10/03/24 15:37 10/03/24 15:53 Aspirin 81 Mg Tab.Chew PO 10/03/24 15:38 324 mg ONCE ONE Administration Furosemide 40 mg 10/03/24 14:27 10/03/24 15:28 Furosemide 10 Mg/Ml Inj IVP 10/03/24 14:28 40 mg ONCE ONE Administration <Jennifer Aguirre MD - Last Filed: 10/03/24 14:36> Discontinued Medications Generic Name Dose Route Start Last Admin Trade Name Freq PRN Reason Stop Dose Admin Aspirin 324 mg 10/03/24 15:37 10/03/24 15:53 Aspirin 81 Mg Tab.Chew PO 10/03/24 15:38 324 mg ONCE ONE Administration Furosemide 40 mg 10/03/24 14:27 10/03/24 15:28 Furosemide 10 Mg/Ml Inj IVP 10/03/24 14:28 40 mg ONCE ONE Administration <Josue Sanchez MD - Last Filed: 10/03/24 17:51> Medical Decision Making Lab Data Labs: Lab Results 10/03/24 10/03/24 10/03/24 Range/Units 14:28 15:10 15:25 WBC 6.52 (4.50-11.00) K/uL RBC 5.30 H (4.00-5.20) m/uL Hgb 14.7 (12.0-16.0) gm/dL Hct 46.0 (33.0-51.0) % MCV 87 (80-100) fL MCH 28 (26-34) pg MCHC 32 (32-36) gm/dL RDW Coeff of Percy 15.9 H (11.5-15.5) % Plt Count 193 (140-440) K/uL Neut % (Auto) 72.4 H (42.0-72.0) % Lymph % (Auto) 13.0 L (20-44) % [place] % (Auto) 10.0 (0.0-11.0) % Eos % (Auto) 2.6 (0.0-7.0) % Baso % (Auto) 0.6 (0.0-3.0) % Neut # (Auto) 4.70 (1.7-7.0) K/uL Lymph # (Auto) 0.80 L (0.90-2.90) K/uL [place] # (Auto) 0.70 (0.00-0.90) K/UL Eos # (Auto) 0.17 (0.00-0.50) K/uL Baso # (Auto) 0.04 (0.00-0.30) K/uL Abs Immat Gran (auto) 0.09 (0.00-0.30) K/uL Imm/Tot Granulo (auto) 1.4 % INR 2.98 H (0.91-1.10) Sodium 140 (135-149) mmol/L Potassium 3.7 (3.6-5.1) mmol/L Chloride 110 (96-114) mmol/L Carbon Dioxide 18 L (20-32) mmol/L Anion Gap 12 (7-15) mEq/L BUN 41 H (7-30) mg/dL Creatinine 2.8 H (0.5-1.5) mg/dL Estimated Creat Clear 12.98 Estimated GFR 16 ml/min Glucose 123 H (60-115) mg/dL Lactate 1.9 (0.5-1.9) mmol/L Calcium 8.9 (8.4-10.6) mg/dL Magnesium 1.9 (1.5-2.6) mg/dL Total Bilirubin 1.2 (0.1-1.5) mg/dL Direct Bilirubin 0.6 H (0.0-0.5) mg/dL AST 32 (12-35) U/L ALT 25 (4-35) U/L Alkaline Phosphatase 211 H (40-150) U/L Troponin I 0.20 H* (0.01-0.04) ng/mL C-Reactive Protein 0.8 (0.5-1.0) mg/dL NT-Pro-B Natriuret Pep 91971 H (See Note) pg/mL Total Protein 6.7 (6.0-8.3) g/dL Albumin 3.7 (3.3-5.0) g/dL Urine Color Yellow (Yellow) Urine Appearance Clear (Clear) Urine pH 5.5 (5.0-8.5) Ur Specific [place] 1.025 (1.000-1.030) Urine Protein 3+ A (Negative) Urine Glucose (UA) Negative (Negative) Urine Ketones Negative (Negative) Urine Blood 2+ A (Negative) Urine Nitrite Negative (Negative) Urine Bilirubin Negative (Negative) Urine Urobilinogen 1.0 (0.2-1.0) Ur Leukocyte Esterase Negative (Negative) Urine RBC 2-5 A (0-2) Urine WBC 0-2 (0-5) Ur Squamous Epith Cells Few (None-Few) Urine Bacteria None (None) SARS-CoV-2 (PCR) Negative SARS-CoV-2 (Negative) POC Troponin I 0.20 H (0.01-0.04) ng/ml 10/03/24 Range/Units 16:30 WBC (4.50-11.00) K/uL RBC (4.00-5.20) m/uL Hgb (12.0-16.0) gm/dL Hct (33.0-51.0) % MCV (80-100) fL MCH (26-34) pg MCHC (32-36) gm/dL RDW Coeff of Percy (11.5-15.5) % Plt Count (140-440) K/uL Neut % (Auto) (42.0-72.0) % Lymph % (Auto) (20-44) % [place] % (Auto) (0.0-11.0) % Eos % (Auto) (0.0-7.0) % Baso % (Auto) (0.0-3.0) % Neut # (Auto) (1.7-7.0) K/uL Lymph # (Auto) (0.90-2.90) K/uL [place] # (Auto) (0.00-0.90) K/UL Eos # (Auto) (0.00-0.50) K/uL Baso # (Auto) (0.00-0.30) K/uL Abs Immat Gran (auto) (0.00-0.30) K/uL Imm/Tot Granulo (auto) % INR (0.91-1.10) Sodium (135-149) mmol/L Potassium (3.6-5.1) mmol/L Chloride (96-114) mmol/L Carbon Dioxide (20-32) mmol/L Anion Gap (7-15) mEq/L BUN (7-30) mg/dL Creatinine (0.5-1.5) mg/dL Estimated Creat Clear Estimated GFR ml/min Glucose (60-115) mg/dL Lactate (0.5-1.9) mmol/L Calcium (8.4-10.6) mg/dL Magnesium (1.5-2.6) mg/dL Total Bilirubin (0.1-1.5) mg/dL Direct Bilirubin (0.0-0.5) mg/dL AST (12-35) U/L ALT (4-35) U/L Alkaline Phosphatase (40-150) U/L Troponin I (0.01-0.04) ng/mL C-Reactive Protein (0.5-1.0) mg/dL NT-Pro-B Natriuret Pep (See Note) pg/mL Total Protein (6.0-8.3) g/dL Albumin (3.3-5.0) g/dL Urine Color (Yellow) Urine Appearance (Clear) Urine pH (5.0-8.5) Ur Specific [place] (1.000-1.030) Urine Protein (Negative) Urine Glucose (UA) (Negative) Urine Ketones (Negative) Urine Blood (Negative) Urine Nitrite (Negative) Urine Bilirubin (Negative) Urine Urobilinogen (0.2-1.0) Ur Leukocyte Esterase (Negative) Urine RBC (0-2) Urine WBC (0-5) Ur Squamous Epith Cells (None-Few) Urine Bacteria (None) SARS-CoV-2 (PCR) (Negative) POC Troponin I 0.22 H (0.01-0.04) ng/ml <Jennifer Aguirre MD - Last Filed: 10/03/24 14:36> Lab Results 10/03/24 10/03/24 10/03/24 Range/Units 14:28 15:10 15:25 WBC 6.52 (4.50-11.00) K/uL RBC 5.30 H (4.00-5.20) m/uL Hgb 14.7 (12.0-16.0) gm/dL Hct 46.0 (33.0-51.0) % MCV 87 (80-100) fL MCH 28 (26-34) pg MCHC 32 (32-36) gm/dL RDW Coeff of Percy 15.9 H (11.5-15.5) % Plt Count 193 (140-440) K/uL Neut % (Auto) 72.4 H (42.0-72.0) % Lymph % (Auto) 13.0 L (20-44) % [place] % (Auto) 10.0 (0.0-11.0) % Eos % (Auto) 2.6 (0.0-7.0) % Baso % (Auto) 0.6 (0.0-3.0) % Neut # (Auto) 4.70 (1.7-7.0) K/uL Lymph # (Auto) 0.80 L (0.90-2.90) K/uL [place] # (Auto) 0.70 (0.00-0.90) K/UL Eos # (Auto) 0.17 (0.00-0.50) K/uL Baso # (Auto) 0.04 (0.00-0.30) K/uL Abs Immat Gran (auto) 0.09 (0.00-0.30) K/uL Imm/Tot Granulo (auto) 1.4 % INR 2.98 H (0.91-1.10) Sodium 140 (135-149) mmol/L Potassium 3.7 (3.6-5.1) mmol/L Chloride 110 (96-114) mmol/L Carbon Dioxide 18 L (20-32) mmol/L Anion Gap 12 (7-15) mEq/L BUN 41 H (7-30) mg/dL Creatinine 2.8 H (0.5-1.5) mg/dL Estimated Creat Clear 12.98 Estimated GFR 16 ml/min Glucose 123 H (60-115) mg/dL Lactate 1.9 (0.5-1.9) mmol/L Calcium 8.9 (8.4-10.6) mg/dL Magnesium 1.9 (1.5-2.6) mg/dL Total Bilirubin 1.2 (0.1-1.5) mg/dL Direct Bilirubin 0.6 H (0.0-0.5) mg/dL AST 32 (12-35) U/L ALT 25 (4-35) U/L Alkaline Phosphatase 211 H (40-150) U/L Troponin I 0.20 H* (0.01-0.04) ng/mL C-Reactive Protein 0.8 (0.5-1.0) mg/dL NT-Pro-B Natriuret Pep [id number] H (See Note) pg/mL Total Protein 6.7 (6.0-8.3) g/dL Albumin 3.7 (3.3-5.0) g/dL Urine Color Yellow (Yellow) Urine Appearance Clear (Clear) Urine pH 5.5 (5.0-8.5) Ur Specific [place] 1.025 (1.000-1.030) Urine Protein 3+ A (Negative) Urine Glucose (UA) Negative (Negative) Urine Ketones Negative (Negative) Urine Blood 2+ A (Negative) Urine Nitrite Negative (Negative) Urine Bilirubin Negative (Negative) Urine Urobilinogen 1.0 (0.2-1.0) Ur Leukocyte Esterase Negative (Negative) Urine RBC 2-5 A (0-2) Urine WBC 0-2 (0-5) Ur Squamous Epith Cells Few (None-Few) Urine Bacteria None (None) SARS-CoV-2 (PCR) Negative SARS-CoV-2 (Negative) POC Troponin I 0.20 H (0.01-0.04) ng/ml 10/03/24 Range/Units 16:30 WBC (4.50-11.00) K/uL RBC (4.00-5.20) m/uL Hgb (12.0-16.0) gm/dL Hct (33.0-51.0) % MCV (80-100) fL MCH (26-34) pg MCHC (32-36) gm/dL RDW Coeff of Percy (11.5-15.5) % Plt Count (140-440) K/uL Neut % (Auto) (42.0-72.0) % Lymph % (Auto) (20-44) % [place] % (Auto) (0.0-11.0) % Eos % (Auto) (0.0-7.0) % Baso % (Auto) (0.0-3.0) % Neut # (Auto) (1.7-7.0) K/uL Lymph # (Auto) (0.90-2.90) K/uL [place] # (Auto) (0.00-0.90) K/UL Eos # (Auto) (0.00-0.50) K/uL Baso # (Auto) (0.00-0.30) K/uL Abs Immat Gran (auto) (0.00-0.30) K/uL Imm/Tot Granulo (auto) % INR (0.91-1.10) Sodium (135-149) mmol/L Potassium (3.6-5.1) mmol/L Chloride (96-114) mmol/L Carbon Dioxide (20-32) mmol/L Anion Gap (7-15) mEq/L BUN (7-30) mg/dL Creatinine (0.5-1.5) mg/dL Estimated Creat Clear Estimated GFR ml/min Glucose (60-115) mg/dL Lactate (0.5-1.9) mmol/L Calcium (8.4-10.6) mg/dL Magnesium (1.5-2.6) mg/dL Total Bilirubin (0.1-1.5) mg/dL Direct Bilirubin (0.0-0.5) mg/dL AST (12-35) U/L ALT (4-35) U/L Alkaline Phosphatase (40-150) U/L Troponin I (0.01-0.04) ng/mL C-Reactive Protein (0.5-1.0) mg/dL NT-Pro-B Natriuret Pep (See Note) pg/mL Total Protein (6.0-8.3) g/dL Albumin (3.3-5.0) g/dL Urine Color (Yellow) Urine Appearance (Clear) Urine pH (5.0-8.5) Ur Specific [place] (1.000-1.030) Urine Protein (Negative) Urine Glucose (UA) (Negative) Urine Ketones (Negative) Urine Blood (Negative) Urine Nitrite (Negative) Urine Bilirubin (Negative) Urine Urobilinogen (0.2-1.0) Ur Leukocyte Esterase (Negative) Urine RBC (0-2) Urine WBC (0-5) Ur Squamous Epith Cells (None-Few) Urine Bacteria (None) SARS-CoV-2 (PCR) (Negative) POC Troponin I 0.22 H (0.01-0.04) ng/ml <Josue Sanchez MD - Last Filed: 10/03/24 17:51> Discharge Plan Discharge Clinical Impression: CKD (chronic kidney disease), Acute exacerbation of CHF (congestive heart failure), Atrial fibrillation, Anticoagulated on Coumadin <Jennifer Aguirre MD - Last Filed: 10/03/24 14:36> Patient Disposition: Admitted As Observation <Jennifer Aguirre MD - Last Filed: 10/03/24 14:36>
[2024-10-03] MEDS: FUROSEMIDE 10 MG/ML inj 40 MG IVP ×2 (15:28→21:25)
[2024-10-03 15:34] LABS: Lactate* 1.9 mmol/L (0.5-1.9)
[2024-10-03] MEDS: ASPIRIN 81 MG TAB.CHEW 324 MG PO (15:53)
[2024-10-03 15:54] LABS: Appearance Urine Clear (Clear); Bilirubin Urine Negative (Negative); Blood Urine 2+ (Negative); Glucose Urine Negative (Negative); Ketones Urine Negative (Negative); Leukocyte Esterase Urine Negative (Negative); Nitrite Urine Negative (Negative); Protein Urine 3+ (Negative); Specific Gravity Urine 1.025 (1.000-1.030); pH Urine 5.5 (5.0-8.5)
[2024-10-03 16:00] LABS: INR 2.98 (0.91-1.10); Prothrombin Time 32.2 Seconds
[2024-10-03 16:04] LABS: Color Urine Yellow (Yellow)
[2024-10-03 16:05] LABS: Albumin* 3.7 g/dL (3.3-5.0); Chloride* 110 mmol/L (96-114)
[2024-10-03 16:06] LABS: Potassium* 3.7 mmol/L (3.6-5.1); Sodium* 140 mmol/L (135-149)
[2024-10-03 16:07] LABS: Basophils Absolute Auto 0.04 K/uL (0.00-0.30); Basophils Percent Auto 0.6 % (0.0-3.0); Eosinophils Absolute Auto 0.17 K/uL (0.00-0.50); Eosinophils Percent Auto 2.6 % (0.0-7.0); Hemoglobin* 14.7 gm/dL (12.0-16.0); Immature Granulocytes Abs Auto 0.09 K/uL (0.00-0.30); Immature Granulocytes Pct Auto 1.4 %; Mean Corpuscular HGB Conc 32 gm/dL (32-36); Mean Corpuscular Hemoglobin 28 pg (26-34); Mean Corpuscular Volume 87 fL (80-100); Neutrophils Percent Auto 72.4 % (42.0-72.0); Platelet Count* 193 K/uL (140-440); RDW Coefficient of Variation % 15.9 % (11.5-15.5); White Blood Count* 6.52 K/uL (4.50-11.00)
[2024-10-03 16:08] LABS: Blood Urea Nitrogen* 41 mg/dL (7-30); Creatinine* 2.8 mg/dL (0.5-1.5); Est. Creatinine Clearance* 12.98; Estimated Glomerular Filt Rate 16 ml/min
[2024-10-03 16:09] LABS: Alanine Aminotransferase* 25 U/L (4-35); Alkaline Phosphatase* 211 U/L (40-150); Anion Gap 12 mEq/L (7-15); Aspartate Amino Transferase* 32 U/L (12-35); Bilirubin Direct* 0.6 mg/dL (0.0-0.5); Bilirubin Total* 1.2 mg/dL (0.1-1.5); Calcium* 8.9 mg/dL (8.4-10.6); Carbon Dioxide* 18 mmol/L (20-32); Glucose* 123 mg/dL (60-115); Magnesium* 1.9 mg/dL (1.5-2.6); Total Protein* 6.7 g/dL (6.0-8.3)
[2024-10-03 16:12] LABS: C Reactive Protein* 0.8 mg/dL (0.5-1.0)
[2024-10-03 16:18] LABS: SARS PCR* Negative SARS-CoV-2 (Negative)
[2024-10-03 16:20] LABS: Squamous Epithelial Cell Urine Few (None-Few); WBC Urine 0-2 (0-5)
[2024-10-03 16:20] LABS: NT Pro B Type NatriureticPept* 27100 pg/mL (See Note); Slide Review Reflex No
[2024-10-03 16:55] LABS: Troponin, Point-of-Care* 0.22 ng/ml (0.01-0.04)
[2024-10-03 18:50] LABS: Phosphorus* 3.9 mg/dL (2.5-4.5)
[2024-10-03] MEDS: POTASSIUM BICARB 25 MEQ EFFERVESCENT TAB PO ×2 (19:29→21:24)
--- NOTE | 2024-10-03 19:32 | PM.IMHP1 ---
Assessment and Plan Assessment and plan (1) Acute exacerbation of CHF (congestive heart failure): Problem comment: I am going to change her diuretic from furosemide to torsemide for once daily dosing and better absorption. Her dry weight is likely between 180 and 185 lb. 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 This is going to make diuresis somewhat more challenging. She is not interested in dialysis. Status: Acute (3) Atrial fibrillation: Problem comment: Initially on presentation had AFib with RVR. Now clinically improved at rest with treatment Status: Acute (4) Anticoagulated on Coumadin: Problem comment: Recent increase in INR likely reflecting liver congestion from heart failure. I advised her to reassess her heart failure status if her INR increases without obvious other explanation. Status: Acute (5) Chronic venous stasis dermatitis: Problem comment: No active ulcerations. At risk for recurrent infections. Also likely has peripheral vascular disease. Status: Acute (6) Bilateral lower extremity edema: Problem comment: Compression and elevation and diuretic therapy. Status: Acute (7) Metabolic acidosis: Problem comment: Due to chronic kidney disease. Monitored and managed. Followed by Nephrology, Dr. Rain. Status: Acute Plan Patient is admitted the hospital for ongoing evaluation management of heart failure exacerbation in the context of stage 5 kidney disease. Aggressive diuresis is needed but patient has stage 5 kidney disease making this more difficult and requiring closer monitoring. Total Time Spent Total Time Spent: Total time spent today is 80 minutes in reviewing outside records, coordination of care, discussing with patient and other providers ongoing evaluation and management of heart failure, stage 5 kidney disease, lower extremity edema. Hospitalist- H&P: [facility] History of Present Illness Date Seen: 10/03/24 Chief complaint: shortness of breath Narrative: Tri Mckeon is a 84 year old female with stage 5 kidney disease, heart failure with moderately reduced ejection fraction, chronic venous stasis disease and lower extremity edema, atrial fibrillation on anticoagulation with warfarin admitted to the hospital with a 2 week history of progressive dyspnea. She reports she can now walk only a few feet before she gets dyspneic and has to stop. She has not had any chest pain. No syncope. No palpitations. No fever. She notes that her lower extremities are more edematous. She tries to wear her compression stockings and leg wraps but does not have them on at this time. She tells me she is compliant with her diuretic therapy. She has increased her furosemide from 20 mg twice daily to 40 mg in the morning and 20 in the afternoon due to her increased weight and edema. She is not monitoring her weight closely at home. She tells me her target weight is 185 lb. I note that 1 month ago she was seen in clinic where Dr. Chanel found her weight to be 187 lb. At that time her lower extremity edema was worse. Her weight had gone up 3 lb that week. He temporarily increased her furosemide for 2 days without obvious benefit. January of 2024 she saw the network announcer where her target weight was around 170 lb and she was at that weight at that time. On this admission her weight is 197 lb. She is not monitoring her weight closely at home but she is reporting that she is careful with taking her diuretics every day. She reports she has a compliant with her other medications as well. She has stage 5 kidney disease with a creatinine clearance around 13. She is followed by Dr. García for her end-stage renal disease. Review of Systems Narrative: Other than her severe dyspnea and lower extremity edema she has no other concerning symptoms. Medical Decision Making Medical Decision Making Code Status: DNR Has patient completed a Health Care Directive: Yes During This Stay, Who Would You Like To Make Decisions For You In The Event You Are Unable To Make Them For Yourself?: Daughter Veena Hendricks or Son Bertin [facility] Medical History (Updated 10/03/24 @ 19:50 by Rolly Valentine MD) Metabolic acidosis ?E87.20 - Acidosis, unspecified (ICD-10) Bilateral lower extremity edema ?R60.0 - Localized edema (ICD-10) Chronic venous stasis dermatitis ?I87.2 - Venous insufficiency (chronic) (peripheral) (ICD-10) Stage 5 chronic kidney disease ?N18.5 - Chronic kidney disease, stage 5 (ICD-10) Right knee pain ?M25.561 - Pain in right knee (ICD-10) Disorder of fluid or electrolyte ?E87.8 - Other disorders of electrolyte and fluid balance, not elsewhere classified (ICD-10) Hypothyroidism ?E03.9 - Hypothyroidism, unspecified (ICD-10) Glaucoma ?H40.9 - Unspecified glaucoma (ICD-10) Hyperlipidemia ?E78.5 - Hyperlipidemia, unspecified (ICD-10) Secondary renal hyperparathyroidism ?N25.81 - Secondary hyperparathyroidism of renal origin (ICD-10) Hypertension ?I10 - Essential (primary) hypertension (ICD-10) Osteopenia ?M85.80 - Other specified disorders of bone density and structure, unspecified site (ICD-10) Lower extremity edema ?R60.0 - Localized edema (ICD-10) Heart failure with preserved ejection fraction ?I50.30 - Unspecified diastolic (congestive) heart failure (ICD-10) End stage kidney disease ?N18.6 - End stage renal disease (ICD-10) Atrial fibrillation ?I48.91 - Unspecified atrial fibrillation (ICD-10) Surgical History S/P exploratory laparotomy ?Z98.890 - Other specified postprocedural states (ICD-10) History of hysterectomy ?Z90.710 - Acquired absence of both cervix and uterus (ICD-10) History of colonoscopy with polypectomy ?Z98.890 - Other specified postprocedural states (ICD-10) ?Z86.010 - Personal history of colonic polyps (ICD-10) History of cholecystectomy ?Z90.49 - Acquired absence of other specified parts of digestive tract (ICD-10) History of appendectomy ?Z90.49 - Acquired absence of other specified parts of digestive tract (ICD-10) Family History Sister Stroke Father Prostate cancer Other Heart disease Social History (Updated 10/03/24 @ 19:39 by Rolly Valentine MD) Narrative: [facility] for the last 16 months. She reports this is going well. She walks with a walker. She reports this is going well for her. She occasionally drinks alcohol. She does not smoke. Code status is DNR. Her daughter Veena is healthcare power of prosecuting attorney What is your current living situation?: I presently have a place to live Problems where you live: no known problems Problems where you live details: NA In the past 12 months, utilities in danger of being shut off: no In past 12 months, lack of transportation kept you from medical appts, meetings, work, or getting things needed for daily living: no In the past 12 mos, have been you worried that your food would run out before you had money to buy more?: never true In the past 12 mos, the food you bought just didn't last and you didn't have money to buy more?: never true Highest level of school completed/degree received: high school graduate Smoking Status: Never smoker Do you use any of these nicotine containing products: None Second hand tobacco smoke exposure: No How often do you have a drink containing alcohol: monthly or less Alcohol type: beer Alcohol type details: special occasions How many standard drinks containing alcohol do you have on a typical day: 1 or 2 How often do you have six or more drinks on one occasion: Never AUDIT-C Alcohol total score: 1 Non-prescribed substance use: denies use Caffeine: Yes (coffee) How often does anyone, including family, friends and others, physically hurt you: never How often does anyone, including family, friends and others, insult or talk down to you: never How often does anyone, including family, friends and others, threaten you with harm: never How often does anyone, including family, friends and others, scream or curse at you: never service: No Meds Home Medications and Allergies Home Medications ?Medication ?Instructions ?Recorded ?Confirmed ?Type cholecalciferol (vitamin D3) 50 50 mcg PO DAILY 01/10/22 05/05/23 History mcg (2,000 unit) tablet dorzolamide 22.3 mg-timolol 6.8 1 drp ophthalmic (eye) BID 01/10/22 05/05/23 History mg/mL eye drops furosemide 20 mg tablet 20 - 40 mg PO DAILY PRN 01/10/22 05/05/23 History Held on 05/14/23. Instructions: Resume on 06/11/23. HOLD until reevaluated by Nephrology, PCP levothyroxine 75 mcg tablet 75 mcg PO DAILY 01/10/22 05/05/23 History allopurinol 100 mg tablet 100 mg PO DAILY 05/05/23 05/05/23 History Held on 05/14/23. Instructions: Resume on 06/11/23. HOLD until reevaluated by Nephrology, PCP. Renal dosing would be 50mg twice weekly given eGFR 10 atorvastatin 10 mg tablet 10 mg PO HS 05/05/23 05/05/23 History brimonidine 0.2 % eye drops 1 drp ophthalmic (eye) BID 05/05/23 05/05/23 History latanoprostene bunod 0.024 % eye 1 drp ophthalmic (eye) HS 05/05/23 05/05/23 History drops (Vyzulta) metoprolol succinate 50 mg 50 mg PO BID 05/05/23 05/05/23 History tablet,extended release 24 hr potassium chloride 20 mEq 20 meq PO BID #60 tabs 05/14/23 05/05/23 Rx tablet,extended release (K-Tab) warfarin 2.5 mg tablet 5 - 7.5 mg (2 - 3 x 2.5 mg) PO 05/14/23 05/05/23 Rx DAILY #30 tabs Home Medication Comments: Furosemide increased from 20 b.i.d. to 40 in the morning and 20 in the afternoon for the last couple weeks Allergies Allergy/AdvReac Type Severity Reaction Status Date / Time No Known Drug Allergies Allergy Verified 05/05/23 12:33 Exam Narrative: Exam Narrative: She is alert and appears in no obvious distress. She has mild increased work of breathing. Eyes normal. Oropharynx with dry mucous membranes. Neck is supple without mass or adenopathy. Respirations with few bibasilar crackles. And occasional musical wheeze is heard anteriorly. Cardiovascular: S1, S2, regular rate and rhythm 1/6 systolic murmur. Abdomen: Bowel sounds active. Abdomen is soft without tenderness or mass. Lower extremities are edematous with fairly severe brawny induration and other chronic venous stasis skin changes including a [place] feel to the skin over the [place]. Left [place] has a 1 cm ulcer which appears shallow with superficial eschar no open lesions. Legs and feet both have a reddish purplish discoloration. Feet are cool to touch left greater than right. Diminished pedal pulses. Sluggish capillary refill. Const: Vital Signs, click to edit/add: Vital Signs - 24 hr 10/03/24 13:32 10/03/24 14:27 10/03/24 14:30 Temperature 98.0 F Pulse Rate 104 H Pulse Rate [Left R adial] Pulse Rate [Pulse Oximeter] 111 H Respiratory Rate 22 Blood Pressure Blood Pressure [Le ft Arm] Blood Pressure [Ri ght Upper Arm] 167/83 H Pulse Oximetry 99 97 97 Oxygen Delivery Me thod Room Air 10/03/24 14:45 10/03/24 15:00 10/03/24 15:30 Temperature Pulse Rate 108 H 110 H Pulse Rate [Left R adial] Pulse Rate [Pulse Oximeter] Respiratory Rate 20 Blood Pressure Blood Pressure [Le ft Arm] Blood Pressure [Ri ght Upper Arm] 131/94 H Pulse Oximetry 97 97 Oxygen Delivery Me thod 10/03/24 16:00 10/03/24 16:42 10/03/24 16:45 Temperature Pulse Rate 63 69 Pulse Rate [Left R adial] Pulse Rate [Pulse Oximeter] Respiratory Rate 20 10 L 15 Blood Pressure Blood Pressure [Le ft Arm] Blood Pressure [Ri ght Upper Arm] 160/93 H Pulse Oximetry 98 98 Oxygen Delivery Me thod 10/03/24 17:00 10/03/24 17:03 10/03/24 17:15 Temperature Pulse Rate 71 68 74 Pulse Rate [Left R adial] Pulse Rate [Pulse Oximeter] Respiratory Rate 16 11 L 14 Blood Pressure 145/82 H Blood Pressure [Le ft Arm] Blood Pressure [Ri ght Upper Arm] Pulse Oximetry 96 93 95 Oxygen Delivery Me thod Room Air 10/03/24 17:30 10/03/24 17:45 10/03/24 18:00 Temperature Pulse Rate 70 69 Pulse Rate [Left R adial] Pulse Rate [Pulse Oximeter] Respiratory Rate 12 15 24 Blood Pressure Blood Pressure [Le ft Arm] Blood Pressure [Ri ght Upper Arm] Pulse Oximetry 99 97 Oxygen Delivery Me thod 10/03/24 18:02 10/03/24 18:30 10/03/24 18:30 Temperature Pulse Rate Pulse Rate [Left R adial] 64 Pulse Rate [Pulse Oximeter] Respiratory Rate 24 20 20 Blood Pressure 148/113 H Blood Pressure [Le ft Arm] 137/92 H Blood Pressure [Ri ght Upper Arm] Pulse Oximetry 97 96 96 Oxygen Delivery Me thod Room Air Room Air Room Air Documenting provider has reviewed patient's vital signs: yes Hospitalist - H&P: Result Labs Labs: Short CBC 10/03/24 Range/Units 15:10 WBC 6.52 (4.50-11.00) K/uL Hgb 14.7 (12.0-16.0) gm/dL Hct 46.0 (33.0-51.0) % Plt Count 193 (140-440) K/uL BMP 10/03/24 15:10 Sodium 140 Potassium 3.7 Chloride 110 Carbon Dioxide 18 L BUN 41 H Creatinine 2.8 H Glucose 123 H Calcium 8.9 Cardiac Enzymes 10/03/24 Range/Units 15:10 Troponin I 0.20 H* (0.01-0.04) ng/mL Liver Function 10/03/24 Range/Units 15:10 Total Bilirubin 1.2 (0.1-1.5) mg/dL Direct Bilirubin 0.6 H (0.0-0.5) mg/dL AST 32 (12-35) U/L ALT 25 (4-35) U/L Alkaline Phosphatase 211 H (40-150) U/L Albumin 3.7 (3.3-5.0) g/dL Urine 10/03/24 Range/Units 15:25 Urine Color Yellow (Yellow) Urine Appearance Clear (Clear) Urine pH 5.5 (5.0-8.5) Ur Specific [place] 1.025 (1.000-1.030) Urine Protein 3+ A (Negative) Urine Glucose (UA) Negative (Negative) ECG Attestation: I personally reviewed and interpreted this ECG as follows: (Atrial fibrillation with nonspecific ST-T changes) ECG interpretation date: 10/03/24 Imaging Chest x-ray: Attestation: I have reviewed the pertinent imaging results. (Minimal basilar opacities which could represent pulmonary edema.)
[2024-10-03] MEDS: ATORVASTATIN CALCIUM 10 MG TABLET PO (21:25)
[2024-10-03] MEDS: METOPROLOL SUCCINATE (XL) 50 MG TAB PO (21:26)
[2024-10-03] MEDS: POTASSIUM CHLORIDE 10 MEQ CAPSULE ER 20 MEQ PO (21:26)
[2024-10-03] MEDS: SODIUM CHLORIDE 0.9 % (FLUSH) 10 ML SYRINGE 5 ML IVF (21:26)
[2024-10-04] VITALS (10 sets, daily range): BP systolic 129–147; BP diastolic 74–97; PULSE 62–82; RESP 16–20; TEMP 35.7–36.6; O2SAT 95–100
[2024-10-04] MEDS: LEVOTHYROXINE 75 MCG TABLET PO (06:31)
[2024-10-04 06:46] LABS: Basophils Absolute Auto 0.02 K/uL (0.00-0.30); Basophils Percent Auto 0.3 % (0.0-3.0); Eosinophils Absolute Auto 0.22 K/uL (0.00-0.50); Eosinophils Percent Auto 3.6 % (0.0-7.0); Hematocrit 43.6 % (33.0-51.0); Hemoglobin* 14.4 gm/dL (12.0-16.0); Immature Granulocytes Abs Auto 0.01 K/uL (0.00-0.30); Immature Granulocytes Pct Auto 0.2 %; Lymphocytes Percent Auto 14.7 % (20-44); Mean Corpuscular HGB Conc 33 gm/dL (32-36); Mean Corpuscular Hemoglobin 28 pg (26-34); Mean Corpuscular Volume 86 fL (80-100); Monocytes Percent Auto 10.8 % (0.0-11.0); Neutrophils Absolute Auto 4.35 K/uL (1.7-7.0); Neutrophils Percent Auto 70.4 % (42.0-72.0); Platelet Count* 170 K/uL (140-440); RDW Coefficient of Variation % 15.8 % (11.5-15.5); Red Blood Count 5.08 m/uL (4.00-5.20); White Blood Count* 6.18 K/uL (4.50-11.00)
[2024-10-04 06:48] LABS: Chloride* 111 mmol/L (96-114); Slide Review Reflex No; Sodium* 140 mmol/L (135-149)
[2024-10-04 06:49] LABS: Potassium* 3.8 mmol/L (3.6-5.1)
[2024-10-04 06:52] LABS: Anion Gap 10 mEq/L (7-15); Blood Urea Nitrogen* 44 mg/dL (7-30); Calcium* 8.9 mg/dL (8.4-10.6); Carbon Dioxide* 19 mmol/L (20-32); Creatinine* 2.7 mg/dL (0.5-1.5); Est. Creatinine Clearance* 13.46; Estimated Glomerular Filt Rate 17 ml/min; Glucose* 120 mg/dL (60-115)
--- NOTE | 2024-10-04 07:06 | PC.NURSE ---
End of shift noted [id number]: Pt A&Ox4 and able to make needs known. She is transferring with rolling walker and gait belt. She has been using BSC though external catheter was also placed overnight due to frequent urination caused by diuresis. Pt has been afebrile and on RA throughout the shift. Pt denying pain and N/V when asked. She does have shortness of breath with exertion. Pt up in recliner and call light within reach. Pt's daughter is supposed to be bringing her BOBBY stockings from home today, aware. Tele in place with A fib with NVR noted.
[2024-10-04 07:08] LABS: Troponin I* 0.21 ng/mL (0.01-0.04)
[2024-10-04 07:11] LABS: INR 3.05 (0.91-1.10); Prothrombin Time 32.8 Seconds
[2024-10-04] MEDS: POTASSIUM CHLORIDE 10 MEQ CAPSULE ER 20 MEQ PO ×2 (08:10→21:34)
[2024-10-04] MEDS: METOPROLOL SUCCINATE (XL) 50 MG TAB PO ×2 (08:10→21:34)
[2024-10-04] MEDS: TORSEMIDE 20 MG TABLET 40 MG PO (08:11)
--- NOTE | 2024-10-04 09:41 | NUTR.NU ---
TRACY with diet education related to heart healthy diet order. Patient admitted for CHF Exacerbation. She currently resides at [facility]. Current weight 194lb 3.2oz; height 5ft 5in; BMI 32.3 kg/m2. Weight has increased recently due to fluid. Current diet order is Heart Healthy. RDN visited with patient whom reports a good appetite. She tries to follow a heart healthy diet. RDN offered diet education related to Heart Healthy diet, pt declined at this time. She had no questions or concerns at this time. Continue to monitor.
--- NOTE | 2024-10-04 11:34 | P.IMPN_ITS ---
Assessment and Plan Assessment and plan (1) Acute exacerbation of CHF (congestive heart failure): Problem comment: I am going to change her diuretic from furosemide to torsemide for once daily dosing and better absorption. Her dry weight is likely between 180 and 185 lb. Aggressive diuresis as much as her renal function can tolerate 10/04 clinically improving. Monitoring I&Os. No significant change in weight yet. Awaiting echo. Will monitor overnight how torsemide affects her sleep as this is her primary concern. Possible discharge tomorrow with ongoing clinical improvement and close outpatient follow-up with PCP, Cardiology, Nephrology Status: Acute (2) Stage 5 chronic kidney disease: Problem comment: Has had some complications including metabolic acidosis and probably secondary r enal hyperparathyroidism. This is going to make diuresis somewhat more challenging. She is not interested in dialysis. 10/04 creatinine 2.7, actually better than usual. Follows with Nephrology Status: Acute (3) Atrial fibrillation: Problem comment: Initially on presentation had AFib with RVR. Now clinically improved at rest with treatment 10/04 pretty regular rate and rhythm this morning, continue beta-[place] Status: Acute (4) Anticoagulated on Coumadin: Problem comment: Recent increase in INR likely reflecting liver congestion from heart failure. I advised her to reassess her heart failure status if her INR increases without obvious other explanation. 10/04 INR 3.05. Pharmacy to manage Status: Acute (5) Chronic venous stasis dermatitis: Problem comment: No active ulcerations. At risk for recurrent infections. Also likely has peripheral vascular disease. Status: Chronic (6) Bilateral lower extremity edema: Problem comment: Compression and elevation and diuretic therapy. Status: Acute (7) Metabolic acidosis: Problem comment: Due to chronic kidney disease. Monitored and managed. Followed by Nephrology, Dr. Rain. Status: Acute Plan Awaiting echo. Continue diuresis. Likely discharge 10/05 pending ongoing cli nical improvement. Close outpatient follow-up with PCP, Cardiology, Nephrology Total Time Spent Total Time Spent: Today I spent 55 minutes seeing the patient, reviewing Expanse and EPIC notes/diagnostics, discussing the care plan with our care time that includes social work, PT/OT, pharmacy, RT, intermediate and documenting my impressions and plan in the medical record. Subjective Date Seen: 10/04/24 Interval history: Patient is seen with son and daughter at bedside. Reports feeling better already this morning. Has been ambulating in her room and her dyspnea on exertion has improved. Remains on room air. Remains afebrile. Denies chest pain. Denies headache or dizziness. Tolerating orals without nausea vomiting. Awaiting echocardiogram. Received IV Lasix yesterday. Added oral torsemide this morning. Tells me she believes torsemide has been a discussion with her PCP and Nephrology in the past but was hesitant to use it due to concern for frequent nighttime urination. Has compression stockings at bedside which she wears from morning until 6:00 p.m.. Exam Narrative: Exam Narrative: PHYSICAL EXAM General: Pleasant, conversant, NAD HEENT: Normocephalic, atraumatic, sclera white, EOMI, oral mucosa moist Cardiovascular: RRR currently Pulmonary: CTA bilaterally without rhonchi, rales, expiratory wheezes. Moving air well. No dyspnea on room air Abdominal: Soft, nondistended, NTTP Neurological: Alert, answering questions appropriately, cranial nerves intact, no focal findings Extremities: Bilateral lower extremities with chronic violaceous/rubor, edema, skin changes Skin: Warm, dry. Const: Vital Signs, click to edit/add: Vital Signs - 24 hr 10/03/24 13:32 10/03/24 14:27 10/03/24 14:30 Temperature 98.0 F Pulse Rate 104 H Pulse Rate [Left R adial] Pulse Rate [Pulse Oximeter] 111 H Respiratory Rate 22 Blood Pressure Blood Pressure [Le ft Arm] Blood Pressure [Ri ght Upper Arm] 167/83 H Pulse Oximetry 99 97 97 Oxygen Delivery Me thod Room Air 10/03/24 14:45 10/03/24 15:00 10/03/24 15:30 Temperature Pulse Rate 108 H 110 H Pulse Rate [Left R adial] Pulse Rate [Pulse Oximeter] Respiratory Rate 20 Blood Pressure Blood Pressure [Le ft Arm] Blood Pressure [Ri ght Upper Arm] 131/94 H Pulse Oximetry 97 97 Oxygen Delivery Me thod 10/03/24 16:00 10/03/24 16:42 10/03/24 16:45 Temperature Pulse Rate 63 69 Pulse Rate [Left R adial] Pulse Rate [Pulse Oximeter] Respiratory Rate 20 10 L 15 Blood Pressure Blood Pressure [Le ft Arm] Blood Pressure [Ri ght Upper Arm] 160/93 H Pulse Oximetry 98 98 Oxygen Delivery Me thod 10/03/24 17:00 10/03/24 17:03 10/03/24 17:15 Temperature Pulse Rate 71 68 74 Pulse Rate [Left R adial] Pulse Rate [Pulse Oximeter] Respiratory Rate 16 11 L 14 Blood Pressure 145/82 H Blood Pressure [Le ft Arm] Blood Pressure [Ri ght Upper Arm] Pulse Oximetry 96 93 [facility] 10/03/24 17:30 10/03/24 17:45 10/03/24 18:00 Temperature Pulse Rate 70 69 Pulse Rate [Left R adial] Pulse Rate [Pulse Oximeter] Respiratory Rate 12 15 24 Blood Pressure Blood Pressure [Le ft Arm] Blood Pressure [Ri ght Upper Arm] Pulse Oximetry 99 97 [facility] 10/03/24 18:02 10/03/24 18:30 10/03/24 18:30 Temperature Pulse Rate Pulse Rate [Left R adial] 64 Pulse Rate [Pulse Oximeter] Respiratory Rate 24 20 20 Blood Pressure 148/113 H Blood Pressure [Le ft Arm] 137/92 H Blood Pressure [Ri ght Upper Arm] Pulse Oximetry 97 96 96 [facility] Room Air Room Air 10/03/24 19:30 10/03/24 19:56 10/03/24 22:53 Temperature 97.0 F L 97.4 F L Pulse Rate 67 Pulse Rate [Left R adial] 65 71 Pulse Rate [Pulse Oximeter] Respiratory Rate 20 18 Blood Pressure Blood Pressure [Le ft Arm] 131/66 135/89 Blood Pressure [Ri ght Upper Arm] Pulse Oximetry 98 99 Oxygen Delivery [facility] Room Air Room Air 10/03/24 22:53 10/03/24 23:00 10/04/24 03:00 Temperature 97.0 F L Pulse Rate 70 Pulse Rate [Left R adial] 71 82 Pulse Rate [Pulse Oximeter] Respiratory Rate 18 20 Blood Pressure Blood Pressure [Le ft Arm] 143/95 H Blood Pressure [Ri ght Upper Arm] Pulse Oximetry 100 [facility] 10/04/24 08:06 Temperature 96.3 F L Pulse Rate Pulse Rate [Left R adial] 78 Pulse Rate [Pulse Oximeter] Respiratory Rate 18 Blood Pressure Blood Pressure [Le ft Arm] 147/97 H Blood Pressure [Ri ght Upper Arm] Pulse Oximetry 98 Oxygen Delivery Me thod Room Air Labs Labs: Laboratory Results - last 24 hr 10/03/24 10/03/24 10/03/24 14:28 15:10 15:25 WBC 6.52 RBC 5.30 H Hgb 14.7 Hct 46.0 MCV 87 MCH 28 MCHC 32 RDW Coeff of Percy 15.9 H Plt Count 193 Neut % (Auto) 72.4 H Lymph % (Auto) 13.0 L Luce % (Auto) 10.0 Eos % (Auto) 2.6 Baso % (Auto) 0.6 Neut # (Auto) 4.70 Lymph # (Auto) 0.80 L Luce # (Auto) 0.70 Eos # (Auto) 0.17 Baso # (Auto) 0.04 Abs Immat Gran (auto) 0.09 Imm/Tot Granulo (auto) 1.4 INR 2.98 H Sodium 140 Potassium 3.7 Chloride 110 Carbon Dioxide 18 L Anion Gap 12 BUN 41 H Creatinine 2.8 H Estimated Creat Clear 12.98 Estimated GFR 16 Glucose 123 H Lactate 1.9 Calcium 8.9 Phosphorus 3.9 Magnesium 1.9 Total Bilirubin 1.2 Direct Bilirubin 0.6 H AST 32 ALT 25 Alkaline Phosphatase 211 H Troponin I 0.20 H* C-Reactive Protein 0.8 NT-Pro-B Natriuret Pep 73095 H Total Protein 6.7 Albumin 3.7 Urine Color Yellow Urine Appearance Clear Urine pH 5.5 Ur Specific [place] 1.025 Urine Protein 3+ A Urine Glucose (UA) Negative Urine Ketones Negative Urine Blood 2+ A Urine Nitrite Negative Urine Bilirubin Negative Urine Urobilinogen 1.0 Ur Leukocyte Esterase Negative Urine RBC 2-5 A Urine WBC 0-2 Ur Squamous Epith Cells Few Urine Bacteria None SARS-CoV-2 (PCR) Negative SARS-CoV-2 Lab Acknowledgement POC Troponin I 0.20 H 10/03/24 10/03/24 10/04/24 16:30 18:36 06:20 WBC 6.18 RBC 5.08 Hgb 14.4 Hct 43.6 MCV 86 MCH 28 MCHC 33 RDW Coeff of Percy 15.8 H Plt Count 170 Neut % (Auto) 70.4 Lymph % (Auto) 14.7 L Luce % (Auto) 10.8 Eos % (Auto) 3.6 Baso % (Auto) 0.3 Neut # (Auto) 4.35 Lymph # (Auto) 0.90 Luce # (Auto) 0.70 Eos # (Auto) 0.22 Baso # (Auto) 0.02 Abs Immat Gran (auto) 0.01 Imm/Tot Granulo (auto) 0.2 INR 3.05 H Sodium 140 Potassium 3.8 Chloride 111 Carbon Dioxide 19 L Anion Gap 10 BUN 44 H Creatinine 2.7 H Estimated Creat Clear 13.46 Estimated GFR 17 Glucose 120 H Lactate Calcium 8.9 Phosphorus Magnesium Total Bilirubin Direct Bilirubin AST ALT Alkaline Phosphatase Troponin I 0.21 H* C-Reactive Protein NT-Pro-B Natriuret Pep Total Protein Albumin Urine Color Urine Appearance Urine pH Ur Specific [place] Urine Protein Urine Glucose (UA) Urine Ketones Urine Blood Urine Nitrite Urine Bilirubin Urine Urobilinogen Ur Leukocyte Esterase Urine RBC Urine WBC Ur Squamous Epith Cells Urine Bacteria SARS-CoV-2 (PCR) Lab Acknowledgement Test Added POC Troponin I 0.22 H
[2024-10-04] MEDS: SODIUM CHLORIDE 0.9 % (FLUSH) 10 ML SYRINGE 5 ML IVF ×2 (12:14→21:36)
--- NOTE | 2024-10-04 12:20 | PC.PHA ---
Warfarin consult note: Reason for warfarin: AFIB INR goal requested by the provider: 2-3 Most recent INR: 10/04/24, 3.05 Usual home dose (if any):7.5 MG ON SUNDAYS, 5 MG ALL OTHER DAYS Today's dose ordered: 5 MG Vitamin K given: N/A Comments: PATIENT ADMITTED FOR CHF MANAGEMENT
[2024-10-04] MEDS: WARFARIN 2.5 MG TABLET 5 MG PO (17:11)
--- NOTE | 2024-10-04 19:01 | PC.NURSE ---
End of shift--Very pleasant and cooperative, alert and oriented patient. VSS and pt is afebrile. SPO2 maintained >94% on RA. She denied any pain. LS clear but diminished in bases. Telemetry shows afib with NVR. Chronic venous stasis changes noted in bilateral LE and pt's home compression wraps applied. Intact blister noted on front of left [place] and was covered with a Mepilex. Up to BR several times today with assist of 1, belt and walker and tolerated it fair. Pt did become very SOB with exertion. she had an echo at bedside today and tolerated it well. Report to ERENDIRA Hernandez.
[2024-10-04] MEDS: ATORVASTATIN CALCIUM 10 MG TABLET PO (21:35)
[2024-10-04] MEDS: TIMOLOL MALEATE 0.5% EYE DROP EYE-RIGHT (21:41)
[2024-10-05 01:00] VITALS: PULSE 69
[2024-10-05 04:51] VITALS: BP 141/92; PULSE 76; RESP 20; TEMP 36.2; O2SAT 99
[2024-10-05] MEDS: LEVOTHYROXINE 75 MCG TABLET PO (05:01)
[2024-10-05 06:15] LABS: Basophils Absolute Auto 0.03 K/uL (0.00-0.30); Basophils Percent Auto 0.5 % (0.0-3.0); Eosinophils Absolute Auto 0.16 K/uL (0.00-0.50); Eosinophils Percent Auto 2.6 % (0.0-7.0); Hematocrit 43.5 % (33.0-51.0); Hemoglobin* 14.1 gm/dL (12.0-16.0); Lymphocytes Percent Auto 15.5 % (20-44); Mean Corpuscular HGB Conc 32 gm/dL (32-36); Mean Corpuscular Hemoglobin 28 pg (26-34); Mean Corpuscular Volume 86 fL (80-100); Monocytes Percent Auto 11.6 % (0.0-11.0); Neutrophils Absolute Auto 4.22 K/uL (1.7-7.0); Neutrophils Percent Auto 69.8 % (42.0-72.0); Platelet Count* 166 K/uL (140-440); RDW Coefficient of Variation % 15.7 % (11.5-15.5); Red Blood Count 5.06 m/uL (4.00-5.20); White Blood Count* 6.05 K/uL (4.50-11.00)
[2024-10-05 06:16] LABS: Slide Review Reflex No
[2024-10-05 06:25] LABS: Chloride* 108 mmol/L (96-114); Potassium* 3.7 mmol/L (3.6-5.1); Sodium* 138 mmol/L (135-149)
[2024-10-05 06:27] LABS: Blood Urea Nitrogen* 44 mg/dL (7-30); Creatinine* 2.8 mg/dL (0.5-1.5); Est. Creatinine Clearance* 12.98; Estimated Glomerular Filt Rate 16 ml/min
[2024-10-05 06:28] LABS: Anion Gap 10 mEq/L (7-15); Calcium* 8.8 mg/dL (8.4-10.6); Carbon Dioxide* 20 mmol/L (20-32); Glucose* 116 mg/dL (60-115)
[2024-10-05 06:29] LABS: INR 3.13 (0.91-1.10); Prothrombin Time 33.4 Seconds
--- NOTE | 2024-10-05 06:37 | PC.NURSE ---
Shift note ([id number]): Patient pleasant, alert and oriented. Transfers with assist of one, rolling walker?and gait belt.?O2 95-99% on RA. Reports SOB with exertion; denies SOB at rest. Purewick in place. Denied pain.?
[2024-10-05] MEDS: TORSEMIDE 20 MG TABLET 40 MG PO (07:40)
[2024-10-05 07:43] VITALS: BP 139/88; PULSE 70; RESP 18; TEMP 36.1; O2SAT 98
[2024-10-05] MEDS: METOPROLOL SUCCINATE (XL) 50 MG TAB PO (09:15)
[2024-10-05] MEDS: POTASSIUM CHLORIDE 10 MEQ CAPSULE ER 20 MEQ PO (09:15)
[2024-10-05] MEDS: TIMOLOL MALEATE 0.5% EYE DROP EYE-RIGHT (09:15)
[2024-10-05 11:05] VITALS: BP 125/72; PULSE 85; RESP 14; TEMP 36.1; O2SAT 100
--- NOTE | 2024-10-05 11:45 | P.DS_ITS ---
DS: Providers Provider Date Seen: 10/05/24 Date of admission: 10/03/24 18:36 Primary care physician: Tim Chanel MD Admitting Clinician: Rolly Valentine MD Consults: 10/03/24 18:36 Consult to Occupational Therapy [CONS] Routine Comment: Reason(s) for OT Consult:: Evaluate and Treat Any Restrictions?:: No Restrictions Consult to Physical Therapy [CONS] Routine Comment: Reason(s) for PT Consult:: Evaluate and Treat Any Restrictions?:: No Restrictions Attending Physician on discharge: TRISTEN Jimenes, [facility] Date of Discharge: 10/05/24 DS: Diagnosis Discharge Diagnosis (1) Acute exacerbation of CHF (congestive heart failure): Status: Acute Problem details: Chronic 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 Her dry weight is likely between 180 and 185 lb. Aggressive diuresis as much as her renal function can tolerate 10/04 clinically improving. Monitoring I&Os. No significant change in weight yet. Awaiting echo. Will monitor overnight how torsemide affects her sleep as this is her primary concern. Possible discharge tomorrow with ongoing clinical improvement and close outpatient follow-up with PCP, Cardiology, Nephrology Echocardiogram 10/04/2024 Final Impressions: 1. Normal left ventricular size, moderately increased wall thickness, mode rately reduced global systolic function, calculated EF of 39 %. 2. Severely enlarged left atrium. 3. Right ventricular cavity size is moderately enlarged, global systolic RV function is moderately reduced. 4. The aortic valve is sclerotic, no stenosis and moderate regurgitation. 5. The mitral valve is sclerotic, moderate mitral regurgitation. 6. Tricuspid valve is normal, severe tricuspid regurgitation. 7. The inferior vena cava is dilated, respiratory size variation less than 50%. 8. Elevated estimated pulmonary pressures by tricuspid regurgitation velocity and right atrial pressure (34 mmHg plus RAP). On day of discharge, has continued to clinically improve. While remains mildly dyspneic with exertion, this has improved as well. Patient reports feeling more back at baseline. Nursing staff reporting improvement in weight though I do not see this documented as such. Increased urine output. Discussed continuing with torsemide on discharge. Patient is hesitant to do so without input from her asset protection professional. I suspect she is hesitant to make changes that may affect her need for urination overnight as well. She has used a Purewick overnight which she found to be convenient though this should not be a long-term solution currently. She would like to continue with furosemide at this time, I recommend at the increased dose of 40 mg in the morning and 20 mg in the afternoon until follow-up with Nephrology and Cardiology to further assess a medication regimen appropriate for her. Continue with daily weights. Heart healthy diet. 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 This is going to make diuresis somewhat more challenging. She is not interested in dialysis. 6/24 creatinine 2.7, actually better than usual. Follows with Nephrology Prior to discharge, creatinine remains stable at 2.7-2.8. Have recommended torsemide as an alternative diuretic, patient would like to discuss with Nephrology and Cardiology before making changes. (3) Atrial fibrillation: Status: Acute Problem details: Continue beta-brooklyn and anticoagulation (4) Anticoagulated on Coumadin: Status: Acute Problem details: Recent increase in INR likely reflecting liver congestion from heart failure. I advised her to reassess her heart failure status if her INR increases without obvious other explanation. Echocardiogram revealing changes, EF decreased from 45-39%, aortic valve now showing moderate regurgitation, tricuspid valve with severe regurgitation Recommend outpatient follow-up with Cardiology (5) Chronic venous stasis dermatitis: Status: Chronic Problem details: No active ulcerations. At risk for recurrent infections. Also likely has peripheral vascular disease. Ongoing management with PCP. (6) Bilateral lower extremity edema: Status: Acute Problem details: Compression and elevation which she does at home and diuretic therapy. (7) Metabolic acidosis: Status: Acute Problem details: Due to chronic kidney disease. Monitored and managed. Followed by Nephrology, Dr. Rain. DS: Summary Hospital Course Hospital Course: Course of care and details as noted above. Hospitalized with acute heart failure exacerbation, improved with IV diuresis, oral torsemide. Feels as though she is close to her baseline. Increased urine output documented. Will follow-up with nephrology and cardiology for further medication management. Remainder of chronic medical comorbidities were monitored and managed with home medications. Status at Discharge Functional status at discharge: uses cane/walker Overall status at discharge: patient is progressing back to baseline Time Spent with Patient Time attestation: Total time spent providing and/or coordinating discharge services: Time spent: Greater than 30 minutes Exam Narrative: Exam Narrative: PHYSICAL EXAM General: Pleasant, conversant, NAD Cardiovascular: RRR Pulmonary: No dyspnea, continues with clear breath sounds without congestion Neurological: Alert, answering questions appropriately Skin: Warm, dry. Const: Vital Signs, click to edit/add: Vital Signs - 24 hr 10/04/24 15:05 10/04/24 15:33 10/04/24 15:45 Temperature 97.1 F L Pulse Rate 62 Pulse Rate [Left R adial] 69 69 Pulse Rate [Pulse Oximeter] Respiratory Rate 20 20 Blood Pressure [Le ft Arm] 130/74 Blood Pressure [Ri ght Arm] Pulse Oximetry 96 Oxygen Delivery Ia thod Room Air 10/04/24 19:00 10/04/24 23:00 10/05/24 01:00 Temperature 97.9 F 97.0 F L Pulse Rate 69 Pulse Rate [Left R adial] 69 Pulse Rate [Pulse Oximeter] 70 Respiratory Rate 18 17 Blood Pressure [Le ft Arm] 129/77 143/93 H Blood Pressure [Ri ght Arm] Pulse Oximetry 95 95 Oxygen Delivery Ia thod Room Air Room Air 10/05/24 04:51 10/05/24 07:43 10/05/24 07:43 Temperature 97.1 F L 97 F L Pulse Rate Pulse Rate [Left R adial] Pulse Rate [Pulse Oximeter] 76 70 70 Respiratory Rate 20 18 18 Blood Pressure [Le ft Arm] 141/92 H Blood Pressure [Ri ght Arm] 139/88 Pulse Oximetry 99 98 Oxygen Delivery Ia thod Room Air Room Air 10/05/24 11:05 Temperature 96.9 F L Pulse Rate Pulse Rate [Left R adial] Pulse Rate [Pulse Oximeter] 85 Respiratory Rate 14 Blood Pressure [Le ft Arm] 125/72 Blood Pressure [Ri ght Arm] Pulse Oximetry 100 [facility] DS: Data Data Completed and Pending Completed studies during hospitalization: Procedures Drainage of Stomach with Drainage Device, Via Natural or Artificial Opening (05/05/23) Release Small Intestine, Open Approach (05/05/23) Labs on day of discharge: Labs from last 24 hours 10/05/24 06:02 WBC 6.05 RBC 5.06 Hgb 14.1 Hct 43.5 MCV 86 MCH 28 MCHC 32 RDW Coeff of Percy 15.7 H Plt Count 166 Neut % (Auto) 69.8 Lymph % (Auto) 15.5 L Saunders % (Auto) 11.6 H Eos % (Auto) 2.6 Baso % (Auto) 0.5 Neut # (Auto) 4.22 Lymph # (Auto) 0.90 Saunders # (Auto) 0.70 Eos # (Auto) 0.16 Baso # (Auto) 0.03 Abs Immat Gran (auto) 0.00 Imm/Tot Granulo (auto) 0.0 INR 3.13 H Sodium 138 Potassium 3.7 Chloride 108 Carbon Dioxide 20 Anion Gap 10 BUN 44 H Creatinine 2.8 H Estimated Creat Clear 12.98 Estimated GFR 16 Glucose 116 H Calcium 8.8 Imaging Chest x-ray: Attestation: I have reviewed the pertinent imaging results. Radiologist's impression: Indeterminate left basilar consolidation. There may be minimal right infrahilar airspace opacities. Small left effusion. No definite pneumothorax. Mild cardiomegaly. Mediastinal contours are normal. IMPRESSION: 1. Mild indeterminate basilar consolidation. This may represent atelectasis or pneumonia with associated small effusion. Recommend follow-up radiographs in 6-8 weeks. Echo: Attestation: I have reviewed the pertinent imaging results. Radiologist's impression: Final Impressions: 1. Normal left ventricular size, moderately increased wall thickness, moderately reduced global systolic function, calculated EF of 39 %. 2. Severely enlarged left atrium. 3. Right ventricular cavity size is moderately enlarged, global systolic RV function is moderately reduced. 4. The aortic valve is sclerotic, no stenosis and moderate regurgitation. 5. The mitral valve is sclerotic, moderate mitral regurgitation. 6. Tricuspid valve is normal, severe tricuspid regurgitation. 7. The inferior vena cava is dilated, respiratory size variation less than 50%. 8. Elevated estimated pulmonary pressures by tricuspid regurgitation velocity and right atrial pressure (34 mmHg plus RAP). Discharge Plan Discharge Disposition: Home, Self-Care Date of Admission: 10/03/24 18:36 Attending Provider on Discharge: Deja Nascimento Primary Care Provider: Tim Chanel Condition: Improved Anticipated Discharge Date/Time: 10/05/24 11:28 Discharge Medications: Continued levothyroxine 75 mcg tablet 75 mcg PO DAILY furosemide 20 mg tablet 20 mg PO Q12H Rx Instructions: PRN WT GAIN dorzolamide-timolol 22.3-6.8 mg/mL drops 1 drp ophthalmic (eye) BID Rx Instructions: right eye timolol maleate 0.5 % drops 1 drp ophthalmic (eye) BID Patient Comments: RIGHT EYE warfarin 2.5 mg tablet 5 - 7.5 mg PO DAILY PRN Rx Instructions: resume 7.5mg EVERY THURSDAY. 5mg all other days metoprolol succinate 50 mg tablet extended release 24 hr 50 mg PO BID Vyzulta 0.024 % drops 1 drp ophthalmic (eye) HS Rx Instructions: right eye brimonidine 0.2 % drops 1 drp ophthalmic (eye) BID Rx Instructions: right eye atorvastatin 10 mg tablet 10 mg PO HS potassium chloride [K-Tab] 20 mEq tablet extended release 20 meq PO BID Qty: 60 0RF Discharge Orders: Discharge Order (Routine); Ordered 10/05/24 Ordered By: Deja Nascimento Additional Instructions: At this time, we will not switch your furosemide to torsemide. Recommend you have this conversation with your Us Marketing Director and Die Keeper to determine what medication regimen is most appropriate for you. Continue to take furosemide 40 mg in the morning and 20 mg in the evening and follow-up with your PCP before the end of the week. Continue to weigh yourself daily. Encouraged a heart healthy diet. RECOMMEND PT AND OT TO EVALUATE AND TREAT. Activity Level: No Restrictions and Activity as Tolerated Discharge Diet: Heart Healthy (2 gm sodium, low fat) Follow Up Appointments: Tim Chanel MD [Primary Care Provider, Family Practice] Referral Note: Post hospital follow-up 3-5 days Forms: ICVRxth Info Instructions
[2024-10-05 11:48] VITALS: PULSE 61
--- NOTE | 2024-10-05 12:54 | PC.NURSE ---
Addendum entered by Saida Vance RN 10/05/24 13:04: Correction patient had no champagne. Tele=A.fib. Original Note: Discharge: Patient pleasant and cooperative. Patient vitally stable, lungs clear, BS WNL, IV removed, catheter intact, champagne removed, tip intact. Patient denies pain. Patient SBA/walker. Patient tolerating regular diet, urinating well and had one BM. Patient signed belongings sheet and discharge form, and CHF education given. Patient had no further questions. Patient left the floor to home by wheelchair accompanied by daughter at 1248.
--- NOTE | 2024-10-05 15:44 | PC.SOCIAL ---
Discharge planning: Pt will discharge back to [facility] today with orders for physical and occupational therapy. mesh worker connected with Stephanie BROOKS, at [facility] and provided her with updated information/notes with permission from the pt. mesh worker secure emailed discharge orders to Stephanie for home care PT/OT that their home care agency([facility]) will use to provide PT/OT services and bill the pt's insurance. No other information was needed by Stephanie. Pt's daughter was able to transport her back home. Social work to follow-up as needed.
== END 2024-10-05 12:48 | disposition home or self-care (01) | DRG 291 ==
LOC: ED 17:50 → MEDSURG 18:17
PROVIDERS: Family Medicine; Physician Assistant; Admitting Provider Family Medicine; Emergency Provider Family Medicine; PCP Family Medicine; Visit Provider Family Medicine
DX: I13.2 Hypertensive heart and chronic kidney disease with heart failure and with stage 5 chronic kidney disease, or end stage renal disease (principal); I50.23 Acute on chronic systolic (congestive) heart failure; N18.5 Chronic kidney disease, stage 5; E87.22 Chronic metabolic acidosis; L97.821 Non-pressure chronic ulcer of other part of left lower leg limited to breakdown of skin; N25.81 Secondary hyperparathyroidism of renal origin; I48.91 Unspecified atrial fibrillation; Z79.01 Long term (current) use of anticoagulants; I87.2 Venous insufficiency (chronic) (peripheral); I08.2 Rheumatic disorders of both aortic and tricuspid valves; E03.9 Hypothyroidism, unspecified; E78.5 Hyperlipidemia, unspecified
CPT/HCPCS: 36415; 71046; 80048; 80076; 81001; 83605; 83735; 83880; 84100; 84484; 85025; 85610; 86140; 87081; 87635; 93005; 93306; 94761; 97116; 97162; 97165; 97530; 97535; 99285; A9270; J1938

== ENCOUNTER 2024-12-21 07:10 | Outpatient (REF) | payer MEDICARE, SELFPAY ==
--- OUTSIDE RECORDS SUMMARY | 2024-11-14 14:00 | XMS_ITS | Encounter Summary ---
Author Organization [facility] Address [address] [place] [address] Care Team Providers Care Color Checker Roving Or Yarn Name Role Phone Tim Chanel MD Primary Care Provider [phone] Reason for Visit * Reason Comments Follow-up Encounter Details Date Type Department Care Team (Latest Contact Info) Description 11/14/2024 2:00 PM CDT Office Visit [facility] [address] [place] [address] Dm Rain MD [address] [place] [address] Stage 5 chronic kidney disease [...] Tri Mckeon Date of : 1940 Chart: [id number] PCP: Tim Chanel MD Date of Service: [...] BP controlled Baseline Cr was 1.5 from 5171-4008 with bland urinalysis, had JEFFY with gallbladder surgery and thenrequired IV diuresis after this in Feb 2015 at [facility], Cr higher at 1.5 after that but stable [id number] when Cr to 1.85 and 2.1 in [...] to diuretics. Discussed today. -Weight done at [facility] daily, bring to each appt -Labs in [...] minutes. Dm Rain MD [facility] documented in this encounter Plan of Treatment Upcoming Encounters Date Type Department Care Team (Late st Contact Info) Description 12/26/2024 Orders Only [facility] [place] [address] [address] [address] Dm Rain MD [address] [place] [phone] Stage 5 chronic kidney disease (HCC) 02/13/2025 11:00 AM [employer] Office Visit [facility] [place] [address] [address] [address] Dm Rain MD [address] [place] [phone] Scheduled Orders Name Type Priority Associated Diagnoses [...] heart failure (HCC) Chronic systolic heart failure Stage 5 chronic kidney disease (HCC) documented in this encounter Care Teams Color Checker Roving Or Yarn Relationship Specialty Start Date End Date Tim Chanel [place] [address] PCP - General Family Medicine 04/20/23 documented as of this encounter
[2024-12-21 07:43] LABS: INR 2.48 (0.91-1.10); Prothrombin Time 28.0 Seconds
--- OUTSIDE RECORDS SUMMARY | 2024-12-22 00:16 | XMS_ITS | Clinical Summary ---
Author Organization [employer] [facility] Address [address] [place] [address] Care Team Providers Care Prosthetist Name Role Phone Lili Tay Romero Unavailable [phone] Tim Chanel MD Primary Care Provider [phone] Veena Mitchell MD Unavailable Allergies Active Allergy Reactions Criticality Noted Date Comments Amlodipine Edema 09/26/2016 Gabapentin Other - Describe In Comment Field 08/31/2021 Pt stopped because she did not like the way it made her feal. Conjugated Estrogens 09/01/2006 intolerance: sore breasts Medications Vyzulta 0.024 % drop Place 1 Drop into right eye at bedtime. 04/15/19 24 Active timoloL maleate 0.5 % ophthalmic solution Place 1 Drop into right eye two times daily. Active metoprolol succinate (TOPROL XL) 50 mg sustained-release tabletIndications: Atrial fibrillation with RVR (HC),Essential hypertension Take 2 Tablets (100 mg) by mouth once daily in the morning. 180 Tablet 3 12/15/19 25 Active levothyroxine (SYNTHROID) 75 mcg tabletIndications: Other specified hypothyroidism Take 1 Tablet (75 mcg) by mouth before breakfast. Self administer 30 minutes before breakfast. 90 Tablet 3 12/15/19 25 Active atorvastatin (LIPITOR) 10 mg tabletIndications: Other hyperlipidemia Take 1 Tablet (10 mg) by mouth once daily. Take in the morning. 90 Tablet 3 12/15/19 25 Active furosemide (LASIX) 20 mg tabletIndications: Chronic systolic CHF (congestive heart failure) (HC),Lymphedema,Ac pala on chronic systolic heart failure (HC) Take 60mg in the morning. 180 Tablet 3 12/17/19 25 Active potassium chloride (K-TAB) 20 mEq extended-release tabletIndications: Chronic systolic CHF (congestive heart failure) (HC) Take 1 Tablet (20 mEq) by mouth two times daily with meals. Take in the morning. 180 Tablet 3 12/21/19 25 Active warfarin (COUMADIN) 2.5 mg tabletIndications: Anticoagulation monitoring, INR range 2-3,Chronic atrial fibrillation (HC),New onset atrial fibrillation (HC) Take by mouth 2.5 mg every Thu, Sat; 5 mg all other days in the evening OR as directed 12/22/19 25 Active blood sugar diagnostic (Ascensia CONTOUR) stripIndications:D iabetes mellitus with peripheral vascular disease (HC) Dispense test strips covered by the patient insurance. Test 1 times per day. 100 Each 4 08/12/19 24 Discontinu ed(*Med complete/R egimen complete/L evel of care change) potassium chloride (K-TAB) 20 mEq extended-release tablet Take by mouth. Take one dose as needed if taking 2 lasix. 05/14/19 24 Discontinu ed(Reorder (E-cancel not sent)) metoprolol succinate 50 mg sustained-release tabletIndications: Atrial fibrillation with RVR (HC),Essential hypertension Take 1 Tablet (50 mg) by mouth two times daily. 180 Tablet 3 08/25/19 25 025 Discontinu ed(*Medica tion adjustment ) levothyroxine 75 mcg tabletIndications: Other specified hypothyroidism Take 1 Tablet (75 mcg) by mouth before breakfast. 90 Tablet 3 08/25/19 25 025 Discontinu ed(Reorder (E-cancel not sent)) atorvastatin 10 mg tabletIndications: Other hyperlipidemia Take 1 Tablet (10 mg) by mouth at bedtime. 90 Tablet 3 08/25/19 025 Discontinu ed(Reorder (E-cancel not sent)) warfarin 2.5 mg tabletIndications: Anticoagulation monitoring, INR range 2-3,Chronic atrial fibrillation (HC),New onset atrial fibrillation (HC) Take by mouth 7.5 mg (2.5 mg x 3) every Sun; 5 mg (2.5 mg x 2) all other days in the evening OR as directed 10/01/19 Discontinu ed(Reorder (E-cancel not sent)) furosemide 20 mg tabletIndications: Chronic systolic CHF (congestive heart failure) (HC),Lymphedema,Ac pala on chronic systolic heart failure (HC) Take 40 mg in the morning and 20 mg in the afternoon. 180 Tablet 3 10/12/19 025 Discontinu ed(Reorder (E-cancel not sent)) furosemide (LASIX) 20 mg tabletIndications: Chronic systolic CHF (congestive heart failure) (HC),Lymphedema,Ac pala on chronic systolic heart failure (HC) Take 40 mg in the morning and 20 mg in the afternoon. 180 Tablet 3 12/15/19 025 Discontinu ed(*Medica tion adjustment ) warfarin (COUMADIN) 2.5 mg tabletIndications: Anticoagulation monitoring, INR range 2-3,Chronic atrial fibrillation (HC),New onset atrial fibrillation (HC) Take by mouth 7.5 mg (2.5 mg x 3) every Sun; 5 mg (2.5 mg x 2) all other days in the evening OR as directed. Take in the morning. 120 Tablet 1 12/15/19 025 Discontinu ed(Reorder (E-cancel not sent)) potassium chloride (K-TAB) 20 mEq extended-release tabletIndications: Chronic systolic CHF (congestive heart failure) (HC) Take 1 Tablet (20 mEq) by mouth once daily with a meal. Take in the morning. 90 Tablet 3 12/15/19 025 Discontinu ed(Reorder (E-cancel not sent)) warfarin (COUMADIN) 2.5 mg tabletIndications: Anticoagulation monitoring, INR range 2-3,Chronic atrial fibrillation (HC),New onset atrial fibrillation (HC) Take by mouth 12/15: Hold; Otherwise 2.5 mg every Tue, Fri; 5 mg all other days in the evening OR as directed 12/16/19 25 Discontinu ed(Other - add note to specify (E-cancel not sent)) warfarin (COUMADIN) 2.5 mg tabletIndications: Anticoagulation monitoring, INR range 2-3,Chronic atrial fibrillation (HC),New onset atrial fibrillation (HC) Take by mouth 12/16: Hold; Otherwise 2.5 mg every Tue, Sat; 5 mg all other days in the evening OR as directed 12/16/19 25 025 Discontinu ed(Other - add note to specify (E-cancel not sent)) Active Problems Problem Noted Date Diagnosed Date Valvular heart disease 10/11/2024 Overview (10/11/2024): Discussed less invasive ways to fix her leaking valves today and she declined that. Tim Chanel MD signed electronically .................... 10/11/2024 Allergic arthritis of right hip 09/16/2024 Chronic [...] Encounters Date Type Department Care Team Description 12/21/2024 Anticoagulation (warfarin) [facility] [address] [place] [address] NurseAlphonse Anticoagulation (JESUS) 12/20/2024 Telephone [facility] [address] [place] [address] Tim Chanel MD Abnormal Lab Results 12/20/2024 Travel 12/15/2024 Telephone [facility] [address] [place] [address] Tim Chanel MD Anticoagulation 12/15/2024 Telephone [facility] [address] [place] [address] Tim Chanel MD Questions (FUROSEMIDE, INR, LEG WOUND CARE) 12/15/2024 Anticoagulation (warfarin) [address] [address] NurseAlphonse Anticoprince Anticoagulation (Chart update ) 12/15/2024 Anticoagulation (warfarin) [address] [address] NurseAlphonse Anticoprince Anticoagulation 12/14/2024 3:15 PM CDT Ancillary Procedure [facility] [address] [place] [address] 12/14/2024 2:50 PM CDT Office Visit [address] [address] Tim Chanel MD Hospital F/U (Post hospital 2 mo f/u.//concerns in regards to medications, pt is becoming confused with how often to take them.//Blisters on both legs, daughter wants checked.) 12/13/2024 Travel 12/02/2024 Telephone [facility] [address] [place] [address] Tim Chanel MD [facility] paperwork 11/09/2024 Travel 11/08/2024 9:00 AM CDT [facility] [address] [place] [address] Manan Agarwal MD Follow Up (Follow up chronic atrial fibrillation, increased shortness of breath with exertion, few occasions of sitting in chair and could feel her A-Fib in her chest, nurse at home took vitals, but didn't notice any A-Fib, not sure if actually A-Fib or anxiety. ) 11/07/2024 Travel 10/18/2024 Anticoagulation (warfarin) [facility] [address] [place] [address] Nurse, Alphonse Anticoag Anticoagulation 10/17/2024 11:45 AM CDT Orders Only [facility] [address] [place] [address] Lab, [place] 10/17/2024 Travel 10/12/2024 Patient Outreach [facility] Care Management - Advanced Care Team [address] [place] [address] Olinda Cox Complex Care Management (CCM engagement outreach due to Payer Referral/BCBS/) 10/11/2024 2:45 PM CDT Office Visit [facility] [address] [place] [address] Tim Chanel MD Hospital F/U (CHF) 10/11/2024 Travel 10/04/2024 2:00 PM CDT Ancillary Procedure [facility] [address] [place] [address] 10/03/2024 Orders Only [facility] Scanner 1 scan: (1-Ord) [facility], XR CHEST 2V, 10/03/2024 10/03/2024 Nurse Triage [facility] [address] [facility] [address] Tim Chanel MD Shortness Of Breath 09/28/2024 1:30 PM CDT Orders Only [facility] [address] [place] [address] Lab, [facility] 09/28/2024 Anticoagulation (warfarin) [facility] [address] [facility] [address] 1, [facility] Anticoagulation 09/27/2024 Travel from Last 3 Months Immunizations Immunization Administration [...] on file 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 Gender Identity Not on file Sexual Orientation [...] Sign Reading Time Taken Comments Blood Pressure 126/74 12/14/2024 3:21 PM CDT Pulse 67 12/14/2024 3:21 PM CDT Temperature 36.3 C (97.4 F) 12/14/2024 3:26 PM CDT Respiratory Rate 14 02/03/2024 3:11 PM CDT Oxygen Saturation 100% 12/14/2024 3:21 PM CDT Inhaled Oxygen Concentration - - Weight 86.7 kg (191 lb 1.6 oz) 11/08/2024 9:15 A M CDT Height 162.6 cm (5' 4) 08/24/2024 1:10 PM CDT Body Mass Index 32.8 08/24/2024 1:10 PM CDT Plan of Treatment Upcoming Encounters Date Type Department Care Team (Late st Contact Info) Description 12/27/2024 11:45 AM CDT Orders Only [facility] [facility] [address] Lab, [facility] 02/21/2025 2:15 PM 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 Orders Only [facility] [address] [facility] [address] Lab, [facility] 02/28/2025 2:20 PM CREW ATTENDANT Office Visit [facility] [address] [place] [address] Tim Chanel MD [address] [facility] [place] [address] 08/23/2025 2:15 PM CDT Orders Only [facility] [address] [facility] [address] Lab, [facility] 08/29/2025 1:55 PM CDT Office Visit [facility] [address] [facility] [address] Tim Chanel MD [address] [place] [address] Health Maintenance Due Date Last Done Comments COVID-19 vaccine series ( season) 2024 01/06/2024, 02/06/2023, 01/15/2022, Additional history exists Influenza Vaccine (#1) 2024 , 01/05/2023, 01/15/2022, Additional history exists BMI (ht and wt on same day) for age 18+ 08/24/2025 08/24/2024, 08/12/2023, 06/30/2023, Additional history exists Depression screening for age 12+ 08/24/2025 08/24/2024, 06/24/2024, 06/22/2024, Additional history exists Medicare Wellness for age 65+ 08/25/2025, 08/12/2023, 08/06/2022, Additional history exists Tetanus booster 12/09/2032 12/09/2022, 02/0 09/2011, 09/21/2003 Hepatitis B series for 19+ Completed 01/30, 08/29/1992, 07/30/1992 DEXA/DXA scan for age 65+ Completed 2012, 08/31/2007, 08/31/2007 ([facility]) Pneumococcal series for age 50+ Completed 10/09/2014, 09/11/2010, 01/11/1997 Zoster (shingles) series for age 50+ Completed 08/31/2018, 05/29/2018, 08/05/2006 RSV vaccine for adults or Completed 01/06/2024 Procedures Procedure Name Priority Date/Time Associated Diagnosis Comments CBC WITH AUTO DIFFERENTIAL Routine 12/14/2024 4:52 PM CDT Atrial fibrillation with RVR (HC) TSH WITH REFLEX Routine 12/14/2024 4:52 PM CDT Other specified hypothyroidism CBC WITH AUTO DIFFERENTIAL Routine 12/14/2024 4:52 PM CDT Atrial fibrillation with RVR (HC) BASIC METABOLIC PANEL Routine 12/14/2024 4:52 PM CDT Chronic systolic and diastolic CHF (congestive heart failure) (HC) EF 39% 09/2024 PROTIME-INR Routine 12/14/2024 4:52 PM CDT Anticoagulation monitoring, INR range 2-3 Chronic atrial fibrillation (HC) XR CHEST 2 VIEWS PA AND LATERAL Routine 12/14/2024 3:02 PM CDT Infiltrate of lower lobe of left lung present on imaging study PROTIME-INR Routine 10/17/2024 12:04 PM CDT Anticoagulation monitoring, INR range 2-3 Chronic atrial fibrillation (HC) ECHO TTE COMPLETE WO CONTRAST Routine 10/04/2024 2:40 PM CDT CHF (congestive heart failure) (HC) SCAN-RADIOLOGY REPORT 10/03/2024 12:00 AM CDT INR,POCT Routine 09/28/2024 1:34 PM CDT Anticoagulation monitoring, INR range 2-3 Chronic atrial fibrillation (HC) XR DXA BONE DENSITY 2 SITES AXIAL Routine 10/07/2012 1:58 PM CDT Vitamin D deficiency Osteoporosis from Last 3 Months or Most Recently Relevant to Health Maintenance Results * (ABNORMAL) CBC WITH AUTO DIFFERENTIAL (12/14/2024 4:52 PM CDT) Pathologist [facility] WHITE BLOOD CELL COUNT 6.3 3.8 - 10.8 Thousand/ uL 12/15/2024 4:09 AM CDT [facility] RED BLOOD CELL COUNT 5.64(H) 3.80 - 5.10 Million/u L 12/15/2024 4:09 AM CDT [facility] HEMOGLOBIN 15.7(H) 11.7 - 15.5 g/dL 12/15/2024 4:09 AM CDT [facility] HEMATOCRIT 49.1(H) 35.0 - 45.0 % 12/15/2024 4:09 AM CDT [facility] MCV 87.1 80.0 - 100.0 fL 12/15/2024 4:09 AM CDT [facility] MCH 27.8 27.0 - 33.0 pg 12/15/2024 4:09 AM CDT [facility] MCHC 32.0 32.0 - 36.0 g/dL 12/15/2024 4:09 AM CDT [facility] Comment: For adults, a slight decrease in the calculated MCHC value (in the range of 30 to 32 g/dL) is most likely not clinically significant; however, it should be interpreted with caution in correlation with other red cell parameters and the patient's clinical condition. RDW 15.7(H) 11.0 - 15.0 % 12/15/2024 4:09 AM CDT [facility] PLATELET COUNT 176 140 - 400 Thousand/ uL 12/15/2024 4:09 AM CDT [facility] MPV 10.8 7.5 - 12.5 fL 12/15/2024 4:09 AM CDT [facility] NEUTROPHILS 73.4 % 12/15/2024 4:09 AM CDT [facility] LYMPHOCYTES 11.5 % 12/15/2024 4:09 AM CDT [facility] MONOCYTES 10.7 % 12/15/2024 4:09 AM CDT [facility] EOSINOPHILS 3.4 % 12/15/2024 4:09 AM CDT [facility] BASOPHILS 1.0 % 12/15/2024 4:09 AM CDT [facility] ABSOLUTE NEUTROPHILS 4624 1500 - 7800 cells/uL 12/15/2024 4:09 AM CDT [facility] ABSOLUTE LYMPHOCYTES 725(L) 850 - 3900 cells/uL 12/15/2024 4:09 AM CDT [facility] ABSOLUTE MONOCYTES 674 200 - 950 cells/uL 12/15/2024 4:09 AM CDT [facility] ABSOLUTE EOSINOPHILS 214 15 - 500 cells/uL 12/15/2024 4:09 AM CDT [facility] ABSOLUTE BASOPHILS 63 0 - 200 cells/uL 12/15/2024 4:09 AM CDT [facility] Blood BLOOD SPECIMEN / Unknown [facility] / Unknown 12/14/2024 4:52 PM CDT 12/14/2024 4:52 PM CDT us Tim Chanel MD HEMATOLOGY Final Resu lt [facility] [place] [address], * TSH WITH REFLEX (12/14/2024 4:52 PM CDT) TSH W/REFLEX TO FT4 2.82 0.40 - 4.50 mIU/L 12/15/2024 5:55 AM CDT [facility] Blood BLOOD SPECIMEN / Unknown [facility] / Unknown 12/14/2024 4:52 PM CDT 12/14/2024 4:52 PM CDT Tim Chanel MD CHEMISTRY Final Resu lt Performing Organization Address [facility]/ZIP Co de Phone Number [facility] [address] [place] [address], * (ABNORMAL) PROTIME-INR [51803.0] - Standing Order (12/14/2024 4:52 PM CDT) Only the most recent of2 resultswithin the time period is included. INR 4.6(H) <1.3 12/14/2024 10:27 PM CDT [facility] PROTIME 54.0(H) 10.6 - 12.4 sec 12/14/2024 10:27 PM CDT [facility] Blood BLOOD SPECIMEN / Unknown [facility] / Unknown 12/14/2024 4:52 PM CDT 12/14/2024 4:52 PM CDT Narrative [facility] - 12/14/2024 10:27 PM CDT Therapeutic Range 2.0-3.0 for most [...] HEMATOLOGY Final Resu lt Performing Organization Address City/[facility]/ZIP Co de Phone Number [facility] [address] [place] [address], * (ABNORMAL) BASIC METABOLIC PANEL (12/14/2024 4:52 PM CDT) SODIUM 142 135 - 146 mmol/L 12/15/2024 5:21 AM CDT [facility] POTASSIUM 2.8(L) 3.5 - 5.3 mmol/L 12/15/2024 5:21 AM CDT [facility] CARBON DIOXIDE 26 20 - 32 mmol/L 12/15/2024 5:21 AM CDT [facility] GLUCOSE 80 65 - 99 mg/dL 12/15/2024 5:21 AM CDT [facility] Comment: Fasting reference interval CALCIUM 9.0 8.6 - 10.4 mg/dL 12/15/2024 5:21 AM CDT [facility] CREATININE 3.42(H) 0.60 - 0.95 mg/dL 12/15/2024 5:21 AM CDT [facility] BUN/CREATININE RATIO 14 6 - 22 (calc) 12/15/2024 5:21 AM CDT [facility] EGFR 13(L) > OR = 60 mL/min/1. 73m2 12/15/2024 5:21 AM CDT [facility] UREA NITROGEN (BUN) 49(H) 7 - 25 mg/dL 12/15/2024 5:21 AM CDT [facility] ELECTROLYTE BALANCE 13 7 - 17 mmol/L (calc) 12/15/2024 5:21 AM CDT [facility] CHLORIDE 103 98 - 110 mmol/L 12/15/2024 5:21 AM CDT [facility] Blood BLOOD SPECIMEN / Unknown [facility] / Unknown 12/14/2024 4:52 PM CDT 12/14/2024 4:52 PM CDT us Tim Chanel MD CHEMISTRY Final Resu lt [facility] [address] [place] [address], [place] [phone] * XR CHEST 2 VIEWS PA AND LATERAL (12/14/2024 3:02 PM CDT) Anatomical Region Laterality Modality CHEST, THORAX, Lung, HEART Compu brianna Radiography 12/14/2024 3:51 PM CDT Impressions 12/14/2024 3:51 PM CDT No infiltrate. Dictated by Manan Meza MD @ 12/14/2024 3:51:51 PM (Electronically Signed) Narrative 12/14/2024 3:51 PM CDT For Patients: As a result of the Cures Act, medical imaging exams and procedure reports are released immediately into your electronic medical record. You may view this report before your referring provider. If you have questions, please contact your health care provider. INDICATION: Left lower lobe infiltrate TECHNIQUE: Chest 2 views COMPARISON: 08/30/2021 FINDINGS: Cardiac silhouette is enlarged. Vascular calcifications. No infiltrate or edema. No effusion or pneumothorax. Degenerative changes. Procedure Note Manan Meza MD - 12/14/2024 For Patients: As a result of the Cures Act, medical imagingexams and procedure reports are released immediately into your electronicmedical record. You may view this report before your referring provider.If you have questions, please contact your health care provider. INDICATION: Left lower lobe infiltrate TECHNIQUE: Chest 2 views COMPARISON: 08/30/2021 FINDINGS: Cardiac silhouette is enlarged. Vascular calcifications. No infiltrate oredema. No effusion or pneumothorax. Degenerative changes. IMPRESSION: No infiltrate. Dictated by Manan Meza MD @ 12/14/2024 3:51:51 PM (Electronically Signed) us Tim Chanel MD GENERAL IMAGING Final Resu lt * ECHO TTE COMPLETE WO CONTRAST (10/04/2024 2:40 PM CDT) AORTIC VALVE MEAN PG 2 mmHg EJECTION FRACTION 39 % PEAK TR VELOCITY 2.9 m/s LVEDD 3.7 cm Anatomical Region Laterality Modality Ultrasound 10/04/2024 2:05 PM CDT Narrative 10/04/2024 3:05 PM CDT ECHOCARDIOGRAM TRI VELASQUEZ : 1940 84 years Study Date: 10/04/2024 2:05:42 PM Gender: F BP: 141/81 mmHg Height: 165.00 cm BSA: 1.95 m Weight: 88.00 kg Tech: Ary Referring MD: ALO VALENTINE Site: [facility] Reading Location: Mobile-IP Patient Location: Inpatient. Procedure: 2D, Color Doppler and Spectral Doppler. Indication for study: CHF Cardiac Rhythm: Irregular.Study quality: Good. Final Impressions: 1. Normal left ventricular size, moderately increased wall thickness, moderately reduced global systolic function, calculated EF of 39 %. 2. Severely enlarged left atrium. 3. Right ventricular cavity size is moderately enlarged, global systolic RV function is moderately reduced. 4. The aortic valve is sclerotic, no stenosis and moderate regurgitation. 5. The mitral valve is sclerotic, moderate mitral regurgitation. 6. Tricuspid valve is normal, severe tricuspid regurgitation. 7. The inferior vena cava is dilated, respiratory size variation less than 50%. 8. Elevated estimated pulmonary pressures by tricuspid regurgitation velocity and right atrial pressure (34 mmHg plus RAP). Chamber Sizes and Function Normal left ventricular size, moderately increased wall thickness, moderately reduced global systolic function, calculated EF of 39 %. Left atrial size is severely enlarged. Right ventricular cavity size is moderately enlarged, global systolic RV function is moderately reduced. The right atrium is severely enlarged. Right atrial volume index is 75 ml/m . Right atrial area is 37 cm . The pulmonary artery is of normal size and origin. The sinus of Valsalva is normal sized. The ascending aorta is normal sized. Valves, RV Pressures and Diastolic Function The aortic valve is sclerotic, no stenosis and moderate regurgitation. The mitral valve is sclerotic, moderate mitral regurgitation. Indeterminate pattern of LV diastolic filling. The tricuspid valve is normal in structure, severe tricuspid regurgitation. The tricuspid regurgitant velocity is 2.9 m/s, the estimated right ventricular systolic pressure is 34 mmHg plus right atrial pressure. There is elevated estimated pulmonary pressure by tricuspid regurgitation velocity and right atrial pressure. The pulmonic valve is normal. Trace pulmonary regurgitation. Masses, Effusion, Shunts There is no pericardial effusion. The inferior vena cava is dilated, respiratory size variation less than 50%. Interatrial septum is aneurysmal. MEASUREMENTS AND CALCULATIONS 2-D Measurements and LV Function: LVID (d) 3.7 cm Planimetered EF 39 % LVID (s) 3.4 cm LV FS% (2D) 9 % IVS (d) 1.6 cm LVOT diameter 2.1 cm LVPW (d) 1.5 cm HR 72 bpm Ao Sinus 3.2 cm LA Vol index 55 ml/m2 Ao Sinus ULN 3.8 cm * RA Vol index 75 ml/m2 Asc Ao 3.8 cm RA area 37 cm Asc Ao ULN 4.1 cm * RV Basal Diam 4.4 cm LA 5.0 cm RV Mid Diam 2.4 cm * Input BSA and age are outside of ranges, reported values correspond to BSA = 1.9 and Age = 78 Diastology: Mitral E Peak 0.8 m/s DT 148 msec Aortic Valve: Vmax 1.0 m/s SENIA (V) 2.64 cm AI P 1/2 507 msec VTI 0.18 m SENIA (I) 3.07 cm LVOT V max 0.8 m/s Max PG 4 mmHg LVOT VTI 0.16 m Mean PG 2 mmHg SV 56 ml Dim Index 0.85 SV index 29 ml/m CO 4.0 l/min CI 2.1 l/min/m Mitral Valve: MVA 5.1 cm MV P 1/2 43 msec Tricuspid Valve and estimated PA pressures: TR Vmax 2.9 m/s TAPSE 1.1 cm TR maxG 34 mmHg TV Annulus 3.5 cm . This study was interpreted by an [facility] accredited facility. CC: HIM (med records) [facility], Med/Surg - IP [facility]. Final Procedure Note Manan Motley MD - 10/04/2024 ECHOCARDIOGRAM TRI VELASQUEZ : 1940 84 years Study Date: 10/04/2024 2:05:42 PM Gender: F BP: 141/81 mmHg Height: 165.00 cm BSA: 1.95 m Weight: 88.00 kg Tech: [facility] Referring MD: ALO VALENTINE Site: [facility] Reading Location: Mobile-IP Patient Location: Inpatient. Procedure: 2D, Color Doppler and Spectral Doppler. Indication for study: CHF Cardiac Rhythm: Irregular.Study quality: Good. Final Impressions: 1. Normal left ventricular size, moderately increased wall thickness,moderately reduced global systolic function, calculated EF of 39 %. 2. Severely enlarged left atrium. 3. Right ventricular cavity size is moderately enlarged, global systolicRV function is moderately reduced. 4. The aortic valve is sclerotic, no stenosis and moderateregurgitation. 5. The mitral valve is sclerotic, moderate mitral regurgitation. 6. Tricuspid valve is normal, severe tricuspid regurgitation. 7. The inferior vena cava is dilated, respiratory size variation lessthan 50%. 8. Elevated estimated pulmonary pressures by tricuspid regurgitationvelocity and right atrial pressure (34 mmHg plus RAP). Chamber Sizes and Function Normal left ventricular size, moderately increased wall thickness,moderately reduced global systolic function, calculated EF of 39 %. Leftatrial size is severely enlarged. Right ventricular cavity size ismoderately enlarged, global systolic RV function is moderately reduced.The right atrium is severely enlarged. Right atrial volume index is 75ml/m . Right atrial area is 37 cm . The pulmonary artery is of normalsize and origin. The sinus of Valsalva is normal sized. The ascendingaorta is normal sized. Valves, RV Pressures and Diastolic Function The aortic valve is sclerotic, no stenosis and moderate regurgitation. Themitral valve is sclerotic, moderate mitral regurgitation. Indeterminatepattern of LV diastolic filling. The tricuspid valve is normal instructure, severe tricuspid regurgitation. The tricuspid regurgitantvelocity is 2.9 m/s, the estimated right ventricular systolic pressure is34 mmHg plus right atrial pressure. There is elevated estimated pulmonarypressure by tricuspid regurgitation velocity and right atrial pressure.The pulmonic valve is normal. Trace pulmonary regurgitation. Masses, Effusion, Shunts There is no pericardial effusion. The inferior vena cava is dilated,respiratory size variation less than 50%. Interatrial septum isaneurysmal. MEASUREMENTS AND CALCULATIONS 2-D Measurements and LV Function: LVID (d) 3.7 cm Planimetered EF 39% LVID (s) 3.4 cm LV FS% (2D) 9% IVS (d) 1.6 cm LVOT diameter2.1 cm LVPW (d) 1.5 cm HR 72bpm Ao Sinus 3.2 cm LA Vol index 55ml/m2 Ao Sinus ULN 3.8 cm * RA Vol index 75ml/m2 Asc Ao 3.8 cm RA area 37cm Asc Ao ULN 4.1 cm * RV Basal Diam4.4 cm LA 5.0 cm RV Mid Diam2.4 cm * Input BSA and age are outside of ranges, reported values correspond to BSA = 1.9 and Age = 80 Diastology: Mitral E Peak 0.8 m/s DT 148 msec Aortic Valve: Vmax 1.0 m/s SENIA (V) 2.64 cm AI P 1/2 507 msec VTI 0.18 m SENIA (I) 3.07 cm LVOT V max 0.8 m/s Max PG 4 mmHg LVOT VTI 0.16 m Mean PG 2 mmHg SV 56 ml Dim Index 0.85 SV index 29 ml/m CO 4.0 l/min CI 2.1 l/min/m Mitral Valve: MVA 5.1 cm MV P 1/2 43 msec Tricuspid Valve and estimated PA pressures: TR Vmax 2.9 m/s TAPSE 1.1 cm TR maxG 34 mmHg TV Annulus 3.5 cm . This study was interpreted by an [facility] accredited facility. CC: HIM (med records) [facility], Med/Surg - IP [facility]. Final us Alo Valentine MD ECHO ORD Final Result * SCAN-RADIOLOGY REPORT (10/03/2024 12:00 AM CDT) Anatomical Region Laterality Modality Other us Scanner OTHER Final Result * (ABNORMAL) INR - POCT [[id number]] - Standing Order (09/28/2024 1:34 PM CDT) INR 4.0(H) ratio [facility] Comment: INRs >2.9 may be falsely [...] PROTHROMBIN TIMEP 48.6(H) 10.5 - 13.1 sec [facility] Comment: Point of care fingerstick Prothrombin Time/INR results may vary from venous Prothrombin Time/INR methodologies. Any results exhibiting inconsistency with the patient's clinical status should be repeated using a venous Prothrombin Time/INR method. Blood BLOOD SPECIMEN / Unknown 09/28/2024 1:34 PM CDT 09/28/2024 1:35 PM CDT Tim Chanel MD LABORATORY Final Resu lt [facility] [address] [place] [address], [facility] [address] [place] [address] * (ABNORMAL) XR DXA BONE DENSITY 2 [...] Maintenance Insurance MEDICARE PART A HB ONLY [employer] [place] [employer] BLUE HB ONLY MEDICARE PART B HB ONLY [employer]UE CROSS MEDICARE ADVANTAGE MR MEDICARE PPS [facility] [employer] [place] [address] Advance Directives Documents on File Type Date Recorded Patient Rag Inspector Expl anation POLST 08/11/2023 Treatment Guidelines 08/02/2021 Healthcare Directive 04/01/2012 2:32 PM H EALT CARE DIRECTIVE, [facility], 01/08/2000 * DNR (Latest Code Status on [...] Preferences, Provider to review later Care Teams Prosthetist Relationship Specialty Start Date End Date Tim Chanel MD [address] [place] [address] PCP - General Family Practice 03/30/13 Tay Pearson [address] [place] [address] Reed Polisher 09/29/11 Veena Mitchell MD [address] [id number] Dermatology Dermatology 07/04/22
--- OUTSIDE RECORDS SUMMARY | 2024-12-22 00:16 | XMS_ITS | Encounter Summary ---
Author Organization [facility] Address [address] [place] [address] Care Team Providers Care Rubber Cutter Name Role Phone Tim Chanel MD Primary Care Provider [phone] Encounter Details Date Type Department Care Team (Late st Contact Info) Description 07/13/2023 Orders Only [facility] [address] [place] [address] Dm Rain MD [address] [facility] [place] [address] Stage 5 chronic kidney disease [...] [facility] [place] [address] Dm Rain MD [address] [place] [address] Stage 5 chronic kidney disease (HCC) 02/13/2025 11:00 AM FARM OR RANCH ANIMAL CARETAKER Office Visit [facility] [place] [address] Dm Rain MD [address] [place] [address] documented as of this encounter Procedures Procedure [...] mg/dL [facility] Glucose 146(H) mg/dL [facility] eGFR (Calc) 11(L) [facility] Anion Gap 15 [facility] Blood specimen (specimen) Venous blood / Unknown 07/16/2023 us Dm Rain MD LAB BLOOD ORDERABLES Final Re sult [facility] documented in this encounter Visit Diagnoses Diagnosis Stage 5 chronic kidney disease (HCC) Stage 5 chronic kidney disease (HCC) documented in this encounter Care Teams Rubber Cutter Relationship Specialty Start Date End Date Tim Chanel MD [address] [place] [address] PCP - General Family Medicine 04/20/23 documented as of this encounter
--- OUTSIDE RECORDS SUMMARY | 2024-12-22 00:16 | XMS_ITS | Clinical Summary ---
Author Organization [facility] Address [address] [address] Phone Care Team Providers Care Contracts Specialist Name Role Phone Tim Chanel MD Primary Care Provider [phone] Allergies Active Allergy Reactions Criticality Noted Date [...] hr tablet Take 50 mg by mouth 1 (one) time each day 3 Active warfarin (COUMADIN) 2.5 MG tablet Take 5 mg by mouth 1 (one) time each day 5 tab everyday except Thursday (3 Tabs) 4 Active atorvastatin (LIPITOR) 10 MG tablet Take 10 mg by mouth in the morning. 3 Active Latanoprostene Bunod (Vyzulta) 0.024 % solution 4 Active furosemide (LASIX) 20 MG tablet Take by mouth 1 (one) time each day 40 mg in the AM, 20 mg later in the day Active timolol (TIMOPTIC) 0.5 % ophthalmic solution Administer 1 drop into affected eye(s) in the morning and 1 drop in the evening. Active POTASSIUM PO Take 1 tablet by mouth 1 (one) time each day 500mg (13mEq) chewable tablet OTC Active Active Problems Problem Noted Date Diagnosed [...] Encounters Date Type Department Care Team Description 11/14/2024 2:00 PM CDT Office [facility] [place] [address] Dm Rain MD Stage 5 chronic kidney disease (HCC) (Primary Dx); Hypertensive chronic kidney disease with stage 1 through stage 4 chronic kidney disease, or unspecified chronic kidney disease; Secondary hyperparathyroidism of renal origin (HCC); Chronic systolic heart failure (HCC) 10/18/2024 Results Follow-Up [facility] [address] [place] [phone] Vicky Potts RN 10/17/2024 Orders [facility] [place] [address] Dm Rain MD Stage 5 chronic kidney disease (HCC) from Last 3 Months Immunizations Immunization Administration Dates Next Due Influenza Vaccine, Quadrivalent, Adjuvanted 12/13,01/15/2022,01/21/2021 Influenza, Trivalent, Adjuvanted 01/06/2024 Moderna Sars-cov-2 (Covid-19 ) Vaccine, Mrna, Tan Protein 02/06/2023 Respiratory Syncytial Virus (Rsv), Unspecified 01/06/2024 Tdap 12/09/2022,05/19/2011 Family History Medical History Relation Comments Cancer Brother 1 skin Cancer Father prostate at 80 Gout Mother Heart disease Mother of heart di sease [...] Mass Index 29.13 11/14/2024 1:51 PM CDT Plan of Treatment Upcoming Encounters Date Type Department Care Team (Late st Contact Info) Description 12/26/2024 Orders Only [facility] [address] [place] [place] [address] Dm Rain MD [address] [phone] Stage 5 chronic kidney disease (HCC) 02/13/2025 11:00 AM COMMERCIAL ART INSTRUCTOR Office [facility] [address] [place] [address] Dm Rain MD [address] [place] [address] Health Maintenance Due Date Last Done Comments Pneumococcal Vaccine: 50+ Years (1 of 2 - PCV) 1959 Diabetes: Ophthalmology Exam 04/29/2023 Diabetes: Pedal Pulse Checked 04/29/2023 Diabetes: Sensory Foot Exam 04/29/2023 Diabetes: Visual Foot Exam 04/29/2023 Diabetes: Hemoglobin A1C 11/30/2024 025, 06/21/2024, 12/17/2023, Additional history exists Influenza Vaccine (#1) 2024 4, 01/05/2023, 01/15/2022, Additional history exists Hepatitis B Vaccine Aged Out No longe r eligible based on patient's age to complete this topic Procedures Procedure Name Priority Date/Time Associated Diagnosis Comments PTH, INTACT Routine 10/17/2024 11:00 AM CDT Stage 5 chronic kidney disease (HCC) RENAL FUNCTION PANEL Routine 10/17/2024 11:00 AM CDT Stage 5 chronic kidney disease (HCC) from Last 3 Months Results * (ABNORMAL) PTH, intact (10/17/2024 11:00 AM CDT) Parathyroid Hormone, Intact 300(H) 16 - 77 pg/mL [facility] Comment: Interpretive Guide Intact PTH Calcium ------- Normal Parathyroid Normal Normal Hypoparathyroidism Low or Low Normal Low Hyperparathyroidism Primary Normal or High High Secondary High Normal or Low Tertiary High High Non-Parathyroid Hypercalcemia Low or Low Normal High Blood specimen (specimen) Venous blood / Unknown 10/17/2024 11:00 AM CDT 10/17/2024 11:01 AM CDT Narrative Resulting Agency Comment Performing Organization Information: Site ID: [id number] Name: [facility] Address: [address] [place] [phone] Director: Chato Lofton us Dm Rain MD LAB BLOOD ORDERABLES Final Re sult [facility] [address] [place] [phone] * (ABNORMAL) Renal function panel (10/17/2024 11:00 AM CDT) Glucose 113(H) 65 - 99 mg/dL [facility] Comment: Fasting reference interval For someone without known diabetes, a glucose value between 100 and 125 mg/dL is consistent with prediabetes and should be confirmed with a follow-up test. BUN 47(H) 7 - 25 mg/dL [facility] Creatinine 3.10(H) 0.60 - 0.95 mg/dL [facility] eGFR CKD-EPI CR 2020 14(L) > OR = 60 mL/min/1.7 3m2 [facility] BUN/Creatinine Ratio 15 6 - 22 (calc) [facility] Sodium 141 135 - 146 mmol/L [facility] Potassium 3.7 3.5 - 5.3 mmol/L [facility] Chloride 105 98 - 110 mmol/L [facility] Bicarbonate (CO2) 24 20 - 32 mmol/L [facility] Calcium 9.4 8.6 - 10.4 mg/dL [facility] Phosphorus 4.2 2.1 - 4.3 mg/dL [facility] Albumin 3.9 3.6 - 5.1 g/dL [facility] Blood specimen (specimen) Venous blood / Unknown 10/17/2024 11:00 AM CDT 10/17/2024 11:01 AM CDT Narrative Resulting Agency Comment Performing Organization Information: Site ID: [id number] Name: [facility] Address: [address] [place], [place] [address], [place] [address] Director: Chato Lofton us Dm Rain MD LAB BLOOD ORDERABLES Final Re sult [facility] [address] [place], [place] [address], [place] [address] from Last 3 Months Insurance [address] [phone] [facility] [address] Care Teams Contracts Specialist Relationship Specialty Start Date End Date Tim Chanel MD [place] [address] PCP - General Family Medicine 04/20/23
--- OUTSIDE RECORDS SUMMARY | 2024-12-22 00:17 | XMS_ITS | Encounter Summary ---
Author Organization [facility] Address [address] [place] [address] Care Team Providers Care President Celebrity Acquistion Name Role Phone Tim Chanel MD Primary Care Provider [phone] Encounter Details Date Type Department Care Team (Late st Contact Info) Description 08/27/2023 Orders Only [facility] [address] [place] [phone] Dm Rain MD [address] [place] [address] Stage 5 chronic kidney disease [...] [facility] [address] [place] [address] Dm Rain MD [address] [place] [address] Stage 5 chronic kidney disease (HCC) 02/13/2025 11:00 AM GLOBAL CATEGORY MANAGER Office Visit [facility] [address] [place] [address] Dm Rain MD [address] [place] [address] documented as of this encounter Procedures Procedure [...] [facility] CALCIUM FOR PTH 10.0 [facility] Blood specimen (specimen) Venous blood / Unknown 08/26/2023 Dm Rain MD LAB BLOOD ORDERABLES Final [facility] Performing Organization Address [facility]/ZIP Co de Phone Number [facility] * Hemoglobin (08/26/2023) Hemoglobin 13.7 g/dL [facility] Blood specimen (specimen) Venous blood / Unknown 08/26/2023 Dm Rain MD LAB BLOOD ORDERABLES Final Re sult [facility] * (ABNORMAL) Renal function panel (08/26/2023) Glucose 102(H) mg/dL [facility] BUN 60(H) mg/dL [facility] Creatinine 3.99(H) mg/dL [facility] BUN/Creatinine Ratio 15 [facility] Sodium 146(H) mEq/L [facility] Potassium 4.2 mEq/L [facility] Chloride 109(H) [facility] Carbon Dioxide 21(L) mmol/L [facility] Calcium 10.0 mg/dL [facility] Phosphorus, Serum 4.6(H) mg/dL [facility] Albumin (Blood) 4.5 g/dL [facility] eGFR 11(L) [facility] Blood specimen (specimen) Venous blood / Unknown 08/26/2023 Dm Rain MD LAB BLOOD ORDERABLES Final Re sult [facility] documented in this encounter Visit Diagnoses Diagnosis Stage 5 chronic kidney disease (HCC) Stage 5 chronic kidney disease (HCC) documented in this encounter Care Teams President Celebrity Acquistion Relationship Specialty Start Date End Date Tim Chanel MD [address] [place] [address] PCP - General Family Medicine 04/20/23 documented as of this encounter
--- OUTSIDE RECORDS SUMMARY | 2024-12-22 00:17 | XMS_ITS | Encounter Summary ---
Author Organization [facility] Address [address] [place] [address] Care Team Providers Care Breast Worker Name Role Phone Tim Chanel MD Primary Care Provider [phone] Encounter Details Date Type Department Care Team (Late st Contact Info) Description 10/17/2024 Orders Only [facility] [address] [place] [phone] Dm Rain MD [address] [place] [address] Stage 5 chronic kidney disease [...] [facility] [address] [place] [address] [address] Dm Rain MD [address] [place] [address] Stage 5 chronic kidney disease (HCC) 02/13/2025 11:00 AM OFFICE SPECIALIST Office Visit [facility] [address] [place] [address] Dm Rain MD [address] [place] [address] documented as of this encounter Procedures Procedure Name Priority Date/Time Associated Diagnosis Comments PTH, INTACT Routine 10/17/2024 11:00 AM CDT Stage 5 chronic kidney disease (HCC) RENAL FUNCTION PANEL Routine 10/17/2024 11:00 AM CDT Stage 5 chronic kidney disease (HCC) documented in this encounter Results * (ABNORMAL) PTH, intact (10/17/2024 11:00 AM CDT) Parathyroid Hormone, Intact 300(H) 16 - 77 pg/mL [facility] Comment: Interpretive Guide Intact PTH Calcium [...] Performing Organization Information: Site ID: CB Name: [facility] Address: [address] [place] [address] Director: Chato Lofton us Dm Rain MD LAB BLOOD ORDERABLES Final Re sult [facility] [address] [place] [address] * (ABNORMAL) Renal function panel (10/17/2024 11:00 AM CDT) Glucose 113(H) 65 - 99 mg/dL [facility] Comment: Fasting reference interval For [...] Site ID: CB Name: [facility] Address: [address] [place] [phone] Director: Chato Lofton us Dm Rain MD LAB BLOOD ORDERABLES Final Re sult [facility] [address] [place] [address] documented in this encounter Visit Diagnoses Diagnosis Stage 5 chronic kidney disease (HCC) Stage 5 chronic kidney disease (HCC) documented in this encounter Care Teams Breast Worker Relationship Specialty Start Date End Date Tim Chanel MD [address] [place] [address] PCP - General Family Medicine 04/20/23 documented as of this encounter
--- OUTSIDE RECORDS SUMMARY | 2024-12-22 00:17 | XMS_ITS | Encounter Summary ---
Author Organization [facility] Address [address] [place] [address] Care Team Providers Care Hairspring Truer Name Role Phone Tim Chanel MD Primary Care Provider [phone] Encounter Details Date Type Department Care Team (Late st Contact Info) Description 12/28/2023 Orders Only [facility] [address] [place] [phone] Dm Rain MD [address] [place] [address] Stage 5 chronic kidney disease [...] [facility] [address] [place] [place] [address] Dm Rain MD [address] [place] [address] Stage 5 chronic kidney disease (HCC) 02/13/2025 11:00 AM HAIRSPRING FABRICATION SUPERVISOR [facility] [address] [place] [address] Dm Rain MD [address] [place] [address] documented as of this encounter Procedures Procedure [...] if the renal function is stable. Blood specimen (specimen) Venous blood / Unknown 12/25/2023 us Dm Rain MD LAB BLOOD ORDERABLES Final Re sult [facility] documented in this encounter Visit Diagnoses Diagnosis Stage 5 chronic kidney disease (HCC) Stage 5 chronic kidney disease (HCC) documented in this encounter Care Teams Hairspring Truer Relationship Specialty Start Date End Date Tim Chanel MD [address] [place] [address] PCP - General Family Medicine 04/20/23 documented as of this encounter
--- OUTSIDE RECORDS SUMMARY | 2024-12-22 00:17 | XMS_ITS | Encounter Summary ---
Author Organization [facility] Address [address] [facility] [address] [place] [address] Care Team Providers Care Assistant Teaching Professor Name Role Phone Tim Chanel MD Primary Care Provider [phone] Encounter Details Date Type Department Care Team (Late st Contact Info) Description 11/03/2023 Orders Only [facility] [address] [place] [address] Dm Rain MD [address] [place] [address] Stage 5 chronic kidney disease [...] [facility] [address] [place] [place] [address] Dm Rain MD [address] [place] [address] Stage 5 chronic kidney disease (HCC) 02/13/2025 11:00 AM COUNSELING SERVICES DIRECTOR Office [facility] [address] [address] Dm Rain MD [address] [place] [address] documented as of this encounter Procedures Procedure [...] 12(L) [facility] Anion Gap 13 [facility] Blood specimen (specimen) Venous blood / Unknown 10/27/2023 11:06 AM CDT us Dm Rain MD LAB BLOOD ORDERABLES Final Re sult [facility] documented in this encounter Visit Diagnoses Diagnosis Stage 5 chronic kidney disease (HCC) Stage 5 chronic kidney disease (HCC) documented in this encounter Care Teams Assistant Teaching Professor Relationship Specialty Start Date End Date Tim Chanel MD [address] [place] [address] PCP - General Family Medicine 04/20/23 documented as of this encounter
--- OUTSIDE RECORDS SUMMARY | 2024-12-22 00:17 | XMS_ITS | Encounter Summary ---
Author Organization [facility] Address [address] [place] [address] Care Team Providers Care Children'S Author Name Role Phone Tim Chanel MD Primary Care Provider [phone] Encounter Details Date Type Department Care Team (Late st Contact Info) Description 10/18/2024 Results Follow-Up [facility] [address] [facility] [address] [place] [address] Vicky Potts, ERENDIRA [address] [facility] [address] [place] [address] Social History Tobacco Use Types [...] Only [facility] [address] [place] [address] Dm Rain MD [address] [place] [address] Stage 5 chronic kidney disease (HCC) 02/13/2025 11:00 AM VETERINARY BACTERIOLOGIST Office Visit [facility] [address] [place] [address] mD Rain MD [address] [place] [address] documented as of this encounter Visit Diagnoses Not on filedocumented in this encounter Care Teams Children'S Author Relationship Specialty Start Date End Date [place] [address] PCP - General Family Medicine 04/20/23 documented as of this encounter
== END 2024-12-21 07:11 | disposition home or self-care (01) ==
LOC: NPINS 07:10
PROVIDERS: PCP Family Medicine; Visit Provider Family Medicine
DX: I48.91 Unspecified atrial fibrillation (principal)
CPT/HCPCS: 85610

== ENCOUNTER 2024-12-27 10:44 | Emergency (ER) | payer MEDICARE, SELFPAY ==
--- OUTSIDE RECORDS SUMMARY | 2024-11-14 14:00 | XMS_ITS | Encounter Summary ---
Author Organization [facility] Address [address] [place] [address] Care Team Providers Care Leather Toggler Name Role Phone Tim Chanel MD Primary Care Provider [phone] Reason for Visit * Reason Comments Follow-up Encounter Details Date Type Department Care Team (Latest Contact Info) Description 11/14/2024 2:00 PM CDT Office Visit [facility] [address] [place] [address] Dm Rain MD [address] [place] [address] Stage 5 chronic kidney disease (HCC) (Primary Dx); Hypertensive chronic kidney disease with stage 1 through stage 4 chronic kidney disease, or unspecified chronic kidney disease; Secondary hyperparathyroidism of renal origin (HCC); Chronic systolic heart failure (HCC) Social History Tobacco Use Types Packs/Day [...] Sign Reading Time Taken Comments Blood Pressure 120/58 11/14/2024 1:51 PM CDT Pulse 64 11/14/2024 1:51 PM CDT Temperature - - Respiratory Rate - - Oxygen Saturation 93% 11/14/2024 1:51 PM CDT Inhaled Oxygen Concentration - - Weight 84.4 kg (186 lb) 11/14/2024 1:51 PM CDT Height 170.2 cm (5' 7) 11/14/2024 1:51 PM CDT Body Mass Index 29.13 11/14/2024 1:51 PM CDT documented in this encounter Patient Instructions * Patient Instructions* Max Roach - 11/14/2024 2:00 PM CDT Tri, I am glad you are taking the lasix every day and the weight is trending down slowly. Your kidney function is stable from last visit. We will do labs in 6 weeks and then in 3 months prior to a follow-up with me after the 2nd lab. Dez Rain MD documented in this encounter Progress Notes * Dm Rain MD - 11/14/2024 2:00 PM CDT Images from the original note were not included. Patient: Tri Mckeon Date of : 1940 Chart: [id number] PCP: Tim Chanel MD Date of Service: 11/14/2024 Chief Complaint: CKD Stage 5 follow-up Subjective: Tri is seen today for follow-up. Her daughter is with her today, who contributes to the history. She was hospitalized with fluid overload. She was not taking lasix consistently again. IT continuesto cause very frequent urination. Her weight was up to 195 lbs, she is now on lasix 40mg in am and 20mg in pm and her daughter is setting up her pill dispenser and she is taking it consistently and her weight is down 10 lbs over the last 2 weeks (slowly trending down). She still has dyspnea on exertion but it is not like when she had to go to the hospital. Her LE edema is still significant but itis better. She does have a wound on one leg and they are changing the dressing and monitoring this at her assisted living facility. Her renal function is stable from our last visit. SH: Now lives in assisted living facility The following portions of the patient's chart were reviewed in this encounter and updated as appropriate: Tobacco Allergies Meds Problems Med Hx Surg Hx Fam Hx Active Problems Patient Active Problem List Diagnosis Stage 5 chronic kidney disease (HCC) Hypertensive chronic kidney disease with stage 1 through stage 4 chronic kidney disease, or unspecified chronic kidney disease Secondary hyperparathyroidism of renal origin (HCC) Hypercoagulable state due to atrial fibrillation (HCC) Chronic systolic heart failure (HCC) Review of Systems Patient denies chest pain, SOB at rest, nausea/vomiting, and fever/chills. Taking? Provider atorvastatin (LIPITOR) 10 MG tablet Aileen Moura MD Take 10 mg by mouth in the morning. furosemide (LASIX) 20 MG tablet Aileen Moura MD Take by mouth 1 (one) time each day 40 mg in the AM, 20 mg later in the day Latanoprostene Bunod (Vyzulta) 0.024 % solution Aileen Moura MD levothyroxine (SYNTHROID, LEVOTHROID) 75 MCG tablet Aileen Moura MD Take 75 mcg by mouth 1 (one) time each day metoprolol succinate XL (TOPROL XL) 50 MG 24 hr tablet Aileen Moura MD Take 50 mg by mouth 1 (one) time each day POTASSIUM PO Aileen Moura MD Take 1 tablet by mouth 1 (one) time each day 500mg (13mEq) chewable tablet OTC timolol (TIMOPTIC) 0.5 % ophthalmic solution Aileen Moura MD Administer 1 drop into affected eye(s) in the morning and 1 drop in the evening. warfarin (COUMADIN) 2.5 MG tablet Aileen Moura MD Take 5 mg by mouth 1 (one) time each day 5 tab everyday except Chente (3 Tabs) Allergies Allergen Reactions Amlodipine Swelling Conjugated Estrogens intolerance: sore breasts Gabapentin Other (see comments) Pt stopped because she did not like the way it made her feal. Physical Exam BP 120/58 (BP Location: Right upper arm, Patient Position: Sitting, BP Cuff Size: Adult) Pulse 64 Ht 5' 7 (1.702 m) Wt 186 lb (84.4 kg) SpO2 93% BMI 29.13 kg/m?? CONSTITUTIONAL: alert, in NAD but appears frail EYES: pupils equal, sclerae not icteric. RESPIRATORY: Clear to auscultation bilaterally, nl effort CARDIOVASCULAR: Regular rate and rhythm, soft murmur, 2+ edema in legs up to thighs with compression wraps on lower legs GASTROINTESTINAL: bowel sounds active, not distended PSYCHIATRIC: Alert and pleasant INTEGUMENT: No visible rash on exposed skin. Wound is dressed today MUSCULOSKELETAL: four limbs, no contractures Chemistry and Bone Mineral Lab Units 10/17/24 1100 07/12/24 1452 07/12/24 0000 06/21/24 1603 12/25/23 1544 12/25/23 0000 12/17/23 1514 10/27/23 1106 08/26/23 1523 08/26/23 0000 08/12/23 1153 07/16/23 1418 07/16/23 0000 05/28/23 1552 05/28/23 0000 05/18/23 1151 02/17/23 1107 01/23/23 1549 SODIUM mmol/L 141 -- 144 -- 144 144 -- 142 142 146* 146* -- 146* < > 145 < > 141 <> -- POTASSIUM mmol/L 3.7 -- 3.9 -- 3.8 3.8 -- 4.6 4.6 4.2 4.2 -- 4.5 < > 3.7 < > 4.4 <> -- CHLORIDE mmol/L 105 -- 106 -- 111* 111* -- 109* 109* 109* 109* -- 106 < > 108* < > 103 < > -- CO2 mmol/L 24 -- 24 -- 18* 18* -- 20* 20* 21* 21* -- 25 < > 25 < > 23 < > -- ANION GAP -- -- -- -- 15 -- -- 13 16 -- -- 15 -- 12 -- 15 < > -- CALCIUM mg/dL 9.4 9 9 9 -- 9 9.0 -- 9.2 9.2 10 10 10.0 10.0 -- 9.6 < > 9.1 9.1 <> 8.7* < > -- PHOSPHORUS mg/dL 4.2 -- 4.6* -- 4.1 4.1 -- -- 4.6* 4.6* -- -- -- 4.2 < > 3.6 < > -- PTH pg/mL 300* 312* 312* -- -- -- -- -- 127* 127.0* -- -- -- 186* -- -- -- -- GLUCOSE mg/dL 113* -- 172* -- 110* 110* -- 77 77 102* 102* -- 146* < > 82 < > 126* < > -- ALBUMIN g/dL 3.9 -- 3.9 -- 4.2 4.2 -- -- 4.5 4.5 -- -- -- 3.8* < > 3.8* < > -- BUN mg/dL 47* -- 43* -- 59* 59* -- 57* 57* 60* 60* -- 49* < > 44* < > 59* < > -- CREATININE mg/dL 3.10* -- 3.19* -- 3.27* 3.27* -- 3.46* 3.46* 3.99* 3.99* -- 4.01* < > 4.06* < > 3.99* < > -- EGFR mL/min/1.73m2 14* -- 14* -- 13* 13* -- 12* 12* 11* 11* -- 11* < > 10* < > 11* < > -- HEMOGLOBIN A1C % of total Hgb -- -- -- 6.4* -- -- 6.2 -- -- -- 6.1 -- -- -- -- -- -- 6.6* < > = values in this interval not displayed. CBC and Iron Studies Lab Units 07/12/24 1452 07/12/24 0000 08/26/23 1523 08/26/23 0000 05/28/23 1552 05/28/23 0000 05/18/23 1151 04/27/23 0000 WBC AUTO K/uL -- -- -- -- -- -- -- 7.4 HEMATOCRIT % -- -- -- -- -- -- -- 42.7 HEMOGLOBIN g/dL 13.7 13.7 13.7 13.7 12.7 12.7 13.9 14.5 MCV fL -- -- 92 -- 91 91 92 89 PLATELETS AUTO -- -- -- -- -- -- -- 206 No lab exists for [...] Hypertensive chronic kidney disease - stable, BP controlled Baseline Cr was 1.5 from [id number] with bland urinalysis, had JEFFY with gallbladder surgery and thenrequired IV diuresis after this in Feb 2015 at [facility], Cr higher at 1.5 after that but stable [id number] when Cr to 1.85 and 2.1 in [...] function and control metabolic complications of CKD -Renal function is stable since biopsy in Apr 2023 -Edema was much worse last visit, hospitalized since our last visit for fluid overload requiring brief hospital stay and IV diuresis. She struggles to take lasix every day due to frequent urination, daughter now helping ensure it is dispensed and she is taking lasix 40mg in am and 20mg in pm every day and weight is slowly trending down and edema is improving. I would like to see her down to <170 lbs again and she is aware how important it is to take every day. May need to escalate dose againif not achieving goal and/or may need to consider change to torsemide. -She will monitor uremia symptoms -Discussed prognosis and likelihood of ESRD given GFR <15 and biventricular heart failure. She is aware that she may need hospice if renal function deteriorates and/or refractory to diuretics. Discussed today. -[facility] daily, bring to each appt -Labs in 6 weeks and then prior to follow-up in 3 months HFrEF, RV dysfunction - stable. Continue low [...] wt daily at home Secondary renal hyperparathyroidism - stable PTH rising and now >300, phos a little more elevated. -Low phos diet recommended, handout provided today -Ca stable, phos at goal, PTH still 300. Will monitor for now. Return in about 3 months (around 02/14/2025) for follow-up with MD. Total time spent on visit 40 minutes. Dm Rain MD [facility] documented in this encounter Plan of Treatment Upcoming Encounters Date Type Department Care Team (Late st Contact Info) Description 02/13/2025 11:00 AM BATTERY CONTAINER FINISHING HAND Office Visit [facility] [address] [place] [address] Dm Rain MD [address] [place] [id number] Scheduled Orders Name Type Priority Associated Diagnoses Orde r Schedule Basic metabolic panel Lab Routine Stage 5 chronic kidney disease (HCC) Expected: 12/26/2024 (Approximate), Expires: 12/15/2025 Renal function panel Lab Routine Stage 5 chronic kidney disease (HCC) Expected: 02/14/2025 (Approximate), Expires: 12/15/2025 Hemoglobin Lab Routine Stage 5 chronic kidney disease (HCC) Expected: 02/14/2025 (Approximate), Expires: 12/15/2025 documented as of this encounter Visit Diagnoses Diagnosis Stage 5 chronic kidney disease (HCC)- Primary Hypertensive chronic kidney disease with stage 1 through stage 4 chronic kidney disease, or unspecified chronic kidney disease Secondary hyperparathyroidism of renal origin (HCC) Secondary hyperparathyroidism of renal origin Chronic systolic heart failure (HCC) Chronic systolic heart failure documented in this encounter Care Teams Leather Toggler Relationship Specialty Start Date End Date Tim Chanel MD [address] [place] [id number] PCP - General Family Medicine 04/20/23 documented as of this encounter
--- OUTSIDE RECORDS SUMMARY | 2024-12-27 10:48 | XMS_ITS | Encounter Summary ---
Author Organization [facility] Address [address] [place] [address] Care Team Providers Care Research Laboratory Manager Name Role Phone Tim Chanel MD Primary Care Provider [phone] Encounter Details Date Type Department Care Team (Late st Contact Info) Description 12/28/2023 Orders [facility] [place] [address] Dm Rain MD [address] [place] [address] Stage 5 chronic kidney disease [...] st Contact Info) Description 02/13/2025 11:00 AM BRAILLE AND TALKING BOOKS CLERK Office Visit [facility] [address] [place] [place] [place] [phone] Dm Rain MD [address] [place] [address] documented as of this encounter Procedures Procedure [...] (HCC) documented in this encounter Care Teams Research Laboratory Manager Relationship Specialty Start Date End Date Tim Chanel MD [facility] [place] [address] PCP - General Family Medicine 04/20/23 documented as of this encounter
--- OUTSIDE RECORDS SUMMARY | 2024-12-27 10:48 | XMS_ITS | Encounter Summary ---
Author Organization [facility] Address [address] [place] [address] Care Team Providers Care Line Installation Supervisor Name Role Phone Tim Chanel MD Primary Care Provider [phone] Encounter Details Date Type Department Care Team (Late st Contact Info) Description 10/17/2024 Orders Only [facility] [place] [phone] Dm Rain MD [address] [place] [address] Stage 5 chronic kidney disease [...] st Contact Info) Description 02/13/2025 11:00 AM ANESTHESIA DIRECTOR Office Visit [facility] [address] [place] [place] [phone] Dm Rain MD [address] [place] [address] documented as of this encounter Procedures Procedure Name Priority Date/Time Associated Diagnosis Comments PTH, INTACT Routine 10/17/2024 11:00 AM CDT Stage 5 chronic kidney disease (HCC) RENAL FUNCTION PANEL Routine 10/17/2024 11:00 AM CDT Stage 5 chronic kidney disease (HCC) documented in this encounter Results * (ABNORMAL) PTH, intact (10/17/2024 11:00 AM CDT) Parathyroid Hormone, Intact 300(H) 16 - 77 pg/mL [facility] Comment: Interpretive Guide Intact PTH Calcium [...] Performing Organization Information: Site ID: [id number] Name: [facility] Address: [address] [place] [phone] Director: Chato Lofton us Dm Rain MD LAB BLOOD ORDERABLES Final Re sult [facility] [employer] [address] * (ABNORMAL) Renal function panel (10/17/2024 11:00 AM CDT) Glucose 113(H) 65 - 99 mg/dL [facility] Comment: Fasting reference interval For someone without known diabetes, a glucose value between 100 and 125 mg/dL is consistent with prediabetes and should be confirmed with a follow-up test. BUN 47(H) 7 - 25 mg/dL [facility] Creatinine 3.10(H) 0.60 - 0.95 mg/dL [facility] eGFR CKD-EPI CR 2020 14(L) > OR = 60 mL/min/1.7 3m2 [facility] BUN/Creatinine Ratio 15 6 - 22 (calc) [facility] Sodium 141 135 - 146 mmol/L [facility] Potassium 3.7 3.5 - 5.3 mmol/L [facility] [...] Agency Comment Performing Organization Information: Site ID: Name: [facility] Address: [address] [place] [phone] Director: Chato Lofton us Dm Rain MD LAB BLOOD ORDERABLES Final Re sult [facility] Aretha Mays [address] [address] documented in this encounter Visit Diagnoses Diagnosis Stage 5 chronic kidney disease (HCC) documented in this encounter Care Teams Line Installation Supervisor Relationship Specialty Start Date End Date Tim Chanel [place] [address] PCP - General Family Medicine 04/20/23 documented as of this encounter
--- OUTSIDE RECORDS SUMMARY | 2024-12-27 10:48 | XMS_ITS | Clinical Summary ---
Author Organization [facility] Address [address] [place] [address] Phone Care Team Providers Care Commissioned Fire Officer Name Role Phone Tim Chanel MD Primary Care Provider [phone] Allergies Active Allergy Reactions Criticality Noted Date [...] Encounters Date Type Department Care Team Description 12/26/2024 Orders Only [facility] [place] [address] Dm Rain MD Stage 5 chronic kidney disease (HCC) 11/14/2024 2:00 PM CDT Office Visit [facility] [place] [address] Dm Rain MD Stage 5 chronic kidney disease (HCC) (Primary Dx); Hypertensive chronic kidney disease with stage 1 through stage 4 chronic kidney disease, or unspecified chronic kidney disease; Secondary hyperparathyroidism of renal origin (HCC); Chronic systolic heart failure (HCC) 10/18/2024 Results Follow-Up [facility] [address] [address] Vicky Potts RN 10/17/2024 Orders Only [facility] [address] [place] [address] Dm Rain MD Stage 5 chronic [...] st Contact Info) Description 02/13/2025 11:00 AM COMMISSIONS COORDINATOR Office Visit [facility] [address] [place] [address] Dm Rain MD [address] [place] [address] Health Maintenance Due Date Last [...] Hormone, Intact 300(H) 16 - 77 pg/mL [facility] Comment: Interpretive Guide Intact PTH [...] Site ID: [id number] Name: [facility] Address: [address] [place] [phone] Director: Chato Lofton us Dm Rain MD LAB BLOOD ORDERABLES Final Re sult [facility] Annabelle Diggs [address] [place] [address] * (ABNORMAL) Renal function panel (10/17/2024 11:00 [...] Site ID: CB Name: [facility] Address: [address] [facility] [place] [address] Director: Chato Lofton us Dm Rain MD LAB BLOOD ORDERABLES Final Re sult [facility] [address] [place] [address] from Last 3 Months Insurance [address] [address] [facility] [place] [address] Care Teams Commissioned Fire Officer Relationship Specialty Start Date End Date Tim Chanel [place] [address] PCP - General Family Medicine 04/20/23
--- OUTSIDE RECORDS SUMMARY | 2024-12-27 10:48 | XMS_ITS | Encounter Summary ---
Author Organization [facility] Address [address] [place] [address] Care Team Providers Care Product Info Specialist Name Role Phone Tim Chanel MD Primary Care Provider [phone] Encounter Details Date Type Department Care Team (Late st Contact Info) Description 07/13/2023 Orders Only [facility] [address] [place] [address] Dm Rain MD [address] [facility] [place] [address] Stage 5 chronic kidney disease [...] st Contact Info) Description 02/13/2025 11:00 AM DIALYSIS CLINICAL MANAGER Office Visit [facility] [address] [place] [phone] Dm Rain MD [address] [place] [address] documented as of this encounter [...] (HCC) documented in this encounter Care Teams Product Info Specialist Relationship Specialty Start Date End Date Tim Chanel MD [address] [place] [address] PCP - General Family Medicine 04/20/23 documented as of this encounter
--- OUTSIDE RECORDS SUMMARY | 2024-12-27 10:48 | XMS_ITS | Encounter Summary ---
Author Organization [facility] Address [address] [place] [address] Care Team Providers Care Woods Warden Name Role Phone Tim Chanel MD Primary Care Provider [phone] Encounter Details Date Type Department Care Team (Late st Contact Info) Description 12/26/2024 Orders Only [facility] [place] [phone] Dm Rain MD [address] [place] [address] Stage 5 chronic kidney disease [...] st Contact Info) Description 02/13/2025 11:00 AM PRINT DEVELOPER AUTOMATIC Office Visit [facility] [address] [place] [place] [phone] Dm Rain MD [address] [place] [address] documented as of this encounter Visit Diagnoses Diagnosis Stage 5 chronic kidney disease (HCC) documented in this encounter Care Teams Woods Warden Relationship Specialty Start Date End Date Tim Chanel MD [address] [place] [address] PCP - General Family Medicine 04/20/23 documented as of this encounter
--- OUTSIDE RECORDS SUMMARY | 2024-12-27 10:48 | XMS_ITS | Encounter Summary ---
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
--- OUTSIDE RECORDS SUMMARY | 2024-12-27 10:48 | XMS_ITS | Clinical Summary ---
Author Organization [facility] Address [address] [place] [address] Care Team Providers Care Help Desk Representative Name Role Phone Lili Tay Romero Unavailable [phone] Tim Chanel MD Primary Care Provider [phone] Veena Mitchell MD Unavailable Allergies Active Allergy [...] Chronic systolic CHF (congestive heart failure) (HC),Lymphedema,Ac [place] chronic systolic heart failure (HC) Take [...] Chronic systolic CHF (congestive heart failure) (HC),Lymphedema,Ac [place] on chronic systolic heart failure (HC) Take 40 mg in the morning and 20 mg in the afternoon. 180 Tablet 3 10/12/19 025 Discontinu ed(Reorder (E-cancel not sent)) furosemide (LASIX) 20 mg tabletIndications: Chronic systolic CHF (congestive heart failure) (HC),Lymphedema,Ac [place] on chronic systolic heart failure (HC) Take [...] Date Type Department Care Team Description 12/26/2024 Travel 12/21/2024 Orders Only [facility] Scanner 1 scan: (1-Ord) [facility], INR, 12/21/2024 12/21/2024 Anticoagulation (warfarin) [facility] [address] [place] [address] Nurse, Alphonse Anticoag Anticoagulation (NURSING HOME) 12/20/2024 Telephone [facility] [address] [place] [address] Tim Chanel MD Abnormal Lab Results 12/20/2024 Travel 12/15/[address] [address] Tim Chanel MD Anticoagulation 12/15/[address] [address] Tim Chanel MD Questions (FUROSEMIDE, INR, LEG WOUND CARE) 12/15/2024 Anticoagulation (warfarin) [address] [address] Nurse, Alphonse Anticoag Anticoagulation (Chart update ) 12/15/2024 Anticoagulation (warfarin) [address] [address] Nurse, Alphonse Anticoag Anticoagulation 12/14/2024 3:15 PM CDT Ancillary Procedure [facility] [address] [place] [address] 12/14/2024 2:50 PM CDT Office Visit [facility] [address] [place] [address] Tim Chanel MD Hospital F/U (Post hospital 2 mo f/u.//concerns in regards to medications, pt is becoming confused with how often to take them.//Blisters on both legs, daughter wants checked.) 12/13/2024 Travel 12/02/2024 Telephone [facility] [address] [place] [address] Tim Chanel MD [facility] paperwork 11/09/2024 Travel 11/08/2024 9:00 AM CDT Office Visit [facility] [address] [place] [address] Manan Agarwal MD Follow Up (Follow up chronic atrial fibrillation, increased shortness of breath with exertion, few occasions of sitting in chair and could feel her A-Fib in her chest, nurse at home took vitals, but didn't notice any A-Fib, not sure if actually A-Fib or anxiety. ) 11/07/2024 Travel 10/18/2024 Anticoagulation (warfarin) [facility] [address] [place] [address] NurseAlphonseag Anticoagulation 10/17/2024 11:45 AM CDT Orders Only [facility] [address] [facility] [address] Lab, [place] Lab 10/17/2024 Travel 10/12/2024 Patient Outreach [facility] Care Management - Advanced Care Team [address] [place] [address] [facility] Care Management (CCM engagement outreach due to Payer Referral/BCBS/) 10/11/2024 2:45 PM CDT Office Visit [facility] [address] [place] [address] Tim Chanel MD Hospital F/U (CHF) 10/11/2024 Travel 10/04/2024 2:00 PM CDT Ancillary Procedure [facility] [address] [place] [address] 10/03/2024 Orders Only [facility] Scanner 1 scan: (1-Ord) [facility], XR CHEST 2V, 10/03/2024 10/03/2024 Nurse Triage [facility] [address] [place] [address] Tim Chanel MD Shortness Of Breath 09/28/2024 1:30 PM CDT Orders Only [facility] [address] [place] [address] Lab, [place] [facility] 09/28/2024 Anticoagulation (warfarin) [facility] [address] [place] [address] 1, [facility] Anticoagulation 09/27/2024 Travel [...] Hepatitis A (Adult) 08/05/2006,08/06/2005,2004 Hepatitis B (Adult) 01/30/1993,08/29/1992,04/19/ 1993 Influenza A (H1N1), Inactivated 04/25/2009 Influenza A [...] on file Legal Sex 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 Gender Identity Not on file Sexual Orientation Not on file Occupation Industry Job Start Date Job End Date Retired Not on file Not on file Not on file Travel History Travel Start Travel End [place] 12/26/2024 12/26/2024 Obstetrics History Para Term AB IAB SAB [...] Description 12/27/2024 11:45 AM CDT Orders Only [facility] [address] [place] [address] [place], [place] 02/21/2025 2:15 PM CHIP BIN OPERATOR Orders Only [facility] [address] [place] [address] Lab, [place] 02/28/2025 2:20 PM CHIP BIN OPERATOR Office Visit [facility] [address] [place] [address] Tim Chanel MD [address] [place] [address] 08/23/2025 2:15 PM CDT Orders Only [facility] [address] [place] [address] Lab, [place] 08/29/2025 1:55 PM CDT Office Visit [facility] [address] [place] [address] Tim Chanel MD [address] [place] [address] Health Maintenance Due Date Last Done Comments [...] Additional history exists Tetanus booster 12/09/2032 12/09/2022, 0209/2011, 09/21/2003 Hepatitis B series for 19+ Completed 01/30, 08/29/1992, 07/30/1992 DEXA/DXA scan for age 65+ Completed 2012, 08/31/2007, 08/31/2007 ([facility]) Pneumococcal series for age 50+ Completed 10/09/2014, 09/11/2010, 01/11/1997 Zoster (shingles) series for age 50+ Completed 08/31/2018, 05/29/2018, 08/05/2006 RSV vaccine for adults or Completed 01/06/2024 Procedures Procedure Name Priority Date/Time Associated Diagnosis Comments SCAN-LABORATORY REPORT 12/21/2024 12:00 AM CDT CBC WITH AUTO DIFFERENTIAL Routine 12/14/2024 4:52 [...] Recently Relevant to Health Maintenance Results * SCAN-LABORATORY REPORT (12/21/2024 12:00 AM CDT) us Scanner OTHER Final Result * (ABNORMAL) CBC WITH AUTO DIFFERENTIAL (12/14/2024 4:52 PM CDT) [facility] WHITE BLOOD CELL COUNT 6.3 3.8 - [...] CDT 12/14/2024 4:52 PM CDT us Tim Sanju Labenski MD HEMATOLOGY Final Resu lt Performing Organization Address [facility]/ZIP Co de Phone Number [facility] [address] [address], [place] [phone] * TSH WITH REFLEX (12/14/2024 4:52 PM CDT) TSH W/REFLEX TO FT4 2.82 0.40 - 4.50 mIU/L 12/15/2024 5:55 AM CDT [facility] Blood BLOOD SPECIMEN / Unknown [facility] / Unknown 12/14/2024 4:52 PM CDT 12/14/2024 4:52 PM CDT Tim Chanel MD CHEMISTRY Final Resu lt Performing Organization Address [facility] Co de Phone Number [facility] [address] [address], [place] [phone] * (ABNORMAL) PROTIME-INR [31498.0] - Standing Order (12/14/2024 4:52 PM CDT) Only the most recent of2 resultswithin the time period is included. INR 4.6(H) <1.3 12/14/2024 10:27 PM CDT [facility] PROTIME 54.0(H) 10.6 - 12.4 sec 12/14/2024 10:27 PM CDT [facility] Blood BLOOD SPECIMEN / Unknown [facility] / Unknown 12/14/2024 4:52 PM CDT 12/14/2024 4:52 PM CDT Narrative [facility] - 12/14/2024 10:27 PM CDT [...] Tim Chanel MD HEMATOLOGY Final Resu lt [facility] [address] [place] [address], [place] * (ABNORMAL) BASIC METABOLIC PANEL (12/14/2024 4:52 [...] MD CHEMISTRY Final Resu lt [facility] [address] [place] [address], * XR CHEST 2 VIEWS PA AND [...] BSA: 1.95 m Weight: 88.00 kg Tech: MACK Referring MD: ALO VALENTINE Site: [facility] Reading Location: Mobile-IP Patient Location: Inpatient. Procedure: [...] . This study was interpreted by an [facility] accredited facility. CC: HIM (med records) [facility], Med/Surg - IP [facility]. Final Procedure Note Manan Motley MD - 10/04/2024 ECHOCARDIOGRAM TRI VELASQUEZ : 1940 84 years Study Date: 10/04/2024 2:05:42 PM Gender: F BP: 141/81 mmHg Height: 165.00 cm BSA: 1.95 m Weight: 88.00 kg Tech: MACK Referring MD: ALO VALENTINE Site: [facility] Reading Location: Mobile- Patient Location: Inpatient. Procedure: 2D, Color Doppler [...] . This study was interpreted by an [facility] accredited facility. CC: [facility] (med records) [facility], Med/Surg - IP [facility]. Final us Alo Valentine MD ECHO ORD Final Result * SCAN-RADIOLOGY REPORT (10/03/2024 12:00 AM CDT) Anatomical Region Laterality Modality Other us Scanner OTHER Final Result * (ABNORMAL) INR - POCT [85027.2] - Standing Order (09/28/2024 1:34 PM CDT) INR 4.0(H) ratio [facility] Comment: INRs >2.9 may be falsely elevated [...] PROTHROMBIN TIMEP 48.6(H) 10.5 - 13.1 sec [facility] Comment: Point of care fingerstick Prothrombin Time/INR results may vary from venous Prothrombin Time/INR methodologies. Any results exhibiting inconsistency with the patient's clinical status should be repeated using a venous Prothrombin Time/INR method. Blood BLOOD SPECIMEN / Unknown 09/28/2024 1:34 PM CDT 09/28/2024 1:35 PM CDT us Tim Chanel MD LABORATORY Final Resu lt [facility] [address] [place] [address], [facility] [address] [place] [address] * (ABNORMAL) XR DXA BONE DENSITY 2 [...] Maintenance Insurance MEDICARE PART A HB ONLY [facility] ONLY MEDICARE PART B HB ONLY [employer]OSS MEDICARE ADVANTAGE MR HC MEDICARE PPS BLUE [place]OSS [place] BLUE HB ONLY Advance Directives Documents on File Type Date Recorded Patient Portrait Painter Expl anation POLST 08/11/2023 Treatment Guidelines 08/02/2021 Healthcare Directive 04/01/2012 2:32 PM H [facility] CARE DIRECTIVE, [facility], 01/08/2000 * DNR (Latest Code Status on [...] Preferences, Provider to review later Care Teams Help Desk Representative Relationship Specialty Start Date End Date Tim Chanel MD [address] [place] [address] PCP - General Family Practice 03/30/13 Tay Pearson [address] [place] [address] Movie Actor 09/29/11 Veena Mitchell MD [address] [address] Dermatology Dermatology 07/04/22
--- OUTSIDE RECORDS SUMMARY | 2024-12-27 10:48 | XMS_ITS | Encounter Summary ---
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 Office Visit [facility] [address] [place] [place] [place] [phone] Dm Rain MD [address] [place] [address] documented as of this encounter Procedures Procedure [...] Dm Rain MD LAB BLOOD ORDERABLES Final sult Performing Organization Address [facility] Co de Phone Number [facility] * Hemoglobin (08/26/2023) Hemoglobin 13.7 g/dL [facility] Blood specimen (specimen) Venous blood / Unknown 08/26/2023 Dm Rain MD LAB BLOOD ORDERABLES Final Re sult Performing Organization Address [facility]/ZIP Co de Phone Number [facility] * (ABNORMAL) Renal [...] specimen (specimen) Venous blood / Unknown 08/26/2023 us Dm Rain MD LAB BLOOD ORDERABLES Final Re sult [facility] documented in this encounter Visit Diagnoses Diagnosis Stage 5 chronic kidney disease (HCC) documented in this encounter Care Teams Director Global Relationship Specialty Start Date End Date Tim Chanel MD [address] [place] [address] PCP - General Family Medicine 04/20/23 documented as of this encounter
--- OUTSIDE RECORDS SUMMARY | 2024-12-27 10:48 | XMS_ITS | Encounter Summary ---
Author Organization [facility] Address [address] [place] [address] Care Team Providers Care Certified Surgical Tech/First Assistant Name Role Phone Tim Chanel MD Primary Care Provider [phone] Encounter Details Date Type Department Care Team (Late st Contact Info) Description 10/18/2024 Results Follow-Up [facility] [address] [place] [address] Vicky Potts RN [address] [facility] [address] [place] [address] Social History Tobacco Use Types [...] st Contact Info) Description 02/13/2025 11:00 AM 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
[2024-12-27 10:53] VITALS: BP 126/66; PULSE 78; RESP 18; TEMP 36.4; O2SAT 98; BMI 27.9
--- NOTE | 2024-12-27 11:09 | ED.NURSE ---
Contacted poison control. No monitor required for dose ingested. No side effects of ingestion of the amount ingested. Patient could elect to skip medication for one week but this not required.
--- NOTE | 2024-12-27 11:12 | ED.GENADULT ---
HPI - General Adult General Date Seen: 12/27/24 Chief complaint: Unspecified Complaint, Adult Stated complaint: Took 7 days of meds all this morning Time Seen by Provider: 12/27/24 11:08 History of Present Illness HPI narrative: Patient is an 84-year-old who lives at [facility], here with her daughter after her daughter realized that she took all 7 days of her Synthroid sometime between yesterday at 4:00 p.m. and this morning when her daughter went back over to see her. Daughter says that the pills were all in her weekly pill organizer, and when she went today they were all gone. She asked her mother related went and she said that she took them all. Patient says that they do not taste good and so in her mind she was thinking she could just take them all at once instead of having to take them every day. Daughter is planning to transition to having staff give her medications instead. She has no complaints otherwise. Related Data Home Medications ?Medication ?Instructions ?Recorded ?Confirmed dorzolamide 22.3 mg-timolol 6.8 1 drp ophthalmic (eye) BID 01/10/22 05/05/23 mg/mL eye drops furosemide 20 mg tablet 20 mg PO Q12H 01/10/22 10/04/24 levothyroxine 75 mcg tablet 75 mcg PO DAILY 01/10/22 10/04/24 atorvastatin 10 mg tablet 10 mg PO HS 05/05/23 10/04/24 brimonidine 0.2 % eye drops 1 drp ophthalmic (eye) BID 05/05/23 05/05/23 latanoprostene bunod 0.024 % eye 1 drp ophthalmic (eye) HS 05/05/23 05/05/23 drops (Vyzulta) metoprolol succinate 50 mg 50 mg PO BID 05/05/23 10/04/24 tablet,extended release 24 hr timolol maleate 0.5 % eye drops 1 drp ophthalmic (eye) BID 10/04/24 10/04/24 warfarin 2.5 mg tablet 5 - 7.5 mg PO DAILY PRN 10/04/24 10/04/24 Previous Rx's ?Medication ?Instructions ?Recorded potassium chloride 20 mEq 20 meq PO BID #60 tabs 05/14/23 tablet,extended release (K-Tab) Allergies Allergy/AdvReac Type Severity Reaction Status Date / Time No Known Drug Allergies Allergy Verified 05/05/23 12:33 [facility] Medical History (Updated 12/27/24 @ 11:12 by Brenna Martínez MD) Metabolic acidosis ?E87.20 - Acidosis, unspecified (ICD-10) Bilateral lower extremity edema ?R60.0 - Localized edema (ICD-10) Chronic venous stasis dermatitis ?I87.2 - Venous insufficiency (chronic) (peripheral) (ICD-10) Stage 5 chronic kidney disease ?N18.5 - Chronic kidney disease, stage 5 (ICD-10) Right knee pain ?M25.561 - Pain in right knee (ICD-10) Disorder of fluid or electrolyte ?E87.8 - Other disorders of electrolyte and fluid balance, not elsewhere classified (ICD-10) Hypothyroidism ?E03.9 - Hypothyroidism, unspecified (ICD-10) Glaucoma ?H40.9 - Unspecified glaucoma (ICD-10) Hyperlipidemia ?E78.5 - Hyperlipidemia, unspecified (ICD-10) Secondary renal hyperparathyroidism ?N25.81 - Secondary hyperparathyroidism of renal origin (ICD-10) Hypertension ?I10 - Essential (primary) hypertension (ICD-10) Osteopenia ?M85.80 - Other specified disorders of bone density and structure, unspecified site (ICD-10) Lower extremity edema ?R60.0 - Localized edema (ICD-10) Heart failure with preserved ejection fraction ?I50.30 - Unspecified diastolic (congestive) heart failure (ICD-10) End stage kidney disease ?N18.6 - End stage renal disease (ICD-10) Atrial fibrillation ?I48.91 - Unspecified atrial fibrillation (ICD-10) Surgical History S/P exploratory laparotomy ?Z98.890 - Other specified postprocedural states (ICD-10) History of hysterectomy ?Z90.710 - Acquired absence of both cervix and uterus (ICD-10) History of colonoscopy with polypectomy ?Z98.890 - Other specified postprocedural states (ICD-10) ?Z86.010 - Personal history of colonic polyps (ICD-10) History of cholecystectomy ?Z90.49 - Acquired absence of other specified parts of digestive tract (ICD-10) History of appendectomy ?Z90.49 - Acquired absence of other specified parts of digestive tract (ICD-10) Family History Sister Stroke Father Prostate cancer Other Heart disease Social History (Updated 10/03/24 @ 19:39 by Rolly Valentine MD) Narrative: She lives at [facility] for the last 16 months. She reports this is going well. She walks with a walker. She reports this is going well for her. She occasionally drinks alcohol. She does not smoke. Code status is DNR. Her daughter Veena is healthcare power of civil litigation attorney What is your current living situation?: I presently have a place to live Problems where you live: no known problems Problems where you live details: NA In the past 12 months, utilities in danger of being shut off: no In past 12 months, lack of transportation kept you from medical appts, meetings, work, or getting things needed for daily living: no In the past 12 mos, have been you worried that your food would run out before you had money to buy more?: never true In the past 12 mos, the food you bought just didn't last and you didn't have money to buy more?: never true Highest level of school completed/degree received: high school graduate Smoking Status: Never smoker Do you use any of these nicotine containing products: None Second hand tobacco smoke exposure: No How often do you have a drink containing alcohol: monthly or less Alcohol type: beer Alcohol type details: special occasions How many standard drinks containing alcohol do you have on a typical day: 1 or 2 How often do you have six or more drinks on one occasion: Never AUDIT-C Alcohol total score: 1 Non-prescribed substance use: denies use Caffeine: Yes (coffee) How often does anyone, including family, friends and others, physically hurt you: never How often does anyone, including family, friends and others, insult or talk down to you: never How often does anyone, including family, friends and others, threaten you with harm: never How often does anyone, including family, friends and others, scream or curse at you: never service: No Exam Narrative: Exam Narrative: Vital signs reviewed In general, alert, well-appearing elderly woman. Heart: Regular rate and rhythm. Lungs: Clear. Skin: Warm dry well perfused. Neurologic: She is alert, conversant, answers questions moves all extremities. Const: Vital Signs, click to edit/add: Vital Signs - 24 hr 12/27/24 10:53 Temperature 97.5 F L Pulse Rate [Pulse Oximeter] 78 Respiratory Rate 18 Blood Pressure [Ri ght Upper Arm] 126/66 Pulse Oximetry 98 Oxygen Delivery Me thod Room Air Course Course ED Course: Case reviewed with poison Control, they do not have any concerns and recommend no specific workup or monitoring. Agree with plan have staff give medications going forward. Per poison Control recommendations, will have her hold her Synthroid for few days and then resume her usual dose. Return to the ER as needed. Vital Signs Vital signs: Initial Vital Signs Temperature 97.5 F L 12/27/24 10:53 Temperature Source Temporal Artery Scan 12/27/24 10:53 Pulse Rate 78 12/27/24 10:53 Respiratory Rate 18 12/27/24 10:53 Blood Pressure 126/66 12/27/24 10:53 Blood Pressure Mean 86 12/27/24 10:53 Pulse Oximetry 98 12/27/24 10:53 Oxygen Delivery Method Room Air 12/27/24 10:53 Vital Signs Temperature 97.5 F L 12/27/24 10:53 Pulse Rate 78 12/27/24 10:53 Respiratory Rate 18 12/27/24 10:53 Blood Pressure 126/66 12/27/24 10:53 Pulse Oximetry 98 12/27/24 10:53 Oxygen Delivery Method Room Air 12/27/24 10:53 Temperature 97.5 F L 12/27/24 10:53 Pulse Rate 78 12/27/24 10:53 Respiratory Rate 18 12/27/24 10:53 Blood Pressure 126/66 12/27/24 10:53 Pulse Oximetry 98 12/27/24 10:53 Oxygen Delivery Method Room Air 12/27/24 10:53 Discharge Plan Discharge Clinical Impression: Accidental overdose Patient Disposition: Home w/ Parent or Adult Condition: Stable Additional Instructions: Agree with your plan to have staff help with medication administration. Hold Synthroid x4 days, then resume your regular dose. Return as needed. Prescriptions: No Action levothyroxine 75 mcg tablet 75 mcg PO DAILY furosemide 20 mg tablet 20 mg PO Q12H Rx Instructions: PRN WT GAIN dorzolamide-timolol 22.3-6.8 mg/mL drops 1 drp ophthalmic (eye) BID Rx Instructions: right eye timolol maleate 0.5 % drops 1 drp ophthalmic (eye) BID Patient Comments: RIGHT EYE warfarin 2.5 mg tablet 5 - 7.5 mg PO DAILY PRN Rx Instructions: resume 7.5mg EVERY THURSDAY. 5mg all other days metoprolol succinate 50 mg tablet extended release 24 hr 50 mg PO BID Vyzulta 0.024 % drops 1 drp ophthalmic (eye) HS Rx Instructions: right eye brimonidine 0.2 % drops 1 drp ophthalmic (eye) BID Rx Instructions: right eye atorvastatin 10 mg tablet 10 mg PO HS potassium chloride [K-Tab] 20 mEq tablet extended release 20 meq PO BID Qty: 60 0RF Follow Up/Referrals: Tim Chanel MD [Primary Care Provider, Family Practice] Stand Alone Forms: [facility] Info Instructions
== END 2024-12-27 11:44 | disposition home or self-care (01) ==
LOC: ED 11:20
PROVIDERS: Emergency Provider Emergency Medicine; PCP Family Medicine
DX: T38.1X1A Poisoning by thyroid hormones and substitutes, accidental (unintentional), initial encounter (principal)
CPT/HCPCS: 99283

== ENCOUNTER 2025-01-10 10:04 | Outpatient (REF) | payer MEDICARE, SELFPAY ==
[2025-01-10 10:59] LABS: INR 1.47 (0.91-1.10); Prothrombin Time 18.8 Seconds
--- OUTSIDE RECORDS SUMMARY | 2025-01-11 00:20 | XMS_ITS | Encounter Summary ---
Author Organization [facility] Address [address] [place] [address] Phone Care Team Providers Care Dial Refinisher Name Role Phone Tim Chanel MD Primary Care Provider [phone] Encounter Details Date Type Department Care Team (Late st Contact Info) Description 12/26/2024 Orders Only [facility] [place] [address] [phone] Dm Rain MD [address] [place] [address] Stage 5 chronic kidney [...] st Contact Info) Description 02/13/2025 11:00 AM [facility] Office Visit [facility] [place] [address] [address] [address] Dm Rain MD [address] [place] [phone] documented as of this encounter Procedures Procedure Name Priority Date/Time Associated Diagnosis Comments BASIC METABOLIC PANEL Routine 12/27/2024 10:53 AM CDT Stage 5 chronic kidney disease (HCC) documented in this encounter Results * (ABNORMAL) Basic metabolic panel (12/27/2024 10:53 AM CDT) Glucose 167(H) 65 - 99 mg/dL [facility] Comment: Fasting reference interval For someone without known diabetes, a glucose value >125 mg/dL indicates that they may have diabetes and this should be confirmed with a follow-up test. BUN 53(H) 7 - 25 mg/dL [facility] Creatinine 3.76(H) 0.60 - 0.95 mg/dL [facility] eGFR CKD-EPI CR 2020 11(L) > OR = 60 mL/min/1.7 3m2 [facility] BUN/Creatinine Ratio 14 6 - 22 (calc) [facility] Sodium 139 135 - 146 mmol/L [facility] Potassium 4.1 3.5 - 5.3 mmol/L [facility] Chloride 104 98 - 110 mmol/L [facility] Bicarbonate (CO2) 22 20 - 32 mmol/L [facility] Calcium 9.5 8.6 - 10.4 mg/dL [facility] Blood Venous blood / Unknown 12/27/2024 10:53 AM CDT 12/27/2024 10:54 AM CDT Narrative Resulting Agency Comment Performing Organization Information: Site ID: [id number] Name: [facility] Address: [address] [place] [phone] Director: Chato Lofton us Dm Rain MD LAB BLOOD ORDERABLES Final Re sult [facility] [address] [place] [phone] documented in this encounter Visit Diagnoses Diagnosis Stage 5 chronic kidney disease (HCC) documented in this encounter Care Teams Dial Refinisher Relationship Specialty Start Date End Date Tim Chanel MD [address] [place] [address] PCP - General Family Medicine 04/20/23 documented as of this encounter
--- OUTSIDE RECORDS SUMMARY | 2025-01-11 00:20 | XMS_ITS | Clinical Summary ---
Author Organization [facility] Address [address] [place] [address] Care Team Providers Care Core Winder Machine Operator Name Role Phone Lili Tay Romero Unavailable [phone] Tim Chanel MD Primary Care Provider [phone] Veena Mitchell MD Unavailable Allergies Active Allergy [...] Chronic systolic CHF (congestive heart failure) (HC),Lymphedema,Ac tribe on chronic systolic heart failure (HC) Take 60mg in the morning. 180 Tablet 3 12/17/19 25 Active potassium chloride (KLOR-CON M20) 20 mEq extended-release tablet (part/cryst)Indica tions:Chronic systolic CHF (congestive heart failure) (HC) Take 2 Tablets (40 mEq) by mouth once daily with a meal. 180 Tablet 3 01/07/20 25 Active warfarin (COUMADIN) 2.5 mg tabletIndications: Anticoagulation monitoring, INR range 2-3,Chronic atrial fibrillation (HC),New onset atrial fibrillation (HC) Take by mouth 2.5 mg (2.5 mg x 1) every Sat; 5 mg (2.5 mg x 2) all other days in the evening OR as directed 01/11/20 25 Active blood sugar diagnostic (Ascensia CONTOUR) stripIndications:D iabetes mellitus with peripheral vascular disease (HC) Dispense test strips covered by the patient insurance. Test 1 times per day. 100 Each 4 08/12/19 24 025 Discontinu ed(*Med complete/R egimen complete/L evel of care change) potassium chloride (K-TAB) 20 mEq extended-release tablet Take by mouth. Take one dose as needed if taking 2 lasix. 05/14/19 24 025 Discontinu ed(Reorder (E-cancel not sent)) metoprolol succinate [...] at bedtime. 90 Tablet 3 08/25/19 25 025 Discontinu ed(Reorder (E-cancel not sent)) warfarin 2.5 mg tabletIndications: Anticoagulation monitoring, INR range 2-3,Chronic atrial fibrillation (HC),New onset atrial fibrillation (HC) Take by mouth 7.5 mg (2.5 mg x 3) every Sun; 5 mg (2.5 mg x 2) all other days in the evening OR as directed 10/01/19 25 025 Discontinu ed(Reorder (E-cancel not sent)) furosemide 20 mg tabletIndications: Chronic systolic CHF (congestive heart failure) (HC),Lymphedema,Ac tribe on chronic systolic heart failure (HC) Take 40 mg in the morning and 20 mg in the afternoon. 180 Tablet 3 10/12/19 25 025 Discontinu ed(Reorder (E-cancel not sent)) furosemide (LASIX) 20 mg tabletIndications: Chronic systolic CHF (congestive heart failure) (HC),Lymphedema,Ac tribe on chronic systolic heart failure (HC) Take 40 mg in the morning and 20 mg in the afternoon. 180 Tablet 3 12/15/19 25 025 Discontinu ed(*Medica tion adjustment ) warfarin (COUMADIN) 2.5 mg tabletIndications: Anticoagulation monitoring, INR range 2-3,Chronic atrial fibrillation (HC),New onset atrial fibrillation (HC) Take by mouth 7.5 mg (2.5 mg x 3) every Sun; 5 mg (2.5 mg x 2) all other days in the evening OR as directed. Take in the morning. 120 Tablet 1 12/15/19 25 025 Discontinu ed(Reorder (E-cancel not sent)) potassium chloride (K-TAB) 20 mEq extended-release tabletIndications: Chronic systolic CHF (congestive heart failure) (HC) Take 1 Tablet (20 mEq) by mouth once daily with a meal. Take in the morning. 90 Tablet 3 12/15/19 25 025 Discontinu ed(Reorder (E-cancel not sent)) warfarin [...] add note to specify (E-cancel not sent)) potassium chloride (K-TAB) 20 mEq extended-release tabletIndications: Chronic systolic CHF (congestive heart failure) (HC) Take 1 Tablet (20 mEq) by mouth two times daily with meals. Take in the morning. 180 Tablet 3 12/21/19 25 025 Discontinu ed(*Medica tion adjustment ) warfarin (COUMADIN) 2.5 mg tabletIndications: Anticoagulation monitoring, INR range 2-3,Chronic atrial fibrillation (HC),New onset atrial fibrillation (HC) Take by mouth 2.5 mg every Tue, Sat; 5 mg all other days in the evening OR as directed 12/22/19 25 025 Discontinu ed(Other - add note to specify (E-cancel not sent)) potassium chloride (K-TAB) 20 mEq extended-release tabletIndications: Chronic systolic CHF (congestive heart failure) (HC) Take 1 Tablet (20 mEq) by mouth two times daily with meals. Take in the morning. 180 Tablet 3 01/07/20 025 Discontinu ed(*Medica tion adjustment ) Active Problems Problem Noted Date Diagnosed Date [...] Encounters Date Type Department Care Team Description 01/10/2025 Anticoagulation (warfarin) [facility] [address] [place] [address] Nurse, Alphonse Anticoag Anticoagulation (JESUS) 01/09/2025 10:30 AM CDT Orders Only [facility] [address] [place] [address] [place], [place] Lab 01/09/2025 Telephone [facility] [address] [place] [address] Tim Chanel MD Anticoagulation (result) 01/09/2025 Travel 01/05/[address] [place] [address] Tim Chanel MD Form (med. orders) 12/28/2024 Anticoagulation (warfarin) [address] [address] Nurse, Alphonse Anticoag Anticoagulation (JESUS) 12/27/2024 11:45 AM CDT Orders Only [address] [address] Lab, [place] Lab 12/26/2024 Travel 12/21/2024 Orders Only [facility] Scanner 1 scan: (1-Ord) [facility], INR, 12/21/2024 12/21/2024 Anticoagulation (warfarin) [address] [address] Nurse, Alphonse Anticoag Anticoagulation (JESUS) 12/20/[address] [address] Tim Chanel MD Abnormal Lab Results 12/20/2024 Travel 12/15/[address] [address] Tim Chanel MD Anticoagulation 12/15/[address] [address] Tim Chanel MD Questions (FUROSEMIDE, INR, LEG WOUND CARE) 12/15/2024 Anticoagulation (warfarin) [address] [address] Nurse, Ahg Anticoag Anticoagulation (Chart update ) 12/15/2024 Anticoagulation (warfarin) [address] [address] Nurse, Ahg Anticoag Anticoagulation 12/14/2024 3:15 PM CDT Ancillary Procedure [address] [address] 12/14/2024 2:50 PM CDT Office Visit [facility] [address] [place] [address] Tim Chanel MD Hospital F/U (Post hospital 2 mo f/u.//concerns in regards to medications, pt is becoming confused with how often to take them.//Blisters on both legs, daughter wants checked.) 12/13/2024 Travel 12/02/2024 Telephone [facility] [address] [place] [address] Tim Chanel MD [facility] paperwork 11/09/2024 Travel 11/08/2024 9:00 AM CDT Office Visit [facility] [address] [place] [address] Manan Agarwal MD Follow Up (Follow up chronic atrial fibrillation, increased shortness of breath with exertion, few occasions of sitting in chair and could feel her A-Fib in her chest, nurse at home took vitals, but didn't notice any A-Fib, not sure if actually A-Fib or anxiety. ) 11/07/2024 Travel 10/18/2024 Anticoagulation (warfarin) [facility] [address] [place] [address] NurseAlphonse Anticoag Anticoagulation 10/17/2024 11:45 AM CDT Orders Only [facility] [address] [place] [address] Lab, [place] Lab 10/17/2024 Travel 10/12/2024 Patient Outreach [facility] Care Management - Advanced Care Team [address] [place] [address] [facility] Care Management (CCM engagement outreach due to Payer Referral/BCBS/) 10/11/2024 2:45 PM CDT Office Visit [facility] [address] [place] [address] Tim Chanel MD Hospital F/U (CHF) 10/11/2024 Travel from Last 3 Months Immunizations Immunization Administration Dates Next Due AMB INFLUENZA IIV3 (AGE 65+ YRS) PF (Flu Clinic Only) 01/14/2019,01/14/2018,01/14/2017 AMB Influenza, IIV3 (Age >=3 years)(Flu Clinic Only) 02/06/2010,01/17/2009,02/24/2008 Amb Influenza, Inact (High-d ose) (Flu Clinic Only) 01/28/2016 Amb Influenza, Inactivated A IIV4 (Age 65+ Years) Preserv Free 12/29/2019 COVID-19 VACCINE SPIKEVAX (M ODERNA 50MCG/0.5ML) 12YO+ PFS 02/06/2023 COVID-19 vaccine (Notch-Bio NTech 30mcg/0.3mL) 12YO+ BIVALENT PF, MDV 01/15/2022 COVID-19 vaccine (Pfizer-Bio NTech 30mcg/0.3mL) 12YO+ SHANNON-SUCROSE PF, MDV 09/16/2021 COVID-19 vaccine (Advanced Micro-Fabrication EquipmentBio NTech 30mcg/0.3mL) PF, MDV 02/06/2021,06/16/2020,05/26/2020 Hepatitis A [...] on file Legal Sex Female 5:24 AM CNC MECHANIC Gender Identity Not on file Sexual Orientation Not on file Occupation Industry Job Start Date Job End Date Retired Not on file Not on file Not on file Travel History Travel Start Travel End [place] 12/26/2024 12/26/2024 Obstetrics History Para Term AB [...] Care Team (Late st Contact Info) Description 02/21/2025 2:15 PM CNC MECHANIC Orders Only [facility] [address] [place] [address] [place] 02/28/2025 2:20 PM CNC MECHANIC Office Visit [facility] [address] [place] [address] Tim Chanel MD [address] [place] [address] 08/23/2025 2:15 PM CDT Orders Only [facility] [address] [place] [address] [place] 08/29/2025 1:55 PM CDT Office Visit [facility] [address] [place] [address] Tim Chanel MD [address] [place] [address] Health Maintenance Due Date Last Done Comments [...] Completed 2012, 08/31/2007, 08/31/2007 [facility] Pneumococcal series for age 50+ Completed 10/09/2014, 09/11/2010, 01/11/1997 Zoster (shingles) series for age 50+ Completed 08/31/2018, 05/29/2018, 08/05/2006 RSV vaccine for adults or Completed 01/06/2024 Procedures Procedure Name Priority Date/Time Associated Diagnosis Comments INR,POCT Routine 01/10/2025 BASIC METABOLIC PANEL Routine 01/09/2025 10:31 AM CDT Chronic systolic and diastolic CHF (congestive heart failure) (HC) EF 39% 09/2024 POTASSIUM Add On 12/27/2024 11:55 AM CDT Hypokalemia PROTIME-INR Routine 12/27/2024 11:55 AM CDT Anticoagulation monitoring, INR range 2-3 Chronic atrial fibrillation (HC) SCAN-LABORATORY REPORT 12/21/2024 12:00 AM CDT CBC [...] to Health Maintenance Results * (ABNORMAL) INR,POCT (01/10/2025) INR 1.5(GUEST EXPERIENCE REPRESENTATIVE AL) 0.0 - 1.2 [facility] Blood BLOOD SPECIMEN / Unknown 01/10/2025 us Tim Chanel MD LABORATORY Final Resu lt [facility] [address] [place] [address], [place] [phone] * (ABNORMAL) BASIC METABOLIC PANEL (01/09/2025 10:31 AM CDT) Only the most recent of2 resultswithin the time period is included. SODIUM 143 135 - 146 mmol/L 01/10/2025 6:11 AM CDT [facility] POTASSIUM 4.1 3.5 - 5.3 mmol/L 01/10/2025 6:11 AM CDT [facility] CARBON DIOXIDE 24 20 - 32 mmol/L 01/10/2025 6:11 AM CDT [facility] GLUCOSE 161(H) 65 - 99 mg/dL 01/10/2025 6:11 AM CDT [facility] Comment: Fasting reference interval For someone without known diabetes, a glucose value >125 mg/dL indicates that they may have diabetes and this should be confirmed with a follow-up test. CALCIUM 9.0 8.6 - 10.4 mg/dL 01/10/2025 6:11 AM CDT [facility] CREATININE 3.34(H) 0.60 - 0.95 mg/dL 01/10/2025 6:11 AM CDT [facility] BUN/CREATININE RATIO 13 6 - 22 (calc) 01/10/2025 6:11 AM CDT [facility] EGFR 13(L) > OR = 60 mL/min/1. 73m2 01/10/2025 6:11 AM CDT [facility] UREA NITROGEN (BUN) 45(H) 7 - 25 mg/dL 01/10/2025 6:11 AM CDT [facility] ELECTROLYTE BALANCE 12 7 - 17 mmol/L (calc) 01/10/2025 6:11 AM CDT [facility] CHLORIDE 107 98 - 110 mmol/L 01/10/2025 6:11 AM CDT [facility] Blood BLOOD SPECIMEN / Unknown [facility] / Unknown 01/09/2025 10:31 AM CDT 01/09/2025 10:31 AM CDT us Tim Chanle MD CHEMISTRY Final Resu lt Performing Organization Address [facility]/ZIP Co de Phone Number [facility] [address] [address], [place] [phone] * POTASSIUM (12/27/2024 11:55 AM CDT) POTASSIUM TNP mmol/L 01/04/2025 1:06 PM CDT [facility] Comment: TEST NOT PERFORMED The additional test requested cannot be performed due to age of the specimen. Blood BLOOD SPECIMEN / Unknown [facility] / Unknown 12/27/2024 11:55 AM CDT 12/27/2024 11:55 AM CDT Tim Chanel MD CHEMISTRY Final Resu lt Performing Organization Address [facility]/ZIP Co de Phone Number [facility] [address] [address], [place] [phone] * (ABNORMAL) PROTIME-INR [99382.0] - Standing Order (12/27/2024 11:55 AM CDT) Only the most recent of3 resultswithin the time period is included. INR 2.4(H) <1.3 12/27/2024 10:29 PM CDT [facility] PROTIME 28.2(H) 10.6 - 12.4 sec 12/27/2024 10:29 PM CDT [facility] Blood BLOOD SPECIMEN / Unknown [facility] / Unknown 12/27/2024 11:55 AM CDT 12/27/2024 11:[address] [facility] - 12/27/2024 10:29 PM CDT Therapeutic Range 2.0-3.0 for most [...] seconds if the patient is on UFH. us Tim Chanel MD HEMATOLOGY Final Resu lt [facility] [address] [place] [address], [place] * SCAN-LABORATORY REPORT (12/21/2024 12:00 AM CDT) us Scanner OTHER Final Result * (ABNORMAL) CBC WITH AUTO DIFFERENTIAL (12/14/2024 4:52 PM CDT) WHITE BLOOD CELL COUNT 6.3 3.8 - [...] MD HEMATOLOGY Final Resu lt [facility] [place] [facility] [address] [place] [address], [place] [phone] * TSH WITH REFLEX (12/14/2024 4:52 PM CDT) TSH W/REFLEX TO FT4 2.82 0.40 - 4.50 mIU/L 12/15/2024 5:55 AM CDT [facility] Blood BLOOD SPECIMEN / Unknown [facility] / Unknown 12/14/2024 4:52 PM CDT 12/14/2024 4:52 PM CDT us Tim Chanel MD CHEMISTRY Final Resu lt [facility] [address] [place] [address], [place] [phone] * XR CHEST 2 VIEWS PA AND [...] GENERAL IMAGING Final Resu lt * (ABNORMAL) XR DXA BONE DENSITY 2 SITES (10/07/2012 1:58 PM CDT) Anatomical Region Laterality Modality Spine, HIPS, HIPL, HIPR Other Narrative 10/08/2012 6:53 PM CDT Please see scanned document for results of this study. Procedure Note Binta Dewey Cris - 10/08/2012 Please see scanned document for results of this study. us Ace Tran MD DEXA Final Result from Last 3 Months or Most Recently Relevant to Health Maintenance Insurance MEDICARE PART A HB ONLY [place] BLUE HB ONLY MEDICARE PART B HB ONLY [place]OSS MEDICARE ADVANTAGE MR MEDICARE PPS [facility] [place] BLUE HB ONLY Advance Directives Documents on File Type Date Recorded Patient R Programmer Expl anation POLST 08/11/2023 Treatment Guidelines 08/02/2021 Healthcare Directive 04/01/2012 2:32 PM H EALT CARE DIRECTIVE, [facility], 01/08/2000 * DNR (Latest Code Status [...] Preferences, Provider to review later Care Teams Core Winder Machine Operator Relationship Specialty Start Date End Date Tim Chanel MD [address] [place] [address] PCP - General Family Practice 03/30/13 Tay Pearson [address] [place] [address] Drum Operator 09/29/11 Veena Mitchell MD [address] [address] Dermatology Dermatology 07/04/22
--- OUTSIDE RECORDS SUMMARY | 2025-01-11 00:21 | XMS_ITS | Clinical Summary ---
Author Organization [facility] Address [address] [place] [address] Phone Care Team Providers Care Range Examiner Name Role Phone Tim Chanel MD Primary Care Provider [phone] Allergies Active Allergy Reactions Criticality Noted Date [...] Encounters Date Type Department Care Team Description 12/28/2024 Results Follow-Up [facility] [address] [place] [address] Dm Rain MD 12/26/2024 Orders Only [facility] [place] [address] Dm Rain MD Stage 5 chronic kidney disease (HCC) 11/14/2024 2:00 PM CDT Office Visit [facility] [place] [address] [address] Dm Rain MD Stage 5 chronic kidney disease (HCC) (Primary Dx); Hypertensive chronic kidney disease with stage 1 through stage 4 chronic kidney disease, or unspecified chronic kidney disease; Secondary hyperparathyroidism of renal origin (HCC); Chronic systolic heart failure (HCC) 10/18/2024 Results Follow-Up [facility] [address] [place] [address] Vicky Potts RN 10/17/2024 Orders Only [facility] [address] [place] [address] Dm Rain MD Stage 5 chronic [...] st Contact Info) Description 02/13/2025 11:00 AM SEAT JOINER Office Visit [facility] [address] [place] [address] Dm Rain MD [address] [place] [address] Health Maintenance Due Date Last [...] CDT Stage 5 chronic kidney disease (HCC) PTH, INTACT Routine 10/17/2024 11:00 AM CDT Stage 5 chronic kidney disease (HCC) RENAL FUNCTION PANEL Routine 10/17/2024 11:00 AM CDT Stage 5 chronic kidney disease (HCC) from Last 3 Months Results * (ABNORMAL) Basic metabolic panel (12/27/2024 10:53 AM CDT) Glucose 167(H) 65 - 99 mg/dL [facility] [place] Comment: Fasting reference interval For someone without known diabetes, a glucose value >125 mg/dL indicates that they may have diabetes and this should be confirmed with a follow-up test. BUN 53(H) 7 - 25 mg/dL [facility] [place] Creatinine 3.76(H) 0.60 - 0.95 mg/dL [facility] [place] eGFR CKD-EPI CR 2020 11(L) > OR = 60 mL/min/1.7 3m2 [facility] [place] BUN/Creatinine Ratio 14 6 - 22 (calc) [facility] Sodium 139 135 - 146 mmol/L [facility] Potassium 4.1 3.5 - 5.3 mmol/L [facility] Chloride 104 98 - 110 mmol/L [facility] [place] Bicarbonate (CO2) 22 20 - 32 mmol/L [facility] Calcium 9.5 8.6 - 10.4 mg/dL [facility] [place] Blood Venous blood / Unknown 12/27/2024 10:53 AM CDT 12/27/2024 10:54 AM CDT Narrative Resulting Agency Comment Performing Organization Information: Site ID: [id number] Name: [facility] Address: [address] [place] [phone] Director: Chato Lofton us Dm Rain MD LAB BLOOD ORDERABLES Final Re sult [facility] [address] * (ABNORMAL) PTH, intact (10/17/2024 11:00 AM CDT) Parathyroid Hormone, Intact 300(H) 16 - 77 pg/mL [facility] Comment: Interpretive Guide Intact PTH Calcium [...] Site ID: [id number] Name: [facility] Address: [address] [place], [place] [address], [place] [address] Director: Chato Lofton us Dm Rain MD LAB BLOOD ORDERABLES Final Re sult [facility] [place] [address] [place], [place] [address] [address] * (ABNORMAL) Renal function panel (10/17/2024 11:00 AM CDT) Glucose 113(H) 65 - 99 mg/dL [facility] Comment: Fasting reference interval For [...] ID: CB Name: [facility] Address: [address] [facility] [place] [address] Director: Chato Lofton us Dm Rain MD LAB BLOOD ORDERABLES Final Re sult [facility] [address] [facility] [place] [address] from Last 3 Months Insurance [facility] Medicare Care Teams Range Examiner Relationship Specialty Start Date End Date Tim Chanel MD [address] [place] [address] PCP - General Family Medicine 04/20/23
--- OUTSIDE RECORDS SUMMARY | 2025-01-11 00:21 | XMS_ITS | Encounter Summary ---
Author Organization [facility] Address [address] [place] [address] Phone Care Team Providers Care Design And Sales Consultant Name Role Phone Tim Chanel MD Primary Care Provider [phone] Encounter Details Date Type Department Care Team (Late st Contact Info) Description 08/27/2023 Orders Only [facility] [place] [address] Dm Rain MD [address] [place] [address] Stage 5 chronic kidney disease [...] st Contact Info) Description 02/13/2025 11:00 AM CONTINUOUS WASHER OPERATOR Office Visit [facility] [place] [address] Dm Rain MD [address] [place] [phone] documented as of this encounter Procedures Procedure [...] ORDERABLES Final Re sult Performing Organization Address [facility]/ZIP Co de Phone Number [facility] * Hemoglobin (08/26/2023) Hemoglobin 13.7 g/dL [facility] Blood specimen (specimen) Venous blood / Unknown 08/26/2023 Dm Rain MD LAB BLOOD ORDERABLES Final Re sult Performing Organization Address [facility]/State/ZIP Co de Phone Number [facility] * (ABNORMAL) [...] (HCC) documented in this encounter Care Teams Design And Sales Consultant Relationship Specialty Start Date End Date Tim Chanel MD [address] [place] [address] PCP - General Family Medicine 04/20/23 documented as of this encounter
--- OUTSIDE RECORDS SUMMARY | 2025-01-11 00:21 | XMS_ITS | Encounter Summary ---
Author Organization [facility] Address [address] [place] [address] Phone Care Team Providers Care Feeder Operator Automatic Name Role Phone Tim Chanel MD Primary Care Provider [phone] Encounter Details Date Type Department Care Team (Late st Contact Info) Description 11/03/2023 Orders Only [facility] [address] [place] [address] Dm Rain MD [address] [facility] [place] [address] Stage 5 chronic kidney disease (HCC) Social [...] st Contact Info) Description 02/13/2025 11:00 AM ENVELOPE MAKER Office Visit [facility] [address] [place] [address] Dm Rain MD [address] [place] [address] documented as of this encounter Procedures Procedure [...] (HCC) documented in this encounter Care Teams Feeder Operator Automatic Relationship Specialty Start Date End Date Tim Chanel [place] [address] PCP - General Family Medicine 04/20/23 documented as of this encounter
--- OUTSIDE RECORDS SUMMARY | 2025-01-11 00:21 | XMS_ITS | Encounter Summary ---
Author Organization [facility] Address [address] [place] [address] Phone Care Team Providers Care Mop Worker Name Role Phone Tim Chanel MD Primary Care Provider [phone] Encounter Details Date Type Department Care Team (Late st Contact Info) Description 10/18/2024 Results Follow-Up [facility] [address] [facility] [address] [place] [address] Vicky Potts RN [address] [facility] [address] [place] [address] Social History Tobacco Use Types [...] st Contact Info) Description 02/13/2025 11:00 AM PLANT PHYSIOLOGY TEACHER Office Visit [facility] [address] [place] [phone] Dm Rain MD [address] [place] [address] documented as of this encounter Visit Diagnoses Not on filedocumented in this encounter Care Teams Mop Worker Relationship Specialty Start Date End Date Tim Chanel MD [address] [place] [address] PCP - General Family Medicine 04/20/23 documented as of this encounter
--- OUTSIDE RECORDS SUMMARY | 2025-01-11 00:21 | XMS_ITS | Encounter Summary ---
Author Organization [facility] Address [address] [place] [address] Phone Care Team Providers Care Individualized Education Plan Aide Name Role Phone Tim Chanel MD Primary Care Provider [phone] Encounter Details Date Type Department Care Team (Late st Contact Info) Description 07/13/2023 Orders Only [facility] [address] [place] [address] Dm Rain MD [address] [facility] [place] [address] Stage 5 chronic kidney disease [...] st Contact Info) Description 02/13/2025 11:00 AM VETERINARIAN ASSISTANT Office Visit [facility] [address] [place] [address] Dm Rain MD [address] [place] [address] documented as of this encounter [...] (HCC) documented in this encounter Care Teams Individualized Education Plan Aide Relationship Specialty Start Date End Date Tim Chanel MD [address] [place] [address] PCP - General Family Medicine 04/20/23 documented as of this encounter
--- OUTSIDE RECORDS SUMMARY | 2025-01-11 00:22 | XMS_ITS | Encounter Summary ---
Author Organization [facility] Address [address] [place] [address] Phone Care Team Providers Care Radio Division Captain Name Role Phone Tim Chanel MD Primary Care Provider Encounter Details Date Type Department Care Team (Late st Contact Info) Description 12/28/2024 Results Follow-Up [facility] [address] [facility] [address] [place] [address] Dm Rain MD [address] [place] [address] Social History Tobacco Use Types [...] Progress Notes * Dm Rain MD - 12/28/2024 2:50 PM CDT Cr up a little but hopefully weight down with diuretic. Electrolytes ok. Will keep medications the same. MyChart message sent with update and asked her to update me on weight/edema. -Dez Rain MD documented in this encounter Plan of Treatment Upcoming Encounters Date Type Department Care Team (Late st Contact Info) Description 02/13/2025 11:00 AM HYDROBLASTER Office Visit [facility] [address] [place] [address] Dm Rain MD [address] [phone] documented as of this encounter Visit Diagnoses Not on filedocumented in this encounter Care Teams Radio Division Captain Relationship Specialty Start Date End Date Tim Chanel MD [facility] [place] [address] PCP - General Family Medicine 04/20/23 documented as of this encounter
--- OUTSIDE RECORDS SUMMARY | 2025-01-11 00:22 | XMS_ITS | Encounter Summary ---
Author Organization [facility] Address [address] [place] [address] Phone Care Team Providers Care Supervisor Furnace Room Name Role Phone Tim Chanel MD Primary Care Provider [phone] Encounter Details Date Type Department Care Team (Late st Contact Info) Description 12/28/2023 Orders Only [facility] [place] [address] Dm Rain MD [address] [place] [address] Stage 5 chronic kidney disease [...] st Contact Info) Description 02/13/2025 11:00 AM RANCH HELPER Office [facility] [place] [address] Dm Rain MD [address] [place] [address] documented as of this encounter Procedures Procedure [...] (HCC) documented in this encounter Care Teams Supervisor Furnace Room Relationship Specialty Start Date End Date Tim Chanel MD [address] [place] [address] PCP - General Family Medicine 04/20/23 documented as of this encounter
--- OUTSIDE RECORDS SUMMARY | 2025-01-11 00:22 | XMS_ITS | Encounter Summary ---
Author Organization [facility] Address [address] [place] [address] Phone Care Team Providers Care Press Operator Meat Name Role Phone Tim Chanel MD Primary Care Provider [phone] Encounter Details Date Type Department Care Team (Late st Contact Info) Description 10/17/2024 Orders Only [facility] [place] [address] Dm Rain MD [address] [place] [address] Stage 5 chronic kidney disease [...] st Contact Info) Description 02/13/2025 11:00 AM PERSONAL SECRETARY Office [facility] [place] [address] Dm Rain MD [address] [place] [address] documented as of this encounter Procedures Procedure Name Priority Date/Time Associated Diagnosis Comments PTH, INTACT Routine 10/17/2024 11:00 AM CDT Stage 5 chronic kidney disease (HCC) RENAL FUNCTION PANEL Routine 10/17/2024 11:00 AM CDT Stage 5 chronic kidney disease (HCC) documented in this encounter Results * (ABNORMAL) PTH, intact (10/17/2024 11:00 AM CDT) Parathyroid Hormone, Intact 300(H) 16 - 77 pg/mL [employer] [facility] Comment: Interpretive Guide Intact PTH Calcium [...] Performing Organization Information: Site ID: CB Name: [facility] Address: [address] [place] [phone] Director: Chato Lofton Dm Rain MD LAB BLOOD ORDERABLES Final Re sult [facility] [email or web address] [address] * (ABNORMAL) Renal function panel (10/17/2024 11:00 AM CDT) Glucose 113(H) 65 - 99 mg/dL [facility] juanito Diggs Comment: Fasting reference interval For someone without known diabetes, a glucose value between 100 and 125 mg/dL is consistent with prediabetes and should be confirmed with a follow-up test. BUN 47(H) 7 - 25 mg/dL [facility] jaimeod Dontae Creatinine 3.10(H) 0.60 - 0.95 mg/dL [...] Performing Organization Information: Site ID: Name: [facility] Address: [address] [place] [phone] Director: Chato Lofton us Dm Rain MD LAB BLOOD ORDERABLES Final Re sult [facility] Aretha Mays [address] [address] documented in this encounter Visit Diagnoses Diagnosis Stage 5 chronic kidney disease (HCC) documented in this encounter Care Teams Press Operator Meat Relationship Specialty Start Date End Date Tim Chanel MD [facility] [place] [address] PCP - General Family Medicine 04/20/23 documented as of this encounter
== END 2025-01-10 10:05 | disposition home or self-care (01) ==
LOC: NPINS 10:04
PROVIDERS: PCP Family Medicine; Visit Provider Family Medicine
DX: I48.91 Unspecified atrial fibrillation (principal)
CPT/HCPCS: 85610

== ENCOUNTER 2025-01-17 10:48 | Outpatient (REF) | payer MEDICARE, SELFPAY ==
[2025-01-17 11:41] LABS: INR 2.00 (0.91-1.10); Prothrombin Time 23.8 Seconds
--- OUTSIDE RECORDS SUMMARY | 2025-01-18 00:21 | XMS_ITS | Clinical Summary ---
Author Organization [facility] Address [address] [place] [address] Care Team Providers Care Tractor Distributor Name Role Phone Lili Tay Romero Unavailable [phone] Tim Chanel MD Primary Care Provider [phone] Veena Mitchell MD Unavailable [phone] Allergies Active Allergy Reactions Criticality Noted Date [...] Chronic systolic CHF (congestive heart failure) (HC),Lymphedema,Ac michael on chronic systolic heart failure (HC) [...] evening OR as directed 01/11/20 25 Active potassium chloride (K-TAB) 20 mEq [...] mouth 12/16: Hold; Otherwise 2.5 mg every Thu, Sat; 5 mg [...] in the evening OR as directed 12/22/19 025 Discontinu ed(Other - add note to specify (E-cancel not sent)) potassium chloride (K-TAB) 20 mEq extended-release tabletIndications: Chronic systolic CHF (congestive heart failure) (HC) Take 1 Tablet (20 mEq) by mouth two times daily with meals. Take in the morning. 180 Tablet 3 01/07/20 25 025 Discontinu ed(*Medica tion adjustment ) Active [...] Encounters Date Type Department Care Team Description 01/17/2025 Anticoagulation (warfarin) [facility] [address] [place] [address] NurseAlphonse Anticoag Anticoagulation (Outside lab ) 01/14/2025 Telephone [facility] [address] [place] [address] Tmi Chanel MD Call Back 01/10/2025 Orders Only [facility] Scanner 1 scan: (1-Ord) [place], INR, 01/10/2025 01/10/2025 Anticoagulation (warfarin) [facility] [address] [place] [address] NurseAlphonse Anticoprince Anticoagulation (JESUS) 01/09/2025 10:30 AM CDT Orders Only [facility] [address] [place] [address] Lab, [facility] 01/09/2025 Telephone [facility] [address] [place] [address] Tim Chanel MD Anticoagulation (result) 01/09/2025 Travel 01/05/2025 Telephone [facility] [address] [place] [address] Tim Chanel MD Form (med. orders) 12/28/2024 Anticoagulation (warfarin) [facility] [address] [facility] [place] [address] NurseAlphonse Anticoag Anticoagulation (JESUS) 12/27/2024 11:45 AM CDT Orders Only [facility] [address] [place] [address] Lab, [facility] 12/26/2024 Travel 12/21/2024 Orders Only [facility] Scanner 1 scan: (1-Ord) [facility], INR, 12/21/2024 12/21/2024 Anticoagulation (warfarin) [facility] [address] [place] [address] Nurse, Syedg Anticoag Anticoagulation (FDC) 12/20/2024 Telephone [facility] [address] [place] [address] Tim Chanel MD Abnormal Lab Results 12/20/2024 Travel 12/15/2024 Telephone [facility] [address] [place] [address] Tim Chanel MD Anticoagulation 12/15/2024 Telephone [facility] [address] [place] [address] Tim Chanel MD Questions (FUROSEMIDE, INR, LEG WOUND CARE) 12/15/2024 Anticoagulation (warfarin) [facility] [address] [place] [address] Nurse, Ahg Anticoag Anticoagulation (Chart update ) 12/15/2024 Anticoagulation (warfarin) [facility] [address] [place] [address] Nurse, Ahg Anticoag Anticoagulation 12/14/2024 3:15 PM CDT Ancillary Procedure [address] [address] 12/14/2024 2:50 PM CDT Office Visit [address] [address] Tim Chanel MD Hospital F/U (Post hospital 2 mo f/u.//concerns in regards to medications, pt is becoming confused with how often to take them.//Blisters on both legs, daughter wants checked.) 12/13/2024 Travel 12/02/2024 Telephone [facility] [address] [place] [address] Tim Chanel MD [facility] paperwork 11/09/2024 Travel 11/08/2024 9:00 AM CDT Office Visit [facility] [address] [facility] [address] Manan Agarwal MD Follow Up (Follow up chronic atrial fibrillation, increased shortness of breath with exertion, few occasions of sitting in chair and could feel her A-Fib in her chest, nurse at home took vitals, but didn't notice any A-Fib, not sure if actually A-Fib or anxiety. ) 11/07/2024 Travel 10/18/2024 Anticoagulation (warfarin) [facility] [address] [place] [address] Nurse, Alphonse Anticoag Anticoagulation from Last 3 Months Immunizations Immunization Administration [...] on file Legal Sex Female 5:24 AM INDUSTRIAL MAINTENANCE MILLWRIGHT Gender Identity Not on file Sexual Orientation Not on file Occupation Industry Job Start Date Job End Date Retired Not on file Not on file Not on file Travel History Travel Start Travel End [place] 12/26/2024 12/26/2024 Obstetrics History Para Term AB [...] st Contact Info) Description 02/21/2025 2:15 PM INDUSTRIAL MAINTENANCE MILLWRIGHT Orders Only [address] [address] Lab, [facility] 02/28/2025 2:20 PM INDUSTRIAL MAINTENANCE MILLWRIGHT Office Visit [address] [address] Tim Chanel MD [address] [place] [address] 08/23/2025 2:15 PM CDT Orders Only [address] [address] Lab, [facility] 08/29/2025 1:55 PM CDT Office Visit [address] [place] [address] Tim Chanel MD [address] [place] [address] Health Maintenance Due Date Last Done Comments [...] Completed 2012, 08/31/2007, 08/31/2007 (Completed outside of [facility]) Pneumococcal series for age 50+ Completed 10/09/2014, 09/11/2010, 01/11/1997 Zoster (shingles) series for age 50+ Completed 08/31/2018, 05/29/2018, 08/05/2006 RSV vaccine for adults or Completed 01/06/2024 Procedures Procedure Name Priority Date/Time Associated Diagnosis Comments INR,POCT Routine 01/17/2025 9:39 AM CDT SCAN-LABORATORY REPORT 01/10/2025 12:00 AM CDT INR,POCT Routine 01/10/2025 BASIC METABOLIC PANEL Routine [...] of left lung present on imaging study XR DXA BONE DENSITY 2 SITES AXIAL Routine 10/07/2012 1:58 PM CDT Vitamin D deficiency Osteoporosis from Last 3 Months or Most Recently Relevant to Health Maintenance Results * (ABNORMAL) INR,POCT (01/17/2025 9:39 AM CDT) Only the most recent of2 resultswithin the time period is included. INR 2.0(INDUSTRIAL CAFETERIA MANAGER AL) 0.0 - 1.2 [facility] Blood BLOOD SPECIMEN / Unknown 01/17/2025 9:39 AM CDT us Tim Chanel MD LABORATORY Final Resu lt [facility] [address] [place] [address] * SCAN-LABORATORY REPORT (01/10/2025 12:00 AM CDT) Only the most recent of2 resultswithin the time period is included. us Scanner OTHER Final Result * (ABNORMAL) BASIC METABOLIC PANEL (01/09/2025 10:31 [...] CDT 01/09/2025 10:31 AM CDT us Tim Chanel MD CHEMISTRY Final Resu lt [facility] [address] [place] [address], [place] [phone] * POTASSIUM (12/27/2024 11:55 AM CDT) POTASSIUM TNP mmol/L 01/04/2025 1:06 PM CDT [facility] Comment: TEST NOT PERFORMED The additional test requested cannot be performed due to age of the specimen. Blood BLOOD SPECIMEN / Unknown [facility] / Unknown 12/27/2024 11:55 AM CDT 12/27/2024 11:55 AM CDT us Tim Chanel MD CHEMISTRY Final Resu lt [facility] [address] [place] [address], * (ABNORMAL) PROTIME-INR [83243.0] - Standing Order (12/27/2024 11:55 AM CDT) Only the most recent of2 resultswithin the time period is included. INR 2.4(H) <1.3 12/27/2024 10:29 PM CDT [facility] PROTIME 28.2(H) 10.6 - 12.4 sec 12/27/2024 10:29 PM CDT [facility] Blood BLOOD SPECIMEN / Unknown [facility] / Unknown 12/27/2024 11:55 AM CDT 12/27/2024 11:55 AM CDT Narrative [facility] - 12/27/2024 10:29 PM CDT Therapeutic Range [...] Tim Chanel MD HEMATOLOGY Final Resu lt [facility] [address] [place] [address], [place] * (ABNORMAL) CBC WITH AUTO DIFFERENTIAL (12/14/2024 4:52 PM CDT) Pathologist [facility] WHITE BLOOD CELL COUNT 6.3 3.8 - [...] 12/14/2024 4:52 PM CDT Tim Chanel MD HEMATOLOGY Final Resu lt Performing Organization Address City/[facility]/ZIP Co de Phone Number [facility] [address] [address], [place] [phone] * TSH WITH REFLEX (12/14/2024 4:52 PM CDT) TSH W/REFLEX TO FT4 2.82 0.40 - 4.50 mIU/L 12/15/2024 5:55 AM CDT [facility] Blood BLOOD SPECIMEN / Unknown [facility] / Unknown 12/14/2024 4:52 PM CDT 12/14/2024 4:52 PM CDT Tim Chanel MD CHEMISTRY Final Resu lt Performing Organization Address City/[facility]/ZIP Co de Phone Number [facility] [address] [place] [address], [place] [phone] * XR CHEST 2 VIEWS PA AND [...] effusion or pneumothorax. Degenerative changes. Procedure Note Mnaan Meza MD - 12/14/2024 For Patients: As [...] Insurance MEDICARE PART A HB ONLY [facility] ONLY MEDICARE PART B HB ONLY BLUE CROSS MEDICARE ADVANTAGE MR MEDICARE PPS BLUE [place]OSS [place] BLUE HB ONLY Advance Directives Documents on File Type Date Recorded Patient Testing And Regulating Chief Expl anation POLST 08/11/2023 Treatment Guidelines 08/02/2021 Healthcare Directive 04/01/2012 2:32 PM [facility] DIRECTIVE, [facility], 01/08/2000 * DNR (Latest Code Status on File) Date Activated Date Inactivated Comments 08/31/2021 5:19 PM 09/04/2021 3:21 PM Question Answer Comments Code Status Discussion: Reviewed Preferences * DNR Date Activated Date Inactivated Comments 08/30/2021 7:36 PM 08/31/2021 4:39 PM Question Answer Comments Code Status Discussion: Reviewed Preferences * DNR Date Activated Date Inactivated Comments 08/08/2021 4:10 PM 08/30/2021 11:09 AM POLST comp leted: Yes, Date: 08/02/21 * DNR Date Activated Date Inactivated Comments 07/26/2021 2:09 PM 08/01/2021 5:36 PM Question Answer Comments Code Status Discussion: Reviewed Preferences * Full Code Date Activated Date Inactivated Comments 07/26/2021 1:11 PM 07/26/2021 2:09 PM Question Answer Comments Code Status Discussion: Unable to Assess Preferences, Provider to review later Care Teams Tractor Distributor Relationship Specialty Start Date End Date Tim Chanel MD [address] [place] [address] PCP - General Family Practice 03/30/13 Tay Pearson [address] [place] [address] Armorer Technician 09/29/11 Veena Mitchell MD [address] [address] Dermatology Dermatology 07/04/22
--- OUTSIDE RECORDS SUMMARY | 2025-01-18 00:21 | XMS_ITS | Encounter Summary ---
Author Organization [facility] Address [address] [place] [address] Phone Care Team Providers Care Warehouse Operator Name Role Phone Tim Chanel MD Primary Care Provider [phone] Encounter Details Date Type Department Care Team (Late st Contact Info) Description 12/26/2024 Orders [facility] [place] [address] Dm Rain MD [address] [place] [address] Stage 5 chronic kidney disease [...] st Contact Info) Description 02/13/2025 11:00 AM PERFORATOR OPERATOR [facility] [place] [address] Dm Rain MD [address] [place] [address] 02/14/2025 Orders Only [facility] [address] [place] [place] [address] Dm Rain MD [address] [place] [address] Stage 5 chronic kidney disease (HCC) documented as of this encounter Procedures [...] Performing Organization Information: Site ID: CB Name: [employer] [facility] [employer] Address: [address] [place] [phone] Director: Chato Lofton us Dm Rain MD LAB BLOOD ORDERABLES Final Re sult [facility] Annabelle Diggs [address] [place] [address] documented in this encounter Visit Diagnoses Diagnosis Stage 5 chronic kidney disease (HCC) Stage 5 chronic kidney disease (HCC) documented in this encounter Care Teams Warehouse Operator Relationship Specialty Start Date End Date Tim Chanel MD [address] [place] [address] PCP - General Family Medicine 04/20/23 documented as of this encounter
--- OUTSIDE RECORDS SUMMARY | 2025-01-18 00:22 | XMS_ITS | Encounter Summary ---
Author Organization [facility] Address [address] [place] [address] Phone Care Team Providers Care Assistant Corporate Controller Name Role Phone Tim Chanel MD Primary Care Provider [phone] Encounter Details Date Type Department Care Team (Late st Contact Info) Description 12/28/2023 Orders [facility] [place] [address] Dm Rain MD [address] [place] [address] Stage 5 chronic kidney disease [...] st Contact Info) Description 02/13/2025 11:00 AM LOOM CLEANER Office [facility] [place] [address] Dm Rain MD [address] [place] [phone] 02/14/2025 Orders Only [facility] [address] [place] [address] Dm Rain MD [address] [place] [address] Stage 5 chronic kidney disease [...] documented in this encounter Care Teams Assistant Corporate Controller Relationship Specialty Start Date End Date Tim Chanel MD [place] [address] PCP - General Family Medicine 04/20/23 documented as of this encounter
--- OUTSIDE RECORDS SUMMARY | 2025-01-18 00:22 | XMS_ITS | Encounter Summary ---
Author Organization [facility] Address [address] [place] [address] Phone Care Team Providers Care Boat Ride Operator Name Role Phone Tim Chanel MD Primary Care Provider [phone] Encounter Details Date Type Department Care Team (Late st Contact Info) Description 10/18/2024 Results Follow-Up [facility] [address] [facility] [address] [place] [address] Vicky Potts RN [address] [facility] [address] [place] [address] Social History Tobacco Use Types [...] st Contact Info) Description 02/13/2025 11:00 AM TUCKING MACHINE OPERATOR Office Visit [facility] [address] [place] [address] Dm Rain MD [address] [place] [address] 02/14/2025 Orders Only [facility] [address] [place] [address] Dm Rain MD [address] [place] [address] Stage 5 chronic kidney disease (HCC) documented as of this encounter Visit Diagnoses Not on filedocumented in this encounter Care Teams Boat Ride Operator Relationship Specialty Start Date End Date Tim Chanel [place] [address] PCP - General Family Medicine 04/20/23 documented as of this encounter
--- OUTSIDE RECORDS SUMMARY | 2025-01-18 00:22 | XMS_ITS | Encounter Summary ---
Author Organization [facility] Address [address] [place] [address] Phone Care Team Providers Care Dulite Machine Bluer Name Role Phone Tim Chanel MD Primary Care Provider [phone] Encounter Details Date Type Department Care Team (Late st Contact Info) Description 12/28/2024 Results [facility]Up [facility] [place] [address] [facility] [address] [place] [address] Dm Rain MD [address] [place] [address] Social History Tobacco Use Types [...] st Contact Info) Description 02/13/2025 11:00 AM ANIMAL CAREGIVER Office [facility] [place] [address] Dm Rain MD [address] [place] [phone] 02/14/2025 Orders Only [facility] [place] [address] Dm Rain MD [address] [place] [address] Stage 5 chronic kidney disease (HCC) documented as of this encounter Visit Diagnoses Not on filedocumented in this encounter Care Teams Dulite Machine Bluer Relationship Specialty Start Date End Date Tim Chanel [place] [address] PCP - General Family Medicine 04/20/23 documented as of this encounter
--- OUTSIDE RECORDS SUMMARY | 2025-01-18 00:22 | XMS_ITS | Encounter Summary ---
Author Organization [facility] Address [address] [place] [address] Phone Care Team Providers Care Data Capture Specialist Name Role Phone Tim Chanel MD Primary Care Provider [phone] Encounter Details Date Type Department Care Team (Late st Contact Info) Description 10/17/2024 Orders Only [facility] [place] [address] Dm Rain MD [address] [place] [address] Stage 5 chronic kidney disease [...] st Contact Info) Description 02/13/2025 11:00 AM HOUSEHOLD APPLIANCES SALESPERSON Office Visit [facility] [place] [address] Dm Rain MD [address] [place] [phone] 02/14/2025 Orders Only [facility] [place] [address] [place] [address] Dm Rain MD [address] [place] [address] Stage 5 chronic kidney disease [...] Hormone, Intact 300(H) 16 - 77 pg/mL [employer] [facility] Comment: Interpretive Guide Intact PTH Calcium [...] Performing Organization Information: Site ID: CB Name: [facility] Address: [address] [place] [address] Director: Chato Lofton us Dm Rain MD LAB BLOOD ORDERABLES Final Re sult [employer] [facility] [address] [place] [address] * (ABNORMAL) Renal function panel (10/17/2024 11:00 AM CDT) Glucose 113(H) 65 - 99 mg/dL [facility] [employer] juanito [place] Comment: Fasting reference interval For someone without [...] Site ID: CB Name: Annabelle Diggs Address: [address] [place] [address] Director: Chato Lofton us Dm Rain MD LAB BLOOD ORDERABLES Final Re sult [facility] Annabelle Diggs [address] [place] [address] documented in this encounter Visit Diagnoses Diagnosis Stage 5 chronic kidney disease (HCC) Stage 5 chronic kidney disease (HCC) documented in this encounter Care Teams Data Capture Specialist Relationship Specialty Start Date End Date Tim Chanel MD [address] [place] [address] PCP - General Family Medicine 04/20/23 documented as of this encounter
--- OUTSIDE RECORDS SUMMARY | 2025-01-18 00:22 | XMS_ITS | Encounter Summary ---
Author Organization [facility] Address [address] [place] [address] Phone Care Team Providers Care Ethanol Quality Leader Name Role Phone Tim Chanel MD Primary Care Provider [phone] Encounter Details Date Type Department Care Team (Late st Contact Info) Description 08/27/2023 Orders Only [facility] [place] [address] Dm Rain MD [address] [place] [address] Stage 5 [...] st Contact Info) Description 02/13/2025 11:00 AM DIRECTOR [employer]TER[employer]ISE SYSTEMS Office [facility] [place] [place] [address] Dm Rain MD [address] [place] [phone] 02/14/2025 Orders Only [facility] [place] [address] [place], [place] [address] Dm Rain MD [address] [address] Stage 5 chronic kidney disease (HCC) documented [...] Rain MD LAB BLOOD ORDERABLES [facility] Performing Organization Address [facility] Co de Phone Number ALLINA [...] (HCC) documented in this encounter Care Teams Ethanol Quality Leader Relationship Specialty Start Date End Date Tim Chanel MD [address] [place] [address] PCP - General Family Medicine 04/20/23 documented as of this encounter
--- OUTSIDE RECORDS SUMMARY | 2025-01-18 00:22 | XMS_ITS | Encounter Summary ---
Author Organization [facility] Address [address] [place] [address] Phone Care Team Providers Care Roving Technician Name Role Phone Tim Chanel MD Primary Care Provider [phone] Encounter Details Date Type Department Care Team (Late st Contact Info) Description 11/03/2023 Orders Only [facility] [place] [address] [place] [address] Dm Rain MD [address] [facility] [place] [phone] Stage 5 chronic kidney disease (HCC) Social [...] st Contact Info) Description 02/13/2025 11:00 AM SHOT EXAMINER Office Visit [facility] [place] [address] [place] [address] Dm Rain MD [address] [place] [address] 02/14/2025 Orders Only [facility] [address] [place] [address] Dm Rain MD [address] [place] [phone] Stage 5 chronic kidney disease (HCC) documented [...] (HCC) documented in this encounter Care Teams Roving Technician Relationship Specialty Start Date End Date Tim Chanel MD [address] [place] [address] PCP - General Family Medicine 04/20/23 documented as of this encounter
--- OUTSIDE RECORDS SUMMARY | 2025-01-18 00:22 | XMS_ITS | Encounter Summary ---
Author Organization [facility] Address [address] [place] [address] Phone Care Team Providers Care Education Program Specialist Name Role Phone Tim Chanel MD Primary Care Provider [phone] Encounter Details Date Type Department Care Team (Late st Contact Info) Description 07/13/2023 Orders Only [facility] [address] [place] [address] Dm Rain MD [address] [facility] [place] [address] Stage 5 chronic kidney disease [...] st Contact Info) Description 02/13/2025 11:00 AM PLASTER BLOCK LAYER Office [facility] [place] [place] [address] Dm Rain MD [address] [place] [address] 02/14/2025 Orders Only [facility] [place] [address] Dm Rain MD [address] [place] [address] Stage 5 chronic kidney disease (HCC) documented [...] (HCC) documented in this encounter Care Teams Education Program Specialist Relationship Specialty Start Date End Date Tim Chanel MD [address] [place] [address] PCP - General Family Medicine 04/20/23 documented as of this encounter
--- OUTSIDE RECORDS SUMMARY | 2025-01-18 00:22 | XMS_ITS | Clinical Summary ---
Author Organization [facility] [place] Address [address] [place] [address] Phone Care Team Providers Care Research Quality Assurance Analyst Name Role Phone Tim Chanel MD Primary Care Provider [phone] Allergies Active Allergy Reactions Criticality Noted Date [...] [address] [place] [address] Dm Rain MD 12/26/2024 Orders Only [facility] [place] [address] Dm Rain MD Stage 5 chronic kidney disease (HCC) 11/14/2024 2:00 PM CDT Office Visit [facility] [place] [address] Dm Rain MD Stage 5 chronic kidney disease (HCC) (Primary Dx); Hypertensive chronic kidney disease with stage 1 through stage 4 chronic kidney disease, or unspecified chronic kidney disease; Secondary hyperparathyroidism of renal origin (HCC); Chronic systolic heart failure (HCC) 10/18/2024 Results Follow-Up [facility] [address] [place] [address] Vicky Potts RN from Last 3 Months Immunizations Immunization Administration [...] st Contact Info) Description 02/13/2025 11:00 AM ELECTRICAL CAD DESIGNER Office Visit [facility] [address] [place] [address] Dm Rain MD [address] [place] [address] 02/14/2025 Orders Only [facility] [address] [place] [address] Dm Rain MD [address] [facility] [place] [address] Stage 5 chronic kidney disease (HCC) Health Maintenance Due Date Last Done [...] CDT) Glucose 167(H) 65 - 99 mg/dL [employer] juanito Diggs Comment: Fasting reference interval For someone without known diabetes, a glucose value >125 mg/dL indicates that they may have diabetes and this should be confirmed with a follow-up test. BUN 53(H) 7 - 25 mg/dL [employer] juanito Diggs Creatinine 3.76(H) 0.60 - 0.95 mg/dL [facility] [...] Performing Organization Information: Site ID: CB Name: [facility] Address: [address] [place] [address] Director: Chato Lofton us Dm Rain MD LAB BLOOD ORDERABLES Final Re sult [facility] Annabelle Diggs [address] [place] [address] from Last 3 Months Insurance [id number] [place] [address] Care Teams Research Quality Assurance Analyst Relationship Specialty Start Date End Date Labenski, Tim, MD [address] [place], [place] [phone] PCP - General Family Medicine 04/20/23
== END 2025-01-17 10:49 | disposition home or self-care (01) ==
LOC: NPINS 10:48
PROVIDERS: PCP Family Medicine; Visit Provider Family Medicine
DX: I48.91 Unspecified atrial fibrillation (principal)
CPT/HCPCS: 85610

== ENCOUNTER 2025-02-01 11:26 | Outpatient (REF) | payer MEDICARE, SELFPAY ==
[2025-02-01 12:46] LABS: INR 2.15 (0.91-1.10); Prothrombin Time 25.1 Seconds
--- OUTSIDE RECORDS SUMMARY | 2025-02-02 00:15 | XMS_ITS | Clinical Summary ---
Author Organization [facility] Address [facility] [place] [address] Care Team Providers Care Career Orientation Teacher Name Role Phone Lili Tay Romero Unavailable [phone] Tim Chanel MD Primary Care Provider [phone] Veena Mitchell MD Unavailable Allergies Active Allergy [...] Encounters Date Type Department Care Team Description 02/01/2025 Anticoagulation (warfarin) [facility] [address] [place] [address] Nurse, Ahg Anticoag Anticoagulation (GROUP HOME) 01/17/2025 Orders Only [facility] Scanner 1 scan: (1-Ord) [place], INR, 01/17/2025 01/17/2025 Anticoagulation (warfarin) [facility] [address] [place] [address] Nurse, Ahg Anticoag Anticoagulation (Outside lab ) 01/14/2025 Telephone [facility] [address] [place] [address] Tim Chanel MD Call Back 01/10/2025 Orders Only [facility] Scanner 1 scan: (1-Ord) [place], INR, 01/10/2025 01/10/2025 Anticoagulation (warfarin) [facility] [address] [place] [address] Nurse, Ahg Anticoag Anticoagulation (GROUP HOME) 01/09/2025 10:30 AM CDT Orders Only [facility] [address] [place] [address] Lab, [place] Lab 01/09/2025 Telephone [facility] [address] [place] [address] Tim Chanel MD Anticoagulation (result) 01/09/2025 Travel 01/05/2025 Telephone [facility] [address] [place] [address] Tim Chanel MD Form (med. orders) 12/28/2024 Anticoagulation (warfarin) [facility] [address] [place] [address] Nurse, Ahg Anticoag Anticoagulation (JESUS) 12/27/2024 11:45 AM CDT Orders Only [facility] [address] [place] [address] Lab, [place] Lab 12/26/2024 Travel 12/21/2024 Orders Only [facility] Scanner 1 scan: (1-Ord) [facility], INR, 12/21/2024 12/21/2024 Anticoagulation (warfarin) [facility] [address] [place] [address] Nurse, Alphonse Anticoprince Anticoagulation (JESUS) 12/20/2024 Telephone [facility] [address] [place] [address] Tim Chanel MD Abnormal Lab Results 12/20/2024 Travel 12/15/2024 Telephone [facility] [address] [place] [address] Tim Chanel MD Anticoagulation 12/15/2024 Telephone [facility] [address] [place] [address] Tim Chanel MD Questions (FUROSEMIDE, INR, LEG WOUND CARE) 12/15/2024 Anticoagulation (warfarin) [facility] [address] [place] [address] Nurse, Alphonse Anticoprince Anticoagulation (Chart update ) 12/15/2024 Anticoagulation (warfarin) [facility] [address] [place] [address] Nurse, Alphonse Anticoprince Anticoagulation 12/14/2024 3:15 PM CDT Ancillary Procedure [facility] [address] [place] [address] 12/14/2024 2:50 PM CDT Office Visit [facility] [address] [place] [address] Tim Chanel MD Hospital F/U (Post hospital 2 mo f/u.//concerns in regards to medications, pt is becoming confused with how often to take them.//Blisters on both legs, daughter wants checked.) 12/13/2024 Travel 12/02/2024 Telephone [facility] [address] [place] [address] Tim Chanel MD [facility] paperwork 11/09/2024 Travel 11/08/2024 9:00 AM CDT Office Visit [facility] [address] [place] [address] Manan Agarwal MD Follow Up (Follow up chronic atrial fibrillation, increased shortness of breath with exertion, few occasions of sitting in chair and could feel her A-Fib in her chest, nurse at home took vitals, but didn't notice any A-Fib, not sure if actually A-Fib or anxiety. 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 Gender Identity Not on file Sexual Orientation [...] st Contact Info) Description 02/21/2025 2:15 PM GRAIN MIXER Orders Only [facility] [address] [place] [address] Lab, [place] 02/28/2025 2:20 PM GRAIN MIXER Office Visit [facility] [address] [place] [address] Tim Chanel MD [address] [place] [address] 08/23/2025 2:15 PM CDT Orders Only [facility] [address] [place] [address] Lab, [place] 08/29/2025 1:55 PM CDT Office Visit [facility] [address] [place] [address] Tim Chanel MD [address] [place] [address] Health Maintenance Due Date Last Done Comments [...] Completed 2012, 08/31/2007, 08/31/2007 (Completed outside of [facility]) Pneumococcal series for age 50+ Completed 10/09/2014, 09/11/2010, 01/11/1997 Zoster (shingles) series for age 50+ Completed 08/31/2018, 05/29/2018, 08/05/2006 RSV vaccine for adults or Completed 01/06/2024 Procedures Procedure Name Priority Date/Time Associated Diagnosis Comments INR,POCT Routine 02/01/2025 INR,POCT Routine 01/17/2025 9:39 AM CDT SCAN-LABORATORY REPORT 01/17/2025 12:00 AM CDT SCAN-LABORATORY REPORT 01/10/2025 12:00 AM [...] to Health Maintenance Results * (ABNORMAL) INR,POCT (02/01/2025) Only the most recent of3 resultswithin the time period is included. INR 2.2(POTATO CHIP PROCESSING SUPERVISOR AL) 0.0 - 1.2 [facility] [[email or web address]] Blood BLOOD SPECIMEN / Unknown us Tim Chanel MD LABORATORY Final Resu lt [facility] [[email or web address]] [address] [place] [address], [place] [phone] * SCAN-LABORATORY REPORT (01/17/2025 12:00 AM CDT) Only the most recent of3 resultswithin the time period is included. us [...] 10:31 AM CDT 01/09/2025 10:31 AM CDT Tim Chanel MD CHEMISTRY Final Resu lt [facility] [address] [place] [address], * POTASSIUM (12/27/2024 11:55 AM CDT) POTASSIUM TNP mmol/L 01/04/2025 1:06 PM CDT [facility] Comment: TEST NOT PERFORMED The additional test requested cannot be performed due to age of the specimen. Blood BLOOD SPECIMEN / Unknown [facility] / Unknown 12/27/2024 11:55 AM CDT 12/27/2024 11:55 AM CDT Tim Chanel MD CHEMISTRY Final Resu lt [facility] [address] [address], [place] [phone] * (ABNORMAL) PROTIME-INR [71390.0] - Standing Order (12/27/2024 11:55 AM CDT) Only the most recent of2 resultswithin the time period is included. Pathologist [facility] INR 2.4(H) <1.3 12/27/2024 10:29 PM CDT [facility] PROTIME 28.2(H) 10.6 - 12.4 sec 12/27/2024 10:29 PM CDT [facility] Blood BLOOD SPECIMEN / Unknown [facility] / Unknown 12/27/2024 11:55 AM CDT 12/27/2024 11:55 AM CDT Narrative [facility] - 12/27/2024 10:29 PM CDT Therapeutic [...] Tim Chanel MD HEMATOLOGY Final Resu lt [facility] [address] [place] [address], [place] * (ABNORMAL) CBC WITH AUTO DIFFERENTIAL (12/14/2024 4:52 PM CDT) WHITE BLOOD CELL COUNT 6.3 3.8 - 10.8 Thousand/ uL 12/15/2024 4:09 AM CDT [facility] RED BLOOD CELL COUNT 5.64(H) 3.80 [...] HEMATOLOGY Final Resu lt Performing Organization Address [facility]/ZIP Co de Phone Number [facility] [address] [address], [place] [phone] * TSH WITH REFLEX (12/14/2024 4:52 PM CDT) TSH W/REFLEX TO FT4 2.82 0.40 - 4.50 mIU/L 12/15/2024 5:55 AM CDT [facility] Blood BLOOD SPECIMEN / Unknown [facility] / Unknown 12/14/2024 4:52 PM CDT 12/14/2024 4:52 PM CDT Tim Chanel MD CHEMISTRY Final Resu lt Performing Organization Address [facility] Co de Phone Number [facility] [address] [address], [place] [phone] * XR CHEST 2 VIEWS PA AND [...] Maintenance Insurance MEDICARE PART A HB ONLY [facility] BLUE HB ONLY MEDICARE PART B HB ONLY [employer] MEDICARE ADVANTAGE MR MEDICARE PPS [place] BLUE [place] ONLY Advance Directives Documents on File Type Date Recorded Patient Electrotyper Helper Expl anation POLST 08/11/2023 Treatment Guidelines 08/02/2021 Healthcare Directive 04/01/2012 2:32 PM [facility], [facility], 01/08/2000 * DNR (Latest Code Status on [...] Preferences, Provider to review later Care Teams Career Orientation Teacher Relationship Specialty Start Date End Date [place] [address] PCP - General Family Practice 03/30/13 Tay Pearson [address] [place] [address] Portable Sawmill Operator 09/29/11 Veena Mitchell MD [address] [address] Dermatology Dermatology 07/04/22
== END 2025-02-01 11:27 | disposition home or self-care (01) ==
LOC: NPINS 11:26
PROVIDERS: PCP Family Medicine; Visit Provider Family Medicine
DX: I48.91 Unspecified atrial fibrillation (principal)
CPT/HCPCS: 85610